=== PATIENT | female | born 1990 | race Caucasian/White ===

== ENCOUNTER 2017-09-27 00:30 | Emergency (ER) | payer SELFPAY ==
[2017-09-27] MEDS ORDERED: HYDROCODONE/CHLORPHEN 5 ML/OSYR ONE (01:50)
--- NOTE | 2017-09-27 02:14 | EDPHYS ---
Physician Documentation [facility] Name: Bette Palmer Age: 26 yrs Sex: Female : 1990 Arrival Date: 09/27/2017 Time: 00:31 Bed 25 Private MD: ED Physician Dilshad Newsome HPI: 09/27 02:00 This 26 yrs old Female presents to ER via Ambulatory with complaints of Body pm1 ache, Breathing Difficulty - Pain. 02:00 The patient or guardian reports cough, flu symptoms, arthralgias, low-grade fever. pm1 Onset: The symptoms/episode began/occurred 5 day(s) ago. Severity of symptoms: in the emergency department the symptoms are actually worse. Modifying factors: The symptoms are alleviated by nothing, the symptoms are aggravated by nothing. Associated signs and symptoms: Pertinent positives: earache, sore throat, Pertinent negatives: chest pain, nausea, vomiting. The patient has not recently seen a physician, and does not have an established primary care provider. 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 - Social history:: Smoking status: Patient uses tobacco products, vapes, Patient uses alcohol, but reports only rare drinking. Patient/guardian denies using street drugs. ROS: 02:00 Eyes: Negative for injury, pain, redness, and discharge. pm1 02:00 Neck: Negative for injury, pain, and swelling, Cardiovascular: Negative for chest pain, palpitations, and edema. 02:00 Abdomen/GI: Negative for abdominal pain, nausea, vomiting, diarrhea, and constipation, Back: Negative for injury and pain, : Negative for injury, bleeding, discharge, and swelling, MS/Extremity: Negative for injury and deformity, Skin: Negative for injury, rash, and discoloration, Neuro: Negative for headache, weakness, numbness, tingling, and seizure. 02:00 Constitutional: Positive for body aches, fever. 02:00 ENT: Positive for ear pain, rhinorrhea, Negative for sinus congestion, sinus pain. 02:00 Respiratory: Positive for cough, sputum, Negative for shortness of breath, wheezing. Exam: 02:00 Constitutional: This is a well developed, well nourished patient who is awake, alert, pm1 and in no acute distress. Head/Face: Normocephalic, atraumatic. Eyes: Pupils equal round and reactive to light, extra-ocular motions intact. Lids and lashes normal. Conjunctiva and sclera are non-icteric and not injected. Cornea within normal limits. Periorbital areas with no swelling, redness, or edema. ENT: Nares patent. No nasal discharge, no septal abnormalities noted. Tympanic membranes are normal and external auditory canals are clear. Oropharynx with no redness, swelling, or masses, exudates, or evidence of obstruction, uvula midline. Mucous membranes moist. Neck: Trachea midline, no thyromegaly or masses palpated, and no cervical lymphadenopathy. Supple, full range of motion without nuchal rigidity, or vertebral point tenderness. No Meningismus. Chest/axilla: Normal chest wall appearance and motion. Nontender with no deformity. No lesions are appreciated. Cardiovascular: Regular rate and rhythm with a normal S1 and S2. No gallops, murmurs, or rubs. No pulse deficits. Respiratory: Lungs have equal breath sounds bilaterally, clear to auscultation and percussion. No rales, rhonchi or wheezes noted. No increased work of breathing, no retractions or nasal flaring. Abdomen/GI: Soft, non-tender, with normal bowel sounds. No distension or tympany. No guarding or rebound. No evidence of tenderness throughout. Back: No spinal tenderness. No costovertebral tenderness. Full range of motion. Skin: Warm, dry with normal turgor. Normal color with no rashes, no lesions, and no evidence of cellulitis. MS/ Extremity: Pulses equal, no cyanosis. Neurovascular intact. Full, normal range of motion. 02:00 Neuro: Orientation: is normal, Motor: moves all fours. Vital Signs: 00:46 BP 123 / 85; Pulse 95; Resp 18 S; Temp 99.4(TE); Pulse Ox 100% on R/A; Weight 58.97 kg bb (R); Height 5 ft. 10 in. (177.80 cm) (R); Pain 9/10; 01:48 BP 128 / 84; Pulse 94; Resp 18; Pulse Ox 100% on R/A; mt 00:46 Body Mass Index 18.65 (58.97 kg, 177.80 cm) bb MDM: 00:52 Patient medically screened. pm1 02:12 Data reviewed: vital signs. Data interpreted: Pulse oximetry: on room air is 100 %. pm1 Interpretation: normal. 09/27 01:39 Order name: Urine Dipstick--Ancillary (enter results) 2 09/27 01:39 Order name: Urine --Ancillary (enter results) 2 09/27 01:05 Order name: Chest Pa And Lat (2 Views) XRAY pm1 09/27 01:05 Order name: Urine Dipstick-Ancillary (obtain specimen); Complete Time: 01:38 pm1 09/27 01:05 Order name: Urine Test (obtain specimen); Complete Time: 01:38 pm1 Administered Medications: 01:35 Drug: Tussionex Pennkinetic ER 5 ml Route: PO; kb1 Disposition: 03:58 Co-signature as Attending Physician, Dilshad Newsome MD I agree with the assessment and kdr plan of care. Disposition: 09/27/17 02:13 Patient left the facility after being seen by provider. Preliminary diagnosis is Acute upper respiratory infection, unspecified. - Patient left due to (see nurse's notes). - Condition is Undetermined. - Problem is new. - Symptoms are unchanged. Signatures: Dispatcher [employer] EDMS Dilshad Newsome MD MD [facility] Reta Blas RN RN bb Klaus Barrera, OZZY OVEN HEATER pm1 Kelsea Beckwith RN RN kb1
--- NOTE | 2017-09-27 02:14 | ER ---
Nurse's Notes [facility] Name: Bette Palmer Age: 26 yrs Sex: Female : 1990 Arrival Date: 09/27/2017 Time: 00:31 Bed 25 Private MD: Diagnosis: Acute upper respiratory infection, unspecified Presentation: 09/27 00:44 Presenting complaint: Patient states: she has productive cough, pain with coughing, bb body aches x 5 days thought it would get better but it is not. Transition of care: patient was not received from another setting of care. Onset of symptoms was September 22, 2017. Care prior to arrival: None. 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 - Social history:: Smoking status: Patient uses tobacco products, vapes, Patient uses alcohol, but reports only rare drinking. Patient/guardian denies using street drugs. Screenin:46 Abuse screen: Denies threats or abuse. Nutritional screening: No deficits noted. tl3 Tuberculosis screening: No symptoms or risk factors identified. Fall Risk None identified. Assessment: 00:46 General: Appears in no apparent distress. slender, well groomed, well developed, well tl3 nourished, Behavior is calm, cooperative, appropriate for age. Pain: Complains of pain in chest Pain currently is 8 out of 10 on a pain scale. Neuro: Level of Consciousness is awake, alert, obeys commands, Oriented to person, place, time, situation, Appropriate for age. Cardiovascular: Heart tones S1 S2 present Capillary refill < 3 seconds in bilateral fingers Rhythm is regular. Respiratory: Airway is patent Trachea midline Breath sounds are clear bilaterally. productive cough noted, pt states that pain is with coughing "feels like my lungs hurt". GI: No signs and/or symptoms were reported involving the gastrointestinal system. : No signs and/or symptoms were reported regarding the genitourinary system. EENT: Nares with drainage noted Reports nasal congestion nasal discharge full feeling in ears, unable to hear well. Derm: pt has small lesions to hands, one visualized on her chest. Musculoskeletal: No signs and/or symptoms reported regarding the musculoskeletal system. 01:36 Reassessment: Patient appears in no apparent distress at this time. Patient and/or kb1 family updated on plan of care and expected duration. Pain level reassessed. Patient is alert, oriented x 3, equal unlabored respirations, skin warm/dry/pink. 02:14 Reassessment: Pt placed friction saw operator Demetrice minor entered room to help Pt. Pt states kb1 "This monitor keeps going off, I can't stand it." Monitor turned off by staff. Pt then ask "how much longer? I'm tired of waiting." Demetrice MCCULLOUGHT came to station to check on results. Pt stormed out of room. This nurse asked Pt if she wanted to stay for her X-Ray results. States "No, I'm leaving." and continued to exit department. Klaus PRECIADO made aware. Vital Signs: 00:46 BP 123 / 85; Pulse 95; Resp 18 S; Temp 99.4(TE); Pulse Ox 100% on R/A; Weight 58.97 kg bb (R); Height 5 ft. 10 in. (177.80 cm) (R); Pain 9/10; 01:48 BP 128 / 84; Pulse 94; Resp 18; Pulse Ox 100% on R/A; mt 00:46 Body Mass Index 18.65 (58.97 kg, 177.80 cm) ED Course: 00:31 Patient arrived in ED. ds1 00:46 Triage completed. bb 00:46 No apparent distress. Resting quietly. Awaiting ED provider evaluation. tl3 00:46 Arm band placed on Patient placed in an exam room, on a stretcher, on pulse oximetry. bb Family accompanied patient. 00:46 Patient has correct armband on for positive identification. Bed in low position. Call tl3 light in reach. Side rails up X 1. 00:46 No provider procedures requiring assistance completed. tl3 00:52 Klaus Barrera NP is PHCP. pm1 00:52 Dilshad Newsome MD is Attending Physician. pm1 01:23 Kelsea Beckwith RN is Primary Nurse. kb1 01:23 Patient moved to radiology via wheelchair. kw 01:23 X-ray completed. Patient tolerated procedure well. kw 01:23 Patient moved back from radiology. kw 01:24 Chest Pa And Lat (2 Views) XRAY In Process Unspecified. EDMS Administered Medications: 01:35 Drug: Tussionex Pennkinetic ER 5 ml Route: PO; kb1 Outcome: 02:17 Eloped from patient exam room, after seeing physician kb1 02:17 Patient left the ED. kb1 Signatures: Dispatcher [employer] EDMS Natali Romeo ds1 Reta Blas, RN RN bb Dyan Avila Patrick, OZZY NUTRITION ASSOCIATE pm1 Demetrice White mt, Kristina, RN RN kb1 Domonique Fontanez RN RN tl3
[2017-09-27 03:01] LABS: Urine Blood NEGATIVE (NEG); Urine Glucose NEGATIVE (NEG); Urine Protein TRACE (NEG); Urine Specific Gravity 1.015 (1.005-1.030); Urine pH 6.5 (5.0-7.0)
--- NOTE | 2017-09-27 08:20 | RAD REPORT ---
EXAM DESCRIPTION: RAD - Chest Pa And Lat (2 Views) - 09/27/2017 1:26 am CLINICAL HISTORY: Productive cough COMPARISON: 12/10/2014 FINDINGS: The lungs are clear. The heart is normal in size. No displaced fractures. IMPRESSION: No acute or concerning finding suspected.
== END 2017-09-27 02:17 | disposition left against medical advice (07) ==
LOC: ER 00:30
DX: J06.9 Acute upper respiratory infection, unspecified (principal); R50.9 Fever, unspecified; Z72.0 Tobacco use
CPT/HCPCS: 71046; 81003; 81025; 99283

== ENCOUNTER 2018-02-26 21:38 | Emergency (ER) | payer SELFPAY ==
--- NOTE | 2018-02-26 23:14 | EDPHYS ---
Physician Documentation [facility] Name: Bette Palmer Age: 27 yrs Sex: Female : 1990 Arrival Date: 02/26/2018 Time: 21:38 Bed 17 Private MD: ED Physician Nicho Adler HPI: 02/26 23:21 This 27 yrs old Female presents to ER via Ambulatory with complaints of Sore tw4 Throat. 23:21 The patient presents with sore throat. The patient describes throat pain as burning. tw4 Onset: The symptoms/episode began/occurred today. Severity of symptoms: At their worst the symptoms were moderate, in the emergency department the symptoms are unchanged. Modifying factors: The symptoms are alleviated by nothing, the symptoms are aggravated by nothing. The patient has not experienced similar symptoms in the past. 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 - Social history:: Smoking status: Patient uses tobacco products, vapes. - Ebola Screening: : No symptoms or risks identified at this time. ROS: 23:22 Constitutional: Negative for fever, chills, and weight loss, Eyes: Negative for injury, tw4 pain, redness, and discharge. 23:22 ENT: Positive for sore throat. Exam: 23:22 Constitutional: This is a well developed, well nourished patient who is awake, alert, tw4 and in no acute distress. Head/Face: Normocephalic, atraumatic. Chest/axilla: Normal chest wall appearance and motion. Nontender with no deformity. No lesions are appreciated. Cardiovascular: Regular rate and rhythm with a normal S1 and S2. No gallops, murmurs, or rubs. Normal PMI, no JVD. No pulse deficits. Respiratory: Lungs have equal breath sounds bilaterally, clear to auscultation and percussion. No rales, rhonchi or wheezes noted. No increased work of breathing, no retractions or nasal flaring. Abdomen/GI: Soft, non-tender, with normal bowel sounds. No distension or tympany. No guarding or rebound. No evidence of tenderness throughout. MS/ Extremity: Pulses equal, no cyanosis. Neurovascular intact. Full, normal range of motion. 23:22 ENT: Posterior pharynx: erythema, that is mild. Vital Signs: 21:55 BP 123 / 76; Pulse 92; Resp 18; Temp 98.9(O); Pulse Ox 98% on R/A; Weight 54.43 kg (R); ak1 Height 5 ft. 10 in. (177.80 cm) (R); Pain 5/10; 23:23 BP 113 / 65; Pulse 89; Resp 14; Pulse Ox 99% ; bp 21:55 Body Mass Index 17.22 (54.43 kg, 177.80 cm) ak1 MDM: 21:56 Patient medically screened. tw4 23:22 Data reviewed: vital signs, nurses notes. Counseling: I had a detailed discussion with tw4 the patient and/or guardian regarding: the historical points, exam findings, and any diagnostic results supporting the discharge/admit diagnosis. Counseling: I had a detailed discussion with the patient and/or guardian regarding: lab results. Special discussion: I discussed with the patient/guardian in detail that at this point there is no indication for admission to the hospital. It is understood, however, that if the symptoms persist or worsen the patient needs to return immediately for re-evaluation. 02/26 22:12 Order name: Strep tw4 02/26 23:00 Order name: Throat Culture EDMS Administered Medications: No medications were administered Disposition: 02/26/18 23:13 Discharged to Home. Impression: Viral pharyngitis. - Condition is Stable. - Discharge Instructions: Pharyngitis, [id number]. - Medication Reconciliation Form, Thank You Letter, Antibiotic Education, Prescription Opioid Use form. - Follow up: Nicho Adler MD; When: Upon discharge from the Emergency Department; Reason: Further diagnostic work-up, Recheck today's complaints, Continuance of care. - Problem is new. - Symptoms have improved. Signatures: Dispatcher [employer] EDMS Judit Woodson RN RN ak1 Mohinder Gomes RN RN bp Nicho Adler MD MD tw4 Corrections: (The following items were deleted from the chart) 23:23 23:13 02/26/2018 23:13 Discharged to Home. Impression: Viral pharyngitis. Condition is bp Stable. Forms are Medication Reconciliation Form, Thank You Letter, Antibiotic Education, Prescription Opioid Use. Follow up: Nicho Adler; When: Upon discharge from the Emergency Department; Reason: Further diagnostic work-up, Recheck today's complaints, Continuance of care. Problem is new. Symptoms have improved. tw4
--- NOTE | 2018-02-26 23:14 | ER ---
Nurse's Notes [facility] Name: Bette Palmer Age: 27 yrs Sex: Female : 1990 Arrival Date: 02/26/2018 Time: 21:38 Bed 17 Private MD: Diagnosis: Viral pharyngitis Presentation: 02/26 21:53 Presenting complaint: Patient states: throat pain X1 day with nasal drainage, pressure ak1 in bilateral ears. pt daughter was seen and dx Monday with strep. Transition of care: patient was not received from another setting of care. Onset of symptoms is unknown. Risk Assessment: Do you want to hurt yourself or someone else? Patient reports no desire to harm self or others. Initial Sepsis Screen: Does the patient meet any 2 criteria? No. Patient's initial sepsis screen is negative. Does the patient have a suspected source of infection? No. Patient's initial sepsis screen is negative. Care prior to arrival: None. 21:53 Method Of Arrival: Ambulatory ak1 21:53 Acuity: NATASHA 4 ak1 Triage Assessment: 21:55 General: Appears in no apparent distress. Behavior is calm, cooperative. Pain: ak1 Complains of pain in throat. 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 - Social history:: Smoking status: Patient uses tobacco products, vapes. - Ebola Screening: : No symptoms or risks identified at this time. Screenin:56 Abuse screen: Denies threats or abuse. Denies injuries from another. Nutritional ak1 screening: No deficits noted. Tuberculosis screening: No symptoms or risk factors identified. Fall Risk None identified. Assessment: 21:56 Respiratory: Airway is patent Respiratory effort is even, unlabored. ak1 22:00 General: Appears in no apparent distress. comfortable, ill, slender, Behavior is calm, bp cooperative, appropriate for age. Neuro: Level of Consciousness is awake, alert, obeys commands, Oriented to person, place, time, situation, Appropriate for age. Cardiovascular: No deficits noted. Respiratory: Breath sounds are clear bilaterally. GI: No signs and/or symptoms were reported involving the gastrointestinal system. : No signs and/or symptoms were reported regarding the genitourinary system. EENT: Throat is clear. 23:22 Reassessment: PT D/C HOME AMBULATORY, DX WITH VIRAL PHARYNGITIS. bp Vital Signs: 21:55 BP 123 / 76; Pulse 92; Resp 18; Temp 98.9(O); Pulse Ox 98% on R/A; Weight 54.43 kg (R); ak1 Height 5 ft. 10 in. (177.80 cm) (R); Pain 5/10; 23:23 BP 113 / 65; Pulse 89; Resp 14; Pulse Ox 99% ; bp 21:55 Body Mass Index 17.22 (54.43 kg, 177.80 cm) ak1 ED Course: 21:38 Patient arrived in ED. ds1 21:54 Triage completed. ak1 21:55 Arm band placed on Patient placed in an exam room, on a stretcher, Patient notified of ak1 wait time. 21:55 Patient has correct armband on for positive identification. Bed in low position. Call ak1 light in reach. Side rails up X 1. 21:56 Nicho Adler MD is Attending Physician. tw4 22:12 Mohinder Gomes, RN is Primary Nurse. bp 23:12 Nicho Adler MD is Referral Physician. tw4 23:22 No provider procedures requiring assistance completed. Patient did not have IV access bp during this emergency room visit. Administered Medications: No medications were administered Outcome: 23:13 Discharge ordered by . tw4 23:22 Discharged to home ambulatory. bp 23:22 Condition: stable 23:22 Discharge instructions given to patient, Instructed on discharge instructions, follow up and referral plans. Demonstrated understanding of instructions, follow-up care. 23:23 Patient left the ED. bp Signatures: Natali Romeo ds1 Judit Woodson RN RN [facility] Mohinder Gomes, Nicho Betancur RN, MD MD tw4
== END 2018-02-26 23:23 | disposition home or self-care (01) ==
LOC: ER 21:38
DX: J02.9 Acute pharyngitis, unspecified (principal); Z72.0 Tobacco use
CPT/HCPCS: 87070; 87081; 99281

== ENCOUNTER 2018-05-03 11:27 | Emergency (ER) | payer OTHER, SELFPAY ==
--- NOTE | 2018-05-03 13:47 | ER ---
Nurse's Notes [facility] Name: Bette Palmer Age: 27 yrs Sex: Female : 1990 Arrival Date: 05/03/2018 Time: 11:30 Bed 11 Private MD: None, None Diagnosis: Acute upper respiratory infection, unspecified;Tobacco use;Tobacco abuse counseling Presentation: 05/03 11:32 Presenting complaint: Patient states: cough, congestion, nasal congestion x 2 days. sv Transition of care: patient was not received from another setting of care. Onset of symptoms was May 01, 2018. Care prior to arrival: None. 11:32 Method Of Arrival: Ambulatory sv 11:32 Acuity: NATASHA 3 sv 11:35 Note Pt currently . sv 13:10 Risk Assessment: Do you want to hurt yourself or someone else? Patient reports no aa5 desire to harm self or others. Initial Sepsis Screen: Does the patient meet any 2 criteria? No. Patient's initial sepsis screen is negative. Does the patient have a suspected source of infection? No. Patient's initial sepsis screen is negative. Triage Assessment: 11:32 General: Appears in no apparent distress. uncomfortable, slender, Behavior is calm, sv cooperative, appropriate for age. Pain: Denies pain. EENT: Reports nasal congestion. Neuro: Level of Consciousness is awake, alert, obeys commands, Oriented to person, place, time, situation, Moves all extremities. Full function. Respiratory: Reports cough that is persistent Respiratory effort is even, unlabored, Respiratory pattern is regular, symmetrical. Historical: - Allergies: 11:34 NKA; sv - PMHx: 11:34 None; sv - PSHx: 11:34 Tonsillectomy; sv - Immunization history:: Flu vaccine is not up to date. - Social history:: Smoking status: Patient uses tobacco products, vape. - Ebola Screening: : No symptoms or risks identified at this time. - Family history:: not pertinent. - Hospitalizations: : No recent hospitalization is reported. Screenin:10 Abuse screen: Denies threats or abuse. Nutritional screening: No deficits noted. aa5 Tuberculosis screening: No symptoms or risk factors identified. Fall Risk None identified. Assessment: 13:10 General: Appears comfortable, Behavior is calm, cooperative. Pain: Denies pain. Neuro: aa5 Level of Consciousness is awake, alert, obeys commands, Oriented to person, place, time, situation. Cardiovascular: Heart tones S1 S2 present Rhythm is regular. Respiratory: Reports cough and chest congestion Airway is patent Respiratory effort is even, unlabored, Respiratory pattern is regular, symmetrical, Breath sounds are clear bilaterally. GI: No signs and/or symptoms were reported involving the gastrointestinal system. : No signs and/or symptoms were reported regarding the genitourinary system. EENT: Reports nasal congestion. Derm: Skin is pink, warm \T\ dry. Musculoskeletal: Range of motion: intact in all extremities. 13:52 Reassessment: Patient is alert, oriented x 3, equal unlabored respirations, skin aa5 warm/dry/pink. Vital Signs: 11:35 BP 135 / 90; Pulse 83; Resp 16; Temp 98.2; Pulse Ox 100% ; Weight 58.97 kg; Height 5 sv ft. 10 in. (177.80 cm); Pain 0/10; 13:50 BP 122 / 85; Pulse 78; Resp 16 S; Temp 98.1(O); Pulse Ox 100% on R/A; Pain 0/10; aa5 11:35 Body Mass Index 18.65 (58.97 kg, 177.80 cm) sv ED Course: 11:30 Patient arrived in ED. mr 11:31 None, None is Private Physician. mr 11:33 Triage completed. sv 11:35 Arm band placed on. sv 11:35 Patient placed in waiting room, Patient notified of wait time. sv 13:10 Patient has correct armband on for positive identification. aa5 13:26 Jimena Mcpherson, BARAK is Primary Nurse. aa5 13:28 Adam[facility] kav 13:28 Fabrice Aleman MD is Attending Physician. kav 13:52 Patient did not have IV access during this emergency room visit. aa5 13:52 No provider procedures requiring assistance completed. aa5 Administered Medications: No medications were administered Outcome: 13:46 Discharge ordered by . kav 13:52 Discharged to home ambulatory. aa5 13:52 Condition: stable 13:52 Discharge instructions given to patient, Instructed on discharge instructions, follow up and referral plans. Demonstrated understanding of instructions, follow-up care. 13:55 Patient left the ED. aa5 Signatures: Stephanie Escalante RN RN sv Jose Manuel, Adamaris, CUPROUS CHLORIDE HELPER CUPROUS CHLORIDE HELPER kera Red, Roya mr Mcpherson, Jimena, RN RN aa5
--- NOTE | 2018-05-03 13:47 | EDPHYS ---
Physician Documentation [facility] Name: Bette Palmer Age: 27 yrs Sex: Female : 1990 Arrival Date: 05/03/2018 Time: 11:30 Bed 11 Private MD: None, None ED Physician Fabrice Aleman HPI: 05/03 13:40 This 27 yrs old Female presents to ER via Ambulatory with complaints of kav Congestion. 13:40 Onset: The symptoms/episode began/occurred acutely. Associated signs and symptoms: kav Pertinent positives: congestion, cough, Pertinent negatives: earache, fever, headache. Modifying factors: The patient symptoms are alleviated by nothing, the patient symptoms are aggravated by smoking/vaping. The patient has not experienced similar symptoms in the past. The patient has not recently seen a physician. patient reports that she is 6 weeks . 13:42 The patient or guardian reports cough, that is intermittent, described as moderate, kav with productive sputum, that is green. Modifying factors: The symptoms are alleviated by nothing. Associated signs and symptoms:. Severity of symptoms: At their worst the symptoms were moderate. Historical: - Allergies: 11:34 NKA; sv - PMHx: 11:34 None; sv - PSHx: 11:34 Tonsillectomy; sv - Immunization history:: Flu vaccine is not up to date. - Social history:: Smoking status: Patient uses tobacco products, vape. - Ebola Screening: : No symptoms or risks identified at this time. - Family history:: not pertinent. - Hospitalizations: : No recent hospitalization is reported. ROS: 13:43 Constitutional: Negative for fever, chills, and weight loss, Eyes: Negative for injury, kav pain, redness, and discharge, Neck: Negative for injury, pain, and swelling, Cardiovascular: Negative for chest pain, palpitations, and edema, Abdomen/GI: Negative for abdominal pain, nausea, vomiting, diarrhea, and constipation, Back: Negative for injury and pain, : Negative for injury, bleeding, discharge, and swelling, MS/Extremity: Negative for injury and deformity, Skin: Negative for injury, rash, and discoloration, Neuro: Negative for headache, weakness, numbness, tingling, and seizure, Psych: Negative for depression, anxiety, suicide ideation, homicidal ideation, and hallucinations, Allergy/Immunology: Negative for hives, rash, and allergies, Endocrine: Negative for neck swelling, polydipsia, polyuria, polyphagia, and marked weight changes, Hematologic/Lymphatic: Negative for swollen nodes, abnormal bleeding, and unusual bruising. 13:43 ENT: Positive for sinus congestion, Negative for sore throat. 13:43 Respiratory: Positive for cough, "sounds productive". Exam: 13:43 Constitutional: This is a well developed, well nourished patient who is awake, alert, kav and in no acute distress. Head/Face: Normocephalic, atraumatic. Eyes: Pupils equal round and reactive to light, extra-ocular motions intact. Lids and lashes normal. Conjunctiva and sclera are non-icteric and not injected. Cornea within normal limits. Periorbital areas with no swelling, redness, or edema. Neck: Trachea midline, no thyromegaly or masses palpated, and no cervical lymphadenopathy. Supple, full range of motion without nuchal rigidity, or vertebral point tenderness. No Meningismus. Chest/axilla: Normal chest wall appearance and motion. Nontender with no deformity. No lesions are appreciated. Cardiovascular: Regular rate and rhythm with a normal S1 and S2. No gallops, murmurs, or rubs. Normal PMI, no JVD. No pulse deficits. Abdomen/GI: Soft, non-tender, with normal bowel sounds. No distension or tympany. No guarding or rebound. No evidence of tenderness throughout. Back: No spinal tenderness. No costovertebral tenderness. Full range of motion. Skin: Warm, dry with normal turgor. Normal color with no rashes, no lesions, and no evidence of cellulitis. MS/ Extremity: Pulses equal, no cyanosis. Neurovascular intact. Full, normal range of motion. Neuro: Awake and alert, GCS 15, oriented to person, place, time, and situation. Cranial nerves II-XII grossly intact. Motor strength 5/5 in all extremities. Sensory grossly intact. Cerebellar exam normal. Normal gait. Psych: Awake, alert, with orientation to person, place and time. Behavior, mood, and affect are within normal limits. 13:43 ENT: External ear(s): are unremarkable, no acute changes, Ear canal(s): are normal, no acute changes, TM's: are normal, no acute changes, Nose: is normal, no acute changes, Posterior pharynx: no acute changes, Airway: Dental exam: dental caries, fractured teeth are noted, diffusely. 13:43 Respiratory: the patient does not display signs of respiratory distress, Respirations: normal, no acute changes, Breath sounds: bronchial sounds, that are mild, are heard diffusely. Vital Signs: 11:35 BP 135 / 90; Pulse 83; Resp 16; Temp 98.2; Pulse Ox 100% ; Weight 58.97 kg; Height 5 sv ft. 10 in. (177.80 cm); Pain 0/10; 13:50 BP 122 / 85; Pulse 78; Resp 16 S; Temp 98.1(O); Pulse Ox 100% on R/A; Pain 0/10; aa5 11:35 Body Mass Index 18.65 (58.97 kg, 177.80 cm) sv MDM: 13:28 Medical screening is not applicable. [facility] 13:43 Data reviewed: vital signs, nurses notes. [facility] 05/03 11:35 Order name: Flu; Complete Time: 13:28 sv 05/03 13:28 Interpretation: Within normal limits. kav Administered Medications: No medications were administered Disposition: 18:48 Co-signature as Attending Physician, Fabrice Aleman MD. rn Disposition: 05/03/18 13:46 Discharged to Home. Impression: Acute upper respiratory infection, unspecified, Tobacco use, Tobacco abuse counseling. - Condition is Stable. - Discharge Instructions: Upper Respiratory Infection, Adult. - Medication Reconciliation Form, Thank You Letter form. - Follow up: Private Physician; When: 5 - 6 days; Reason: Recheck today's complaints, Continuance of care, Re-evaluation by your physician. - Problem is new. - Symptoms are unchanged. - Notes: over the counter pseudophederine as directed by your obgyn encourage adequate fluid intake abstain from smoking/vaping Signatures: Dispatcher [employer] Stephanie Reardon RN Adamaris Lama, BUSINESS ANALYST CONSULTANT BUSINESS ANALYST CONSULTANT Fabrice Carballo MD MD rn Calderon, Audri, RN RN aa5 Corrections: (The following items were deleted from the chart) 13:48 13:46 05/03/2018 13:46 Discharged to Home. Impression: Acute upper respiratory kav infection, unspecified. Condition is Stable. Forms are Medication Reconciliation Form, Thank You Letter, Antibiotic Education, Prescription Opioid Use. Follow up: Private Physician; When: 5 - 6 days; Reason: Recheck today's complaints, Continuance of care, Re-evaluation by your physician. Problem is new. Symptoms are unchanged. kav 13:55 13:48 05/03/2018 13:46 Discharged to Home. Impression: Acute upper respiratory aa5 infection, unspecified; Tobacco use; Tobacco abuse counseling. Condition is Stable. Discharge Instructions: Upper Respiratory Infection, Adult. Forms are Medication Reconciliation Form, Thank You Letter, Antibiotic Education. Follow up: Private Physician; When: 5 - 6 days; Reason: Recheck today's complaints, Continuance of care, Re-evaluation by your physician. Problem is new. Symptoms are unchanged. kav
== END 2018-05-03 13:55 | disposition home or self-care (01) ==
LOC: ER 11:27
DX: J06.9 Acute upper respiratory infection, unspecified (principal); O99.331 Smoking (tobacco) complicating pregnancy, first trimester; Z3A.01 Less than 8 weeks gestation of pregnancy; Z71.6 Tobacco abuse counseling
CPT/HCPCS: 87804; 99281

== ENCOUNTER 2018-10-28 17:57 | Emergency (ER) | payer OTHER ==
--- OUTSIDE RECORDS SUMMARY | 2018-10-28 17:59 | XMS REPORT ---
:1990 [facility] Address [address] [place] [address] Dr. Jay. [address] [place] [id number] Care Team Providers Name Role Phone Unavailable Unavailable Unavailable Problems This patient has no known problems. Allergies, Adverse Reactions, Alerts This patient has no known allergies or adverse reactions. Medications This patient has no known medications.
--- NOTE | 2018-10-28 19:21 | ER ---
Nurse's Notes [facility] Name: Bette Palmer Age: 27 yrs Sex: Female : 1990 Arrival Date: 10/28/2018 Time: 17:59 Bed 20 Private MD: Diagnosis: Acute pharyngitis Presentation: 10/28 18:07 Presenting complaint: Patient states: I am 31 weeks and have had a sore throat la1 since yesterday. Transition of care: patient was not received from another setting of care. Onset of symptoms was October 28, 2018. Risk Assessment: Do you want to hurt yourself or someone else? Patient reports no desire to harm self or others. Initial Sepsis Screen: Does the patient meet any 2 criteria? No. Patient's initial sepsis screen is negative. Does the patient have a suspected source of infection? No. Patient's initial sepsis screen is negative. Care prior to arrival: None. 18:07 Method Of Arrival: Ambulatory la1 18:07 Acuity: NATASHA 4 la1 Historical: - Allergies: 18:08 NKA; la1 - PMHx: 18:08 None; la1 - Immunization history:: Adult Immunizations up to date. - Social history:: Smoking status: Patient/guardian denies using tobacco. - Ebola Screening: : No symptoms or risks identified at this time. Screenin:25 Abuse screen: Denies threats or abuse. Nutritional screening: No deficits noted. em Tuberculosis screening: No symptoms or risk factors identified. Fall Risk None identified. Assessment: 18:25 General: Appears in no apparent distress. comfortable, Behavior is calm, cooperative, em Denies fever. Pain: Complains of pain in sore throat. Neuro: Level of Consciousness is awake, alert, obeys commands, Oriented to person, place, time, situation. Cardiovascular: Capillary refill < 3 seconds Patient's skin is warm and dry. Respiratory: Reports cough that is non-productive, Airway is patent Respiratory effort is even, unlabored, Respiratory pattern is regular, symmetrical, Breath sounds are clear bilaterally. GI: Patient currently denies nausea, vomiting. EENT: Oral mucosa is moist. Throat is clear is pink Reports nasal congestion. Derm: Skin is intact, is healthy with good turgor, Skin is pink, warm \T\ dry. Musculoskeletal: Capillary refill < 3 seconds, Range of motion: intact in all extremities. Vital Signs: 18:08 BP 132 / 78; Pulse 95; Resp 18; Temp 98.1; Pulse Ox 98% on R/A; Weight 77.11 kg; Height la1 5 ft. 10 in. (177.80 cm); 19:10 BP 113 / 66; Pulse 90; Resp 18; Temp 98.3; Pulse Ox 100% on R/A; rr5 18:08 Body Mass Index 24.39 (77.11 kg, 177.80 cm) la1 Vitals: 18:37 Heart Tones 160 BPM. em ED Course: 17:59 Patient arrived in ED. as 18:08 Triage completed. la1 18:09 Arm band placed on left wrist. la1 18:10 Klaus Barrera NP is PHCP. pm1 18:10 Fabrice Aleman MD is Attending Physician. pm1 18:25 Kameron Nelson LVN is Primary Nurse. em 18:25 Patient has correct armband on for positive identification. Bed in low position. Call em light in reach. 18:25 Flu and/or RSV swab sent to lab. Strep swab sent to lab. em Administered Medications: No medications were administered Outcome: 19:21 Discharge ordered by MD. pm1 19:42 Patient left the ED. rr5 Signatures: Kameron Nelson LVN LVN em Kimberlyn Lang as Zachery Delaney RN RN la1 Klaus Barrera NP MANUFACTURING MANAGER pm1 Stefano Bauer RN RN rr5 Corrections: (The following items were deleted from the chart) 18:10 18:08 BP 141 / 72; Pulse 95bpm; Resp 18bpm; Pulse Ox 98% RA; Temp 98.1F; 77.11 kg; la1 Height 5 ft. 10 in.; BMI: 24.3; la1
--- NOTE | 2018-10-28 19:21 | EDPHYS ---
Physician Documentation [facility] Name: Bette Palmer Age: 27 yrs Sex: Female : 1990 Arrival Date: 10/28/2018 Time: 17:59 Bed 20 Private MD: ED Physician Fabrice Aleman HPI: 10/28 19:20 This 27 yrs old Female presents to ER via Ambulatory with complaints of Sore pm1 Throat. 19:30 The patient presents with sore throat. The patient describes throat pain as raw, pm1 scratchy. Onset: The symptoms/episode began/occurred yesterday. Severity of symptoms: in the emergency department the symptoms are unchanged. Modifying factors: The symptoms are alleviated by nothing, the symptoms are aggravated by swallowing, Patient's oral intake status: good unaware of sick contact. Associated signs and symptoms: Pertinent negatives chest pain, cough, diarrhea, earache, fever, flu-like symptoms, headache, shortness of breath, vomiting. The patient has not recently seen a physician, has an appointment scheduled, in 3 day(s). Historical: - Allergies: 18:08 NKA; la1 - PMHx: 18:08 None; la1 - Immunization history:: Adult Immunizations up to date. - Social history:: Smoking status: Patient/guardian denies using tobacco. - Ebola Screening: : No symptoms or risks identified at this time. ROS: 19:30 Constitutional: Negative for fever, chills, and weight loss, Eyes: Negative for injury, pm1 pain, redness, and discharge. 19:30 Neck: Negative for injury, pain, and swelling, Cardiovascular: Negative for chest pain, palpitations, and edema, Respiratory: Negative for shortness of breath, cough, wheezing, and pleuritic chest pain, Abdomen/GI: Negative for abdominal pain, nausea, vomiting, diarrhea, and constipation, Back: Negative for injury and pain, : Negative for injury, bleeding, discharge, and swelling, MS/Extremity: Negative for injury and deformity, Skin: Negative for injury, rash, and discoloration, Neuro: Negative for headache, weakness, numbness, tingling, and seizure. 19:30 ENT: Positive for sore throat, Negative for drainage from ear(s), ear pain, sinus congestion, sinus pain, dental pain, difficulty swallowing, difficulty handling secretions, hoarseness. Exam: 19:30 Constitutional: This is a well developed, well nourished patient who is awake, alert, pm1 and in no acute distress. Head/Face: Normocephalic, atraumatic. Eyes: Pupils equal round and reactive to light, extra-ocular motions intact. Lids and lashes normal. Conjunctiva and sclera are non-icteric and not injected. Cornea within normal limits. Periorbital areas with no swelling, redness, or edema. ENT: Nares patent. No nasal discharge, no septal abnormalities noted. Tympanic membranes are normal and external auditory canals are clear. Oropharynx with no redness, swelling, or masses, exudates, or evidence of obstruction, uvula midline. Mucous membranes moist. Neck: Trachea midline, no thyromegaly or masses palpated, and no cervical lymphadenopathy. Supple, full range of motion without nuchal rigidity, or vertebral point tenderness. No Meningismus. Chest/axilla: Normal chest wall appearance and motion. Nontender with no deformity. No lesions are appreciated. Cardiovascular: Regular rate and rhythm with a normal S1 and S2. No gallops, murmurs, or rubs. Normal PMI, no JVD. No pulse deficits. Respiratory: Lungs have equal breath sounds bilaterally, clear to auscultation and percussion. No rales, rhonchi or wheezes noted. No increased work of breathing, no retractions or nasal flaring. Back: No spinal tenderness. No costovertebral tenderness. Full range of motion. 19:30 Skin: Warm, dry with normal turgor. Normal color with no rashes, no lesions, and no evidence of cellulitis. MS/ Extremity: Pulses equal, no cyanosis. Neurovascular intact. Full, normal range of motion. 19:30 Abdomen/GI: Inspection: gravid appearance, is noted, Palpation: abdomen is soft and non-tender, in all quadrants. 19:30 Neuro: Orientation: is normal, Motor: is normal, moves all fours, Gait: is steady, at a normal pace, without difficulty. Vital Signs: 18:08 BP 132 / 78; Pulse 95; Resp 18; Temp 98.1; Pulse Ox 98% on R/A; Weight 77.11 kg; Height la1 5 ft. 10 in. (177.80 cm); 19:10 BP 113 / 66; Pulse 90; Resp 18; Temp 98.3; Pulse Ox 100% on R/A; rr5 18:08 Body Mass Index 24.39 (77.11 kg, 177.80 cm) la1 MDM: 18:11 Patient medically screened. pm1 18:29 Data reviewed: vital signs. Data interpreted: Pulse oximetry: on room air is 98 %. pm1 Interpretation: normal. 19:20 Counseling: I had a detailed discussion with the patient and/or guardian regarding: the pm1 historical points, exam findings, and any diagnostic results supporting the discharge/admit diagnosis, lab results, the need for outpatient follow up, to return to the emergency department if symptoms worsen or persist or if there are any questions or concerns that arise at home. 10/28 18:18 Order name: Flu pm1 10/28 18:18 Order name: Strep; Complete Time: 19:20 pm1 10/28 18:18 Order name: FHT's; Complete Time: 18:37 pm1 10/28 18:19 Order name: Influenza Screen (A ; Complete Time: 19:20 EDMS 10/28 18:58 Order name: Throat Culture EDMS Administered Medications: No medications were administered Disposition: 10/28/18 19:21 Discharged to Home. Impression: Acute pharyngitis. - Condition is Stable. - Discharge Instructions: Pharyngitis. - Medication Reconciliation Form, Thank You Letter, Antibiotic Education, Prescription Opioid Use form. - Follow up: Emergency Department; When: As needed; Reason: Worsening of condition. Follow up: Private Physician; When: 2 - 3 days; Reason: Recheck today's complaints, Continuance of care, Re-evaluation by your physician. - Problem is new. - Symptoms have improved. Signatures: Dispatcher [employer] EDMS Zachery Delaney RN RN la1 Klaus Barrera, OZZY ENTRY LEVEL SALES CONSULTANT pm1 Stefano Bauer RN RN rr5 Corrections: (The following items were deleted from the chart) 18:29 18:29 Counseling: I had a detailed discussion with the patient and/or guardian pm1 regarding: the historical points, exam findings, and any diagnostic results supporting the discharge/admit diagnosis, lab results, the need for outpatient follow up, to return to the emergency department if symptoms worsen or persist or if there are any questions or concerns that arise at home, pm1 19:42 19:21 10/28/2018 19:21 Discharged to Home. Impression: Acute pharyngitis. Condition is rr5 Stable. Forms are Medication Reconciliation Form, Thank You Letter, Antibiotic Education, Prescription Opioid Use. Follow up: Emergency Department; When: As needed; Reason: Worsening of condition. Follow up: Private Physician; When: 2 - 3 days; Reason: Recheck today's complaints, Continuance of care, Re-evaluation by your physician. Problem is new. Symptoms have improved. pm1
== END 2018-10-28 19:42 | disposition home or self-care (01) ==
LOC: ER 17:57
DX: J02.9 Acute pharyngitis, unspecified (principal)
CPT/HCPCS: 87070; 87081; 87804

== ENCOUNTER 2021-03-22 07:31 | Emergency (ER) | payer OTHER, SELFPAY ==
--- NOTE | 2021-03-22 07:54 | ER ---
Nurse's Notes [facility] Name: Bette Palmer Age: 30 yrs Sex: Female : 1990 Arrival Date: 03/22/2021 Time: 07:34 Bed Waiting Private MD: Diagnosis: Dental caries, unspecified;Acute gingivitis Presentation: 03/22 07:42 Chief complaint: Patient states: Lower left third molar chipped and infected, pain x 3 jl7 days. Coronavirus screen: Vaccine status: Patient reports being unvaccinated. Ebola Screen: No symptoms or risks identified at this time. Initial Sepsis Screen: Does the patient meet any 2 criteria? No. Patient's initial sepsis screen is negative. Does the patient have a suspected source of infection? No. Patient's initial sepsis screen is negative. Risk Assessment: Do you want to hurt yourself or someone else? Patient reports no desire to harm self or others. Onset of symptoms was March 20, 2021. 07:42 Method Of Arrival: Ambulatory jl7 07:42 Acuity: NATASHA 4 jl7 Triage Assessment: 07:45 General: Appears in no apparent distress. uncomfortable, Behavior is calm, cooperative, jl7 appropriate for age. Pain: Complains of pain in lower left third molar Pain radiates to throat Pain currently is 7 out of 10 on a pain scale. EENT: Reports pain in lower left third molar. DRIVER EXAMINER: 07:45 LMP 02/19/2021 jl7 Historical: - Allergies: 07:45 NKA; jl7 - Home Meds: 07:45 None [Active]; jl7 - PMHx: 07:45 None; jl7 - PSHx: 07:45 Tonsillectomy; jl7 - Immunization history:: Adult Immunizations not up to date, Client reports having NOT received the Covid vaccine. - Social history:: Smoking status: Reported history of juuling and/or vaping. - Family history:: not pertinent. - Hospitalizations: : No recent hospitalization is reported. Screenin:47 Abuse screen: Denies threats or abuse. Denies injuries from another. Nutritional jl7 screening: No deficits noted. Tuberculosis screening: No symptoms or risk factors identified. Fall Risk None identified. Assessment: 07:47 Reassessment: Dr. Aleman in triage assessing pt. jl7 Vital Signs: 07:42 BP 114 / 79; Pulse 79; Resp 15; Temp 98; Pulse Ox 100% on R/A; Weight 68.04 kg; Height jl7 5 ft. 10 in. (177.80 cm); Pain 7/10; 07:45 BP 114 / 79; Pulse 79; Resp 15; Temp 98; Pulse Ox 100% ; Pain 7/10; jl7 07:42 Body Mass Index 21.52 (68.04 kg, 177.80 cm) jl7 ED Course: 07:34 Patient arrived in ED. rg4 07:39 Fabrice Aleman MD is Attending Physician. rn 07:45 Triage completed. jl7 07:45 Arm band placed on right wrist. jl7 07:47 Patient has correct armband on for positive identification. jl7 07:47 No provider procedures requiring assistance completed. Patient did not have IV access jl7 during this emergency room visit. 07:55 Amarilys Villatoro, RN is Primary Nurse. jl7 Administered Medications: No medications were administered Outcome: 07:53 Discharge ordered by . rn 07:58 Discharged to home ambulatory. jl7 07:58 Condition: stable 07:58 Discharge instructions given to patient, Instructed on discharge instructions, follow up and referral plans. medication usage, Demonstrated understanding of instructions, follow-up care, medications, Prescriptions given X 1. 07:59 Patient left the ED. jl7 Signatures: Fabrice Aleman MD MD rn Garcia, Rubi rg4 Amarilys Villatoro, BARAK RN [id number] Corrections: (The following items were deleted from the chart) 07:46 07:45 PSHx: Vasectomy; jl7 jl7
--- NOTE | 2021-03-22 07:54 | EDPHYS ---
Physician Documentation [facility] Name: Bette Palmer Age: 30 yrs Sex: Female : 1990 Arrival Date: 03/22/2021 Time: 07:34 Bed Waiting Private MD: ED Physician Fabrice Aleman HPI: 03/22 07:49 This 30 yrs old Female presents to ER via Ambulatory with complaints of rn Toothache. 07:49 The patient presents with pain, swelling. The problem is located in the lower left rn third molar. Onset: The symptoms/episode began/occurred at an unknown time. Duration: The symptoms are intermittent. Modifying factors: The symptoms are alleviated by nothing, the symptoms are aggravated by chewing, cold fluids. Associated signs and symptoms: Pertinent positives: pain, swelling, Pertinent negatives: fever, inability to eat. Severity of symptoms: At their worst the symptoms were moderate, in the emergency department the symptoms are unchanged. The patient has experienced similar episodes in the past. The patient has not recently seen a physician. Patient reports longstanding dental problems, states left posterior lower molar has been bothering her more last few days. Denies any new trauma. States no money to get in with the dentist. Area is a little swollen and painful to chew and drink. No fever. Able to swallow.. 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 - Social history:: Smoking status: Reported history of juuling and/or vaping. - Family history:: not pertinent. - Hospitalizations: : No recent hospitalization is reported. ROS: 07:49 Constitutional: Negative for fever, chills, and weight loss, Eyes: Negative for injury, rn pain, redness, and discharge, ENT: Positive for dental pain and swelling Neck: Negative for injury, pain, and swelling, Cardiovascular: Negative for chest pain, palpitations, and edema, Respiratory: Negative for shortness of breath, cough, wheezing, and pleuritic chest pain, Neuro: Negative for headache, weakness, numbness, tingling, and seizure. Exam: 07:49 Constitutional: This is a well developed, well nourished patient who is awake, alert, rn and in no acute distress. Head/Face: Normocephalic, atraumatic. ENT: Poor general dentition. Left inferior posterior molar with moderate swelling of gum, no drainage, no palpable abscess. Vital Signs: 07:42 BP 114 / 79; Pulse 79; Resp 15; Temp 98; Pulse Ox 100% on R/A; Weight 68.04 kg; Height jl7 5 ft. 10 in. (177.80 cm); Pain 7/10; 07:45 BP 114 / 79; Pulse 79; Resp 15; Temp 98; Pulse Ox 100% ; Pain 7/10; jl7 07:42 Body Mass Index 21.52 (68.04 kg, 177.80 cm) jl7 MDM: 07:39 Patient medically screened. rn 07:49 Differential diagnosis: dental caries, gingivitis, dental abscess. Data reviewed: vital rn signs, nurses notes, and as a result, I will discharge patient. Counseling: I had a detailed discussion with the patient and/or guardian regarding: the historical points, exam findings, and any diagnostic results supporting the discharge/admit diagnosis, the need for outpatient follow up, to return to the emergency department if symptoms worsen or persist or if there are any questions or concerns that arise at home. Special discussion: I discussed with the patient/guardian in detail that at this point there is no indication for admission to the hospital. It is understood, however, that if the symptoms persist or worsen the patient needs to return immediately for re-evaluation. Based on the history and exam findings, there is no indication for further emergent testing or inpatient evaluation. I discussed with the patient/guardian the need to see a dentist for further evaluation of the symptoms. Administered Medications: No medications were administered Disposition Summary: 03/22/21 07:53 Discharge Ordered Location: Home rn Problem: an ongoing problem rn Symptoms: have improved rn Condition: Stable rn Diagnosis - Dental caries, unspecified rn - Acute gingivitis rn Followup: rn - With: Private Physician - When: As needed - Reason: Recheck today's complaints, Re-evaluation by your physician Discharge Instructions: - Discharge Summary Sheet rn - Dental Caries, Adult rn - Dental Pain rn Forms: - Medication Reconciliation Form rn - Thank You Letter rn - Antibiotic anesthesiology crna - Prescription Opioid Use rn Prescriptions: - Clindamycin HCl 300 mg Oral Capsule - take 1 capsule by ORAL route every 6 hours for 10 days; 40 capsule; Refills: 0, rn Product Selection Permitted Signatures: Fabrice Aleman MD MD rn Leal, Jahala, RN RN jl7 Corrections: (The following items were deleted from the chart) 07:46 07:45 PSHx: Vasectomy; delon jl7
[2021-03-22 08:06] VITALS: BP 114/79; TEMP 98; O2SAT 100
== END 2021-03-22 07:59 | disposition home or self-care (01) ==
LOC: ER 07:31
DX: K02.9 Dental caries, unspecified (principal); K05.00 Acute gingivitis, plaque induced
CPT/HCPCS: 99282

== ENCOUNTER 2021-10-25 08:00 | Emergency (ER) | payer OTHER ==
--- OUTSIDE RECORDS SUMMARY | 2021-10-25 08:03 | XMS REPORT | Continuity of Care Document ---
:[address] 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 3-24 it y of ve ve 00:00: [address] Pap smear Pap smear Disease Active 2019-07 Uni vers of cervix of cervix 0-26 ity of with with 00:00: [place] ASCUS, ASCUS, 00 Medical cannot cannot Branch exclude exclude 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 1-07 [place] ([place]OB[place] (ROBYN II) 00 Medica l Branch Cervical Cervical Disease Active 2018-07 Unive rs high risk high risk 1-07 ity of human human 00:00: [place] papillomav papillomav 00 Me dical irus (HPV) irus (HPV) Br anch DNA test DNA test positive positive Nexplanon Nexplanon Disease Active Uni vers insertion insertion 01-30 ity of 00:00: [address] At risk At risk Disease Active Univers for dental for dental 01-30 it y of problems problems 00:00: [address] Branch Former Former Disease Active 2017-07 Univers smoker smoker 07-31 ity of 00:00: [place] 00 Medical Branch Papanicola Papanicola Disease Active Overview : Univers ou smear ou smear 5-24 Formattin ity of of cervix of cervix 00:00: [place] with low with low 00 note Medica l grade grade might be Branch squamous squamous different intraepith intraepith from the elial elial original. lesion lesion 02/27/2019 (LGSIL) (LGSIL) - Satisfact ory colpo- ROBYN 2 on ECC2018- LEEP done Abnormal Abnormal Disease Active Unive rs glandular glandular 5-24 ity of Papan[place] smear 00 Medica l of cervix of cervix Bran ch Allergies, Adverse Reactions, Alerts Allergy Allergy Status Severity Reaction(s) Onset Inactive Treating Comm ents Source Name Type Date Date Clinician NO KNOWN Drug Active Univers ALLERGIE Class ity of S [facility] Social History Social Habit Start Date Stop Date Quantity Comments Source Exposure to Not sure [facility] SARS-CoV-2 [place] [facility] (event) Branch Alcohol intake 2021-07-14 2021-07-14 Current University of 00:00:00 00:00:00 non-drinker of [facility] alcohol (finding) Branch Tobacco use and 2018-05-04 2018-05-04 Never used Universit y of exposure 00:00:00 00:00:00 [facility] Tobacco Comment 2017-11-23 2017-11-23 vapes daily Universi ty of 00:00:00 00:00:00 [facility] History of 2017-05-04 Cigarette Smoker Universi ty of tobacco use 00:00:00 [facility] Sex Ass[birth year] At [birth year] Universit y of 00:00:00 00:00:00 [facility] Smoking Status Start Date Stop Date Source Former smoker 2018-05-04 00:00:00 2018-05-04 00:00:00 Universi ty of [facility] Medications Ordered Filled Start Stop Current Ordering Indication Dosage Frequency Signature Comments Components Source Medication Medication Date Date Medication? Clinician (SIG) Name Name etonogestre 2021- No [id number] 68mg Univers L 07-14 ity of (NEXPLANON) 17:15: 16:13 [place] implant 68 00 :00 Medical mg Branch etonogestre 2021- No [id number] 68mg 68 mg, Univers L 07-14 Subdermal, ity of (NEXPLANON) 17:15: 16:13 ONCE NOW, [place] implant 68 00 :00 1 dose, On Med ical mg Wed Branch 07/14/21 at 1115, Routine
Use approved by: FAMILY PRACTICE MEDICAL DOCTOR Immunizations Ordered Filled Immunization Date Status Comments [facility] e Immunization Name Name Influenza Virus 2021-07-09 Completed Universit y of Vaccine Quad IM, 00:00:00 [facility] dical Preserv and ABX Branch Free 6 MO-64 YRS Influenza Virus 2020-04-16 Completed Universit y of Vaccine Quad .5 mL 00:00:00 [place] [facility] IM 6+ MO Branch Influenza Virus 2018-10-03 Completed Universit y of Vaccine Quad .5 mL 00:00:00 [facility] 6+ MO Branch TDAP 2018-10-03 Completed University of 00:00:00 [facility] HPV9 2017-11-23 Completed University of 00:00:00 [facility] HPV9 2017-01-24 Completed University of 00:00:00 [facility] HPV9 2016-11-09 Completed University of 00:00:00 [facility] Rubella 2009-10-26 Completed University of 00:00:00 [facility] Varicella 2009-10-26 Completed University of (varivax)(chicken 00:00:00 [place] [facility] edical pox) Branch Td 2007-07-03 Completed University of 00:00:00 [facility] Vital Signs Vital Name Observation Time Observation Value Comments Source Systolic blood 2021-07-14 15:48:00 124 mm[Hg] Univer sity of pressure [facility] Diastolic blood 2021-07-14 15:48:00 82 mm[Hg] Unive rsity of pressure [facility] Heart rate 2021-07-14 15:48:00 82 /min [facility] Body temperature 2021-07-14 15:48:00 36.56 Cyndi [facility] Respiratory rate 2021-07-14 15:48:00 16 /min [facility] Body height 2021-07-14 15:48:00 177.8 cm [facility] Body weight 2021-07-14 15:48:00 69.809 kg [facility] BMI 2021-07-14 15:48:00 22.08 kg/m2 [facility] Procedures Procedure Date / Time Performed Performing Clinician Gunjan weaver POCT TEST 2021-07-14 16:03:00 Jean-Claude Ghotra [facility] Encounters Start End Encounter Admission Attending Care Care Encounter Source Date/Time Date/Time Type Type Clinicians Facility Department ID 2021-11-15 2021-11-15 Outpatient BRANDIN [facility] [id number] Univers 10:30:00 10:30:00 JEAN-CLAUDE [id number] [facility] 2021-11-15 2021-11-15 Outpatient R BRANDIN [facility] [id number] Univers 10:30:00 10:30:00 JEAN-CLAUDE cash [facility] 2021-07-14 2021-07-14 Outpatient R BRANDIN [facility] [id number] Univers 09:45:00 10:16:40 JEAN-CLAUDE cash [facility] 2021-07-14 2021-07-14 [facility] [id number] Univers 09:45:00 10:15:00 Visit Jean-Claude Hahn FAMILY PRACTICE MEDICAL DOCTOR [id number] [facility] [id number] Get as MATERNAL [id number] Med ical & CHILD [address] [place] [address] Results Test Description Test Time Test Comments Results Result Comments Source POCT TEST 2021-07-14 16:03:00 Test Item Value Reference Range Interpretation Comme nts POCT PREG (test code = 1605) Negative On board controls acceptable with C Line (test code = 3574) Yes POCT PREG LOT # (test code = 3575) POCT PREG TEST DATE (test code = 3576) [facility]
--- NOTE | 2021-10-25 08:37 | ER ---
Nurse's Notes [facility] Name: Bette Palmer Age: 30 yrs Sex: Female : 1990 Arrival Date: 10/25/2021 Time: 08:13 Bed 11 Private MD: Diagnosis: Acute frontal sinusitis Presentation: 10/25 08:17 Chief complaint: Patient states: has a lot of pressure in her head since yesterday, iw worse when he bends over, feels like a sinus infection. Coronavirus screen: At this time, the client does not indicate any symptoms associated with coronavirus-19. Ebola Screen: Patient negative for fever greater than or equal to 101.5 degrees Fahrenheit, and additional compatible Ebola Virus Disease symptoms Patient denies exposure to infectious person. Patient denies travel to an Ebola-affected area in the 21 days before illness onset. No symptoms or risks identified at this time. Initial Sepsis Screen: Does the patient meet any 2 criteria? No. Patient's initial sepsis screen is negative. Does the patient have a suspected source of infection? No. Patient's initial sepsis screen is negative. Risk Assessment: Do you want to hurt yourself or someone else? Patient reports no desire to harm self or others. Onset of symptoms was October 24, 2021. 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 - Social history:: Smoking status: Reported history of juuling and/or vaping. Screenin:22 Abuse screen: Denies threats or abuse. Denies injuries from another. Nutritional iw screening: No deficits noted. Tuberculosis screening: No symptoms or risk factors identified. Fall Risk None identified. Assessment: 08:21 General: Appears in no apparent distress. Behavior is calm, cooperative. Pain: iw Complains of pain in head. Neuro: Level of Consciousness is awake, alert, obeys commands, Oriented to person, place, time, situation, Moves all extremities. Full function. Cardiovascular: Patient's skin is warm and dry. Respiratory: Respiratory effort is even, unlabored, Respiratory pattern is regular. Derm: Skin is intact, is healthy with good turgor. Musculoskeletal: Range of motion: intact in all extremities. Vital Signs: 08:17 BP 116 / 88; Pulse 72; Resp 16; Temp 98.3; Pulse Ox 98% on R/A; Weight 72.57 kg; Height iw 5 ft. 11 in. (180.34 cm); 08:17 Body Mass Index 22.32 (72.57 kg, 180.34 cm) iw ED Course: 08:13 Patient arrived in ED. am2 08:18 Triage completed. iw 08:19 Ruby Clement, RN is Primary Nurse. iw 08:19 Arm band placed on. iw 08:24 Mundo Caban PA is PHCP. sydnie 08:24 Fabrice Aleman MD is Attending Physician. [facility] Administered Medications: 08:39 Drug: Decadron (dexamethasone) 10 mg Route: IM; Site: right ventrogluteal; iw 09:00 Follow up: Response: No adverse reaction iw Outcome: 08:36 Discharge ordered by . jerald 09:04 Patient left the ED. [facility] Signatures: Mundo Caban PA PA jmm Williams, Irene, BARAK RN Louisa Lang [facility] Cyn Arizmendi [facility]
--- NOTE | 2021-10-25 08:37 | EDPHYS ---
Physician Documentation [facility] Name: Bette Palmer Age: 30 yrs Sex: Female : 1990 Arrival Date: 10/25/2021 Time: 08:13 Bed 11 Private MD: ED Physician Fabrice Aleman HPI: 10/25 08:25 This 30 yrs old Female presents to ER via Ambulatory with complaints of Sinus Pain, jmm Headache. 08:25 Onset: The symptoms/episode began/occurred gradually, 3 day(s) ago. Modifying factors: jmm The symptoms are alleviated by nothing, the symptoms are aggravated by nothing. The patient has experienced similar episodes in the past. This is a 30 year old female with no chronic medical conditions that presents to the ED with complaints of frontal sinus pain, pressure worsening over the past 2 days. Denies fever. Patient states having some sore throat. . 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 - Social history:: Smoking status: Reported history of juuling and/or vaping. ROS: 08:25 Constitutional: Positive for chills. jmm 08:25 ENT: Positive for sore throat. 08:25 All other systems are negative. Exam: 08:25 Constitutional: This is a well developed, well nourished patient who is awake, alert, jmm and in no acute distress. 08:25 ENT: Moist Mucus Membranes Neck: Trachea midline, Supple Chest/axilla: Normal chest wall appearance and motion. Cardiovascular: Regular rate and rhythm. No edema appreciated Respiratory: Normal respirations, no respiratory distress appreciated Abdomen/GI: Non distended, soft Back: Normal ROM Skin: General appearance color normal MS/ Extremity: Moves all extremities, no obvious deformities appreciated, no edema noted to the lower extremities Neuro: Awake and alert Psych: Behavior is normal, Mood is normal, Patient is cooperative and pleasant 08:25 Head/face: Sinus tenderness, that is moderate, is located over the right frontal sinus and left frontal sinus. 08:25 ENT: TM's: erythema, that is mild, bilaterally, Posterior pharynx: erythema, that is mild. Vital Signs: 08:17 BP 116 / 88; Pulse 72; Resp 16; Temp 98.3; Pulse Ox 98% on R/A; Weight 72.57 kg; Height iw 5 ft. 11 in. (180.34 cm); 08:17 Body Mass Index 22.32 (72.57 kg, 180.34 cm) iw MDM: 08:25 Patient medically screened. [facility] 08:34 Data reviewed: vital signs, nurses notes. Counseling: I had a detailed discussion with [facility] the patient and/or guardian regarding: the historical points, exam findings, and any diagnostic results supporting the discharge/admit diagnosis, the need for outpatient follow up, to return to the emergency department if symptoms worsen or persist or if there are any questions or concerns that arise at home. ED course: Patient is alert and non toxic in the ED. Patient advised to follow up with pcp and otherwise given strict return precautions. Patient understood and agrees with the plan of care. . Administered Medications: 08:39 Drug: Decadron (dexamethasone) 10 mg Route: IM; Site: right ventrogluteal; iw 09:00 Follow up: Response: No adverse reaction iw Disposition: 09:09 Co-signature as Attending Physician, Fabrice Aleman MD. rn Disposition Summary: 10/25/21 08:36 Discharge Ordered Location: Home [facility] Condition: Stable [facility] Diagnosis - Acute frontal sinusitis [facility] Followup: [facility] - With: Private Physician - When: 2 - 3 days - Reason: Recheck today's complaints, Continuance of care, Re-evaluation by your physician Discharge Instructions: - Discharge Summary Sheet [facility] - Sinusitis, Adult [facility] Forms: - Medication Reconciliation Form [facility] - Thank You Letter [facility] - Antibiotic Education [facility] - Prescription Opioid Use [facility] Signatures: Mundo Caban PA PA jmm Williams, Irene, RN RN iw Fabrice Aleman MD MD rn
[2021-10-25] MEDS ORDERED: dexAMETHasone 10 MG/ML VIAL ONE (08:39)
[2021-10-25 09:10] VITALS: BP 116/88; TEMP 98.3; O2SAT 98
== END 2021-10-25 09:04 | disposition home or self-care (01) ==
LOC: ER 08:00
DX: J01.10 Acute frontal sinusitis, unspecified (principal)
CPT/HCPCS: 96372; 99282; J1100

== ENCOUNTER 2022-05-22 06:16 | Emergency (ER) | payer OTHER ==
--- OUTSIDE RECORDS SUMMARY | 2022-05-22 06:21 | XMS REPORT | Continuity of Care Document ---
:1990 Author Organization [facility] t Address [address] [place] [address] Care Team Providers Name Role Phone JEAN-CLAUDE STOVER Primary Care Physician Unavailable JEAN-CLAUDE STOVER Attending Clinician Unavailable Jean-Claude Carlson Attending Clinician Lila Liz PATINO Attending Clinician [phone] Doctor Unassigned, [place] Attending Clinician Unavailable Priscila Jackson MD Attending Clinician Darian [facility] Resident Attending Clinician Unavailable Krystal Gibbs MD Attending Clinician Jazmin Shields Attending Clinician JAZMIN YING Attending Clinician Unavailable Francy Bai Attending Clinician Marimar Longoria MD Attending Clinician Res-Colpo/Leetom, [facility] Attending Clinician Unavailable LIZ SHARP Attending Clinician Unavailable Patria, [facility] Nurse Attending Clinician Unavailable Shira Newman Attending Clinician Payers Payer Name Policy Type Policy Number Effective Date Expiration Date 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 3-24 it y of ve ve 00:00: [place] [address] Medical Branch Pap smear Pap smear Disease Active 2019-07 [...] anch DNA test DNA test positive positive Encounter Encounter Disease Active Uni vers for for 7- ity of surve[place] ce of 00 Medical implantabl implantabl Br anch e e subdermal subdermal contracept contracept kelly kelly At risk At risk Disease Active Univers for dental for dental 01-30 it y of problems problems 00:00: [place] [address] Medical Branch Former Former Disease Active 2017-07 Univers smoker smoker 07-31 ity of 00:00: [place] [address] Medical Branch Papanicola Papanicola Disease Active Overview : Univers ou smear ou smear -24 Formattin ity of of cervix of cervix 00:00: [place] of this [place] with low with low 00 note Medica l grade grade might be Branch squamous squamous different intraepith intraepith from the elijazmín vences original. lesion lesion 02/27/2019 (LGSIL) (LGSIL) - Satisfact ory colpo- ROBYN 2 on ECC2018- LEEP done Abnormal Abnormal Disease Active Unive rs glandular glandular 5-24 ity of [place] smear ou smear 00 Medica l of cervix of cervix Bran ch Screening Screening Disease Active Uni vers examinatio examinatio 5-24 it y of n for STD n for STD [place] ([place]ually (sexually 00 Medi vania transmitte transmitte Br anch d disease) d disease) Well woman Well woman Disease Active U nivers exam exam 5-10 ity of 00:00: [place] [facility] Allergies, Adverse Reactions, Alerts Allergy Allergy Status Severity Reaction(s) Onset Inactive Treating Comm ents Source Name Type Date Date Clinician NO KNOWN Drug Active Univers ALLERGIE Class ity of S [facility] Social History Social Habit Start Date Stop Date Quantity Comments Source Exposure to 2021-11-05 2021-11-15 Not sure University SARS-CoV-2 00:00:00 10:47:00 [facility] (event) Branch Alcohol intake 2021-11-15 2021-11-15 Current University 00:00:00 00:00:00 non-drinker of [facility] alcohol (finding) Branch Tobacco use and 2018-05-04 2018-05-04 Never used Universit y of exposure 00:00:00 00:00:00 [facility] Tobacco Comment 2017-11-23 2017-11-23 vapes daily Universi ty of 00:00:00 00:00:00 [facility] History of 2017-05-04 Cigarette Smoker Universi ty of tobacco use 00:00:00 [facility] Sex Assigned At [birth year] Universit y of 00:00:00 00:00:00 [facility] Smoking Status Start Date Stop Date Source Former smoker 2018-05-04 00:00:00 2018-05-04 00:00:00 Universi ty of [facility] Medications Ordered Filled Start Stop Current Ordering Indication Dosage Frequency Signature Comments Components Source Medication Medication Date Date Medication? Clinician (SIG) Name Name No known No Univers medications 5-16 ity of 11:09: [address] Immunizations Ordered Filled Immunization Date Status Comments Sour e Immunization Name Name Influenza Virus 2021-07-09 Completed Universit y of Vaccine Quad IM, 00:00:00 [facility] dical Preserv and ABX Branch Free 6 MO-64 YRS Influenza Virus 2020-04-16 Completed Universit y of Vaccine Quad .5 mL 00:00:00 [facility] IM 6+ MO Branch Influenza Virus 2018-10-03 Completed Universit y of Vaccine Quad .5 mL 00:00:00 [facility] IM 6+ MO Branch TDAP 2018-10-03 Completed University 00:00:00 [facility] HPV9 2017-11-23 Completed University 00:00:00 [facility] HPV9 2017-01-24 Completed University 00:00:00 [facility] HPV9 2016-11-09 Completed University 00:00:00 [facility] Rubella 2009-10-26 Completed University 00:00:00 [facility] Varicella 2009-10-26 Completed [facility] (varivax)(chicken 00:00:00 [facility] edical pox) Branch Td 2007-07-03 Completed [facility] 00:00:00 [facility] Vital Signs Vital Name Observation Time Observation Value Comments Source Body height 2021-11-15 15:48:00 177.8 cm [facility] Body weight 2021-11-15 15:48:00 71.895 kg [facility] BMI 2021-11-15 15:48:00 22.74 kg/m2 [facility] Systolic blood 2021-11-15 15:48:00 121 mm[Hg] Univer sity of [facility] Diastolic blood 2021-11-15 15:48:00 80 mm[Hg] [facility] [place] Heart rate 2021-11-15 15:48:00 74 /min [facility] Body temperature 2021-11-15 15:48:00 36.56 Cyndi [facility] [place] [facility] Respiratory rate 2021-11-15 15:48:00 16 /min [facility] Procedures This patient has no known procedures. Encounters Start End Encounter Admission Attending Care Care Encounter Source Date/Time Date/Time Type Type Clinicians Facility Department ID 2021-11-15 2021-11-15 Outpatient R CK [facility] [id number] Univers 10:30:00 11:27:42 JEAN-CLAUDE alfred o f [facility] 2021-11-15 2021-11-15 Office Ck [facility] [id number] Univers 10:30:00 11:27:42 Visit Jean-Claude Hahn [employer] 350.1.13.10 ity [facility] [id number] Get as MATERNAL [phone] Med ical & CHILD [address] [place] [address] 2021-11-15 2021-11-15 Outpatient R CK [facility] [id number] Univers 10:30:00 11:27:42 JEAN-CLAUDE cabay o f [facility] 2021-07-14 2021-07-14 Outpatient Jovani STOVER [facility] [id number] Univers 09:45:00 10:16:40 JEAN-CLAUDE cash [facility] 2021-07-14 2021-07-14 [facility] [id number] Univers 09:45:00 10:15:00 Visit Jean-Claude R [employer] 350.1.13.[address] [facility] 4.2.7.2.686 Get as MATERNAL [id number] [facility] & [address] 2021-07-14 2021-07-14 Outpatient R CK [facility] [id number] Univers 09:45:00 09:45:00 JEAN-CLAUDE cash [facility] 2021-07-14 2021-07-14 Outpatient Jovani STOVER [facility] [id number] Univers 09:45:00 09:45:00 JEAN-CLAUDE cash [facility] 2021-07-09 2021-07-09 [facility] [id number] Univers 11:00:00 11:57:31 KIRILLIZZY cash [facility] 2021-07-09 2021-07-09 Office Liz Sharp [facility] 1.2.8 40.114 [id number] Univers 11:00:00 11:57:31 Visit Jean-Claude Stover R [employer] 350.1.13.[address] [facility] 4.2.7.2.686 Get as MATERNAL [phone] [facility] & [address] 2021-07-09 2021-07-09 [facility] [id number] Univers 11:00:00 11:00:00 JEAN-CLAUDE cash [facility] 2021-07-09 2021-07-09 Orders Doctor CASAS [id number] [id number] Univers 00:00:00 00:00:00 Only Unassigned, AMBROSIO 350.1.13.10 ity of [place] [facility] 4.2.7.2.686 Get as [phone] [address] 2020-12-01 2020-12-01 Outpatient R CK [facility] [id number] Univers 09:30:00 09:30:00 NALININDJessica ity o f [facility] 2020-12-01 2020-12-01 Telephone SHERI Jackson [id number] Univers 00:00:00 00:00:00 [facility] 350.1.13.10 i ty of [place].2.[place] [id number] [address] 2020-11-13 2020-11-13 Office [facility] Resident UNIVERSIT 1.2.8 40.114 [id number] Univers 09:34:05 11:03:58 Visit Krystal Gibbs Y HEALTH 350.1.13.10 ity of [place] 4[place].2.[place] [id number] [address] 2020-11-13 2020-11-13 Outpatient R [facility] [id number] Univers 09:30:00 09:30:00 ity of [facility] 2020-10-20 2020-10-20 [facility] [id number] Univers 00:00:00 00:00:00 Jean-Claude Hahn [employer] 350.1.13.10 ity of REGIONAL 4.2.7.2.686 Get as MATERNAL [phone] Med ical & CHILD [address] [place] [address] 2020-10-14 2020-10-14 Telephone Lila [facility] [id number] Univers 00:00:00 00:00:00 Liz Paige [employer] 350.1.13.10 ity of REGIONAL 4.2.7.2.686 Get as MATERNAL [phone] [facility] & CHILD [address] [place] [address] 2020-10-13 2020-10-13 Office Liz Sharp [facility] 1.2.8 40.114 [id number] Univers 12:47:22 13:17:20 Visit Jazmin Ying [employer] 350.1.13.10 ity of REGIONAL 4.2.7.2.686 Get as MATERNAL [id number] [facility] ical & CHILD [address] [place] [address] 2020-10-13 2020-10-13 Outpatient R STEPAN [facility] [id number] Univers 12:45:00 12:45:00 JAZMIN [facility]sales[facility] 2020-09-23 2020-09-23 Telephone [facility] [id number] Univers 00:00:00 00:00:00 Jean-Claude Hahn [employer] 350.1.13.[address] [facility] 4.2.7.2.686 Get as MATERNAL [phone] [facility] & CHILD [address] [place] [address] 2020-09-22 2020-09-22 [facility] 1.2.840.114 [id number] Univers 09:59:14 10:34:09 Visit Jean-Claude Hahn [employer] 350.1.13.[address] [facility] 4.2.7.2.686 Get as MATERNAL [id number] [facility] & CHILD [address] [place] [address] 2020-09-22 2020-09-22 Outpatient R CK [facility] [id number] Univers 10:00:00 10:00:00 JEAN-CLAUDE alfred o f [facility] 2020-06-14 2020-06-14 Case JACK SortoIT [id number] Univers 00:00:00 00:00:00 Management Francy WORLEY 350.1.13.10 ity of [place] [id number] [address] 2020-06-03 2020-06-03 Telephone SHERI Longoria 1.2.840.114 [id number] Univers 00:00:00 00:00:00 Marimar WORLEY 350.1.13.10 i ty of [place] 4[place]2.[place] [id number] [address] 2020-05-21 2020-05-21 Office Res-Colpo/Leep, [facility] UNIVERSI T 1.2.840.114 [id number] Univers 10:10:49 11:48:02 Visit Marimar Longoria HEALTH 350.1.13.10 ity of [facility] 4.2.7.2.[place] [id number] [facility] [address] 2020-05-21 2020-05-21 Outpatient R [facility] [id number] Univers 10:00:00 10:00:00 ity of [facility] 2020-05-21 2020-05-21 Orders Doctor YESSENIA 1.2.840.114 [id number] Univers 00:00:00 00:00:00 Only Unassigned, AMBROSIO 350.1.13.10 ity of [place] [facility] 4.2.7.2.686 Get as [phone] [address] 2020-04-27 2020-04-27 [facility] 1.2.840.114 [id number] Univers 00:00:00 00:00:00 Jazmin Corrigan [employer] 350.1.13.[address] [facility] 4.2.7.2.686 Get as MATERNAL [id number] Med ical & CHILD [address] [place] [address] 2020-04-16 2020-04-16 Office [facility] [id number] Univers 12:54:08 13:41:56 Visit Jazmin Corrigan [employer] 350.1.13.[address] [facility] 4.2.7.2.686 Get as MATERNAL [id number] [facility] & [address] 2020-04-16 2020-04-16 Outpatient R [facility] [id number] Univers 13:00:00 13:00:00 JAZMIN ity of [facility] 2020-03-06 2020-03-06 [facility] [id number] Univers 00:00:00 00:00:00 Jean-Claude Hahn [employer] 350.1.13.[address] [facility] 4.2.7.2.686 Get as MATERNAL [phone] [facility] & CHILD [address] [place] [address] 2020-03-05 2020-03-05 [facility] 1.2.840.114 [id number] Univers 00:00:00 00:00:00 Liz Paige [employer] 350.1.13.[address] [facility] 4.2.7.2.686 Get as MATERNAL [id number] [facility] & CHILD [address] [place] [address] 2020-03-03 2020-03-03 Office Lila [facility] [id number] Univers 13:08:04 13:41:46 Visit Liz Paige [employer] 350.1.13.[address] [facility] 4.2.7.2.686 Get as MATERNAL [id number] [facility] & CHILD [address] [place] [address] 2020-03-03 2020-03-03 Outpatient R LILA [facility] [id number] Univers 13:15:00 13:15:00 LIZ monteiro [facility] 2020-02-26 2020-02-26 Outpatient R CK [facility] [id number] Univers 10:15:00 10:15:00 JEAN-CLAUDE monteiro [facility] 2019-11-28 2019-11-28 Telephone Ck [facility] [id number] Univers 00:00:00 00:00:00 Jean-Claude Hahn [employer] 350.1.13.[address] [facility] 4.2.7.2.686 Get as MATERNAL [phone] [facility] & [address] 2019-11-26 2019-11-26 [facility] 1.2 .840.114 [id number] Univers 12:56:32 13:37:05 Visit Jean-Claude Stover [employer] 350.1.13.[address] [facility] 4.2.7.2.686 Get as MATERNAL [id number] [facility] & CHILD [address] [place] [address] 2019-11-26 2019-11-26 Outpatient R [facility] [id number] Univers 13:00:00 13:00:00 ity of [facility] 2019-11-11 2019-11-11 Office Ck [facility] 1.2.840.114 [id number] Univers 13:03:27 13:38:18 Visit Jean-Claude Hahn [employer] 350.1.13.[address] [facility] 4.2.7.2.686 Get as MATERNAL [phone] [facility] & CHILD [address] [place] [address] 2019-11-11 2019-11-11 Outpatient R CK [facility] [id number] Univers 12:45:00 12:45:00 ROSDAMARINDA ity o f [facility] 2019-11-05 2019-11-05 [facility] [id number] Univers 00:00:00 00:00:00 Jean-Claude R [employer] 350.1.13.[address] [facility] 4.2.7.2.686 Get as MATERNAL [id number] [address] 2019-10-25 2019-10-25 [facility]phone [facility] [id number] Univers 00:00:00 00:00:00 Jean-Claude R [employer] 350.1.13.[address] [facility] 4.2.7.2.686 Get as MATERNAL [id number] [facility] & CHILD [address] [place] [address] 2019-02-28 2019-02-28 Office Res-Colpo/Leep, [facility] UNIVERSI T 1.2.840.114 [id number] Univers 09:06:45 10:07:56 Visit Shira Newman [facility] 350.1.13.10 ity of [facility] 4.2.7.2.[place] [id number] [address] 2019-01-30 2019-01-30 Office Lila [facility] [id number] Univers 15:16:47 16:16:46 Visit Liz Paige [employer] 350.1.13.10 ity of REGIONAL 4.2.7.2.686 Get as MATERNAL [id number] [facility] & CHILD [address] [place] [address] 2019-01-10 2019-01-10 Outpatient R CK [facility] [id number] Univers 11:00:00 11:49:20 JEAN-CLAUDE cabay o f [facility] Results This patient has no known results.
--- NOTE | 2022-05-22 06:48 | ER ---
Nurse's Notes [facility] Name: Bette Palmer Age: 31 yrs Sex: Female : 1990 Arrival Date: 05/22/2022 Time: 06:21 Bed DIS3 Private MD: Diagnosis: Dentalgia Presentation: 05/22 06:35 Chief complaint: Patient states: "I had my tooth break the other day and I have been tw5 putting some temp filling in it, but I think it is getting worse. I was hoping that I could get antibiotics that can hold me over until I get to the dentist.". Coronavirus screen: Vaccine status: Patient reports being unvaccinated. Ebola Screen: Patient negative for fever greater than or equal to 101.5 degrees Fahrenheit, and additional compatible Ebola Virus Disease symptoms Patient denies exposure to infectious person. Patient denies travel to an Ebola-affected area in the 21 days before illness onset. Initial Sepsis Screen: Does the patient meet any 2 criteria? No. Patient's initial sepsis screen is negative. Does the patient have a suspected source of infection? No. Patient's initial sepsis screen is negative. Risk Assessment: Do you want to hurt yourself or someone else? Patient reports no desire to harm self or others. Onset of symptoms is unknown. 06:35 Method Of Arrival: Ambulatory tw5 06:35 Acuity: NATASHA 5 tw5 Triage Assessment: 06:36 General: Appears in no apparent distress. Behavior is calm, cooperative, appropriate tw5 for age. Pain: Pain currently is 7 out of 10 on a pain scale. EENT: Poor dentition noted. Reports pain. 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 - Social history:: Smoking status: Reported history of juuling and/or vaping. Screenin:37 Abuse screen: Denies threats or abuse. Denies injuries from another. Nutritional tw5 screening: No deficits noted. Tuberculosis screening: No symptoms or risk factors identified. Fall Risk None identified. Assessment: 06:37 General: Appears in no apparent distress. Behavior is calm, cooperative. tw5 Vital Signs: 06:35 BP 128 / 90; Pulse 68; Resp 18; Temp 98.6; Pulse Ox 98% ; Weight 72.57 kg; Height 5 ft. tw5 11 in. (180.34 cm); Pain 7/10; 06:35 Body Mass Index 22.32 (72.57 kg, 180.34 cm) tw5 ED Course: 06:21 Patient arrived in ED. rg4 06:36 Triage completed. tw5 06:36 Arm band placed on. tw5 06:41 Stephanie Loyola MD is Attending Physician. sd2 06:55 Patient has correct armband on for positive identification. tw5 06:55 No provider procedures requiring assistance completed. Patient did not have IV access tw5 during this emergency room visit. Administered Medications: No medications were administered Medication: :55 VIS not applicable for this client. tw5 Outcome: 06:47 Discharge ordered by . sd2 06:55 Discharged to home ambulatory. tw5 06:55 Condition: good 06:55 Discharge instructions given to patient, Instructed on discharge instructions, follow up and referral plans. medication usage, Demonstrated understanding of instructions, follow-up care, medications, Prescriptions given X 1. 06:55 Patient left the ED. tw5 Signatures: Elvi Collier rg4 Roma Ball tw5 Stephanie Loyola MD MD sd2
--- NOTE | 2022-05-22 06:48 | EDPHYS ---
Physician Documentation [facility] Name: Bette Palmer Age: 31 yrs Sex: Female : 1990 Arrival Date: 05/22/2022 Time: 06:21 Bed DIS3 Private MD: ED Physician Stephanie Loyola HPI: 05/22 06:42 This 31 yrs old Female presents to ER via Ambulatory with complaints of Toothache. sd2 06:42 31 yo F presents with CC of toothache. Reports intermittent toothache for the past sd2 couple of days to the R lower premolar area. Reports she put some filling material in the tooth recently and since then has had issues. Taking Tylenol and Motrin with relief but concerned she may need antibiotics. No fevers or drainage.. 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 - Social history:: Smoking status: Reported history of juuling and/or vaping. ROS: 06:42 Constitutional: Negative for fever, chills, and weight loss, Eyes: Negative for injury, sd2 pain, redness, and discharge, ENT: Negative for injury, and discharge, positive for pain Skin: Negative for injury, rash, and discoloration, Neuro: Negative for headache, numbness and tingling. Exam: 06:42 Constitutional: This is a well developed, well nourished patient who is awake, alert, sd2 and in no acute distress. Head/Face: Normocephalic, atraumatic. Eyes: EOMI, normal conjunctiva bilaterally ENT: Nares patent. No nasal discharge, no septal abnormalities noted. Tympanic membranes are normal and external auditory canals are clear. Oropharynx with no redness, swelling, or masses, exudates, or evidence of obstruction, uvula midline. Mucous membranes moist. Poor dentition with area of pain localized to R lower lateral incisor Skin: Warm, dry with normal turgor. Normal color with no rashes, no lesions, and no evidence of cellulitis. Psych: Awake, alert, with orientation to person, place and time. Behavior, mood, and affect are within normal limits. Vital Signs: 06:35 BP 128 / 90; Pulse 68; Resp 18; Temp 98.6; Pulse Ox 98% ; Weight 72.57 kg; Height 5 ft. tw5 11 in. (180.34 cm); Pain 7/10; 06:35 Body Mass Index 22.32 (72.57 kg, 180.34 cm) tw5 MDM: 06:41 Patient medically screened. sd2 06:42 Differential diagnosis: dental caries, gingivitis, dental abscess, pericoronitis, sd2 aphthous ulcers, acute necrotizing ulcerative gingivitis, gingivostomatitis, among others. Data reviewed: vital signs, nurses notes. Counseling: I had a detailed discussion with the patient and/or guardian regarding: the historical points, exam findings, and any diagnostic results supporting the discharge/admit diagnosis, the need for outpatient follow up, to return to the emergency department if symptoms worsen or persist or if there are any questions or concerns that arise at home. Medical screen evaluation completed. [facility] emergency medical condition absent. ED course: Patient with no visible drainable abscess. pain has been well controlled with OTC meds. Pt states she gets paid at the end of this upcoming week and will then be able to see a dentist for follow up. Will place on antibiotics until then. States amoxicillin has worked well for her in the past. Verbalizes understanding of discharge plan and strict return precautions. . Administered Medications: No medications were administered Disposition Summary: 05/22/22 06:47 Discharge Ordered Location: Home sd2 Problem: new sd2 Symptoms: have improved sd2 Condition: Stable sd2 Diagnosis - Dentalgia sd2 Followup: sd2 - With: Private Physician - When: 2 - 3 days - Reason: Recheck today's complaints, Continuance of care, Re-evaluation by your physician Discharge Instructions: - Discharge Summary Sheet sd2 - Dental Pain sd2 Forms: - Medication Reconciliation Form sd2 - Thank You Letter sd2 - Antibiotic Education sd2 - Prescription Opioid Use sd2 Prescriptions: - Amoxicillin 500 mg Oral Capsule - take 1 capsule by ORAL route every 8 hours for 10 days; 30 tablet; Refills: 0, sd2 Product Selection Permitted Signatures: Roma Ball tw5 Stephanie Loyola MD MD sd2
[2022-05-22 06:59] VITALS: BP 128/90; TEMP 98.6; O2SAT 98
== END 2022-05-22 06:55 | disposition home or self-care (01) ==
LOC: ER 06:16
DX: K08.89 Other specified disorders of teeth and supporting structures (principal)
CPT/HCPCS: 99282

== ENCOUNTER 2022-11-15 22:50 | Emergency (ER) | payer OTHER ==
--- OUTSIDE RECORDS SUMMARY | 2022-11-15 22:58 | XMS REPORT | Continuity of Care Document ---
:1990 Author Organization [facility] Address [address] [place] [address] [place] [id number] Care Team Providers Name Role Phone PCP, PATIENT DOES NOT HAVE A Primary Care Physician Fletcher Aguilera MD Attending Clinician Unknown, Attending Attending Clinician Unavailable FLETCHER BURCIAGA Attending Clinician Unavailable Doctor Unassigned, [place] Attending Clinician Unavailable DENISE CAMACHO Attending Clinician Unavailable Denise Camacho MD Attending Clinician JEAN-CLAUDE STOVER Attending Clinician Unavailable Jean-Claude Carlson Attending Clinician Liz Esteves Attending Clinician [phone] Priscila Jackson MD Attending Clinician Darian [facility] Resident Attending Clinician Unavailable Krystal Gibbs MD Attending Clinician Jazmin Shields Attending Clinician JAZMIN YING Attending Clinician Unavailable Francy Bai Attending Clinician Marimar Longoria MD Attending Clinician Res-Colpo/Saleem, [facility] Attending Clinician Unavailable LIZ SHARP Attending Clinician Unavailable Patria, [facility] Nurse Attending Clinician Unavailable Shira Newman Attending Clinician Payers Payer Name Policy Type Policy Number Effective Date Expiration Date S ource Problems Condition Condition Condition Status Onset Resolution Last Treating Co mments Source Name Details Category Date Date Treatment Clinician Date 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 3-24 it y of ve ve 00:00: [place] 00 Medical Branch Pap smear Pap smear Disease Active 2019-07 Uni vers of cervix of cervix 0-26 ity of with with 00:00: [place] ASCUS, ASCUS, 00 Medical cannot cannot Branch [...] 01-30 it y of problems problems 00:00: [place] [address] Medical Branch Former Former Disease Active 2017-07 Univers smoker smoker 07-31 ity of 00:00: [address] Branch Papanicola Papanicola Disease Active Overview : Univers ou smear ou smear 5-24 Formatt[place] ity of of cervix of cervix 00:00: [place] of [place] with low with low 00 note Medica l grade grade might be Branch squamous squamous different intraepith intraepith from the ru vences original. lesion lesion 02/27/2019 (LGSIL) (LGSIL) [...] nivers exam exam 5-10 ity of 00:00: [address] Allergies, Adverse Reactions, Alerts Allergy Allergy Status Severity Reaction(s) Onset Inactive Treating Comm ents Source Name Type Date Date Clinician NO KNOWN Drug Active Univers ALLERGIE Class ity of S [facility] Social History Social Habit Start Date Stop Date Quantity Comments Source Exposure to 2022-07-01 2022-07-11 Not sure [facility] SARS-CoV-2 00:00:00 17:14:00 [place] Medical (event) Branch Tobacco use and 2022-07-11 2022-07-11 Smokeless tobacco Un iversity of exposure 00:00:00 00:00:00 non-user [facility] Alcohol intake 2022-07-11 2022-07-11 Current University of 00:00:00 00:00:00 non-drinker of [facility] alcohol (finding) [place] Tobacco Comment 2022-07-11 2022-07-11 vapes daily Universi ty of 00:00:00 00:00:00 [facility] History of 2017-05-04 Cigarette Smoker Universi ty of tobacco use 00:00:00 [facility] Sex Assigned At [birth year] Universit y of 00:00:00 00:00:00 [facility] Smoking Status Start Date Stop Date Source Ex-smoker 2022-07-11 00:00:00 2022-07-11 00:00:00 Universi ty of [facility] Medications Ordered Filled Start Stop Current Ordering Indication Dosage Frequency Signature Comments Components Source Medication Medication Date Date Medication? Clinician (SIG) Name Name methylPREDN Yes [id number] Take by Univers ISolone 07-11 mouth ity of (MEDROL, 00:00: SEE-INSTRU Get as BREE,) 4 mg 00 CTIONS. Medica l tablets follow [place] package directions fluticasone Yes [id number] 1{spray Use 1 Univers propionate 07-11 } [place] in ity o f 50 00:00: each [place] mcg/actuati 00 nostril in Me dical on nasal the Branch spray morning. cetirizine Yes [id number] 10mg Take 1 Univers (ZYRTEC) 10 1-09 tablet by ity of mg tablet 00:00: [place] the Medical morning. Branch amoxicillin 2021-07- No 1{tbl} 1 tablet, Univers -clavulanat -06-29 Oral, ity of e 02:30: 01:48 ONCE, 1 [place] (AUGMENTIN) 00 :00 dose, On Medi vania 875-125 mg Mon Branch per tablet 06/28/22 1 tablet at 2030, Routine
Reason for Anti-Infec tive: Documented Infection< br>Documen mohan Infection Site: HEENT
D uration of Therapy: 7 days ibuprofen 2021-07- No 600mg 600 mg, Uni vers (IBU) 08-30 Oral, ity of tablet 600 01:45: 01:48 ONCE, 1 Get as mg 00 :00 dose, On Medical Tue Branch 06/28/22 at 1945, FABIENNE amoxicillin 2021-07 Yes [id number] 1{tbl} Take 1 Univers -clavulanat 2-27 36142 tablet by it y of e 875-125 00:00: mouth [place] mg per 00 every 12 Medical tablet (twelve) Branch hours. amoxicillin 2021-07 Yes [id number] 1{tbl} Take 1 Univers -clavulanat 2-27 33015 tablet by it y of e 875-125 00:00: mouth [place] mg per 00 every 12 Medical tablet (twelve) Branch hours. amoxicillin 2021-07 Yes [id number] 1{tbl} Take 1 Univers -clavulanat 2-27 39381 tablet by it y of e 875-125 00:00: mouth [place] mg per 00 every 12 Medical tablet (twelve) Branch hours. No known No Univers medications 5-16 ity of 11:09: [place] 53 Medical Branch Immunizations Ordered Filled Immunization Date Status Comments [facility] e Immunization Name Name Influenza Virus 2021-07-09 Completed Universit y of Vaccine Quad IM, 00:00:00 [place] Me dical Preserv and ABX Branch Free 6 MO-64 YRS Influenza Virus 2021-07-09 Completed Universit y of Vaccine [place] IM, 00:00:00 [place] Me dical Preserv and ABX Branch Free 6 MO-64 YRS Influenza Virus 2021-07-09 Completed Universit y of Vaccine [place] IM, 00:00:00 [facility] dical Preserv and ABX Branch Free 6 MO-64 YRS Influenza Virus 2021-07-09 Completed Universit y of Vaccine [facility] IM, 00:00:00 [place] Me dical Preserv and ABX Branch Free 6 MO-64 YRS Influenza Virus 2020-04-16 Completed Universit y of Vaccine [place] .5 mL 00:00:00 [place] Medical IM 6+ MO Branch Influenza Virus 2020-04-16 Completed Universit y of Vaccine [place] .5 mL 00:00:00 [place] Medical IM 6+ MO Branch Influenza Virus 2020-04-16 Completed Universit y of Vaccine [place] .5 mL 00:00:00 [place] Medical IM 6+ MO Branch Influenza Virus 2020-04-16 Completed Universit y of Vaccine [place] .5 mL 00:00:00 [place] Medical IM 6+ MO Branch Influenza Virus 2018-10-03 Completed Universit y of Vaccine [place] .5 mL 00:00:00 [place] Medical IM 6+ MO Branch TDAP 2018-10-03 Completed University of 00:00:00 [facility] Influenza Virus 2018-10-03 Completed Universit y of Vaccine [place] .5 mL 00:00:00 [place] Medical IM 6+ MO Branch TDAP 2018-10-03 Completed University of 00:00:00 [facility] Influenza Virus 2018-10-03 Completed Universit y of Vaccine [place] .5 mL 00:00:00 [place] Medical IM 6+ MO Branch TDAP 2018-10-03 Completed University of 00:00:00 [facility] Influenza Virus 2018-10-03 Completed Universit y of Vaccine [place] .5 mL 00:00:00 [place] Medical IM 6+ MO Branch TDAP 2018-10-03 Completed University of 00:00:00 [facility] Branch HPV9 2017-11-23 Completed University of 00:00:00 [facility] Branch HPV9 2017-11-23 Completed University of 00:00:00 [facility] Branch HPV9 2017-11-23 Completed University of 00:00:00 [facility] Branch HPV9 2017-11-23 Completed University of 00:00:00 [facility] Branch HPV9 2017-01-24 Completed University of 00:00:00 [facility] Branch HPV9 2017-01-24 Completed University of 00:00:00 [facility] Branch HPV9 2017-01-24 Completed University of 00:00:00 [facility] Branch HPV9 2017-01-24 Completed University of 00:00:00 [facility] HPV9 2016-11-09 Completed University of 00:00:00 [facility] HPV9 2016-11-09 Completed University of 00:00:00 [facility] HPV9 2016-11-09 Completed University of 00:00:00 [facility] HPV9 2016-11-09 Completed University of 00:00:00 [facility] Rubella 2009-10-26 Completed University of 00:00:00 [facility] Varicella 2009-10-26 Completed University of (varivax)(chicken 00:00:00 [facility] edical pox) Branch Rubella 2009-10-26 Completed University of 00:00:00 [facility] Varicella 2009-10-26 Completed University of (varivax)(chicken 00:00:00 [facility] edical pox) Branch Rubella 2009-10-26 Completed University of 00:00:00 [facility] Varicella 2009-10-26 Completed University of (varivax)(chicken 00:00:00 [facility] edical pox) Branch Rubella 2009-10-26 Completed University of 00:00:00 [facility] Varicella 2009-10-26 Completed University of (varivax)(chicken 00:00:00 [facility] edical pox) Branch Td 2007-07-03 Completed University of 00:00:00 [facility] TD, NOS 2007-07-03 Completed University of 00:00:00 [facility] TD, NOS 2007-07-03 Completed University of 00:00:00 [facility] TD, NOS 2007-07-03 Completed University of 00:00:00 [facility] Vital Signs Vital Name Observation Time Observation Value Comments Source Systolic blood 2022-07-11 23:23:00 111 mm[Hg] Univer sity of pressure [facility] Diastolic blood 2022-07-11 23:23:00 74 mm[Hg] Unive rsity of pressure [facility] Heart rate 2022-07-11 23:23:00 76 /min [facility] Body temperature 2022-07-11 23:23:00 36.94 Cyndi [facility] height 2022-07-11 23:23:00 177.8 cm [facility] Body weight 2022-07-11 23:23:00 77.883 kg [facility] BMI 2022-07-11 23:23:00 24.64 kg/m2 Universi ty of [place] [facility] Oxygen saturation in 2022-07-11 23:23:00 99 /min University of Arterial blood by [facility] Pulse oximetry Branch Body height 2022-06-29 01:41:00 177.8 cm Universi ty of [place] [facility] Body weight 2022-06-29 01:41:00 68.04 kg Universi ty of [place] [facility] BMI 2022-06-29 01:41:00 21.52 kg/m2 Universi ty of [place] [facility] Systolic blood 2022-06-29 01:38:00 140 mm[Hg] Univer sity of pressure [place] [facility] Diastolic blood 2022-06-29 01:38:00 86 mm[Hg] Unive rsity of pressure [place] [facility] Heart rate 2022-06-29 01:38:00 99 /min Universi ty of [place] [facility] Body temperature 2022-06-29 01:38:00 37.78 Cyndi Univ ersity of [place] [facility] Respiratory rate 2022-06-29 01:38:00 18 /min Univ ersity of [place] [facility] Oxygen saturation in 2022-06-29 01:38:00 100 /min University of Arterial blood by [facility] Pulse oximetry Branch Systolic blood 2021-11-15 15:48:00 121 mm[Hg] Univer sity of pressure [place] [facility] Diastolic blood 2021-11-15 15:48:00 80 mm[Hg] Unive rsity of pressure [place] [facility] Heart rate 2021-11-15 15:48:00 74 /min Universi ty of [place] [facility] Body temperature 2021-11-15 15:48:00 36.56 Cyndi Univ ersity of [place] [facility] Respiratory rate 2021-11-15 15:48:00 16 /min Univ ersity of [place] [facility] Body height 2021-11-15 15:48:00 177.8 cm Universi ty of [place] [facility] Body weight 2021-11-15 15:48:00 71.895 kg Universi ty of [place] [facility] BMI 2021-11-15 15:48:00 22.74 kg/m2 Universi ty of [place] [facility] Procedures Procedure Date / Time Performed Performing Clinician [facility] e CONSENT/REFUSAL FOR 2022-07-11 23:15:22 [facility]igned, [facility] Name [facility] TREATMENT ASSIGNMENT OF BENEFITS 2022-07-11 23:15:07 Doctor Unassigned, No [facility] CONSENT/REFUSAL FOR 2022-06-29 01:18:47 Doctor Unassigned, [facility] AND [facility] TREATMENT Encounters Start End Encounter Admission Attending Care Care Encounter Source Date/Time Date/Time Type Type Clinicians Facility Department ID 2022-07-11 2022-07-11 Urgent Fletcher Burciaga [facility] [id number] Univers 17:00:00 17:20:00 Care Unknown, Attending HEALTH [id number] ity of [place] 4.2.7.2.686 Get as VINH?BLEA [phone] [address] MEDICAL OFFICE BUILDING 2022-07-11 2022-07-11 Outpatient Jovani BURCIAGA [facility] [id number] Univers 17:00:00 17:00:00 FLETCHER alfred [facility] 2022-07-11 2022-07-11 Orders Doctor YESSENIA [id number] Univers 00:00:00 00:00:00 Only Unassigned, AMBROSIO [id number] ity of [place] [facility] 4.2.7.2.686 Get as [phone] [facility] 009 [place] 2022-06-28 2022-06-28 Emergency X [facility] [id number] Univers 19:44:00 20:05:00 DENISE alfred [facility] 2022-06-28 2022-06-28 Emergency [facility] [id number] Univers 19:44:00 20:05:00 Denise KOHLER [id number] ity of [place] 4.2.7.2.686 [facility] [phone] [facility] 084 [place] 2021-11-15 2021-11-15 Outpatient Jovani STOVER [facility] [id number] Univers 10:30:00 11:27:42 JEAN-CLAUDE alfred o f [facility] 2021-11-15 2021-11-15 Outpatient Jovani STOVER [facility] [id number] Univers 10:30:00 11:27:42 JEAN-CLAUDE monteiro [facility] 2021-11-15 2021-11-15 Office Ck [facility] [id number] Univers 10:30:00 11:27:42 Visit Jean-Claude R ENTERTAINMENT DIRECTOR [id number] ity of REGIONAL 4.2.7.2.686 Get as MATERNAL [phone] [facility] CHILD [address] [place] [address] 2021-07-14 2021-07-14 [facility] [id number] Univers 09:45:00 10:16:40 JEAN-CLAUDE monteiro [facility] 2021-07-14 2021-07-14 Office Ck [facility] [id number] Univers 09:45:00 10:15:00 Visit Jean-Claude R ENTERTAINMENT DIRECTOR [id number] [facility] 4.2.7.2.686 Get as MATERNAL [phone] [facility] & [address] 2021-07-14 2021-07-14 Outpatient Jovani STOVER [facility] [id number] Univers 09:45:00 09:45:00 JEAN-CLAUDE monteiro [facility] 2021-07-14 2021-07-14 Outpatient Jovani STOVER [facility] [id number] Univers 09:45:00 09:45:00 JEAN-CLAUDE monteiro [facility] 2021-07-09 2021-07-09 Office Liz Sharp [facility] 1.2.8 40.114 [id number] Univers 11:00:00 11:57:31 Visit Jean-Claude Stover R ENTERTAINMENT DIRECTOR [id number] ity of REGIONAL 4.2.7.2.686 Get as MATERNAL [phone] [facility] & CHILD [address] [place] [address] 2021-07-09 2021-07-09 [facility] [id number] Univers 11:00:00 11:57:31 JEAN-CLAUDE cash [facility] 2021-07-092021-07-09 Outpatient R CK [facility] [id number] Univers 11:00:00 11:00:00 JEAN-CLAUDE alfred o f [facility] 2021-07-09 2021-07-09 Orders Doctor YESSENIA 1.2.840.114 [id number] Univers 00:00:00 00:00:00 Only Unassigned, AMBROSIO [id number] ity of [place] [facility] 4.2.7.2.686 Get as [phone] [address] 2020-12-01 2020-12-01 [facility] [id number] Univers 09:30:00 09:30:00 JEAN-CLAUDE alfred o f [facility] 2020-12-01 2020-12-01 Telephone SHERI Jackson 1.2.840.114 [id number] Univers 00:00:00 00:00:00 [facility] [id number] i ty of [place] [phone] [address] 2020-11-13 2020-11-13 Office Pool, [facility] Resident UNIVERSIT 1.2.8 40.114 [id number] Univers 09:34:05 11:03:58 Visit Krystal Gibbs Y HEALTH [id number] ity of [place] 4[place]2.[place].2.[place] [phone] [address] 2020-11-13 2020-11-13 Outpatient R [facility] [id number] Univers 09:30:00 09:30:00 ity of [facility] 2020-10-20 2020-10-20 Telephone Ck [facility] [id number] Univers 00:00:00 00:00:00 Jean-Claude Hahn ENTERTAINMENT DIRECTOR [id number] ity of REGIONAL 4.2.7.2.686 Get as MATERNAL [phone] Med ical & CHILD [address] [place] [address] 2020-10-14 2020-10-14 Telephone Lila [facility] 1.2.840.114 [id number] Univers 00:00:00 00:00:00 Liz Paige ENTERTAINMENT DIRECTOR [id number] ity of [place] 4.2.7.2.686 Get as MATERNAL [phone] [facility] CHILD [address] [place] [address] 2020-10-13 2020-10-13 Office Lila Liz Paige [facility] 1.2.8 40.114 [id number] Univers 12:47:22 13:17:20 Visit Jazmin Ying ENTERTAINMENT DIRECTOR [id number] ity of REGIONAL 4.2.7.2.686 Get as MATERNAL [phone] [facility] ical & CHILD [address] [place] [address] 2020-10-13 2020-10-13 Outpatient R [facility] [id number] Univers 12:45:00 12:45:00 JAZMIN alfred [facility] 2020-09-23 2020-09-23 [facility] [id number] Univers 00:00:00 00:00:00 Rostaylor R ENTERTAINMENT DIRECTOR [id number] [facility] 4.2.7.2.686 Get as MATERNAL [phone] [facility] & CHILD [address] [place] [address] 2020-09-22 2020-09-22 Office [facility] 1.2.840.114 [id number] Univers 09:59:14 10:34:09 Visit Jean-Claude Hahn ENTERTAINMENT DIRECTOR [id number] ity of [place] 4.2.7.2.686 Get as MATERNAL [phone] [facility] & CHILD [address] [place] [address] 2020-09-22 2020-09-22 Outpatient [facility] [id number] Univers 10:00:00 10:00:00 NALININDA ity o f [facility] 2020-06-14 2020-06-14 SHERI Ferrell [id number] Univers 00:00:00 00:00:00 Management Francy Y HEALTH [id number] ity of [place] [id number] [address] 2020-06-03 2020-06-03 Telephone SHERI Longoria 1.2.840.114 [id number] Univers 00:00:00 00:00:00 Marimar Bangura [facility] [id number] i ty of [place] 4[place].2.[place] [id number] [address] 2020-05-21 2020-05-21 Office Res-Colpo/Leep, [facility] UNIVERSI T 1.2.840.114 [id number] Univers 10:10:49 11:48:02 Visit Marimar Longoria [facility] [id number] ity of [place] 4[place] [phone] [address] 2020-05-21 2020-05-21 Outpatient R [facility] [id number] Univers 10:00:00 10:00:00 ity of [facility] 2020-05-21 2020-05-21 Orders Doctor YESSENIA 1.2.840.114 [id number] Univers 00:00:00 00:00:00 Only Unassigned, AMBROSIO [id number] ity of [place] [facility] 4.2.7.2.686 Get as [phone] [address] 2020-04-27 2020-04-27 Telephone [facility] 1.2.840.114 [id number] Univers 00:00:00 00:00:00 Jazmin Corrigan ENTERTAINMENT DIRECTOR [id number] [facility] 4.2.7.2.686 Get as MATERNAL [phone] Med ical & CHILD [address] [place] [address] 2020-04-16 2020-04-16 Office [facility] [id number] Univers 12:54:08 13:41:56 Visit Jazmin Corrigan ENTERTAINMENT DIRECTOR [id number] [facility] 4.2.7.2.686 Get as MATERNAL [phone] [facility] ica & CHILD [address] [place] [address] 2020-04-16 2020-04-16 Outpatient R [facility] [id number] Univers 13:00:00 13:00:00 JAZMIN [facility] 2020-03-06 2020-03-06 Telephone [facility] [id number] Univers 00:00:00 00:00:00 Roswarnernda R ENTERTAINMENT DIRECTOR [id number] ity of REGIONAL 4.2.7.2.686 Get as MATERNAL [phone] [facility] CHILD [address] [place] [address] 2020-03-05 2020-03-05 Telephone [facility] 1.2.840.114 [id number] Univers 00:00:00 00:00:00 Liz C ENTERTAINMENT DIRECTOR [id number] ity of REGIONAL 4.2.7.2.686 Get as MATERNAL [phone] [address] 2020-03-03 2020-03-03 Office [facility] [id number] Univers 13:08:04 13:41:46 Visit Liz C ENTERTAINMENT DIRECTOR [id number] [facility] 4.2.7.2.686 Get as MATERNAL [phone] [facility] & CHILD [address] [place] [address] 2020-03-03 2020-03-03 Outpatient R LILA [facility] [id number] Univers 13:15:00 13:15:00 LIZ cash [facility] 2020-02-26 2020-02-26 Outpatient R CK [facility] [id number] Univers 10:15:00 10:15:00 JEAN-CLAUDE monteiro [facility] 2019-11-28 2019-11-28 [facility] [id number] Univers 00:00:00 00:00:00 Jean-Claude R ENTERTAINMENT DIRECTOR [id number] [facility] 4.2.7.2.686 Get as MATERNAL [phone] [facility] & CHILD [address] [place] [address] 2019-11-26 2019-11-26 Nurse Visit, Ang-Rmchp Nurse [facility] 1.2 .840.114 [id number] Univers 12:56:32 13:37:05 Visit Jean-Claude Stover R ENTERTAINMENT DIRECTOR [id number] ity of REGIONAL 4.2.7.2.686 Get as MATERNAL [phone] [facility] ical & CHILD [address] [place] [address] 2019-11-26 2019-11-26 Outpatient R [facility] [id number] Univers 13:00:00 13:00:00 ity of [facility] 2019-11-11 2019-11-11 Office [facility] 1.2.840.114 [id number] Univers 13:03:27 13:38:18 Visit Jean-Claude Hahn ENTERTAINMENT DIRECTOR [id number] [facility] 4.2.7.2.686 Get as MATERNAL [phone] [facility] ical & CHILD [address] [place] [address] 2019-11-11 2019-11-11 Outpatient [facility] [id number] Univers 12:45:00 12:45:00 JEAN-CLAUDE ity o f [facility] 2019-11-05 2019-11-05 Telephone [facility] [id number] Univers 00:00:00 00:00:00 [facility] R ENTERTAINMENT DIRECTOR [id number] [facility] 4.2.7.2.686 Get as MATERNAL [phone] [facility] & CHILD [address] [place] [address] 2019-10-25 2019-10-25 Telephone [facility] [id number] Univers 00:00:00 00:00:00 Jean-Claude Hahn ENTERTAINMENT DIRECTOR [id number] [facility] 4.2.7.2.686 Get as MATERNAL [phone] [facility] ica & CHILD [address] [place] [address] 2019-02-28 2019-02-28 Office Res-Colpo/Leep, [facility] UNIVERSI T 1.2.840.114 [id number] Univers 09:06:45 10:07:56 Visit Shira Newman [facility] [id number] ity of [facility] 4.2.7.[place] [phone] [address] 2019-01-30 2019-01-30 Office [facility] [id number] Univers 15:16:47 16:16:46 Visit Liz Paige ENTERTAINMENT DIRECTOR [id number] [facility] 4.2.7.2.686 Get as MATERNAL [phone] Med ical & CHILD [address] [place] [address] 2019-01-10 2019-01-10 Outpatient Jovani STOVER [facility] [id number] [employer] 11:00:00 11:49:20 JEAN-CLAUDE alfred o f [facility] Results This patient has no known results.
[2022-11-15] MEDS ORDERED: NA CHLORIDE 0.9% 1,000 ML ONE (23:38)
[2022-11-15] MEDS ORDERED: LORazepam 2 MG/ML VIAL ONE (23:38)
[2022-11-15 23:49] LABS: Specific Gravity < 1.005 (1.005-1.030); Urine Bacteria None Seen /HPF (<20); Urine Bilirubin NEGATIVE (Negative); Urine Blood Negative (Negative); Urine Clarity Clear (Clear); Urine Color Colorless (Yellow); Urine Glucose NEGATIVE (Negative); Urine Protein NEGATIVE (Negative); Urine RBC None Seen /HPF (None Seen); Urine Urobilinogen Normal (Normal); Urine pH 6.5 (5.0-7.0)
[2022-11-15 23:51] LABS: Specific Gravity < 1.005 (1.005-1.030)
[2022-11-15 23:53] LABS: Barbiturates NEGATIVE (NEGATIVE); Benzodiazepines NEGATIVE (NEGATIVE); Cocaine NEGATIVE (NEGATIVE); METHAMPHETAM NEGATIVE (NEGATIVE); Methadone NEGATIVE (NEGATIVE); Opiates NEGATIVE (NEGATIVE); Phencyclidine NEGATIVE (NEGATIVE); THC Cannibis NEGATIVE (NEGATIVE)
[2022-11-16 00:01] LABS: Absolute Lymphocytes (CBC) 1.9 K/uL (0.7-4.9); Hematocrit 36.9 % (36.0-45.0); Lymphocytes % 27.1 % (15.3-44.8); MCV 87.2 fL (80-100); MPV 9.4 fL (7.6-11.3); RBC Red Blood Cell Count 4.24 M/uL (3.86-4.86)
[2022-11-16 00:07] LABS: Protime INR 1.02
[2022-11-16 00:19] LABS: ALT/SGPT 16 U/L (13-56); AST/SGOT 12 U/L (15-37); Albumin 3.7 g/dL (3.4-5.0); Alkaline Phosphatase 56 U/L (45-117); BUN Blood Urea Nitrogen 9 mg/dL (7-18); Bicarbonate 27 mEq/L (21-32); Bilirubin Direct < 0.1 mg/dL (0-0.2); Bilirubin Indirect, Calculated ND mg/dL (0.2-0.8); Bilirubin Total 0.2 mg/dL (0.2-1.0); Glomerular Filtration Rate 118 ml/min (=/>90); Glucose Level 132 mg/dL (74-106); Potassium 3.2 mEq/L (3.5-5.1); Protein, Total 7.5 g/dL (6.4-8.2); Sodium Level 138 mEq/L (136-145)
[2022-11-16] MEDS ORDERED: POTASSIUM 25 MEQ EFFERV TAB ONE (00:57)
--- NOTE | 2022-11-16 01:03 | ER ---
Nurse's Notes [facility] Name: Bette Palmer Age: 31 yrs Sex: Female : 1990 Arrival Date: 11/15/2022 Time: 22:50 Bed 13 Private MD: Diagnosis: Hypokalemia;Anxiety disorder, unspecified Presentation: 11/15 22:59 Chief complaint: Patient states: "I don't know if I'm having a panic attack or mb9 something more, but I've been dizzy, panicking, chest pressure, hot, and cold for the past hour. I have anxiety but It hasn't been this bad before.". Coronavirus screen: Vaccine status: Patient reports being unvaccinated. Ebola Screen: No symptoms or risks identified at this time. Initial Sepsis Screen: Does the patient meet any 2 criteria? No. Patient's initial sepsis screen is negative. Does the patient have a suspected source of infection? No. Patient's initial sepsis screen is negative. Risk Assessment: Do you want to hurt yourself or someone else? Patient reports no desire to harm self or others. Onset of symptoms was November 15, 2022. 22:59 Method Of Arrival: Ambulatory mb9 22:59 Acuity: NATASHA 3 mb9 Triage Assessment: 23:02 General: Appears uncomfortable, Behavior is anxious. Neuro: Level of Consciousness is mb9 awake, alert, obeys commands, Oriented to person, place, time, situation, Appropriate for age. Cardiovascular: Reports lightheadedness, chest pressure. Respiratory: Airway is patent. Derm: Skin is pink, warm \\T\\ dry. Musculoskeletal: Range of motion: intact in all extremities. 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 - Social history:: Smoking status: Reported history of juuling and/or vaping. Screenin/17 00:04 [facility] ED Fall Risk Assessment (Adult) Score/Fall Risk Level 0 - 2 = Low Risk. Abuse as6 screen: Denies threats or abuse. Denies injuries from another. Nutritional screening: No deficits noted. Tuberculosis screening: No symptoms or risk factors identified. Assessment: 00:56 Reassessment: Patient appears in no apparent distress at this time. Patient and/or as6 family updated on plan of care and expected duration. Pain level reassessed. Patient is alert, oriented x 3, equal unlabored respirations, skin warm/dry/pink. Patient states feeling better. Patient states symptoms have improved. Vital Signs: 11/15 22:59 BP 148 / 90; Pulse 99; Resp 18; Temp 98.1(O); Pulse Ox 100% ; Weight 72.57 kg; Height 5 mb9 ft. 10 in. ; 11/16 00:55 BP 117 / 74; Pulse 62; Resp 18 S; Pulse Ox 100% on R/A; as6 11/15 22:59 Body Mass Index 22.96 (72.57 kg, 177.8 cm) mb9 ED Course: 11/15 22:52 Patient arrived in ED. ja2 22:53 Lloyd Franklin PA is PHCP. cp 22:53 Volodymyr Santillan MD is Attending Physician. cp 22:59 Arm band placed on. mb9 23:02 Triage completed. mb9 23:18 Carroll Kang, RN is Primary Nurse. as6 23:31 PREGU Sent. mb9 23:31 Urinalysis W/Microscopic Sent. mb9 23:31 UDS Sent. mb9 23:44 Inserted saline lock: 20 gauge in right antecubital area, using aseptic technique. as6 Blood collected. 11/16 00:04 Placed in gown. Bed in low position. Call light in reach. Side rails up X2. Client as6 placed on continuous cardiac and pulse oximetry monitoring. NIBP monitoring applied. 01:10 No provider procedures requiring assistance completed. IV discontinued, intact, as6 bleeding controlled, No redness/swelling at site. Pressure dressing applied. Administered Medications: 11/15 23:44 Drug: NS 0.9% IV 1000 ml Route: IV; Rate: 1 bolus; Site: right antecubital; as6 11/16 01:11 Follow up: Response: No adverse reaction; IV Status: Completed infusion; IV Intake: as6 1000ml 11/15 23:44 Drug: Ativan IVP 1 mg Route: IVP; Site: right antecubital; as6 11/16 01:11 Follow up: Response: No adverse reaction as6 00:55 Drug: Potassium PO Effervescent Tablet 50 mEq Route: PO; as6 01:11 Follow up: Response: No adverse reaction as6 Medication: 11/15 23:03 VIS not applicable for this client. mb9 Intake: 11/16 01:11 IV: 1000ml; Total: 1000ml. as6 Outcome: 01:02 Discharge ordered by . melodie 01:10 Discharged to home ambulatory. as6 01:10 Condition: stable 01:10 Discharge instructions given to patient, Instructed on discharge instructions, follow up and referral plans. no drinking with medication, no driving heavy equipment, medication usage, Demonstrated understanding of instructions, follow-up care, medications, Prescriptions given X 2. 01:15 Patient left the ED. as6 Signatures: Lloyd Franklin PA PA cp Alexander, Jessica ja2 Slawson, Ashby, RN RN as6 Roya Nunez RN RN mb9
--- NOTE | 2022-11-16 01:03 | EDPHYS ---
Physician Documentation [facility] Name: Bette Palmer Age: 31 yrs Sex: Female : 1990 Arrival Date: 11/15/2022 Time: 22:50 Bed 13 Private MD: ED Physician Volodymyr Santillan HPI: 11/15 23:20 This 31 yrs old Female presents to ER via Ambulatory with complaints of Anxiety. cp 23:20 The patient presents to the emergency department with anxiety. cp 23:20 Onset: The symptoms/episode began/occurred today. Past psychiatric history: Prior cp diagnosis: Anxiety, Psychiatric medications include: none. Associated signs and symptoms: Pertinent positives; chest pain, dizziness, Pertinent negatives: abdominal pain, fever, hallucinations, headache, homicidal ideation, substance abuse, suicide ideation, vomiting. Severity of symptoms: in the emergency department the symptoms are unchanged despite home interventions. The patient has experienced similar episodes in the past, multiple times, but today's symptoms are worse, lasting longer. 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 - Social history:: Smoking status: Reported history of juuling and/or vaping. ROS: 23:25 Constitutional: Positive for chills, Negative for fever, poor PO intake. cp 23:25 Eyes: Negative for injury, pain, redness, and discharge. cp 23:25 ENT: Negative for drainage from ear(s), ear pain, sore throat, difficulty swallowing, difficulty handling secretions. 23:25 Cardiovascular: Positive for chest pain, palpitations, Negative for edema. 23:25 Respiratory: Positive for shortness of breath, at rest. Negative for cough, wheezing. 23:25 Abdomen/GI: Negative for vomiting, diarrhea, constipation. 23:25 Neuro: Positive for dizziness, Negative for altered mental status, numbness, syncope. 23:25 All other systems are negative. Exam: 23:30 Constitutional: The patient appears in no acute distress, alert, awake, cp non-diaphoretic, non-toxic, well developed, well nourished, anxious, uncomfortable. 23:30 Head/Face: Normocephalic, atraumatic. cp 23:30 Eyes: Periorbital structures: appear normal, Conjunctiva: normal, no exudate, no injection, Sclera: no appreciated abnormality, Lids and lashes: appear normal, bilaterally. 23:30 ENT: External ear(s): are unremarkable, Nose: is normal, Mouth: Lips: moist, Oral mucosa: pink and intact, moist, Posterior pharynx: is normal, airway is patent, no erythema, no exudate. 23:30 Neck: ROM/movement: is normal, is supple, without pain, no range of motions limitations. 23:30 Chest/axilla: Inspection: normal. 23:30 Cardiovascular: Rate: normal, Rhythm: regular, Edema: is not appreciated, JVD: is not appreciated. 23:30 Respiratory: the patient does not display signs of respiratory distress, Respirations: labored breathing, that is mild, Breath sounds: are clear throughout, no decreased breath sounds, no stridor, no wheezing. 23:30 Abdomen/GI: Inspection: abdomen appears normal, Palpation: abdomen is soft and non-tender, in all quadrants. 23:30 Back: pain, that is mild, of the left scapular area, right scapular area, left cp subscapular area and right subscapular area, ROM is normal. 23:30 Skin: no rash present. 23:30 Neuro: Orientation: to person, place \T\ time. Mentation: able to follow commands, Motor: cp moves all fours, strength is normal, Sensation: no obvious gross deficits. 23:44 ECG was reviewed by the Attending Physician. cp Vital Signs: 22:59 BP 148 / 90; Pulse 99; Resp 18; Temp 98.1(O); Pulse Ox 100% ; Weight 72.57 kg; Height 5 mb9 ft. 10 in. ; 11/16 00:55 BP 117 / 74; Pulse 62; Resp 18 S; Pulse Ox 100% on R/A; as6 11/15 22:59 Body Mass Index 22.96 (72.57 kg, 177.8 cm) mb9 MDM: 11/15 23:11 Patient medically screened. cp 11/16 00:00 Differential diagnosis: drug withdrawal. acute psychotic break, depression, psychosis cp secondary to non-compliance. 01:00 Data reviewed: vital signs, nurses notes, lab test result(s), EKG. 01:00 Consideration of Admission/Observation Escalation of care including cp admission/observation considered. I considered the following discharge prescriptions or medication management in the emergency department Medications were administered in the Emergency Department. See MAR. Counseling: I had a detailed discussion with the patient and/or guardian regarding: the historical points, exam findings, and any diagnostic results supporting the discharge/admit diagnosis, lab results, to return to the emergency department if symptoms worsen or persist or if there are any questions or concerns that arise at home. Response to treatment: the patient's symptoms have markedly improved after treatment, and as a result, I will discharge patient. 11/15 23:12 Order name: UDS; Complete Time: 00:38 11/15 23:12 Order name: Urinalysis W/Microscopic; Complete Time: 00:38 11/16 00:39 Interpretation: Normal except: Urine SG < 1.005. 11/15 23:12 Order name: PREGU; Complete Time: 00:38 11/15 23:28 Order name: Acetaminophen; Complete Time: 00:38 11/15 23:28 Order name: Basic Metabolic Panel; Complete Time: 00:38 11/16 00:39 Interpretation: Normal except: K 3.2; CL 108; GLUC 132. 11/15 23:28 Order name: CBC with Diff; Complete Time: 00:38 11/16 00:39 Interpretation: Reviewed. 11/15 23:28 Order name: ETOH Level; Complete Time: 00:38 11/15 23:28 Order name: Hepatic Function; Complete Time: 00:38 11/16 00:39 Interpretation: Normal except: AST 12; GLOB 3.8; A/G 1.0. 11/15 23:28 Order name: PT-INR; Complete Time: 00:38 11/15 23:28 Order name: Ptt, Activated; Complete Time: 00:38 11/15 23:28 Order name: Salicylate; Complete Time: 00:38 11/15 23:55 Order name: Test Serum, Qualitat; Complete Time: 00:38 EDNV 11/16 00:39 Interpretation: Reviewed. cp 11/15 23:28 Order name: EKG; Complete Time: 23:29 cp 11/15 23:28 Order name: EKG - Nurse/Tech; Complete Time: 23:43 cp 11/15 23:28 Order name: IV Saline Lock; Complete Time: 23:44 cp 11/15 23:28 Order name: Labs collected and sent; Complete Time: 23:44 cp 11/15 23:28 Order name: Suicide Screening ([place]); Complete Time: 23:44 cp EC/16 23:44 Rate is 79 beats/min. Rhythm is regular. CA interval is normal. QRS interval is normal. cp QT interval is normal. T waves are Inverted in lead aVR. Interpreted by me. Reviewed by me. Administered Medications: 23:44 Drug: NS 0.9% IV 1000 ml Route: IV; Rate: 1 bolus; Site: right antecubital; as6 11/16 01:11 Follow up: Response: No adverse reaction; IV Status: Completed infusion; IV Intake: as6 1000ml 11/15 23:44 Drug: Ativan IVP 1 mg Route: IVP; Site: right antecubital; as6 11/16 01:11 Follow up: Response: No adverse reaction as6 00:55 Drug: Potassium PO Effervescent Tablet 50 mEq Route: PO; as6 01:11 Follow up: Response: No adverse reaction as6 Disposition: 04:10 Co-signature as Attending Physician, Volodymyr Santillan MD I agree with the assessment sp4 and plan of care. I reviewed the patient's care provided by the Advanced Practice Provider and agree with the diagnosis and treatment plan. Disposition Summary: 11/16/22 01:02 Discharge Ordered Location: Home cp Problem: new cp Symptoms: have improved cp Condition: Stable cp Diagnosis - Hypokalemia cp - Anxiety disorder, unspecified cp Followup: cp - With: Private Physician - When: 1 - 2 days - Reason: Recheck today's complaints Discharge Instructions: - Discharge Summary Sheet cp - Panic Attack cp - Potassium Content of Foods cp - Generalized Anxiety Disorder, Adult cp - Hypokalemia cp - Managing Anxiety, Adult cp Forms: - Medication Reconciliation Form cp - Thank You Letter cp - Antibiotic Education cp - Prescription Opioid Use cp - Work release form as6 Prescriptions: - Vistaril 25 mg Oral capsule - take 1 capsule by ORAL route 3 times per day as neded for anxiety; 30 capsule; cp Refills: 0, Product Selection Permitted - Potassium Chloride 10 mEq Oral capsule, extended release - take 2 tablet by ORAL route once daily; 6 tablet; Refills: 0, Product Selection cp Permitted Signatures: Dispatcher [employer] EDMS Lloyd Franklin PA PA cp Carroll Kang RN RN as6 Mayra, Roya Comer RN RN mb9 Volodymyr Santillan MD MD sp4 Corrections: (The following items were deleted from the chart) 00:40 00:39 Normal except: AST 12. cp cp
[2022-11-16 01:43] VITALS: TEMP 98.1; O2SAT 100
[2022-11-16 01:49] VITALS: BP 117/74
--- NOTE | 2022-11-16 11:45 | EKG ---
Test Date: 2022-11-15 Test Time: 23:39:03 Bonsai Tender: GIOVANNI MEASUREMENT RESULTS: Intervals: Rate: 79 SC: 144 QRSD: 82 QT: 374 QTc: 428 [place]: P: 74 SC: 144 QRS: 71 T: 39 INTERPRETIVE STATEMENTS: Normal sinus rhythm Normal ECG No previous ECG available for comparison Electronically Signed On 11-16-22 11:44:31 CDT by Sergei Bran
== END 2022-11-16 01:15 | disposition home or self-care (01) ==
LOC: ER 22:50
DX: F41.9 Anxiety disorder, unspecified (principal); E87.6 Hypokalemia
CPT/HCPCS: 93005; 85025; 81001; 80048; 36415; 84703; 81025; 85610; 80076; 85730; 80307; J7030; G0480 ×3

== ENCOUNTER 2024-02-24 21:37 | Emergency (ER) | payer SELFPAY ==
--- OUTSIDE RECORDS SUMMARY | 2024-02-24 21:44 | XMS REPORT | Continuity of Care Document ---
Author Name Unknown Address [address] [facility] [address] [place] [address] [facility] Address [address] [facility] [address] [place] [address] Care Team Providers Care Serger Name Role Phone PCP, PATIENT DOES NOT HAVE A Primary Care Physic tony Unavailable Eze Lees PA-C Attending Clinician [phone] SERGIO HARLEY Attending Clinician Unavailable Sergio Jade Attending Clinician [phone] Unknown, Attending Attending Clinician Unavailab EZE Rueda Attending Clinician Unavailable Doctor Unassigned, [place] Attending Clinician U Noreen Cullen Attending Clinician [phone] NOREEN FARRIS Attending Clinician Unavailable MORAIMA LEE Attending Clinician U MORAIMA Mujica Attending Clinician U ALEX Mohamud Attending Clinician UnavailAlex Shook Attending Clinician [phone] Cyn Burciaga MD Attending Clinician [phone] CYN BURCIAGA Attending Clinician Unavailable SEVERO MCINTOSH Attending Clinician Unavailable SEVERO MCINTOSH Attending Clinician Unavailable ROXY SHARP Attending Clinician Unavail able Roxy Esteves Attending Clinician + DENISE CAMACHO Attending Clinician Unavailable [facility] VICENTE, Denise Saleem Attending Clinician [phone] JEAN-CLAUDE STOVER Attending Clinician Unavailab dora Stover CLINICAL SALES CONSULTANT, Jean-Claude Hahn Attending Clinician [phone] Priscila Jackson MD Attending Clinician [phone] Darian [facility] Resident Attending Clinician Unavailab Krystal Magana MD Attending Clinician [phone] Stepan CUMMINGS, Danika Corrigan Attending Clinician [phone] DANIKA YING Attending Clinician UnavailFantasma MCCAINP, Francy Attending Clinician [phone] Marimar Longoria MD Attending Clinician [phone] Res-Colpo/Leep, [facility] Attending Clinician Un available [facility] Attending [facility] Shira Lilly Attending Clinician [phone] Payers Payer Name Policy Type Policy Number Effective Date Expirati on Date Source [employer] [facility] [id number] 2022 00:00:00 Problems Condition Name Condition Details Condition Category Status Onset Date Resolution Date Last Treatment Date Treating Clinician Comments Source 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 3 00:00: 00 [facility] Pap smear of cervix with ASCUS, cannot exclude HGSIL Pap smear of cervix with ASCUS, cannot exclude HGSIL Disease Active 2019-07 0 00:00: 00 [facility] Moderate dysplasia of cervix (ROBYN II) Moderate dysplasia of cervix (ROBYN II) Disease Active 2018-07 00:00: 00 [facility] Cervical high risk human papillomav irus (HPV) DNA test positive Cervical high risk human papillomav irus (HPV) DNA test positive Disease Active 2018-07 00:00: 00 [facility] Encounter for surveillan ce of implantabl e subdermal contracept kelly Encounter for surveillan ce of implantabl e subdermal contracept kelly Disease Active 01-30 00:00: 00 [facility] At risk for dental problems At risk for dental problems Disease Active 31 00:00: 00 [facility] Former smoker Former smoker Disease Active 2017-07 00:00: 00 [facility] Papanicola ou smear of cervix with low grade squamous intraepith elial lesion (LGSIL) Papanicola ou smear of cervix with low grade squamous intraepith elial lesion (LGSIL) Disease Active 11-23 00:00: 00 Overview: Formattin g of this note might be different from the original. 02/27/2019 - Satisfact ory colpo- ROBYN 2 on ECC2018- LEEP done [facility] Abnormal glandular Papanicola ou smear of cervix Abnormal glandular Papanicola ou smear of cervix Disease Active 11-23 00:00: 00 [facility] Screening examinatio n for STD (sexually transmitte d disease) Screening examinatio n for STD (sexually transmitte d disease) Disease Active 11-23 00:00: 00 [facility] Well woman exam Well woman exam Disease Active 11-09 00:00: 00 [facility] Allergies, Adverse Reactions, Alerts Allergy Name Allergy Type Status Severity Reaction(s) Onset Date Inactive Date Treating Clinician Comments Source NO KNOWN ALLERGIE S Drug Class Active [facility] Social History Social Habit Start Date Stop Date Quantity Comments Source Gender identity [facility] 2023-09-18 00:00:00 2023-09-18 00:00:00 Current non-drinker of alcohol (finding) [facility] Exposure to SARS-CoV-2 (event) 2022-07-01 00:00:00 2022-07-11 17:14:00 Not sure [facility] History of Social function 2022-07-11 00:00:00 2022-07-11 00:00:00 [facility] Tobacco use and exposure 2022-07-11 00:00:00 2022-07-11 00:00:00 Smokeless tobacco non-user [facility] Tobacco Comment 2022-07-11 00:00:00 2022-07-11 00:00:00 vapes daily [facility] History of tobacco use 2017-05-04 00:00:00 Cigarette Smoker [facility] Sex Assigned At 1990 00:00:00 1990 00:00:00 [facility] Smoking Status Start Date Stop Date Source Ex-smoker 2022-07-11 00:00:00 2022-07-11 [facility] Ordered Medication Name Filled Medication Name Start Date Stop Date Current Medication? Ordering Clinician Indication Dosage Frequency Signature (SIG) Comments Components Source dexamethaso ne (DECADRON) injection 10 mg 09-18 03:00: 00 09-18 01:59 :00 No [id number] 10mg [facility] albuterol 90 mcg/actuati on inhaler 09-17 00:00: 00 Yes [id number] 2{puff} Inhale 2 Puffs every 6 (six) hours as needed for Wheezing, Chest tightness or Bronchospa sm. [facility] methylPREDN ISolone 4 mg tablets 09-13 00:00: 00 Yes [id number] Take by mouth SEE-INSTRU CTIONS. follow package directions [facility] bromphenira mine-pseudo ephedrine-D M (BROMFED DM) 2-30-10 mg/5 mL syrup 09-13 00:00: 00 Yes [id number] 5mL Take 5 mL by mouth 3 (three) times daily as needed for Cough or Cold symptoms. [facility] cetirizine 10 mg tablet 09-13 00:00: 00 Yes [id number] 10mg Take 1 tablet by mouth in the morning. [facility] fluticasone propionate 50 mcg/actuati on nasal spray 09-13 00:00: 00 Yes [id number] 2{spray } Use 2 Sprays in each nostril in the morning. [facility] fluticasone propionate 50 mcg/actuati on nasal spray 2022-07 0 00:00: 00 Yes [id number] 2{spray } Use 2 Sprays in each nostril in the morning. [facility] methylPREDN ISolone 4 mg tablets 2022-07 0- 00:00: 00 Yes [id number] Take by mouth SEE-INSTRU CTIONS. follow package directions [facility] cetirizine 10 mg tablet 2022-07 0-14 00:00: 00 Yes [facility] ketorolac (TORADOL) injection 30 mg 2022-07 0- 19:45: 00 04-07 19:11 :00 No [id number] 30mg [facility] proMETHazin e 25 mg tablet 2022-07 0- 00:00: 00 04-13 04:59 :00 No [id number] 25mg Take 1 tablet by mouth every 6 (six) hours for 5 days. [facility] ketorolac (TORADOL) injection 30 mg 03-19 22:15: 00 03-19 21:21 :00 No [id number] 30mg [facility] chlorhexidi ne 0.12 % mouthwash 03-19 00:00: 00 Yes [id number] 15mL Swish and spit out 15 mL in the morning and 15 mL in the evening. [facility] methylPREDN ISolone (MEDROL, BREE,) 4 mg tablets 03-19 00:00: 00 04-22 00:00 :00 No [id number] Take by mouth SEE-INSTRU CTIONS. follow package directions [facility] amoxicillin 875 mg tablet 03-19 00:00: 00 03-30 04:59 :00 No [id number] 875mg Take 1 tablet by mouth in the morning and 1 tablet in the evening. Do all this for 10 days. [facility] chlorhexidi ne 0.12 % mouthwash 01-29 00:00: 00 Yes [id number] 15mL Swish and spit out 15 mL in the morning and 15 mL in the evening. [facility] amoxicillin -clavulanat e (AUGMENTIN) 875-125 mg per tablet 01-29 00:00: 00 02-09 04:59 :00 No [id number] 1{tbl} Take 1 tablet by mouth in the morning and 1 tablet in the evening. Do all this for 10 days. [facility] methylPREDN ISolone (MEDROL, BREE,) 4 mg tablets 01-07 00:00: 00 04-22 00:00 :00 No [id number] Take by mouth SEE-INSTRU CTIONS. follow package directions [facility] amoxicillin -clavulanat e (AUGMENTIN) 875-125 mg per tablet 01-07 00:00: 00 01-18 04:59 :00 No [id number] 1{tbl} Take 1 tablet by mouth in the morning and 1 tablet in the evening. Do all this for 10 days. [facility] bromphenira mine-pseudo ephedrine-D M (BROMFED DM) 2-30-10 mg/5 mL syrup 01-07 00:00: 00 01-18 04:59 :00 No [id number] 10mL Take 10 mL by mouth 3 (three) times daily as needed for Congestion /Allergies or Cough for up to 10 days. [facility] SERTraline 25 mg tablet 12-02 00:00: 00 Yes 25mg Take 1 tablet by mouth in the morning. [facility] propranoloL 20 mg tablet 11-18 00:00: 00 Yes 20mg Take 1 tablet by mouth in the morning. [facility] hydrOXYzine 25 mg capsule 17 00:00: 00 01-07 00:00 :00 No TAKE 1 CAPSULE BY MOUTH 3 TIMES A DAY NEEDED FOR ANXIETY [facility] fluticasone propionate 50 mcg/actuati on nasal spray 07-11 00:00: 00 Yes [id number] 1{spray } Use 1 Grandy in each nostril in the morning. [facility] methylPREDN ISolone (MEDROL, BREE,) 4 mg tablets 07-11 00:00: 00 01-07 00:00 :00 No [id number] Take by mouth SEE-INSTRU CTIONS. follow package directions [facility] cetirizine (ZYRTEC) 10 mg tablet -09 00:00: 00 12-30 00:00 :00 No [id number] 10mg Take 1 tablet by mouth in the morning. [facility] amoxicillin -clavulanat e (AUGMENTIN) 875-125 mg per tablet 1 tablet 2021-07 02:30: 00 06-29 01:48 :00 No 1{tbl} 1 tablet, Oral, ONCE, 1 dose, On Mon06/28/22 at 2030, Routine
Reason for Anti-Infec tive: Documented Infection< br>Documen mohan Infection Site: HEENT
D uration of Therapy: 7 days [facility] ibuprofen (IBU) tablet 600 mg 2021-07 01:45: 00 06-29 01:48 :00 No 600mg 600 mg, Oral, ONCE, 1 dose, On Mon06/28/22 at 1945, FABIENNE [facility] amoxicillin -clavulanat e 875-125 mg per tablet 2021-07 00:00: 00 01-07 00:00 :00 No [id number] 1{tbl} Take 1 tablet by mouth every 12 (twelve) hours. [facility] No known medications 5-16 11:09: 53 No [facility] levonorgest rel-ethinyl estradiol 0.1-20 mg-mcg per tablet 2019-07 0-15 00:00: 00 11-13 00:00 :00 No [id number] 1{tbl} Take 1 tablet by mouth daily. [facility] Iron Fum & P-FA-Vit B & C No.9 (INTEGRA PLUS) 125 mg iron- 1 mg Cap - 00:00: 00 11-13 00:00 :00 No [id number] 1{capsu le} Take 1 capsule by mouth daily. [facility] Immunizations Ordered Immunization Name Filled Immunization Name Date Status Comments Source Influenza Virus Vaccine Quad IM, Preserv and ABX Free 6 MO-64 YRS 2021-07-09 00:00:00 Completed [facility] Influenza Virus Vaccine Quad IM, Preserv and ABX Free 6 MO-64 YRS 2021-07-09 00:00:00 Completed [facility] Influenza Virus Vaccine Quad IM, Preserv and ABX Free 6 MO-64 YRS 2021-07-09 00:00:00 Completed [facility] Influenza Virus Vaccine Quad IM, Preserv and ABX Free 6 MO-64 YRS 2021-07-09 00:00:00 Completed [facility] Influenza Virus Vaccine Quad IM, Preserv and ABX Free 6 MO-64 YRS 2021-07-09 00:00:00 Completed [facility] Influenza Virus Vaccine Quad IM, Preserv and ABX Free 6 MO-64 YRS 2021-07-09 00:00:00 Completed [facility] Influenza Virus Vaccine Quad IM, Preserv and ABX Free 6 MO-64 YRS 2021-07-09 00:00:00 Completed [facility] Influenza Virus Vaccine Quad IM, Preserv and ABX Free 6 MO-64 YRS 2021-07-09 00:00:00 Completed [facility] Influenza Virus Vaccine Quad IM, Preserv and ABX Free 6 MO-64 YRS (FLUCELVAX) 2021-07-09 00:00:00 Completed [facility] Influenza Virus Vaccine Quad IM, Preserv and ABX Free 6 MO-64 YRS 2021-07-09 00:00:00 Completed [facility] Influenza Virus Vaccine Quad IM, Preserv and ABX Free 6 MO-64 YRS 2021-07-09 00:00:00 Completed [facility] Influenza Virus Vaccine Quad IM, Preserv and ABX Free 6 MO-64 YRS 2021-07-09 00:00:00 Completed [facility] Influenza Virus Vaccine Quad .5 mL IM 6+ MO 2020-04-16 00:00:00 Completed [facility] Influenza Virus Vaccine Quad .5 mL IM 6+ MO 2020-04-16 00:00:00 Completed [facility] Influenza Virus Vaccine Quad .5 mL IM 6+ MO 2020-04-16 00:00:00 Completed [facility] Influenza Virus Vaccine Quad .5 mL IM 6+ MO 2020-04-16 00:00:00 Completed [facility] Influenza Virus Vaccine Quad .5 mL IM 6+ MO 2020-04-16 00:00:00 Completed [facility] Influenza Virus Vaccine Quad .5 mL IM 6+ MO 2020-04-16 00:00:00 Completed [facility] Influenza Virus Vaccine Quad .5 mL IM 6+ MO 2020-04-16 00:00:00 Completed [facility] Influenza Virus Vaccine Quad .5 mL IM 6+ MO 2020-04-16 00:00:00 Completed [facility] Influenza Virus Vaccine Quad .5 mL IM 6+ MO (FLUZONE/FLULAVAL/FL UARIX) 2020-04-16 00:00:00 Completed [facility] Influenza Virus Vaccine Quad .5 mL IM 6+ MO 2020-04-16 00:00:00 Completed [facility] Influenza Virus Vaccine Quad .5 mL IM 6+ MO 2020-04-16 00:00:00 Completed [facility] Influenza Virus Vaccine Quad .5 mL IM 6+ MO 2020-04-16 00:00:00 Completed [facility] Influenza Virus Vaccine Quad .5 mL IM 6+ MO 2018-10-03 00:00:00 Completed [facility] TDAP 2018-10-03 00:00:00 Completed [facility] Influenza Virus Vaccine Quad .5 mL IM 6+ MO 2018-10-03 00:00:00 Completed [facility] TDAP 2018-10-03 00:00:00 Completed [facility] Influenza Virus Vaccine Quad .5 mL IM 6+ MO 2018-10-03 00:00:00 Completed [facility] TDAP 2018-10-03 00:00:00 Completed [facility] Influenza Virus Vaccine Quad .5 mL IM 6+ MO 2018-10-03 00:00:00 Completed [facility] TDAP 2018-10-03 00:00:00 Completed [facility] Influenza Virus Vaccine Quad .5 mL IM 6+ MO 2018-10-03 00:00:00 Completed [facility] TDAP 2018-10-03 00:00:00 Completed [facility] Influenza Virus Vaccine Quad .5 mL IM 6+ MO 2018-10-03 00:00:00 Completed [facility] TDAP 2018-10-03 00:00:00 Completed [facility] Influenza Virus Vaccine Quad .5 mL IM 6+ MO 2018-10-03 00:00:00 Completed [facility] TDAP 2018-10-03 00:00:00 Completed [facility] Influenza Virus Vaccine Quad .5 mL IM 6+ MO 2018-10-03 00:00:00 Completed [facility] TDAP 2018-10-03 00:00:00 Completed [facility] Influenza Virus Vaccine Quad .5 mL IM 6+ MO (FLUZONE/FLULAVAL/FL UARIX) 2018-10-03 00:00:00 Completed [facility] TDAP 2018-10-03 00:00:00 Completed [facility] Influenza Virus Vaccine Quad .5 mL IM 6+ MO 2018-10-03 00:00:00 Completed [facility] TDAP 2018-10-03 00:00:00 Completed [facility] Influenza Virus Vaccine Quad .5 mL IM 6+ MO 2018-10-03 00:00:00 Completed [facility] TDAP 2018-10-03 00:00:00 Completed [facility] Influenza Virus Vaccine Quad .5 mL IM 6+ MO 2018-10-03 00:00:00 Completed [facility] TDAP 2018-10-03 00:00:00 Completed [facility] HPV9 2017-11-23 00:00:00 Completed [facility] HPV9 2017-11-23 00:00:00 Completed [facility] HPV9 2017-11-23 00:00:00 Completed [facility] HPV9 2017-11-23 00:00:00 Completed [facility] HPV9 2017-11-23 00:00:00 Completed [facility] HPV9 2017-11-23 00:00:00 Completed [facility] HPV9 2017-11-23 00:00:00 Completed [facility] HPV9 2017-11-23 00:00:00 Completed [facility] HPV9 2017-11-23 00:00:00 Completed [facility] HPV9 2017-11-23 00:00:00 Completed [facility] HPV9 2017-11-23 00:00:00 Completed [facility] HPV9 2017-11-23 00:00:00 Completed [facility] HPV9 2017-01-24 00:00:00 Completed [facility] HPV9 2017-01-24 00:00:00 Completed [facility] HPV9 2017-01-24 00:00:00 Completed [facility] HPV9 2017-01-24 00:00:00 Completed [facility] HPV9 2017-01-24 00:00:00 Completed [facility] HPV9 2017-01-24 00:00:00 Completed [facility] HPV9 2017-01-24 00:00:00 Completed [facility] HPV9 2017-01-24 00:00:00 Completed [facility] HPV9 2017-01-24 00:00:00 Completed [facility] HPV9 2017-01-24 00:00:00 Completed [facility] HPV9 2017-01-24 00:00:00 Completed [facility] HPV9 2017-01-24 00:00:00 Completed [facility] HPV9 2016-11-09 00:00:00 Completed [facility] HPV9 2016-11-09 00:00:00 Completed [facility] HPV9 2016-11-09 00:00:00 Completed [facility] HPV9 2016-11-09 00:00:00 Completed [facility] HPV9 2016-11-09 00:00:00 Completed [facility] HPV9 2016-11-09 00:00:00 Completed [facility] HPV9 2016-11-09 00:00:00 Completed [facility] HPV9 2016-11-09 00:00:00 Completed [facility] HPV9 2016-11-09 00:00:00 Completed [facility] HPV9 2016-11-09 00:00:00 Completed [facility] HPV9 2016-11-09 00:00:00 Completed [facility] HPV9 2016-11-09 00:00:00 Completed [facility] HPV 2011-06-01 00:00:00 Completed [facility] HPV 2011-06-01 00:00:00 Completed [facility] HPV 2011-06-01 00:00:00 Completed [facility] HPV 2011-06-01 00:00:00 Completed [facility] HPV 2011-06-01 00:00:00 Completed [facility] HPV 2011-06-01 00:00:00 Completed [facility] HPV 2011-06-01 00:00:00 Completed [facility] Flu Trivalent 2010-05-19 00:00:00 Completed [facility] HEPATITIS A 2010-05-19 00:00:00 Completed [facility] HPV 2010-05-19 00:00:00 Completed [facility] Flu Trivalent 2010-05-19 00:00:00 Completed [facility] HEPATITIS A 2010-05-19 00:00:00 Completed [facility] HPV 2010-05-19 00:00:00 Completed [facility] Flu Trivalent 2010-05-19 00:00:00 Completed [facility] HEPATITIS A 2010-05-19 00:00:00 Completed [facility] HPV 2010-05-19 00:00:00 Completed [facility] Flu Trivalent 2010-05-19 00:00:00 Completed [facility] HEPATITIS A 2010-05-19 00:00:00 Completed [facility] HPV 2010-05-19 00:00:00 Completed [facility] Flu Trivalent 2010-05-19 00:00:00 Completed [facility] HEPATITIS A 2010-05-19 00:00:00 Completed [facility] HPV 2010-05-19 00:00:00 Completed [facility] Flu Trivalent 2010-05-19 00:00:00 Completed [facility] HEPATITIS A 2010-05-19 00:00:00 Completed [facility] HPV 2010-05-19 00:00:00 Completed [facility] Flu Trivalent 2010-05-19 00:00:00 Completed [facility] HEPATITIS A 2010-05-19 00:00:00 Completed [facility] HPV 2010-05-19 00:00:00 Completed [facility] Rubella 2009-10-26 00:00:00 Completed [facility] Varicella (varivax)(chicken pox) 2009-10-26 00:00:00 Completed [facility] Rubella 2009-10-26 00:00:00 Completed [facility] Varicella (varivax)(chicken pox) 2009-10-26 00:00:00 Completed [facility] Rubella 2009-10-26 00:00:00 Completed [facility] Varicella (varivax)(chicken pox) 2009-10-26 00:00:00 Completed [facility] Rubella 2009-10-26 00:00:00 Completed [facility] Varicella (varivax)(chicken pox) 2009-10-26 00:00:00 Completed [facility] Rubella 2009-10-26 00:00:00 Completed [facility] Varicella (varivax)(chicken pox) 2009-10-26 00:00:00 Completed [facility] Rubella 2009-10-26 00:00:00 Completed [facility] Varicella (varivax)(chicken pox) 2009-10-26 00:00:00 Completed [facility] Rubella 2009-10-26 00:00:00 Completed [facility] Varicella (varivax)(chicken pox) 2009-10-26 00:00:00 Completed [facility] Rubella 2009-10-26 00:00:00 Completed [facility] Varicella (varivax)(chicken pox) 2009-10-26 00:00:00 Completed [facility] Rubella 2009-10-26 00:00:00 Completed [facility] Varicella (varivax)(chicken pox) 2009-10-26 00:00:00 Completed [facility] Rubella 2009-10-26 00:00:00 Completed [facility] Varicella (varivax)(chicken pox) 2009-10-26 00:00:00 Completed [facility] Rubella 2009-10-26 00:00:00 Completed [facility] Varicella (varivax)(chicken pox) 2009-10-26 00:00:00 Completed [facility] Rubella 2009-10-26 00:00:00 Completed [facility] Varicella (varivax)(chicken pox) 2009-10-26 00:00:00 Completed [facility] HEPATITIS A 2008-01-01 00:00:00 Completed [facility] HPV 2008-01-01 00:00:00 Completed [facility] Meningococcal Polysaccharide (groups A, C, Y and W-135) conjugate vaccine (MCV4P) 2008-01-01 00:00:00 Completed [facility] TDAP 2008-01-01 00:00:00 Completed [facility] HEPATITIS A 2008-01-01 00:00:00 Completed [facility] HPV 2008-01-01 00:00:00 Completed [facility] Meningococcal Polysaccharide (groups A, C, Y and W-135) conjugate vaccine (MCV4P) 2008-01-01 00:00:00 Completed [facility] TDAP 2008-01-01 00:00:00 Completed [facility] HEPATITIS A 2008-01-01 00:00:00 Completed [facility] HPV 2008-01-01 00:00:00 Completed [facility] Meningococcal Polysaccharide (groups A, C, Y and W-135) conjugate vaccine (MCV4P) 2008-01-01 00:00:00 Completed [facility] TDAP 2008-01-01 00:00:00 Completed [facility] HEPATITIS A 2008-01-01 00:00:00 Completed [facility] HPV 2008-01-01 00:00:00 Completed [facility] Meningococcal Polysaccharide (groups A, C, Y and W-135) conjugate vaccine (MCV4P) 2008-01-01 00:00:00 Completed [facility] TDAP 2008-01-01 00:00:00 Completed [facility] HEPATITIS A 2008-01-01 00:00:00 Completed [facility] HPV 2008-01-01 00:00:00 Completed [facility] Meningococcal Polysaccharide (groups A, C, Y and W-135) conjugate vaccine (MCV4P) 2008-01-01 00:00:00 Completed [facility] TDAP 2008-01-01 00:00:00 Completed [facility] HEPATITIS A 2008-01-01 00:00:00 Completed [facility] HPV 2008-01-01 00:00:00 Completed [facility] Meningococcal Polysaccharide (groups A, C, Y and W-135) conjugate vaccine (MCV4P) 2008-01-01 00:00:00 Completed [facility] TDAP 2008-01-01 00:00:00 Completed [facility] HEPATITIS A 2008-01-01 00:00:00 Completed [facility] HPV 2008-01-01 00:00:00 Completed [facility] Meningococcal Polysaccharide (groups A, C, Y and W-135) conjugate vaccine (MCV4P) 2008-01-01 00:00:00 Completed [facility] TDAP 2008-01-01 00:00:00 Completed [facility] TD, NOS 2007-07-03 00:00:00 Completed [facility] TD, NOS 2007-07-03 00:00:00 Completed [facility] TD, NOS 2007-07-03 00:00:00 Completed [facility] TD, NOS 2007-07-03 00:00:00 Completed [facility] TD, NOS 2007-07-03 00:00:00 Completed [facility] TD, NOS 2007-07-03 00:00:00 Completed [facility] TD, NOS 2007-07-03 00:00:00 Completed [facility] TD, NOS 2007-07-03 00:00:00 Completed [facility] Td 2007-07-03 00:00:00 Completed [facility] TD, NOS 2007-07-03 00:00:00 Completed [facility] TD, NOS 2007-07-03 00:00:00 Completed [facility] TD, NOS 2007-07-03 00:00:00 Completed [facility] DTaP, Unspecified Formulation 1998-01-06 00:00:00 Completed [facility] MMR 1998-01-06 00:00:00 Completed [facility] Poliovirus, Live, Oral, Trivalent 1998-01-06 00:00:00 Completed [facility] DTaP, Unspecified Formulation 1998-01-06 00:00:00 Completed [facility] MMR 1998-01-06 00:00:00 Completed [facility] Poliovirus, Live, Oral, Trivalent 1998-01-06 00:00:00 Completed [facility] DTaP, Unspecified Formulation 1998-01-06 00:00:00 Completed [facility] MMR 1998-01-06 00:00:00 Completed [facility] Poliovirus, Live, Oral, Trivalent 1998-01-06 00:00:00 Completed [facility] DTaP, Unspecified Formulation 1998-01-06 00:00:00 Completed [facility] MMR 1998-01-06 00:00:00 Completed [facility] Poliovirus, Live, Oral, Trivalent 1998-01-06 00:00:00 Completed [facility] DTaP, Unspecified Formulation 1998-01-06 00:00:00 Completed [facility] MMR 1998-01-06 00:00:00 Completed [facility] Poliovirus, Live, Oral, Trivalent 1998-01-06 00:00:00 Completed [facility] DTaP, Unspecified Formulation 1998-01-06 00:00:00 Completed [facility] MMR 1998-01-06 00:00:00 Completed [facility] Poliovirus, Live, Oral, Trivalent 1998-01-06 00:00:00 Completed [facility] DTaP, Unspecified Formulation 1998-01-06 00:00:00 Completed [facility] MMR 1998-01-06 00:00:00 Completed [facility] Poliovirus, Live, Oral, Trivalent 1998-01-06 00:00:00 Completed [facility] DTP 1993-12-01 00:00:00 Completed [facility] Haemophilus influenzae type b vaccine, conjugate unspecified formulation 1993-12-01 00:00:00 Completed [facility] MMR 1993-12-01 00:00:00 Completed [facility] DTP 1993-12-01 00:00:00 Completed [facility] Haemophilus influenzae type b vaccine, conjugate unspecified formulation 1993-12-01 00:00:00 Completed [facility] MMR 1993-12-01 00:00:00 Completed [facility] DTP 1993-12-01 00:00:00 Completed [facility] Haemophilus influenzae type b vaccine, conjugate unspecified formulation 1993-12-01 00:00:00 Completed [facility] MMR 1993-12-01 00:00:00 Completed [facility] DTP 1993-12-01 00:00:00 Completed [facility] Haemophilus influenzae type b vaccine, conjugate unspecified formulation 1993-12-01 00:00:00 Completed [facility] MMR 1993-12-01 00:00:00 Completed [facility] DTP 1993-12-01 00:00:00 Completed [facility] Haemophilus influenzae type b vaccine, conjugate unspecified formulation 1993-12-01 00:00:00 Completed [facility] MMR 1993-12-01 00:00:00 Completed [facility] DTP 1993-12-01 00:00:00 Completed [facility] Haemophilus influenzae type b vaccine, conjugate unspecified formulation 1993-12-01 00:00:00 Completed [facility] MMR 1993-12-01 00:00:00 Completed [facility] DTP 1993-12-01 00:00:00 Completed [facility] Haemophilus influenzae type b vaccine, conjugate unspecified formulation 1993-12-01 00:00:00 Completed [facility] MMR 1993-12-01 00:00:00 Completed [facility] Hep B, Unspecified Formulation 1993-08-31 00:00:00 Completed [facility] Poliovirus, Live, Oral, Trivalent 1993-08-31 00:00:00 Completed [facility] Hep B, Unspecified Formulation 1993-08-31 00:00:00 Completed [facility] Poliovirus, Live, Oral, Trivalent 1993-08-31 00:00:00 Completed [facility] Hep B, Unspecified Formulation 1993-08-31 00:00:00 Completed [facility] Poliovirus, Live, Oral, Trivalent 1993-08-31 00:00:00 Completed [facility] Hep B, Unspecified Formulation 1993-08-31 00:00:00 Completed [facility] Poliovirus, Live, Oral, Trivalent 1993-08-31 00:00:00 Completed [facility] Hep B, Unspecified Formulation 1993-08-31 00:00:00 Completed [facility] Poliovirus, Live, Oral, Trivalent 1993-08-31 00:00:00 Completed [facility] Hep B, Unspecified Formulation 1993-08-31 00:00:00 Completed [facility] Poliovirus, Live, Oral, Trivalent 1993-08-31 00:00:00 Completed [facility] Hep B, Unspecified Formulation 1993-08-31 00:00:00 Completed [facility] Poliovirus, Live, Oral, Trivalent 1993-08-31 00:00:00 Completed [facility] DTP 1993-06-01 00:00:00 Completed [facility] Haemophilus influenzae type b vaccine, conjugate unspecified formulation 1993-06-01 00:00:00 Completed [facility] DTP 1993-06-01 00:00:00 Completed [facility] Haemophilus influenzae type b vaccine, conjugate unspecified formulation 1993-06-01 00:00:00 Completed [facility] DTP 1993-06-01 00:00:00 Completed [facility] Haemophilus influenzae type b vaccine, conjugate unspecified formulation 1993-06-01 00:00:00 Completed [facility] DTP 1993-06-01 00:00:00 Completed [facility] Haemophilus influenzae type b vaccine, conjugate unspecified formulation 1993-06-01 00:00:00 Completed [facility] DTP 1993-06-01 00:00:00 Completed [facility] Haemophilus influenzae type b vaccine, conjugate unspecified formulation 1993-06-01 00:00:00 Completed [facility] DTP 1993-06-01 00:00:00 Completed [facility] Haemophilus influenzae type b vaccine, conjugate unspecified formulation 1993-06-01 00:00:00 Completed [facility] DTP 1993-06-01 00:00:00 Completed [facility] Haemophilus influenzae type b vaccine, conjugate unspecified formulation 1993-06-01 00:00:00 Completed [facility] DTP 1993-03-30 00:00:00 Completed [facility] Hep B, Unspecified Formulation 1993-03-30 00:00:00 Completed [facility] Haemophilus influenzae type b vaccine, conjugate unspecified formulation 1993-03-30 00:00:00 Completed [facility] Poliovirus, Live, Oral, Trivalent 1993-03-30 00:00:00 Completed [facility] DTP 1993-03-30 00:00:00 Completed [facility] Hep B, Unspecified Formulation 1993-03-30 00:00:00 Completed [facility] Haemophilus influenzae type b vaccine, conjugate unspecified formulation 1993-03-30 00:00:00 Completed [facility] Poliovirus, Live, Oral, Trivalent 1993-03-30 00:00:00 Completed [facility] DTP 1993-03-30 00:00:00 Completed [facility] Hep B, Unspecified Formulation 1993-03-30 00:00:00 Completed [facility] Haemophilus influenzae type b vaccine, conjugate unspecified formulation 1993-03-30 00:00:00 Completed [facility] Poliovirus, Live, Oral, Trivalent 1993-03-30 00:00:00 Completed [facility] DTP 1993-03-30 00:00:00 Completed [facility] Hep B, Unspecified Formulation 1993-03-30 00:00:00 Completed [facility] Haemophilus influenzae type b vaccine, conjugate unspecified formulation 1993-03-30 00:00:00 Completed [facility] Poliovirus, Live, Oral, Trivalent 1993-03-30 00:00:00 Completed [facility] DTP 1993-03-30 00:00:00 Completed [facility] Hep B, Unspecified Formulation 1993-03-30 00:00:00 Completed [facility] Haemophilus influenzae type b vaccine, conjugate unspecified formulation 1993-03-30 00:00:00 Completed [facility] Poliovirus, Live, Oral, Trivalent 1993-03-30 00:00:00 Completed [facility] DTP 1993-03-30 00:00:00 Completed [facility] Hep B, Unspecified Formulation 1993-03-30 00:00:00 Completed [facility] Haemophilus influenzae type b vaccine, conjugate unspecified formulation 1993-03-30 00:00:00 Completed [facility] Poliovirus, Live, Oral, Trivalent 1993-03-30 00:00:00 Completed [facility] DTP 1993-03-30 00:00:00 Completed [facility] Hep B, Unspecified Formulation 1993-03-30 00:00:00 Completed [facility] Haemophilus influenzae type b vaccine, conjugate unspecified formulation 1993-03-30 00:00:00 Completed [facility] Poliovirus, Live, Oral, Trivalent 1993-03-30 00:00:00 Completed [facility] DTP 1993-01-26 00:00:00 Completed [facility] Hep B, Unspecified Formulation 1993-01-26 00:00:00 Completed [facility] Haemophilus influenzae type b vaccine, conjugate unspecified formulation 1993-01-26 00:00:00 Completed [facility] Poliovirus, Live, Oral, Trivalent 1993-01-26 00:00:00 Completed [facility] DTP 1993-01-26 00:00:00 Completed [facility] Hep B, Unspecified Formulation 1993-01-26 00:00:00 Completed [facility] Haemophilus influenzae type b vaccine, conjugate unspecified formulation 1993-01-26 00:00:00 Completed [facility] Poliovirus, Live, Oral, Trivalent 1993-01-26 00:00:00 Completed [facility] DTP 1993-01-26 00:00:00 Completed [facility] Hep B, Unspecified Formulation 1993-01-26 00:00:00 Completed [facility] Haemophilus influenzae type b vaccine, conjugate unspecified formulation 1993-01-26 00:00:00 Completed [facility] Poliovirus, Live, Oral, Trivalent 1993-01-26 00:00:00 Completed [facility] DTP 1993-01-26 00:00:00 Completed [facility] Hep B, Unspecified Formulation 1993-01-26 00:00:00 Completed [facility] Haemophilus influenzae type b vaccine, conjugate unspecified formulation 1993-01-26 00:00:00 Completed [facility] Poliovirus, Live, Oral, Trivalent 1993-01-26 00:00:00 Completed [facility] DTP 1993-01-26 00:00:00 Completed [facility] Hep B, Unspecified Formulation 1993-01-26 00:00:00 Completed [facility] Haemophilus influenzae type b vaccine, conjugate unspecified formulation 1993-01-26 00:00:00 Completed [facility] Poliovirus, Live, Oral, Trivalent 1993-01-26 00:00:00 Completed [facility] DTP 1993-01-26 00:00:00 Completed [facility] Hep B, Unspecified Formulation 1993-01-26 00:00:00 Completed [facility] Haemophilus influenzae type b vaccine, conjugate unspecified formulation 1993-01-26 00:00:00 Completed [facility] Poliovirus, Live, Oral, Trivalent 1993-01-26 00:00:00 Completed [facility] DTP 1993-01-26 00:00:00 Completed [facility] Hep B, Unspecified Formulation 1993-01-26 00:00:00 Completed [facility] Haemophilus influenzae type b vaccine, conjugate unspecified formulation 1993-01-26 00:00:00 Completed [facility] Poliovirus, Live, Oral, Trivalent 1993-01-26 00:00:00 Completed [facility] Influenza Virus Vaccine Quad .5 mL IM 6+ MO (FLUZONE/FLULAVAL/FL UARIX) Unknown Completed [facility] TDAP Unknown Completed [facility] Influenza Virus Vaccine Quad .5 mL IM 6+ MO (FLUZONE/FLULAVAL/FL UARIX) Unknown Completed [facility] Influenza Virus Vaccine Quad IM, Preserv and ABX Free 6 MO-64 YRS (FLUCELVAX) Unknown Completed [facility] DTaP, Unspecified Formulation Unknown Completed [facility] DTP Unknown Completed [facility] DTP Unknown Completed [facility] DTP Unknown Completed [facility] DTP Unknown Completed [facility] Flu Trivalent Unknown Completed [facility] HEPATITIS A Unknown Completed [facility] HEPATITIS A Unknown Completed [facility] Hep B, Unspecified Formulation Unknown Completed [facility] Hep B, Unspecified Formulation Unknown Completed [facility] Hep B, Unspecified Formulation Unknown Completed [facility] Haemophilus influenzae type b vaccine, conjugate unspecified formulation Unknown Completed [facility] Haemophilus influenzae type b vaccine, conjugate unspecified formulation Unknown Completed [facility] Haemophilus influenzae type b vaccine, conjugate unspecified formulation Unknown Completed [facility] Haemophilus influenzae type b vaccine, conjugate unspecified formulation Unknown Completed [facility] HPV Unknown Completed [facility] HPV Unknown Completed [facility] HPV Unknown Completed [facility] Meningococcal Polysaccharide (groups A, C, Y and W-135) conjugate vaccine (MCV4P) Unknown Completed [facility] MMR Unknown Completed [facility] MMR Unknown Completed [facility] TDAP Unknown Completed [facility] Poliovirus, Live, Oral, Trivalent Unknown Completed [facility] Poliovirus, Live, Oral, Trivalent Unknown Completed [facility] Poliovirus, Live, Oral, Trivalent Unknown Completed [facility] Poliovirus, Live, Oral, Trivalent Unknown Completed [facility] TD, NOS Unknown Completed [facility] Rubella Unknown Completed [facility] Varicella (varivax)(chicken pox) Unknown Completed [facility] HPV9 Unknown Completed [facility] HPV9 Unknown Completed [facility] HPV9 Unknown Completed [facility] Influenza Virus Vaccine Quad .5 mL IM 6+ MO (FLUZONE/FLULAVAL/FL UARIX) Unknown Completed [facility] TDAP Unknown Completed [facility] Influenza Virus Vaccine Quad .5 mL IM 6+ MO (FLUZONE/FLULAVAL/FL UARIX) Unknown Completed [facility] Influenza Virus Vaccine Quad IM, Preserv and ABX Free 6 MO-64 YRS (FLUCELVAX) Unknown Completed [facility] DTaP, Unspecified Formulation Unknown Completed [facility] DTP Unknown Completed [facility] DTP Unknown Completed [facility] DTP Unknown Completed [facility] DTP Unknown Completed [facility] Flu Trivalent Unknown Completed [facility] HEPATITIS A Unknown Completed [facility] HEPATITIS A Unknown Completed [facility] Hep B, Unspecified Formulation Unknown Completed [facility] Hep B, Unspecified Formulation Unknown Completed [facility] Hep B, Unspecified Formulation Unknown Completed [facility] Haemophilus influenzae type b vaccine, conjugate unspecified formulation Unknown Completed [facility] Haemophilus influenzae type b vaccine, conjugate unspecified formulation Unknown Completed [facility] Haemophilus influenzae type b vaccine, conjugate unspecified formulation Unknown Completed [facility] Haemophilus influenzae type b vaccine, conjugate unspecified formulation Unknown Completed [facility] HPV Unknown Completed [facility] HPV Unknown Completed [facility] HPV Unknown Completed [facility] Meningococcal Polysaccharide (groups A, C, Y and W-135) conjugate vaccine (MCV4P) Unknown Completed [facility] MMR Unknown Completed [facility] MMR Unknown Completed [facility] TDAP Unknown Completed [facility] Poliovirus, Live, Oral, Trivalent Unknown Completed [facility] Poliovirus, Live, Oral, Trivalent Unknown Completed [facility] Poliovirus, Live, Oral, Trivalent Unknown Completed [facility] Poliovirus, Live, Oral, Trivalent Unknown Completed [facility] TD, NOS Unknown Completed [facility] Rubella Unknown Completed [facility] Varicella (varivax)(chicken pox) Unknown Completed [facility] HPV9 Unknown Completed [facility] HPV9 Unknown Completed [facility] HPV9 Unknown Completed [facility] Influenza Virus Vaccine Quad .5 mL IM 6+ MO (FLUZONE/FLULAVAL/FL UARIX) Unknown Completed [facility] TDAP Unknown Completed [facility] Influenza Virus Vaccine Quad .5 mL IM 6+ MO (FLUZONE/FLULAVAL/FL UARIX) Unknown Completed [facility] Influenza Virus Vaccine Quad IM, Preserv and ABX Free 6 MO-64 YRS (FLUCELVAX) Unknown Completed [facility] DTaP, Unspecified Formulation Unknown Completed [facility] DTP Unknown Completed [facility] DTP Unknown Completed [facility] DTP Unknown Completed [facility] DTP Unknown Completed [facility] Flu Trivalent Unknown Completed [facility] HEPATITIS A Unknown Completed [facility] HEPATITIS A Unknown Completed [facility] Hep B, Unspecified Formulation Unknown Completed [facility] Hep B, Unspecified Formulation Unknown Completed [facility] Hep B, Unspecified Formulation Unknown Completed [facility] Haemophilus influenzae type b vaccine, conjugate unspecified formulation Unknown Completed [facility] Haemophilus influenzae type b vaccine, conjugate unspecified formulation Unknown Completed [facility] Haemophilus influenzae type b vaccine, conjugate unspecified formulation Unknown Completed [facility] Haemophilus influenzae type b vaccine, conjugate unspecified formulation Unknown Completed [facility] HPV Unknown Completed [facility] HPV Unknown Completed [facility] HPV Unknown Completed [facility] Meningococcal Polysaccharide (groups A, C, Y and W-135) conjugate vaccine (MCV4P) Unknown Completed [facility] MMR Unknown Completed [facility] MMR Unknown Completed [facility] TDAP Unknown Completed [facility] Poliovirus, Live, Oral, Trivalent Unknown Completed [facility] Poliovirus, Live, Oral, Trivalent Unknown Completed [facility] Poliovirus, Live, Oral, Trivalent Unknown Completed [facility] Poliovirus, Live, Oral, Trivalent Unknown Completed [facility] TD, NOS Unknown Completed [facility] Rubella Unknown Completed [facility] Varicella (varivax)(chicken pox) Unknown Completed [facility] HPV9 Unknown Completed [facility] HPV9 Unknown Completed [facility] HPV9 Unknown Completed [facility] Influenza Virus Vaccine Quad .5 mL IM 6+ MO (FLUZONE/FLULAVAL/FL UARIX) Unknown Completed [facility] TDAP Unknown Completed [facility] Influenza Virus Vaccine Quad .5 mL IM 6+ MO (FLUZONE/FLULAVAL/FL UARIX) Unknown Completed [facility] Influenza Virus Vaccine Quad IM, Preserv and ABX Free 6 MO-64 YRS (FLUCELVAX) Unknown Completed [facility] DTaP, Unspecified Formulation Unknown Completed [facility] DTP Unknown Completed [facility] DTP Unknown Completed [facility] DTP Unknown Completed [facility] DTP Unknown Completed [facility] Flu Trivalent Unknown Completed [facility] HEPATITIS A Unknown Completed [facility] HEPATITIS A Unknown Completed [facility] Hep B, Unspecified Formulation Unknown Completed [facility] Hep B, Unspecified Formulation Unknown Completed [facility] Hep B, Unspecified Formulation Unknown Completed [facility] Haemophilus influenzae type b vaccine, conjugate unspecified formulation Unknown Completed [facility] Haemophilus influenzae type b vaccine, conjugate unspecified formulation Unknown Completed [facility] Haemophilus influenzae type b vaccine, conjugate unspecified formulation Unknown Completed [facility] Haemophilus influenzae type b vaccine, conjugate unspecified formulation Unknown [facility] [facility] HPV Unknown Completed [facility] HPV Unknown Completed [facility] HPV Unknown Completed [facility] Meningococcal Polysaccharide (groups A, C, Y and W-135) conjugate vaccine (MCV4P) Unknown Completed [facility] MMR Unknown Completed [facility] MMR Unknown Completed [facility] TDAP Unknown Completed [facility] Poliovirus, Live, Oral, Trivalent Unknown Completed [facility] Poliovirus, Live, Oral, Trivalent Unknown Completed [facility] Poliovirus, Live, Oral, Trivalent Unknown Completed [facility] Poliovirus, Live, Oral, Trivalent Unknown Completed [facility] TD, NOS Unknown Completed [facility] Rubella Unknown Completed [facility] Varicella (varivax)(chicken pox) Unknown Completed [facility] HPV9 Unknown Completed [facility] HPV9 Unknown Completed [facility] HPV9 Unknown Completed [facility] Influenza Virus Vaccine Quad .5 mL IM 6+ MO (FLUZONE/FLULAVAL/FL UARIX) Unknown Completed [facility] TDAP Unknown Completed [facility] Influenza Virus Vaccine Quad .5 mL IM 6+ MO (FLUZONE/FLULAVAL/FL UARIX) Unknown Completed [facility] Influenza Virus Vaccine Quad IM, Preserv and ABX Free 6 MO-64 YRS (FLUCELVAX) Unknown Completed [facility] DTaP, Unspecified Formulation Unknown Completed [facility] DTP Unknown Completed [facility] DTP Unknown Completed [facility] DTP Unknown Completed [facility] DTP Unknown Completed [facility] Flu Trivalent Unknown Completed [facility] HEPATITIS A Unknown Completed [facility] HEPATITIS A Unknown Completed [facility] Hep B, Unspecified Formulation Unknown Completed [facility] Hep B, Unspecified Formulation Unknown Completed [facility] Hep B, Unspecified Formulation Unknown Completed [facility] Haemophilus influenzae type b vaccine, conjugate unspecified formulation Unknown Completed [facility] Haemophilus influenzae type b vaccine, conjugate unspecified formulation Unknown Completed [facility] Haemophilus influenzae type b vaccine, conjugate unspecified formulation Unknown Completed [facility] Haemophilus influenzae type b vaccine, conjugate unspecified formulation Unknown Completed [facility] HPV Unknown Completed [facility] HPV Unknown Completed [facility] HPV Unknown Completed [facility] Meningococcal Polysaccharide (groups A, C, Y and W-135) conjugate vaccine (MCV4P) Unknown Completed [facility] MMR Unknown Completed [facility] MMR Unknown Completed [facility] TDAP Unknown Completed [facility] Poliovirus, Live, Oral, Trivalent Unknown Completed [facility] Poliovirus, Live, Oral, Trivalent Unknown Completed [facility] Poliovirus, Live, Oral, Trivalent Unknown Completed [facility] Poliovirus, Live, Oral, Trivalent Unknown Completed [facility] TD, NOS Unknown Completed [facility] Rubella Unknown Completed [facility] Varicella (varivax)(chicken pox) Unknown Completed [facility] HPV9 Unknown Completed [facility] HPV9 Unknown Completed [facility] HPV9 Unknown Completed [facility] Influenza Virus Vaccine Quad .5 mL IM 6+ MO (FLUZONE/FLULAVAL/FL UARIX) Unknown Completed [facility] TDAP Unknown Completed [facility] Influenza Virus Vaccine Quad .5 mL IM 6+ MO (FLUZONE/FLULAVAL/FL UARIX) Unknown Completed [facility] Influenza Virus Vaccine Quad IM, Preserv and ABX Free 6 MO-64 YRS (FLUCELVAX) Unknown Completed [facility] DTaP, Unspecified Formulation Unknown Completed [facility] DTP Unknown Completed [facility] DTP Unknown Completed [facility] DTP Unknown Completed [facility] DTP Unknown Completed [facility] Flu Trivalent Unknown Completed [facility] HEPATITIS A Unknown Completed [facility] HEPATITIS A Unknown Completed [facility] Hep B, Unspecified Formulation Unknown Completed [facility] Hep B, Unspecified Formulation Unknown Completed [facility] Hep B, Unspecified Formulation Unknown Completed [facility] Haemophilus influenzae type b vaccine, conjugate unspecified formulation Unknown Completed [facility] Haemophilus influenzae type b vaccine, conjugate unspecified formulation Unknown Completed [facility] Haemophilus influenzae type b vaccine, conjugate unspecified formulation Unknown Completed [facility] Haemophilus influenzae type b vaccine, conjugate unspecified formulation Unknown Completed [facility] HPV Unknown Completed [facility] HPV Unknown Completed [facility] HPV Unknown Completed [facility] Meningococcal Polysaccharide (groups A, C, Y and W-135) conjugate vaccine (MCV4P) Unknown Completed [facility] MMR Unknown Completed [facility] MMR Unknown Completed [facility] TDAP Unknown Completed [facility] Poliovirus, Live, Oral, Trivalent Unknown Completed [facility] Poliovirus, Live, Oral, Trivalent Unknown Completed [facility] Poliovirus, Live, Oral, Trivalent Unknown Completed [facility] Poliovirus, Live, Oral, Trivalent Unknown Completed [facility] TD, NOS Unknown Completed [facility] Rubella Unknown Completed [facility] Varicella (varivax)(chicken pox) Unknown Completed [facility] HPV9 Unknown Completed [facility] HPV9 Unknown Completed [facility] HPV9 Unknown Completed [facility] Influenza Virus Vaccine Quad .5 mL IM 6+ MO (FLUZONE/FLULAVAL/FL UARIX) Unknown Completed [facility] TDAP Unknown Completed [facility] Influenza Virus Vaccine Quad .5 mL IM 6+ MO (FLUZONE/FLULAVAL/FL UARIX) Unknown Completed [facility] Influenza Virus Vaccine Quad IM, Preserv and ABX Free 6 MO-64 YRS (FLUCELVAX) Unknown Completed [facility] DTaP, Unspecified Formulation Unknown Completed [facility] DTP Unknown Completed [facility] DTP Unknown Completed [facility] DTP Unknown Completed [facility] DTP Unknown Completed [facility] Flu Trivalent Unknown Completed [facility] HEPATITIS A Unknown Completed [facility] HEPATITIS A Unknown Completed [facility] Hep B, Unspecified Formulation Unknown Completed [facility] Hep B, Unspecified Formulation Unknown Completed [facility] Hep B, Unspecified Formulation Unknown Completed [facility] Haemophilus influenzae type b vaccine, conjugate unspecified formulation Unknown Completed [facility] Haemophilus influenzae type b vaccine, conjugate unspecified formulation Unknown Completed [facility] Haemophilus influenzae type b vaccine, conjugate unspecified formulation Unknown Completed [facility] Haemophilus influenzae type b vaccine, conjugate unspecified formulation Unknown Completed [facility] HPV Unknown Completed [facility] HPV Unknown Completed [facility] HPV Unknown Completed [facility] Meningococcal Polysaccharide (groups A, C, Y and W-135) conjugate vaccine (MCV4P) Unknown Completed [facility] MMR Unknown Completed [facility] MMR Unknown Completed [facility] TDAP Unknown Completed [facility] Poliovirus, Live, Oral, Trivalent Unknown Completed [facility] Poliovirus, Live, Oral, Trivalent Unknown Completed [facility] Poliovirus, Live, Oral, Trivalent Unknown Completed [facility] Poliovirus, Live, Oral, Trivalent Unknown Completed [facility] TD, NOS Unknown Completed [facility] Rubella Unknown Completed [facility] Varicella (varivax)(chicken pox) Unknown Completed [facility] HPV9 Unknown Completed [facility] HPV9 Unknown Completed [facility] HPV9 Unknown Completed [facility] Influenza Virus Vaccine Quad .5 mL IM 6+ MO (FLUZONE/FLULAVAL/FL UARIX) Unknown Completed [facility] TDAP Unknown Completed [facility] Influenza Virus Vaccine Quad .5 mL IM 6+ MO (FLUZONE/FLULAVAL/FL UARIX) Unknown Completed [facility] DTaP, Unspecified Formulation Unknown Completed [facility] DTP Unknown Completed [facility] DTP Unknown Completed [facility] DTP Unknown Completed [facility] DTP Unknown Completed [facility] Flu Trivalent Unknown Completed [facility] HEPATITIS A Unknown Completed [facility] HEPATITIS A Unknown Completed [facility] Hep B, Unspecified Formulation Unknown Completed [facility] Hep B, Unspecified Formulation Unknown Completed [facility] Hep B, Unspecified Formulation Unknown Completed [facility] Haemophilus influenzae type b vaccine, conjugate unspecified formulation Unknown Completed [facility] Haemophilus influenzae type b vaccine, conjugate unspecified formulation Unknown Completed [facility] Haemophilus influenzae type b vaccine, conjugate unspecified formulation Unknown Completed [facility] Haemophilus influenzae type b vaccine, conjugate unspecified formulation Unknown Completed [facility] HPV Unknown Completed [facility] HPV Unknown Completed [facility] HPV Unknown Completed [facility] Meningococcal Polysaccharide (groups A, C, Y and W-135) conjugate vaccine (MCV4P) Unknown Completed [facility] MMR Unknown Completed [facility] MMR Unknown Completed [facility] TDAP Unknown Completed [facility] Poliovirus, Live, Oral, Trivalent Unknown Completed [facility] Poliovirus, Live, Oral, Trivalent Unknown Completed [facility] Poliovirus, Live, Oral, Trivalent Unknown Completed [facility] Poliovirus, Live, Oral, Trivalent Unknown Completed [facility] TD, NOS Unknown Completed [facility] Rubella Unknown Completed [facility] Varicella (varivax)(chicken pox) Unknown Completed [facility] HPV9 Unknown Completed [facility] HPV9 Unknown Completed [facility] HPV9 Unknown Completed [facility] Influenza Virus Vaccine Quad .5 mL IM 6+ MO (FLUZONE/FLULAVAL/FL UARIX) Unknown Completed [facility] TDAP Unknown Completed [facility] Influenza Virus Vaccine Quad .5 mL IM 6+ MO (FLUZONE/FLULAVAL/FL UARIX) Unknown Completed [facility] DTaP, Unspecified Formulation Unknown Completed [facility] DTP Unknown Completed [facility] DTP Unknown Completed [facility] DTP Unknown Completed [facility] DTP Unknown Completed [facility] Flu Trivalent Unknown Completed [facility] HEPATITIS A Unknown Completed [facility] HEPATITIS A Unknown Completed [facility] Hep B, Unspecified Formulation Unknown Completed [facility] Hep B, Unspecified Formulation Unknown Completed [facility] Hep B, Unspecified Formulation Unknown Completed [facility] Haemophilus influenzae type b vaccine, conjugate unspecified formulation Unknown Completed [facility] Haemophilus influenzae type b vaccine, conjugate unspecified formulation Unknown Completed [facility] Haemophilus influenzae type b vaccine, conjugate unspecified formulation Unknown Completed [facility] Haemophilus influenzae type b vaccine, conjugate unspecified formulation Unknown Completed [facility] HPV Unknown Completed [facility] HPV Unknown Completed [facility] HPV Unknown Completed [facility] Meningococcal Polysaccharide (groups A, C, Y and W-135) conjugate vaccine (MCV4P) Unknown Completed [facility] MMR Unknown Completed [facility] MMR Unknown Completed [facility] TDAP Unknown Completed [facility] Poliovirus, Live, Oral, Trivalent Unknown Completed [facility] Poliovirus, Live, Oral, Trivalent Unknown Completed [facility] Poliovirus, Live, Oral, Trivalent Unknown Completed [facility] Poliovirus, Live, Oral, Trivalent Unknown Completed [facility] TD, NOS Unknown Completed [facility] Rubella Unknown Completed [facility] Varicella (varivax)(chicken pox) Unknown Completed [facility] HPV9 Unknown Completed [facility] HPV9 Unknown Completed [facility] HPV9 Unknown Completed [facility] Influenza Virus Vaccine Quad .5 mL IM 6+ MO (FLUZONE/FLULAVAL/FL UARIX) Unknown Completed [facility] TDAP Unknown Completed [facility] Influenza Virus Vaccine Quad .5 mL IM 6+ MO (FLUZONE/FLULAVAL/FL UARIX) Unknown Completed [facility] Influenza Virus Vaccine Quad IM, Preserv and ABX Free 6 MO-64 YRS (FLUCELVAX) Unknown Completed [facility] DTaP, Unspecified Formulation Unknown Completed [facility] DTP Unknown Completed [facility] DTP Unknown Completed [facility] DTP Unknown Completed [facility] DTP Unknown Completed [facility] Flu Trivalent Unknown Completed [facility] HEPATITIS A Unknown Completed [facility] HEPATITIS A Unknown Completed [facility] Hep B, Unspecified Formulation Unknown Completed [facility] Hep B, Unspecified Formulation Unknown Completed [facility] Hep B, Unspecified Formulation Unknown Completed [facility] Haemophilus influenzae type b vaccine, conjugate unspecified formulation Unknown Completed [facility] Haemophilus influenzae type b vaccine, conjugate unspecified formulation Unknown Completed [facility] Haemophilus influenzae type b vaccine, conjugate unspecified formulation Unknown Completed [facility] Haemophilus influenzae type b vaccine, conjugate unspecified formulation Unknown Completed [facility] HPV Unknown Completed [facility] HPV Unknown Completed [facility] HPV Unknown Completed [facility] Meningococcal Polysaccharide (groups A, C, Y and W-135) conjugate vaccine (MCV4P) Unknown Completed [facility] MMR Unknown Completed [facility] MMR Unknown Completed [facility] TDAP Unknown Completed [facility] Poliovirus, Live, Oral, Trivalent Unknown Completed [facility] Poliovirus, Live, Oral, Trivalent Unknown Completed [facility] Poliovirus, Live, Oral, Trivalent Unknown Completed [facility] Poliovirus, Live, Oral, Trivalent Unknown Completed [facility] TD, NOS Unknown Completed [facility] Rubella Unknown Completed [facility] Varicella (varivax)(chicken pox) Unknown Completed [facility] HPV9 Unknown Completed [facility] HPV9 Unknown Completed [facility] HPV9 Unknown Completed [facility] Influenza Virus Vaccine Quad .5 mL IM 6+ MO (FLUZONE/FLULAVAL/FL UARIX) Unknown Completed [facility] TDAP Unknown Completed [facility] Influenza Virus Vaccine Quad .5 mL IM 6+ MO (FLUZONE/FLULAVAL/FL UARIX) Unknown Completed [facility] Influenza Virus Vaccine Quad IM, Preserv and ABX Free 6 MO-64 YRS (FLUCELVAX) Unknown Completed [facility] DTaP, Unspecified Formulation Unknown Completed [facility] DTP Unknown Completed [facility] DTP Unknown Completed [facility] DTP Unknown Completed [facility] DTP Unknown Completed [facility] Flu Trivalent Unknown Completed [facility] HEPATITIS A Unknown Completed [facility] HEPATITIS A Unknown Completed [facility] Hep B, Unspecified Formulation Unknown Completed [facility] Hep B, Unspecified Formulation Unknown Completed [facility] Hep B, Unspecified Formulation Unknown Completed [facility] Haemophilus influenzae type b vaccine, conjugate unspecified formulation Unknown Completed [facility] Haemophilus influenzae type b vaccine, conjugate unspecified formulation Unknown Completed [facility] Haemophilus influenzae type b vaccine, conjugate unspecified formulation Unknown Completed [facility] Haemophilus influenzae type b vaccine, conjugate unspecified formulation Unknown Completed [facility] HPV Unknown Completed [facility] HPV Unknown Completed [facility] HPV Unknown Completed [facility] Meningococcal Polysaccharide (groups A, C, Y and W-135) conjugate vaccine (MCV4P) Unknown Completed [facility] MMR Unknown Completed [facility] MMR Unknown Completed [facility] TDAP Unknown Completed [facility] Poliovirus, Live, Oral, Trivalent Unknown Completed [facility] Poliovirus, Live, Oral, Trivalent Unknown Completed [facility] Poliovirus, Live, Oral, Trivalent Unknown Completed [facility] Poliovirus, Live, Oral, Trivalent Unknown Completed [facility] TD, NOS Unknown Completed [facility] Rubella Unknown Completed [facility] Varicella (varivax)(chicken pox) Unknown Completed [facility] HPV9 Unknown Completed [facility] HPV9 Unknown Completed [facility] HPV9 Unknown Completed [facility] Influenza Virus Vaccine Quad .5 mL IM 6+ MO (FLUZONE/FLULAVAL/FL UARIX) Unknown Completed [facility] TDAP Unknown Completed [facility] Influenza Virus Vaccine Quad .5 mL IM 6+ MO (FLUZONE/FLULAVAL/FL UARIX) Unknown Completed [facility] Influenza Virus Vaccine Quad IM, Preserv and ABX Free 6 MO-64 YRS (FLUCELVAX) Unknown Completed [facility] DTaP, Unspecified Formulation Unknown Completed [facility] DTP Unknown Completed [facility] DTP Unknown Completed [facility] DTP Unknown Completed [facility] DTP Unknown Completed [facility] Flu Trivalent Unknown Completed [facility] HEPATITIS A Unknown Completed [facility] HEPATITIS A Unknown Completed [facility] Hep B, Unspecified Formulation Unknown Completed [facility] Hep B, Unspecified Formulation Unknown Completed [facility] Hep B, Unspecified Formulation Unknown Completed [facility] Haemophilus influenzae type b vaccine, conjugate unspecified formulation Unknown Completed [facility] Haemophilus influenzae type b vaccine, conjugate unspecified formulation Unknown Completed [facility] Haemophilus influenzae type b vaccine, conjugate unspecified formulation Unknown Completed [facility] Haemophilus influenzae type b vaccine, conjugate unspecified formulation Unknown Completed [facility] HPV Unknown Completed [facility] HPV Unknown Completed [facility] HPV Unknown Completed [facility] Meningococcal Polysaccharide (groups A, C, Y and W-135) conjugate vaccine (MCV4P) Unknown Completed [facility] MMR Unknown Completed [facility] MMR Unknown Completed [facility] TDAP Unknown Completed [facility] Poliovirus, Live, Oral, Trivalent Unknown Completed [facility] Poliovirus, Live, Oral, Trivalent Unknown Completed [facility] Poliovirus, Live, Oral, Trivalent Unknown Completed [facility] Poliovirus, Live, Oral, Trivalent Unknown Completed [facility] TD, NOS Unknown Completed [facility] Rubella Unknown Completed [facility] Varicella (varivax)(chicken pox) Unknown Completed [facility] HPV9 Unknown Completed [facility] HPV9 Unknown Completed [facility] HPV9 Unknown Completed [facility] Influenza Virus Vaccine Quad .5 mL IM 6+ MO (FLUZONE/FLULAVAL/FL UARIX) Unknown Completed [facility] TDAP Unknown Completed [facility] Influenza Virus Vaccine Quad .5 mL IM 6+ MO (FLUZONE/FLULAVAL/FL UARIX) Unknown Completed [facility] Influenza Virus Vaccine Quad IM, Preserv and ABX Free 6 MO-64 YRS (FLUCELVAX) Unknown Completed [facility] DTaP, Unspecified Formulation Unknown Completed [facility] DTP Unknown Completed [facility] DTP Unknown Completed [facility] DTP Unknown Completed [facility] DTP Unknown Completed [facility] Flu Trivalent Unknown Completed [facility] HEPATITIS A Unknown Completed [facility] ty [facility] HEPATITIS A Unknown Completed [facility] Hep B, Unspecified Formulation Unknown Completed [facility] Hep B, Unspecified Formulation Unknown Completed [facility] Hep B, Unspecified Formulation Unknown Completed [facility] Haemophilus influenzae type b vaccine, conjugate unspecified formulation Unknown Completed [facility] Haemophilus influenzae type b vaccine, conjugate unspecified formulation Unknown Completed [facility] Haemophilus influenzae type b vaccine, conjugate unspecified formulation Unknown Completed [facility] Haemophilus influenzae type b vaccine, conjugate unspecified formulation Unknown Completed [facility] HPV Unknown Completed [facility] HPV Unknown Completed [facility] HPV Unknown Completed [facility] Meningococcal Polysaccharide (groups A, C, Y and W-135) conjugate vaccine (MCV4P) Unknown Completed [facility] MMR Unknown Completed [facility] MMR Unknown Completed [facility] TDAP Unknown Completed [facility] Poliovirus, Live, Oral, Trivalent Unknown Completed [facility] Poliovirus, Live, Oral, Trivalent Unknown Completed [facility] Poliovirus, Live, Oral, Trivalent Unknown Completed [facility] Poliovirus, Live, Oral, Trivalent Unknown Completed [facility] TD, NOS Unknown Completed [facility] Rubella Unknown Completed [facility] Varicella (varivax)(chicken pox) Unknown Completed [facility] HPV9 Unknown Completed [facility] HPV9 Unknown Completed [facility] HPV9 Unknown Completed [facility] Vital Signs Vital Name Observation Time Observation Value Comments S ource Systolic blood pressure 2023-09-19 01:45:00 117 mm[Hg] [facility] Diastolic blood pressure 2023-09-19 01:45:00 72 mm[Hg] [facility] Heart rate 2023-09-19 01:45:00 78 /min [facility] hospital Body temperature 2023-09-19 01:45:00 37.11 Cyndi [facility] Respiratory rate 2023-09-19 01:45:00 16 /min [facility] Body weight 2023-09-19 01:45:00 87.181 kg [facility] BMI 2023-09-19 01:45:00 26.81 kg/m2 [facility] Oxygen saturation in Arterial blood by Pulse oximetry 2023-09-19 01:45:00 98 /min [facility] Systolic blood pressure 2023-09-14 18:07:00 118 mm[Hg] [facility] Diastolic blood pressure 2023-09-14 18:07:00 75 mm[Hg] [facility] Heart rate 2023-09-14 18:07:00 88 /min [facility] acute hospital Body temperature 2023-09-14 18:07:00 37.06 [facility] Respiratory rate 2023-09-14 18:07:00 16 /min [facility] Body weight 2023-09-14 18:07:00 87.544 kg [facility] acute hospital BMI 2023-09-14 18:07:00 26.92 kg/m2 [facility] acute hospital Oxygen saturation in Arterial blood by Pulse oximetry 2023-09-14 18:07:00 96 /min [facility] Systolic blood pressure 2023-07-11 01:57:00 125 mm[Hg] [facility] Diastolic blood pressure 2023-07-11 01:57:00 89 mm[Hg] [facility] Heart rate 2023-07-11 01:57:00 80 /min [facility] Body temperature 2023-07-11 01:57:00 37.11 [facility] Respiratory rate 2023-07-11 01:57:00 16 /min [facility] Body height 2023-07-11 01:57:00 180.3 cm [facility] Body weight 2023-07-11 01:57:00 82.555 kg [facility] BMI 2023-07-11 01:57:00 25.38 kg/m2 [facility] acute hospital Oxygen saturation in Arterial blood by Pulse oximetry 2023-07-11 01:57:00 97 /min [facility] Systolic blood pressure 2023-06-30 19:39:00 116 mm[Hg] [facility] Diastolic blood pressure 2023-06-30 19:39:00 80 mm[Hg] [facility] Heart rate 2023-06-30 19:39:00 76 /min [facility] Body temperature 2023-06-30 19:39:00 37.39 [facility] Respiratory rate 2023-06-30 19:39:00 16 /min [facility] Body height 2023-06-30 19:39:00 180.3 cm [facility] Body weight 2023-06-30 19:39:00 81.647 kg [facility] acute hospital BMI 2023-06-30 19:39:00 25.10 kg/m2 [facility] acute hospital Oxygen saturation in Arterial blood by Pulse oximetry 2023-06-30 19:39:00 98 /min [facility] Systolic blood pressure 2023-04-22 23:04:00 123 mm[Hg] [facility] Diastolic blood pressure 2023-04-22 23:04:00 80 mm[Hg] [facility] Heart rate 2023-04-22 23:04:00 80 /min [facility] Body temperature 2023-04-22 23:04:00 37 Cyndi [facility] Respiratory rate 2023-04-22 23:04:00 17 /min [facility] Body height 2023-04-22 23:04:00 180.3 cm [facility] Body weight 2023-04-22 23:04:[address] [facility] BMI 2023-04-22 23:04:00 23.61 kg/m2 [facility] acute hospital Oxygen saturation in Arterial blood by Pulse oximetry 2023-04-22 23:04:00 100 /min [facility] Systolic blood pressure 2023-04-07 18:48:00 107 mm[Hg] [facility] Diastolic blood pressure 2023-04-07 18:48:00 71 mm[Hg] [facility] Heart rate 2023-04-07 18:48:00 99 /min [facility] Body temperature 2023-04-07 18:48:00 36.72 Cyndi [facility] Respiratory rate 2023-04-07 18:48:00 18 /min [facility] Body height 2023-04-07 18:48:[address] [facility] Body weight 2023-04-07 18:48:[address] [facility] BMI 2023-04-07 18:48:00 23.17 kg/m2 [facility] Oxygen saturation in Arterial blood by Pulse oximetry 2023-04-07 18:48:00 98 /min [facility] Systolic blood pressure 2023-03-19 20:52:00 125 mm[Hg] [facility] Diastolic blood pressure 2023-03-19 20:52:00 87 mm[Hg] [facility] Heart rate 2023-03-19 20:52:00 86 /min [facility] Body temperature 2023-03-19 20:52:00 37.39 Cyndi [facility] Respiratory rate 2023-03-19 20:52:00 17 /min [facility] Body weight 2023-03-19 20:52:[address] [facility] BMI 2023-03-19 20:52:00 22.87 kg/m2 [facility] acute hospital Oxygen saturation in Arterial blood by Pulse oximetry 2023-03-19 20:52:00 98 /min [facility] Systolic blood pressure 2023-01-29 20:05:00 112 mm[Hg] [facility] Diastolic blood pressure 2023-01-29 20:05:00 71 mm[Hg] [facility] Heart rate 2023-01-29 20:05:00 89 /min [facility] Body temperature 2023-01-29 20:05:00 36.83 Cyndi [facility] Respiratory rate 2023-01-29 20:05:00 17 /min [facility] Body height 2023-01-29 20:05:00 180.3 cm [facility] Body weight 2023-01-29 20:05:00 73.029 kg [facility] BMI 2023-01-29 20:05:00 22.45 kg/m2 [facility] acute hospital Oxygen saturation in Arterial blood by Pulse oximetry 2023-01-29 20:05:00 97 /min [facility] Systolic blood pressure 2023-01-07 18:08:00 128 mm[Hg] [facility] Diastolic blood pressure 2023-01-07 18:08:00 88 mm[Hg] [facility] Heart rate 2023-01-07 18:08:00 68 /min [facility] Body temperature 2023-01-07 18:08:00 37 Cyndi [facility] Respiratory rate 2023-01-07 18:08:00 17 /min [facility] Body height 2023-01-07 18:08:[address] [facility] Body weight 2023-01-07 18:08:00 74.844 kg [facility] acute hospital BMI 2023-01-07 18:08:00 23.01 kg/m2 [facility] acute hospital Oxygen saturation in Arterial blood by Pulse oximetry 2023-01-07 18:08:00 100 /min [facility] Systolic blood pressure 2023-01-02 21:04:00 116 mm[Hg] [facility] Diastolic blood pressure 2023-01-02 21:04:00 74 mm[Hg] [facility] Heart rate 2023-01-02 21:04:00 89 /min [facility] Body temperature 2023-01-02 21:04:00 37.11 Cyndi [facility] Respiratory rate 2023-01-02 21:04:00 17 /min [facility] Body height 2023-01-02 21:04:[address] [facility] Body weight 2023-01-02 21:04:00 73.891 kg [facility] acute hospital BMI 2023-01-02 21:04:00 22.72 kg/m2 [facility] acute hospital Oxygen saturation in Arterial blood by Pulse oximetry 2023-01-02 21:04:00 97 /min [facility] Systolic blood pressure 2022-12-30 18:37:00 129 mm[Hg] [facility] Diastolic blood pressure 2022-12-30 18:37:00 83 mm[Hg] [facility] Heart rate 2022-12-30 18:37:00 68 /min [facility] Body temperature 2022-12-30 18:37:00 36.89 Cyndi [facility] Respiratory rate 2022-12-30 18:37:00 18 /min [facility] Body height 2022-12-30 18:37:[address] [facility] Body weight 2022-12-30 18:37:00 75.569 kg [facility] acute hospital BMI 2022-12-30 18:37:00 23.24 kg/m2 [facility] Systolic blood pressure 2022-07-11 23:23:00 111 mm[Hg] [facility] Diastolic blood pressure 2022-07-11 23:23:00 74 mm[Hg] [facility] Heart rate 2022-07-11 23:23:00 76 /min [facility] Body temperature 2022-07-11 23:23:00 36.94 Cyndi [facility] Body height 2022-07-11 23:23:00 177.8 cm [facility] Body weight 2022-07-11 23:23:00 77.883 kg [facility] acute hospital BMI 2022-07-11 23:23:00 24.64 kg/m2 [facility] acute hospital Oxygen saturation in Arterial blood by Pulse oximetry 2022-07-11 23:23:00 99 /min [facility] Body height 2022-06-29 01:41:00 177.8 cm [facility] Body weight 2022-06-29 01:41:00 68.04 kg [facility] acute hospital BMI 2022-06-29 01:41:00 21.52 kg/m2 [facility] hospital Systolic blood pressure 2022-06-29 01:38:00 140 mm[Hg] [facility] Diastolic blood pressure 2022-06-29 01:38:00 86 mm[Hg] [facility] Heart rate 2022-06-29 01:38:00 99 /min [facility] Body temperature 2022-06-29 01:38:00 37.78 Cyndi [facility] Respiratory rate 2022-06-29 01:38:00 18 /min [facility] Oxygen saturation in Arterial blood by Pulse oximetry 2022-06-29 01:38:00 100 /min [facility] Systolic blood pressure 2021-11-15 15:48:00 121 mm[Hg] [facility] Diastolic blood pressure 2021-11-15 15:48:00 80 mm[Hg] [facility] Heart rate 2021-11-15 15:48:00 74 /min [facility] Body temperature 2021-11-15 15:48:00 36.56 Cyndi [facility] Respiratory rate 2021-11-15 15:48:00 16 /min [facility] Body height 2021-11-15 15:48:00 177.8 cm [facility] Body weight 2021-11-15 15:48:00 71.895 kg [facility] acute [facility] BMI 2021-11-15 15:48:00 22.74 kg/m2 [facility] Procedures Procedure Date / Time Performed Performing Clinicia n Source XR CHEST 2 VW 2023-09-19 01:52:54 Sergio Harley [facility] POCT MOLECULAR FLU 2023-09-14 18:10:00 Unknown, Attend [facility] ASSIGNMENT OF BENEFITS 2023-09-14 17:58:10 Docto r Unassigned, [place] [facility] POCT MOLECULAR FLU 2023-07-11 02:04:00 Unknown, Attend [facility] POCT MOLECULAR STREP 2023-07-11 02:01:00 Unknown, Attowen tidwell [facility] ASSIGNMENT OF BENEFITS 2023-06-30 21:36:09 Docto r Unassigned, [place] [facility] RAPID STREP SCREEN FOR GROUP A 2023-06-30 20:04:00 Moraima Lee [facility] RAPID INFLUENZA A/B 2023-06-30 20:04:00 Moraima Lee [facility] CONSENT/REFUSAL FOR DIAGNOSIS AND TREATMENT 2023-06-30 19:27:32 Doctor Unassigned, [place] [facility] POCT MOLECULAR STREP 2023-04-22 23:03:00 Unknown, Attowen tidwell [facility] POCT SARS-COV-2 ANTIGEN (BINAX NOW) 2023-04-07 19:16:00 Sergio Harley [facility] POCT MOLECULAR FLU 2023-04-07 19:00:00 Unknown, Attend [facility] POCT MOLECULAR STREP 2023-04-07 18:56:00 Unknown, Attowen tidwell [facility] POCT MOLECULAR STREP 2023-03-19 21:32:00 Unknown, Atte yaw [facility] POCT SARS-COV-2 ANTIGEN (BINAX NOW) 2023-03-19 21:30:00 Alex Ribera [facility] POCT MOLECULAR FLU 2023-01-02 21:13:00 Unknown, Attend ing [facility] POCT MOLECULAR STREP 2023-01-02 21:10:00 Unknown, Atte yaw [facility] POCT SARS-COV-2 ANTIGEN (BINAX NOW) 2023-01-02 21:06:00 Cyn Burciaga [facility] PAP SMEAR-LIQUID BASED-CP 2022-12-30 19:02:00 Roxy Sharp [facility] HIV 1/2 AG-AB WITH REFLEX 2022-12-30 18:58:00 Roxy Sharp [facility] SYPHILIS IGG/IGM 2022-12-30 18:58:00 Winifred Sharp [facility] PATIENT FINANCIAL POLICY 2022-12-30 18:33:52 Doctor Unassigned, [place] [facility] CONSENT/REFUSAL FOR DIAGNOSIS AND TREATMENT 2022-07-11 23:15:22 Doctor Unassigned, [place] [facility] ASSIGNMENT OF BENEFITS 2022-07-11 23:15:07 Docto r Unassigned, [place] [facility] CONSENT/REFUSAL FOR DIAGNOSIS AND TREATMENT 2022-06-29 01:18:47 Doctor Unassigned, [place] [facility] Encounters Start Date/Time End Date/Time Encounter Type Admission Type Attending Clinicians Care Facility Care Department Encounter ID Source 2023-11-10 08:00:00 2023-11-10 08:00:00 Outpatient R [facility] [id number] [facility] 2023-10-11 00:00:00 2023-10-11 00:00:00 [facility] 1.2.840.114 350.1.13.10 4.2.7.2.686 [id number] [facility] 2023-09-18 20:48:10 2023-09-18 23:59:00 Outpatient R SERGIO HARLEY [facility] [id number] [facility] 2023-09-18 20:48:10 2023-09-18 23:59:00 Hospital Encounter Sergio Harley [facility] [id number] 350.1.13.10 4.2.7.2.686 [id number] [facility] 2023-09-18 20:20:00 2023-09-18 20:53:46 Urgent Care Sergio Harley Unknown, Attending [facility] 1.84.114 350.1.13.10 4.2.7.2.686 [id number] [facility] 2023-09-14 13:00:00 2023-09-14 13:20:00 Urgent Care Kenyvannesadeepti Eze Tucker, Attending [facility] 1.84.114 350.1.13.10 4.2.7.2.686 [id number] [facility] 2023-09-14 13:00:00 2023-09-14 13:00:00 Outpatient R EZE LEES [facility] [id number] [facility] 2023-09-14 00:00:00 2023-09-14 00:00:00 Orders Only Doctor Unassigned, [place] [facility] 1.114 350.1.13.10 4.2.7.2.686 [id number] [facility] 2023-09-14 00:00:00 2023-09-14 00:00:00 Telephone Eze Lees [facility] 1.84.114 350.1.13.10 4.2.7.2.686 [id number] [facility] 2023-07-10 20:00:00 2023-07-10 20:20:00 Urgent Care Noreen Farris Unknown, Attending [facility] 1.2.840.114 350.1.13.10 4.2.7.2.686 [id number] [facility] 2023-07-10 20:00:00 2023-07-10 20:00:00 Outpatient R NOREEN FARRIS [facility] [id number] [facility] 2023-06-30 13:41:00 2023-06-30 16:36:00 Emergency X REBEKAH STEPHENSON, MORAIMA SAMANTHA LEEE [facility] ERT [id number] [facility] 2023-06-30 13:41:00 2023-06-30 16:36:00 Emergency AyMoraima Olivares [facility]. [facility] 1..840.114 350.1.13.10 4.2.7.2.686 [id number] [facility] 2023-06-08 15:06:59 2023-06-08 15:06:59 Outpatient [facility] [id number] Renato Awan Raul 2023-05-19 00:00:00 2023-05-19 00:00:00 Frank Lees [facility] 1..840.114 350.1.13.10 4.2.7.2.686 [id number] [facility] 2023-04-22 18:00:00 2023-04-22 18:26:21 Outpatient R NABEEL [facility] [id number] [facility] 2023-04-22 18:00:00 2023-04-22 18:26:21 Urgent Care Eze Lees Unknown, Attending [facility] 1..840.114 350.1.13.10 4.2.7.2.686 [id number] [facility] 2023-04-07 13:40:00 2023-04-07 14:00:00 Urgent Care Sergio Harley Unknown, Attending [facility] 1..840.114 350.1.13.10 4.2.7.2.686 [id number] [facility] 2023-04-07 13:40:00 2023-04-07 13:40:00 Outpatient R SERGIO HARLEY [facility] [id number] [facility] 2023-03-19 15:40:00 2023-03-19 17:07:02 Outpatient R ALEX RIBERA [facility] [id number] [facility] 2023-03-19 15:40:00 2023-03-19 17:07:02 Urgent Care Alex Ribera Unknown, Attending [facility] 1..840.114 350.1.13.10 4.2.7.2.686 [id number] [facility] 2023-01-29 15:00:00 2023-01-29 15:20:00 Urgent Care Cyn Burciaga Unknown, Attending [facility] 1..840.114 350.1.13.10 4.2.7.2.686 [id number] [facility] 2023-01-29 15:00:00 2023-01-29 15:00:00 Outpatient R CYN BURCIAGA [facility] [id number] [facility] 2023-01-07 13:00:00 2023-01-07 15:29:51 Outpatient R SEVERO MCINTOSH SHAHNAZ [facility] [id number] [facility] 2023-01-07 13:00:00 2023-01-07 15:29:51 Urgent Care Severo Mcintosh Unknown, Attending [facility] 1.2.840.114 350.1.13.10 4.2.7.2.686 [id number] [facility] 2023-01-02 16:00:00 2023-01-02 16:24:57 Outpatient R VERITO FARRISGennaroSweta [facility] [id number] [facility] 2023-01-02 16:00:00 2023-01-02 16:24:57 Urgent Care Noreen Farris Unknown, Attending [facility] 1..840.114 350.1.13.10 4.2.7.2.686 [id number] [facility] 2023-01-02 00:00:00 2023-01-02 00:00:00 Letter (Out) Verito Farrisgennarosweta [facility] 1.2.840.114 350.1.13.10 4.2.7.2.686 [id number] [facility] 2022-12-30 13:30:00 2022-12-30 14:09:37 Outpatient R ROXY SHARP [facility] [id number] [facility] 2022-12-30 13:30:00 2022-12-30 14:09:37 Office Visit Roxy Sharp [facility] ASTROBIOLOGIST [facility] 1..840.114 350.1.13.10 4.2.7.2.686 [id number] [facility] 2022-12-30 00:00:00 2022-12-30 00:00:00 Orders Only Doctor Unassigned, [place] [facility] 1.2.840.114 350.1.13.10 4.2.7.2.686 [id number] [facility] 2022-11-21 08:53:02 2022-11-21 08:53:02 Outpatient RALPH [facility] [id number] Renato Carter 2022-07-11 17:00:00 2022-07-11 17:20:00 Urgent Care Gualberto Cyn Unknown, Attending [facility] 1..840.114 350.1.13.10 4.2.7.2.686 [id number] [facility] 2022-07-11 17:00:00 2022-07-11 17:00:00 Outpatient CYN TREJO [facility] [id number] [facility] 2022-07-11 00:00:00 2022-07-11 00:00:00 Orders Only Doctor Unassigned, [place] [facility] 1.2.840.114 350.1.13.10 4.2.7.2.686 [id number] [facility] 2022-06-28 19:44:00 2022-06-28 20:05:00 Emergency X DENISE CAMACHO [facility] ERT [id number] [facility] 2022-06-28 19:44:00 2022-06-28 20:05:00 Emergency Denise Camacho [facility] 1..840.114 350.1.13.10 4.2.7.2.686 [id number] [facility] 2021-11-15 10:30:00 2021-11-15 11:27:42 Outpatient R JEAN-CLAUDE STOVER [facility] [id number] [facility] 2021-11-15 10:30:00 2021-11-15 11:27:42 Office Visit Jean-Claude Stover [facility] ASTROBIOLOGIST [facility] 1..840.114 350.1.13.10 4.2.7.2.686 [id number] [facility] 2021-11-15 10:30:00 2021-11-15 11:27:42 Outpatient JEAN-CLAUDE MARI [facility] [id number] [facility] 2021-07-14 09:45:00 2021-07-14 10:16:40 Outpatient JEAN-CLAUDE MARI [facility] [id number] [facility] 2021-07-14 09:45:00 2021-07-14 10:15:00 Office Visit Stover, Jean-Claude Hahn [facility] ASTROBIOLOGIST [facility] 1..840.114 350.1.13.10 4.2.7.2.686 [id number] [facility] 2021-07-14 09:45:00 2021-07-14 09:45:00 Outpatient JEAN-CLAUDE MARI [facility] [id number] [facility] 2021-07-14 09:45:00 2021-07-14 09:45:00 Outpatient JEAN-CLAUDE MARI [facility] [id number] [facility] 2021-07-09 11:00:00 2021-07-09 11:57:31 Office Visit Roxy Sharp Roshunda [facility] ASTROBIOLOGIST [facility] 1..840.114 350.1.13.10 4.2.7.2.686 [id number] [facility] 2021-07-09 11:00:00 2021-07-09 11:57:31 Outpatient JEAN-CLAUDE MARI [facility] [id number] [facility] 2021-07-09 11:00:00 2021-07-09 11:00:00 Outpatient Jovani STOVERJEAN-CLAUDE [facility] [id number] [facility] 2021-07-09 00:00:00 2021-07-09 00:00:00 Orders Only Doctor Unassigned, [place] [facility] 1..114 350.1.13.10 4.2.7.2.686 [id number] [facility] 2020-12-04 00:00:00 2020-12-04 00:00:00 Patient Secure Msg Doctor Unassigned, [place] [facility] 1..114 350.1.13.10 4.2.7.2.686 [id number] [facility] 2020-12-01 09:30:00 2020-12-01 09:30:00 Outpatient R JEAN-CLAUDE STOVER [facility] [id number] [facility] 2020-12-01 00:00:00 2020-12-01 00:00:00 Telephone Priscila Jackson [facility] 1..114 350.1.13.10 4.2.7.2.686 [id number] [facility] 2020-11-13 09:34:05 2020-11-13 11:03:58 Office Visit Darian, [facility] Resident Krystal Gibbs [facility] 1.114 350.1.13.10 4.2.7.2.686 [id number] [facility] 2020-11-13 09:30:00 2020-11-13 09:30:00 Outpatient R [facility] [id number] [facility] 2020-10-20 00:00:00 2020-10-20 00:00:00 Telephone Jean-Claude Stover [facility] ASTROBIOLOGIST [facility] 1..114 350.1.13.10 4.2.7.2.686 [id number] [facility] 2020-10-14 00:00:00 2020-10-14 00:00:00 Telephone Roxy Sharp [facility] ASTROBIOLOGIST [facility] 1.2.840.114 350.1.13.10 4.2.7.2.686 [id number] [facility] 2020-10-13 12:47:22 2020-10-13 13:17:20 Office Visit Roxy Sharp Emily N [facility] ASTROBIOLOGIST [facility] 1.20.114 350.1.13.10 4.2.7.2.686 [id number] [facility] 2020-10-13 12:45:00 2020-10-13 12:45:00 Outpatient DANIKA CASE [facility] [id number] [facility] 2020-09-23 00:00:00 2020-09-23 00:00:00 Telephone Jean-Claude Stover [facility] ASTROBIOLOGIST [facility] 1.284.114 350.1.13.10 4.2.7.2.686 [id number] [facility] 2020-09-22 09:59:14 2020-09-22 10:34:09 Office Visit Jean-Claude Stover [facility] ASTROBIOLOGIST [facility] 1.2840.114 350.1.13.10 4.2.7.2.686 [id number] [facility] 2020-09-22 10:00:00 2020-09-22 10:00:00 Outpatient JEAN-CLAUDE MARI [facility] [id number] [facility] 2020-06-14 00:00:00 2020-06-14 00:00:00 Case Management Francy Sorto [facility] 1.0.114 350.1.13.10 4.2.7.2.686 [id number] [facility] 2020-06-03 00:00:00 2020-06-03 00:00:00 Telephone [facility] 1..114 350.1.13.10 4.2.7.2.686 [id number] [facility] 2020-05-26 00:00:00 2020-05-26 00:00:00 Patient Secure Msg Doctor Unassigned, [place] [facility] 1..114 350.1.13.10 4.2.7.2.686 [id number] [facility] 2020-05-21 10:10:49 2020-05-21 11:48:02 Office Visit [facility]Colpo[facility]ep[facility] 1..114 350.1.13.10 4.2.7.2.686 [id number] [facility] 2020-05-21 10:00:00 2020-05-21 10:00:00 Outpatient R [facility] [id number] [facility] 2020-05-21 00:00:00 2020-05-21 00:00:00 Orders Only Doctor Unassigned, [place] [facility] 1..114 350.1.13.10 4.2.7.2.686 [id number] [facility] 2020-04-27 00:00:00 2020-04-27 00:00:00 Telephone Danika Ying [facility] ASTROBIOLOGIST [facility] 1.0.114 350.1.13.10 4.2.7.2.686 [id number] [facility] 2020-04-16 12:54:08 2020-04-16 13:41:56 Office Visit Danika Ying [facility] ASTROBIOLOGIST [facility] 1.0.114 350.1.13.10 4.2.7.2.686 [id number] [facility] 2020-04-16 13:00:00 2020-04-16 13:00:00 Outpatient R STEPANDANIKA [facility] [id number] [facility] 2020-03-06 00:00:00 2020-03-06 00:00:00 Telephone Jean-Claude Stover [facility] ASTROBIOLOGIST [facility] 1.2.840.114 350.1.13.10 4.2.7.2.686 [id number] [facility] 2020-03-05 00:00:00 2020-03-05 00:00:00 Telephone Roxy Sharp [facility] ASTROBIOLOGIST [facility] 1.2.840.114 350.1.13.10 4.2.7.2.686 [id number] [facility] 2020-03-03 13:08:04 2020-03-03 13:41:46 Office Visit Roxy Sharp [facility] ASTROBIOLOGIST [facility] 1.2.840.114 350.1.13.10 4.2.7.2.686 [id number] [facility] 2020-03-03 13:15:00 2020-03-03 13:15:00 Outpatient R ROXY SHARP [facility] [id number] [facility] 2020-02-26 10:15:00 2020-02-26 10:15:00 Outpatient R JEAN-CLAUDE STOVER [facility] [id number] [facility] 2019-11-28 00:00:00 2019-11-28 00:00:00 Telephone Jean-Claude Stover [facility] ASTROBIOLOGIST [facility] 1.2.840.114 350.1.13.10 4.2.7.2.686 [id number] [facility] 2019-11-26 12:56:32 2019-11-26 13:37:05 Nurse Visit Visit, [facility] Nurse Jean-Claude Stover [facility] ASTROBIOLOGIST [facility] 1..114 350.1.13.10 4.2.7.2.686 [id number] [facility] 2019-11-26 13:00:00 2019-11-26 13:00:00 Outpatient R [facility] [id number] [facility] 2019-11-11 13:03:27 2019-11-11 13:38:18 Office Visit Jean-Claude Stover [facility] ASTROBIOLOGIST [facility] 1..114 350.1.13.10 4.2.7.2.686 [id number] [facility] 2019-11-11 12:45:00 2019-11-11 12:45:00 Outpatient R JEAN-CLAUDE STOVER [facility] [id number] [facility] 2019-11-05 00:00:00 2019-11-05 00:00:00 Telephone Jean-Claude Stover [facility] ASTROBIOLOGIST [facility] 1..114 350.1.13.10 4.2.7.2.686 [id number] [facility] 2019-10-25 00:00:00 2019-10-25 00:00:00 Telephone Jean-Claude Stover [facility] ASTROBIOLOGIST [facility] 1..114 350.1.13.10 4.2.7.2.686 [id number] [facility] 2019-02-28 09:06:45 2019-02-28 10:07:56 Office Visit Res-Colpo/L eep, [facility] Shira Newman [facility] 1..114 350.1.13.10 4.2.7.2.686 [id number] [facility] 2019-01-30 15:16:47 2019-01-30 16:16:46 Office Visit Rishabhtalha Roxy C [facility] ASTROBIOLOGIST [facility] 1.2.840.114 350.1.13.10 4.2.7.2.686 [id number] [facility] 2019-01-10 11:00:00 2019-01-10 11:49:20 Outpatient R JEAN-CLAUDE STOVER [facility] [id number] [facility] Results Test Description Test Time Test Comments Results Resul t Comments Source XR CHEST 2 VW 2023-09-01 9 02:01:09 EXAM: XR CHEST 2 VW COMPARISON: None. HISTORY: cough ? TECHNIQUE: PA and lateral views of the chest were obtained. FINDINGS: No focal consolidation is identified. No pleural effusion or pneumothoraxis seen. The cardiomediastinal silhouette is unremarkable.No acute osseous abnormalities. [facility] Molecular [id number] 02:16:00* Test Item Value Reference Range Interpretation Comme nts POCT Molecular FluA (test co de = 68168-0) Negative Negative POCT Molecular FluB (test co de = 83387-7) Negative Negative Lab Interpretation (test cod e = 08592-9) Normal [facility] MOLECULAR [id number] 02:09:24* Test Item Value Reference Range Interpretation Comme nts POCT Molecular Strep (test c ode = 23877-8) Negative Negative Lab Interpretation (test cod e = 28127-4) Normal [facility] MOLECULAR [id number] 23:10:56* Test Item Value Reference Range Interpretation Comme nts POCT Molecular Strep (test c ode = 60838-9) Negative Negative Lab Interpretation (test cod e = 49318-3) Normal [facility] SARS-COV-2 ANTIGEN (BINAX NOW)2023-04-07 19:16:00* Test Item Value Reference Range Interpretation Comme nts POCT SARS-COV-2 ANTIGEN (test code = 39672-1) Not Detected Not Detected On board controls acceptable with C Line (test code = 3574) Yes JORGE L (test code = JORGE L) accurate developme nt and interpretation of all internal controls Lab Interpretation (test code = 89292-2) [facility] MOLECULAR [id number] 19:12:07* Test Item Value Reference Range Interpretation Comme nts POCT Molecular FluA (test co de = 92553-2) Negative Negative POCT Molecular FluB (test co de = 43273-3) Negative Negative Lab Interpretation (test cod e = 47585-7) [facility] MOLECULAR [id number] 19:03:24* Test Item Value Reference Range Interpretation Comme nts POCT Molecular Strep (test c ode = 92991-7) Negative Negative Lab Interpretation (test cod e = 74788-8) [facility] MOLECULAR [id number] 21:40:41* Test Item Value Reference Range Interpretation Comme nts POCT Molecular Strep (test c ode = 68686-6) Negative Negative Lab Interpretation (test cod e = 53492-8) [facility] SARS-COV-2 ANTIGEN (BINAX NOW)2023-03-19 21:30:00* Test Item Value Reference Range Interpretation Comme nts POCT SARS-COV-2 ANTIGEN (test code = 07092-6) Not Detected Not Detected On board controls acceptable with C Line (test code = 3574) Yes JORGE L (test code = JORGE L) accurate developme nt and interpretation of all internal controls Lab Interpretation (test code = 51351-4) [facility] MOLECULAR [id number] 21:24:59* Test Item Value Reference Range Interpretation Comme nts POCT Molecular FluA (test co de = 17684-4) Negative Negative POCT Molecular FluB (test co de = 08583-0) Negative Negative Lab Interpretation (test cod e = 87328-2) [facility] MOLECULAR [id number] 21:18:33* Test Item Value Reference Range Interpretation Comme nts POCT Molecular Strep (test c ode = 58382-9) Negative Negative Lab Interpretation (test cod e = 50887-7) [facility] SARS-COV-2 ANTIGEN (BINAX NOW)2023-01-02 21:06:00* Test Item Value Reference Range Interpretation Comme nts POCT SARS-COV-2 ANTIGEN (test code = 72695-9) Not Detected Not Detected On board controls acceptable with C Line (test code = 3574) Yes JORGE L (test code = JORGE L) accurate developme nt and interpretation of all internal controls Lab Interpretation (test code = 27841-7) Normal [facility] METABOLIC [id number] 14:30:08* Test Item Value Reference Range Interpretation Comme nts GLUCOSE (test code = 2217) 92 MG/DL 70-99 BUN (test code = 2208) 8 MG/DL 6-20 CREATININE (test code = 2214) 0.67 MG/DL 0.60-1.30 eGFR (2020 CKD-EPI) (test code = 66497) 121 ML/MIN/1.73 >60 SODIUM (test code = 2231) 141 MEQ/L 133-146 POTASSIUM (test code = 2228) 4.2 MEQ/L 3.5-5.4 CHLORIDE (test code = 2215) 104 MEQ/L 95-107 CARBON DIOXIDE (test code = 2206) 23 MEQ/L 19-31 CALCIUM (test code = 2209) 9.6 MG/DL 8.5-10.5 UNLESS OTHERWISE INDICATED, ALL TESTING PERFORMED AT [facility] [address] [place] [address] SEE SUPERVISOR: ANALI LAKHANI M.D. [place] NUMBER [id number] [facility] [place]. [id number] Notes Date/Time Note Provider Source 2023-09-14 13:56:25 Called number on file. Patient was informed the virus that caused the bronchitis is contagious. Patient is to wear a mask until 09/18/23. Patient is to take medication as prescribed and should be feeling better by then. Patient voiced understanding. Sheree Fernández RN 09/14/2023 2:00 PM Sheree Fernández RN [facility] 2023-09-14 13:51:03 Copied from [facility] #[id number]. Topic: Clinical - Medical Advice >> Sep 14, 2023 1:49 PM Patient Sample Shoe Inspector And Reworker wrote: Pt had been diagnosed with bronchitis and is asking if it is contagious. Please advise. Lotus Lou [facility] 2023-06-30 16:35:54 Pt left prior to receiving discharge instructions. OUT OPERATOR Palmira Del Rosario RN [facility] 2023-06-30 13:38:54 Patient states: "I started having a sore throat this morning. My has strep and flu" OUT OPERATOR Danika Smith RN [facility]
--- NOTE | 2024-02-24 21:46 | EDPHYS ---
Physician Documentation [facility] Name: Bette Palmer Age: 33 yrs Sex: Female : 1990 Arrival Date: 02/24/2024 Time: 21:37 Bed Waiting Private MD: ED Physician Volodymyr Santillan HPI: 02/23 21:48 This 33 yrs old Female presents to ER via Ambulatory with complaints of Ear Pain. kb 21:48 Pt is a 33 year old female who presents for right ear pain that started 4 days ago. kb Denies drainage, fever. . 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 - Infectious Disease History:: Denies. - Social history:: Smoking status: Reported history of juuling and/or vaping. ROS: 21:48 Constitutional: As per HPI kb Exam: 21:48 Constitutional: This is a well developed, well nourished patient who is awake, alert, kb and in no acute distress. Head/Face: Normocephalic, atraumatic. ENT: Moist Mucous membranes Cardiovascular: Regular rate Respiratory: Respirations even and unlabored. No increased work of breathing. Talking in full sentences Skin: Warm, dry with normal turgor. Normal color. MS/ Extremity: Pulses equal, no cyanosis. Neurovascular intact. Full, normal range of motion. Neuro: Awake and alert, GCS 15, oriented to person, place, time, and situation. Moves all extremities. Normal gait. 21:48 ENT: External ear(s): are unremarkable, Ear canal(s): are normal, TM's: are normal, Vital Signs: 21:44 BP 113 / 81; Pulse 78; Resp 16; Temp 97.1; Pulse Ox 100% ; Weight 86.18 kg; Height 5 cm10 ft. 10 in. ; Pain 4/10; 21:44 Body Mass Index 27.26 (86.18 kg, 177.8 cm) cm10 21:44 Pain Scale: Adult cm10 MDM: 21:42 Patient medically screened. kb 21:48 Differential diagnosis: otitis media, otitis externa, ruptured TM, foreign body, acute kb otalgia. Data reviewed: vital signs, nurses notes. Counseling: I had a detailed discussion with the patient and/or guardian regarding the historical points, exam findings, and any diagnostic results supporting the discharge/admit diagnosis, the need for outpatient follow up, an ENT specialist, a family practitioner, to return to the emergency department if symptoms worsen or persist or if there are any questions or concerns that arise at home. Administered Medications: No medications were administered Disposition: 02/24 00:33 Co-signature as Attending Physician, Volodymyr Santillan MD I agree with the assessment sp4 and plan of care. I reviewed the patient's care provided by the Advanced Practice Provider and agree with the diagnosis and treatment plan. Disposition Summary: 02/24/24 21:46 Discharge Ordered Notes: Location: Home Condition: Stable kb Diagnosis - Otalgia, right ear kb Followup: kb - With: Emergency Department - When: As needed - Reason: Worsening of condition Followup: kb - With: Private Physician - When: 2 - 3 days - Reason: Recheck today's complaints, Continuance of care, Re-evaluation by your physician Discharge Instructions: - Discharge Summary Sheet kb - Earache, Adult kb Forms: - Medication Reconciliation Form kb - Antibiotic Education kb - Prescription Opioid Use kb - Patient Portal Instructions kb - Leadership Thank You Letter kb Signatures: Barbie Zaman FNP-C ZOILA-Volodymyr Lee MD MD sp4 Tabatha Lang, RN RN cm10
--- NOTE | 2024-02-24 21:46 | ER ---
Nurse's Notes [facility] Name: Bette Palmer Age: 33 yrs Sex: Female : 1990 Arrival Date: 02/24/2024 Time: 21:37 Bed Waiting Private MD: Diagnosis: Otalgia, right ear Presentation: 02/23 21:44 Chief complaint: Patient states: right ear pain onset monday. Coronavirus screen: cm10 Client denies travel out of the [place] in the last 14 days. At this time, the client does not indicate any symptoms associated with coronavirus-19. Ebola Screen: Patient denies travel to an Ebola-affected area in the 21 days before illness onset. No symptoms or risks identified at this time. Initial Sepsis Screen: Does the patient meet any 2 criteria? No. Patient's initial sepsis screen is negative. Does the patient have a suspected source of infection? No. Patient's initial sepsis screen is negative. Risk Assessment: Do you want to hurt yourself or someone else? Patient reports no desire to harm self or others. Onset of symptoms was February 24, 2024. 21:44 Method Of Arrival: Ambulatory cm10 21:44 Acuity: NATASHA 4 cm10 Triage Assessment: 21:45 General: Appears in no apparent distress. comfortable, Behavior is calm, cooperative. cm10 Pain: Complains of pain in right ear. EENT: Reports pain in right ear. Neuro: No deficits noted. Level of Consciousness is awake, alert, obeys commands, Oriented to person, place, time, situation, Appropriate for age. Respiratory: No deficits noted. Airway is patent Respiratory effort is even, unlabored, Respiratory pattern is regular, symmetrical. 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 - Infectious Disease History:: Denies. - Social history:: Smoking status: Reported history of juuling and/or vaping. Screenin:45 [facility] ED Fall Risk Assessment (Adult) History of falling in the last 3 months, cm10 including since admission No falls in past 3 months (0 pts) Confusion or Disorientation No (0 pts) Intoxicated or Sedated No (0 pts) Impaired Gait No (0 pts) Mobility Assist Device Used No (0 pt) Altered Elimination No (0 pt) Score/Fall Risk Level 0 - 2 = Low Risk Oriented to surroundings, Maintained a safe environment, Hourly rounding (assess needs \T\ fall precautionary measures) done. Abuse screen: Denies threats or abuse. Denies injuries from another. Nutritional screening: No deficits noted. Tuberculosis screening: No symptoms or risk factors identified. Vital Signs: 21:44 BP 113 / 81; Pulse 78; Resp 16; Temp 97.1; Pulse Ox 100% ; Weight 86.18 kg; Height 5 cm10 ft. 10 in. ; Pain 4/10; 21:44 Body Mass Index 27.26 (86.18 kg, 177.8 cm) cm10 21:44 Pain Scale: Adult cm10 ED Course: 21:38 Patient arrived in ED. mr 21:42 Barbie Zaman FNP-C is [facility]. kb 21:42 Volodymyr Santillan MD is Attending Physician. kb 21:44 Triage completed. cm10 21:45 Arm band placed on Patient placed in waiting room. cm10 21:45 Patient has correct armband on for positive identification. Provided Education on: ER cm10 process and procedures.. 21:45 No provider procedures requiring assistance completed. Patient did not have IV access cm10 during this emergency room visit. Administered Medications: No medications were administered Medication: 21:45 VIS not applicable for this client. cm10 Outcome: 21:46 Discharge ordered by . kb 21:46 Discharged to home ambulatory, cm10 21:46 Condition: good 21:46 Discharge instructions given to patient, Instructed on discharge instructions, follow up and referral plans. Demonstrated understanding of instructions, follow-up care, 21:49 Patient left the ED. cm10 Signatures: Barbie Zaman FNP-C FNP-Roya Rincon, Tabatha Nguyen, RN RN cm10
[2024-02-24 21:53] VITALS: BP 113/81; TEMP 97.1; O2SAT 100
== END 2024-02-24 21:49 | disposition home or self-care (01) ==
LOC: ER 21:37
DX: H92.01 Otalgia, right ear (principal)
CPT/HCPCS: 99282

== ENCOUNTER 2024-06-02 01:07 | Emergency (ER) | payer SELFPAY ==
--- OUTSIDE RECORDS SUMMARY | 2024-06-02 01:12 | XMS REPORT | Continuity of Care Document ---
Author Name Unknown Address [address] [facility] [address] [id number] [facility] Address [address] [facility] [address] [place] [address] Care Team Providers Care Blueprint Assembler Name Role Phone PCP, PATIENT DOES NOT HAVE A Primary Care Physic tony Unavailable MONA OWENS Attending Clinician Unavailable Mona Fofana Attending Clinician [phone] Eze Lees PA-C Attending Clinician [phone] SERGIO HARLEY Attending Clinician Unavailable Sergio Jade Attending Clinician [phone] Unknown, Attending Attending Clinician Unavailab EZE Rueda Attending Clinician Unavailable Doctor Unassigned, [place] Attending Clinician U Noreen Cullen Attending Clinician [phone] NOREEN FARRIS Attending Clinician Unavailable MORAIMA LEE Attending Clinician U MORAIMA Mujica Attending Clinician U ALEX Mohamud Attending Clinician UnavailAlex Shook Attending Clinician [phone] Cyn Burciaga MD Attending Clinician [phone] CYN BURCIAGA Attending Clinician Unavailable SEVERO MCINTOSH Attending Clinician Unavailable SEVERO MCINTOSH Attending Clinician Unavailable AKINSIPE, ROXY C Attending Clinician Unavail able Akintalha WHCNP, Roxy C Attending Clinician + DENISE CAMACHO Attending Clinician Unavailable Mercy VICENTE, Denise Saleem Attending Clinician [phone] JEAN-CLAUDE STOVER Attending Clinician Unavailab dora Stover BIOLOGIST, Jean-Claude R Attending Clinician [phone] Priscila Jackson MD Attending Clinician [phone] Darian [facility] Resident Attending Clinician Unavailab dora Gibbs MD, Krystal Hahn Attending Clinician [phone] Urbano BIOLOGIST, Danika Corrigan Attending Clinician [phone] DANIKA YING Attending Clinician Unavailmiki Sorto BIOLOGIST, Francy Attending Clinician [phone] Marimar Longoria MD Attending Clinician [phone] Res-Colpo/[facility], [facility] Attending Clinician Un [facility] Shira Lilly Attending Clinician [phone] Payers Payer Name Policy Type Policy Number Effective Date Expirati on Date Source 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 3-24 00:00: 00 [facility] Pap smear of cervix with ASCUS, cannot exclude HGSIL Pap smear of cervix with ASCUS, cannot exclude HGSIL Disease Active 2019-07 0- 00:00: 00 [facility] Moderate dysplasia of cervix (ROBYN II) Moderate dysplasia of cervix (ROBYN II) Disease Active 2018-07 00:00: 00 [facility] Cervical high risk human papillomav irus (HPV) DNA test positive Cervical high risk human papillomav irus (HPV) DNA test positive Disease Active 2018-07 00:00: 00 [facility] At risk for dental problems At risk for dental problems Disease Active 01-30 00:00: 00 [facility] Former smoker Former smoker Disease Active 2017-07 00:00: 00 [facility] Papanicola ou smear of cervix with low grade squamous intraepith elial lesion (LGSIL) Papanicola ou smear of cervix with low grade squamous intraepith elial lesion (LGSIL) Disease Active 11-23 00:00: 00 Overview: Formattin g of this note might be different from the original. 02/27/2019 - Satisfact ory colpo- ROBYN 2 on ECC2018- LEEP done [facility] Abnormal glandular Papanicola ou smear of cervix Abnormal glandular Papanicola ou smear of cervix Disease Active 11-23 00:00: 00 [facility] Vaginal discharge Vaginal discharge Disease Resolve d 9- 00:00: 00 2020-04-16 00:00:00 2020-04-16 12:57:47 [facility] Well woman exam Well woman exam Disease Resolve d 01-30 00:00: 00 2020-04-16 00:00:00 2020-04-16 12:57:50 [facility] care and examinatio n immediatel y after delivery care and examinatio n immediatel y after delivery Disease Resolve d 01-10 00:00: 00 2019-01-30 00:00:00 2019-01-30 15:58:40 [facility] Laceration , obstetrica l, minor Laceration , obstetrica l, minor Disease Resolve d 12-21 00:00: 00 2019-01-30 00:00:00 2019-01-30 15:58:40 [facility] Single live Single live Disease Resolve d 6 00:00: 00 2019-01-10 00:00:00 2019-01-10 12:31:18 [facility] Anemia of Anemia of Disease Resolve d 6 00:00: 00 2019-01-10 00:00:00 2019-01-10 12:31:19 [facility] 39 weeks gestation of 39 weeks gestation of Disease Resolve d 2019-0 6-19 00:00: 00 2019-01-10 00:00:00 2019-01-10 12:31:17 [facility] Anemia of mother in , antepartum Anemia of mother in , antepartum Disease Resolve d 2018-0 6-05 00:00: 00 2019-01-10 00:00:00 2019-01-10 12:31:17 [facility] Supervisio n of high risk in third trimester Supervisio n of high risk in third trimester Disease Resolve d 2017-07 00:00: 00 2019-01-10 00:00:00 2019-01-10 12:31:12 [facility] Multiparit y Multiparit y Disease Resolve d 2017-07 00:00: 00 2019-01-10 00:00:00 2019-01-10 12:31:15 [facility] (spontaneo us vaginal delivery) (spontaneo us vaginal delivery) Disease Resolve d 9-25 00:00: 2019-01-10 00:00:00 2019-01-10 12:31:05 [facility] Need for HPV vaccinatio n Need for HPV vaccinatio n Disease Resolve d 11-23 00:00: 00 2018-05-04 00:00:00 2018-05-04 14:21:55 [facility] Encounter for contracept kelly management , unspecifie d type Encounter for contracept kelly management , unspecifie d type Disease Resolve d 11-23 00:00: 00 2018-05-04 00:00:00 2018-05-04 14:21:50 [facility] Other general counseling and advice for contracept kelly management Other general counseling and advice for contracept kelly management Disease Resolve d 11-09 00:00: 00 2018-05-04 00:00:00 2018-05-04 14:22:03 [facility] Anemia of mother during , delivered Anemia of mother during , delivered Disease Resolve d 9-26 00:00: 2016-11-09 00:00:00 2022-01-16 00:17:33 [facility] Teen Teen Disease Resolve d 03-27 00:00: 00 2010-03-28 00:00:00 [facility] Allergies, Adverse Reactions, Alerts Allergy Name Allergy Type Status Severity Reaction(s) Onset Date Inactive Date Treating Clinician Comments Source NO KNOWN ALLERGIE S Drug Class Active [facility] Social History Social Habit Start Date Stop Date Quantity Comments Source Gender identity [facility] Sexual orientation [facility] History of Social function 2024-03-15 00:00:00 2024-03-15 00:00:00 [facility] Alcoholic beverage intake 2024-03-15 00:00:00 2024-03-15 00:00:00 Current drinker of alcohol (finding) [facility] Alcohol Comment 2024-03-15 00:00:00 2024-03-15 00:00:00 occasional [facility] Tobacco use and exposure 2024-03-15 00:00:00 2024-03-15 00:00:00 Smokeless tobacco non-user [facility] Alcohol intake 2023-09-18 00:00:00 2023-09-18 00:00:00 Current non-drinker of alcohol (finding) [facility] Exposure to SARS-CoV-2 (event) 2022-07-01 00:00:00 2022-07-11 17:14:00 Not sure [facility] Tobacco Comment 2022-07-11 00:00:00 2022-07-11 00:00:00 vapes daily [facility] History of tobacco use 2017-05-04 00:00:00 Cigarette Smoker [facility] Sex assigned at 1990 00:00:00 1990 00:00:00 [facility] Smoking Status Start Date Stop Date Source Ex-smoker 2024-03-15 00:00:00 2024-03-15 00:00:00 [facility] Medications Ordered Medication Name Filled Medication Name Start Date Stop Date Current Medication? Ordering Clinician Indication Dosage Frequency Signature (SIG) Comments Components Source dexamethaso ne (DECADRON) injection 10 mg 09-18 03:00: 00 09-18 01:59 :00 No [id number] 10mg [facility] albuterol 90 mcg/actuati on inhaler 18 00:00: 00 03-15 00:00 :00 No [id number] 2{puff} Inhale 2 Puffs every 6 (six) hours as needed for Wheezing, Chest tightness or Bronchospa sm. [facility] cetirizine 10 mg tablet 09-13 00:00: 00 Yes [id number] 10mg Take 1 tablet by mouth in the morning. [facility] fluticasone propionate 50 mcg/actuati on nasal spray 09-13 00:00: 00 Yes [id number] 2{spray } Use 2 Sprays in each nostril in the morning. [facility] methylPREDN ISolone 4 mg tablets 09-13 00:00: 00 03-15 00:00 :00 No [id number] Take by mouth SEE-INSTRU CTIONS. follow package directions [facility] bromphenira mine-pseudo ephedrine-D M (BROMFED DM) 2-30-10 mg/5 mL syrup 09-13 00:00: 00 03-15 00:00 :00 No [id number] 5mL Take 5 mL by mouth 3 (three) times daily as needed for Cough or Cold symptoms. [facility] fluticasone propionate 50 mcg/actuati on nasal spray 2022-07 00:00: 00 03-15 00:00 :00 No [id number] 2{spray } Use 2 Sprays in each nostril in the morning. [facility] methylPREDN ISolone 4 mg tablets 2022-07 00:00: 00 03-15 00:00 :00 No [id number] Take by mouth SEE-INSTRU CTIONS. follow package directions [facility] cetirizine 10 mg tablet 2022-07 00:00: 00 03-15 00:00 :00 No [facility] ketorolac (TORADOL) injection 30 mg 2022-07 0 19:45: 00 04-07 19:11 :00 No [id number] 30mg [facility] proMETHazin e 25 mg tablet 2022-07 0 00:00: 00 04-13 04:59 :00 No [id number] 25mg Take 1 tablet by mouth every 6 (six) hours for 5 days. [facility] ketorolac (TORADOL) injection 30 mg 03-19 22:15: 00 03-19 21:21 :00 No [id number] 30mg [facility] chlorhexidi ne 0.12 % mouthwash 03-19 00:00: 00 Yes [id number] 15mL Swish and spit out 15 mL in the morning and 15 mL in the evening. [facility] chlorhexidi ne 0.12 % mouthwash 03-19 00:00: 00 Yes [id number] 15mL Swish and spit out 15 mL in the morning and 15 mL in the evening. [facility] methylPREDN ISolone (MEDROL, BREE,) 4 mg tablets 03-19 00:00: 00 04-22 00:00 :00 No [id number] Take by mouth SEE-INSTRU CTIONS. follow package directions [facility] amoxicillin 875 mg tablet 03-19 00:00: 00 03-30 04:59 :00 No [id number] 875mg Take 1 tablet by mouth in the morning and 1 tablet in the evening. Do all this for 10 days. [facility] chlorhexidi ne 0.12 % mouthwash 01-29 00:00: 00 Yes [id number] 15mL Swish and spit out 15 mL in the morning and 15 mL in the evening. [facility] chlorhexidi ne 0.12 % mouthwash 30 00:00: 00 03-15 00:00 :00 No [id number] 15mL Swish and spit out 15 mL in the morning and 15 mL in the evening. [facility] amoxicillin -clavulanat e (AUGMENTIN) 875-125 mg per tablet 01-29 00:00: 00 02-09 04:59 :00 No [id number] 1{tbl} Take 1 tablet by mouth in the morning and 1 tablet in the evening. Do all this for 10 days. [facility] methylPREDN ISolone (MEDROL, BREE,) 4 mg tablets 01-07 00:00: 00 04-22 00:00 :00 No [id number] Take by mouth SEE-INSTRU CTIONS. follow package directions [facility] amoxicillin -clavulanat e (AUGMENTIN) 875-125 mg per tablet 01-07 00:00: 00 01-18 04:59 :00 No [id number] 1{tbl} Take 1 tablet by mouth in the morning and 1 tablet in the evening. Do all this for 10 days. [facility] bromphenira mine-pseudo ephedrine-D M (BROMFED DM) 2-30-10 mg/5 mL syrup 01-07 00:00: 00 01-18 04:59 :00 No [id number] 10mL Take 10 mL by mouth 3 (three) times daily as needed for Congestion /Allergies or Cough for up to 10 days. [facility] SERTraline 25 mg tablet 12-02 00:00: 00 Yes 25mg Take 1 tablet by mouth in the morning. [facility] SERTraline 25 mg tablet 02 00:00: 00 Yes 50mg Take 2 tablets by mouth in the morning. [facility] propranoloL 20 mg tablet 19 00:00: 00 03-15 00:00 :00 No 20mg Take 1 tablet by mouth in the morning. [facility] hydrOXYzine 25 mg capsule -17 00:00: 00 01-07 00:00 :00 No TAKE 1 CAPSULE BY MOUTH 3 TIMES A DAY NEEDED FOR ANXIETY [facility] fluticasone propionate 50 mcg/actuati on nasal spray 07-11 00:00: 00 03-15 00:00 :00 No [id number] 1{spray } Use 1 [place] in each nostril in the morning. [facility] methylPREDN ISolone (MEDROL, BREE,) 4 mg tablets 07-11 00:00: 00 01-07 00:00 :00 No [id number] Take by mouth SEE-INSTRU CTIONS. follow package directions [facility] cetirizine (ZYRTEC) 10 mg tablet 07-11 00:00: 00 12-30 00:00 :00 No [id number] 10mg Take 1 tablet by mouth in the morning. [facility] amoxicillin -clavulanat e (AUGMENTIN) 875-125 mg per tablet 1 tablet 2021-07 02:30: 00 06-29 01:48 :00 No 1{tbl} 1 tablet, Oral, ONCE, 1 dose, On Mon06/28/22 at 2030, Routine
Reason for Anti-Infec tive: Documented Infection< br>Documen mohan Infection Site: HEENT
D uration of Therapy: 7 days [facility] ibuprofen (IBU) tablet 600 mg 2021-07 01:45: 00 06-29 01:48 :00 No 600mg 600 mg, Oral, ONCE, 1 dose, On Mon06/28/22 at 1945, FABIENNE [facility] amoxicillin -clavulanat e 875-125 mg per tablet 2021-07 00:00: 00 01-07 00:00 :00 No [id number] 1{tbl} Take 1 tablet by mouth every 12 (twelve) hours. [facility] No known medications 5-16 11:09: 53 No [facility] levonorgest rel-ethinyl estradiol 0.1-20 mg-mcg per tablet 2019-07 0-15 00:00: 00 11-13 00:00 :00 No [id number] 1{tbl} Take 1 tablet by mouth daily. [facility] Iron Fum & P-FA-Vit B & C No.9 (INTEGRA PLUS) 125 mg iron- 1 mg Cap 2019-12-21 00:00: 00 11-13 00:00 :00 No [id number] 1{capsu le} Take 1 capsule by mouth daily. [facility] Immunizations Ordered Immunization Name Filled Immunization Name Date Status Comments Source Influenza Virus Vaccine Quad IM, Preserv and ABX Free 6 MO-64 YRS 2021-07-09 00:00:00 Completed [facility] Influenza Virus Vaccine Quad IM, Preserv and ABX Free 6 MO-64 YRS 2021-07-09 00:00:00 Completed [facility] Influenza Virus Vaccine Quad IM, Preserv and ABX Free MO-64 2021-07-09 00:00:00 Completed [facility] Influenza Virus Vaccine Quad IM, Preserv and ABX Free MO-64 2021-07-09 00:00:00 Completed [facility] Influenza Virus Vaccine Quad IM, Preserv and ABX Free 6 MO-64 2021-07-09 00:00:00 Completed [facility] Influenza Virus Vaccine Quad IM, Preserv and ABX Free 6 MO-64 2021-07-09 00:00:00 Completed [facility] Influenza Virus Vaccine Quad IM, Preserv and ABX Free 6 MO-64 2021-07-09 00:00:00 Completed [facility] Influenza Virus Vaccine Quad IM, Preserv and ABX Free 6 MO-64 YRS (FLUCELVAX) 2021-07-09 00:00:00 Completed [facility] Influenza Virus Vaccine Quad IM, Preserv and ABX Free 6 MO-64 YRS 2021-07-09 00:00:00 Completed [facility] Influenza Virus Vaccine Quad IM, Preserv and ABX Free 6 MO-64 2021-07-09 00:00:00 Completed [facility] Influenza Virus Vaccine Quad IM, Preserv and ABX Free 6 MO-64 2021-07-09 00:00:00 Completed [facility] Influenza Virus Vaccine Quad .5 mL IM 6+ MO 2020-04-16 00:00:00 Completed [facility] Influenza Virus Vaccine Quad .5 mL IM 6+ MO 2020-04-16 00:00:00 Completed [facility] Influenza Virus Vaccine Quad .5 mL IM 6+ MO 2020-04-16 00:00:00 Completed [facility] Influenza Virus Vaccine Quad .5 mL IM 6+ MO 2020-04-16 00:00:00 Completed [facility] Influenza Virus Vaccine Quad .5 mL IM 6+ MO 2020-04-16 00:00:00 Completed [facility] Influenza Virus Vaccine Quad .5 mL IM 6+ MO 2020-04-16 00:00:00 Completed [facility] Influenza Virus Vaccine Quad .5 mL IM 6+ MO 2020-04-16 00:00:00 Completed [facility] Influenza Virus Vaccine Quad .5 mL IM 6+ MO (FLUZONE/FLULAVAL/FL UARIX) 2020-04-16 00:00:00 Completed [facility] Influenza Virus Vaccine Quad .5 mL IM 6+ MO 2020-04-16 00:00:00 Completed [facility] Influenza Virus Vaccine Quad .5 mL IM 6+ MO 2020-04-16 00:00:00 Completed [facility] Influenza Virus Vaccine Quad .5 mL IM 6+ MO 2020-04-16 00:00:00 Completed [facility] Influenza Virus Vaccine Quad .5 mL IM 6+ MO 2018-10-03 00:00:00 Completed [facility] TDAP 2018-10-03 00:00:00 Completed [facility] Influenza Virus Vaccine Quad .5 mL IM 6+ MO 2018-10-03 00:00:00 Completed [facility] TDAP 2018-10-03 00:00:00 Completed [facility] Influenza Virus Vaccine Quad .5 mL IM 6+ MO 2018-10-03 00:00:00 Completed [facility] TDAP 2018-10-03 00:00:00 Completed [facility] Influenza Virus Vaccine Quad .5 mL IM 6+ MO 2018-10-03 00:00:00 Completed [facility] TDAP 2018-10-03 00:00:00 Completed [facility] Influenza Virus Vaccine Quad .5 mL IM 6+ MO 2018-10-03 00:00:00 Completed [facility] TDAP 2018-10-03 00:00:00 Completed [facility] Influenza Virus Vaccine Quad .5 mL IM 6+ MO 2018-10-03 00:00:00 Completed [facility] TDAP 2018-10-03 00:00:00 Completed [facility] Influenza Virus Vaccine Quad .5 mL IM 6+ MO 2018-10-03 00:00:00 Completed [facility] TDAP 2018-10-03 00:00:00 Completed [facility] Influenza Virus Vaccine Quad .5 mL IM 6+ MO (FLUZONE/FLULAVAL/FL UARIX) 2018-10-03 00:00:00 Completed [facility] TDAP 2018-10-03 00:00:00 Completed [facility] Influenza Virus Vaccine Quad .5 mL IM 6+ MO 2018-10-03 00:00:00 Completed [facility] TDAP 2018-10-03 00:00:00 Completed [facility] Influenza Virus Vaccine Quad .5 mL IM 6+ MO 2018-10-03 00:00:00 Completed [facility] TDAP 2018-10-03 00:00:00 Completed [facility] Influenza Virus Vaccine Quad .5 mL IM 6+ MO 2018-10-03 00:00:00 Completed [facility] TDAP 2018-10-03 00:00:00 Completed [facility] HPV9 2017-11-23 00:00:00 Completed [facility] HPV9 2017-11-23 00:00:00 Completed [facility] HPV9 2017-11-23 00:00:00 Completed [facility] HPV9 2017-11-23 00:00:00 Completed [facility] HPV9 2017-11-23 00:00:00 Completed [facility] HPV9 2017-11-23 00:00:00 Completed [facility] HPV9 2017-11-23 00:00:00 Completed [facility] HPV9 2017-11-23 00:00:00 Completed [facility] HPV9 2017-11-23 00:00:00 Completed [facility] HPV9 2017-11-23 00:00:00 Completed [facility] HPV9 2017-11-23 00:00:00 Completed [facility] HPV9 2017-01-24 00:00:00 Completed [facility] HPV9 2017-01-24 00:00:00 Completed [facility] HPV9 2017-01-24 00:00:00 Completed [facility] HPV9 2017-01-24 00:00:00 Completed [facility] HPV9 2017-01-24 00:00:00 Completed [facility] HPV9 2017-01-24 00:00:00 Completed [facility] HPV9 2017-01-24 00:00:00 Completed [facility] HPV9 2017-01-24 00:00:00 Completed [facility] HPV9 2017-01-24 00:00:00 Completed [facility] HPV9 2017-01-24 00:00:00 Completed [facility] HPV9 2017-01-24 00:00:00 Completed [facility] HPV9 2016-11-09 00:00:00 Completed [facility] HPV9 2016-11-09 00:00:00 Completed [facility] HPV9 2016-11-09 00:00:00 Completed [facility] HPV9 2016-11-09 00:00:00 Completed [facility] HPV9 2016-11-09 00:00:00 Completed [facility] HPV9 2016-11-09 00:00:00 Completed [facility] HPV9 2016-11-09 00:00:00 Completed [facility] HPV9 2016-11-09 00:00:00 Completed [facility] HPV9 2016-11-09 00:00:00 Completed [facility] HPV9 2016-11-09 00:00:00 Completed [facility] HPV9 2016-11-09 00:00:00 Completed [facility] HPV 2011-06-01 00:00:00 Completed [facility] HPV 2011-06-01 00:00:00 Completed [facility] HPV 2011-06-01 00:00:00 Completed [facility] HPV 2011-06-01 00:00:00 Completed [facility] HPV 2011-06-01 00:00:00 Completed [facility] HPV 2011-06-01 00:00:00 Completed [facility] Flu Trivalent 2010-05-19 00:00:00 Completed [facility] HEPATITIS A 2010-05-19 00:00:00 Completed [facility] HPV 2010-05-19 00:00:00 Completed [facility] Flu Trivalent 2010-05-19 00:00:00 Completed [facility] HEPATITIS A 2010-05-19 00:00:00 Completed [facility] HPV 2010-05-19 00:00:00 Completed [facility] Flu Trivalent 2010-05-19 00:00:00 Completed [facility] HEPATITIS A 2010-05-19 00:00:00 Completed [facility] HPV 2010-05-19 00:00:00 Completed [facility] Flu Trivalent 2010-05-19 00:00:00 Completed [facility] HEPATITIS A 2010-05-19 00:00:00 Completed [facility] HPV 2010-05-19 00:00:00 Completed [facility] Flu Trivalent 2010-05-19 00:00:00 Completed [facility] HEPATITIS A 2010-05-19 00:00:00 Completed [facility] HPV 2010-05-19 00:00:00 Completed [facility] Flu Trivalent 2010-05-19 00:00:00 Completed [facility] HEPATITIS A 2010-05-19 00:00:00 Completed [facility] HPV 2010-05-19 00:00:00 Completed [facility] Rubella 2009-10-26 00:00:00 Completed [facility] Varicella (varivax)(chicken pox) 2009-10-26 00:00:00 Completed [facility] Rubella 2009-10-26 00:00:00 Completed [facility] Varicella (varivax)(chicken pox) 2009-10-26 00:00:00 Completed [facility] Rubella 2009-10-26 00:00:00 Completed [facility] Varicella (varivax)(chicken pox) 2009-10-26 00:00:00 Completed [facility] Rubella 2009-10-26 00:00:00 Completed [facility] Varicella (varivax)(chicken pox) 2009-10-26 00:00:00 Completed [facility] Rubella 2009-10-26 00:00:00 Completed [facility] Varicella (varivax)(chicken pox) 2009-10-26 00:00:00 Completed [facility] Rubella 2009-10-26 00:00:00 Completed [facility] Varicella (varivax)(chicken pox) 2009-10-26 00:00:00 Completed [facility] Rubella 2009-10-26 00:00:00 Completed [facility] Varicella (varivax)(chicken pox) 2009-10-26 00:00:00 Completed [facility] Rubella 2009-10-26 00:00:00 Completed [facility] Varicella (varivax)(chicken pox) 2009-10-26 00:00:00 Completed [facility] Rubella 2009-10-26 00:00:00 Completed [facility] Varicella (varivax)(chicken pox) 2009-10-26 00:00:00 Completed [facility] Rubella 2009-10-26 00:00:00 [facility] [facility] pox[facility] 2009-10-26 00:00:00 Completed [facility] Rubella 2009-10-26 00:00:00 Completed [facility] Varicella (varivax)(chicken pox) 2009-10-26 00:00:00 Completed [facility] HEPATITIS A 2008-01-01 00:00:00 Completed [facility] HPV 2008-01-01 00:00:00 Completed [facility] Meningococcal Polysaccharide (groups A, C, Y and W-135) conjugate vaccine (MCV4P) 2008-01-01 00:00:00 Completed [facility] TDAP 2008-01-01 00:00:00 Completed [facility] HEPATITIS A 2008-01-01 00:00:00 Completed [facility] HPV 2008-01-01 00:00:00 Completed [facility] Meningococcal Polysaccharide (groups A, C, Y and W-135) conjugate vaccine (MCV4P) 2008-01-01 00:00:00 Completed [facility] TDAP 2008-01-01 00:00:00 Completed [facility] HEPATITIS A 2008-01-01 00:00:00 Completed [facility] HPV 2008-01-01 00:00:00 Completed [facility] Meningococcal Polysaccharide (groups A, C, Y and W-135) conjugate vaccine (MCV4P) 2008-01-01 00:00:00 Completed [facility] TDAP 2008-01-01 00:00:00 Completed [facility] HEPATITIS A 2008-01-01 00:00:00 Completed [facility] HPV 2008-01-01 00:00:00 Completed [facility] Meningococcal Polysaccharide (groups A, C, Y and W-135) conjugate vaccine (MCV4P) 2008-01-01 00:00:00 Completed [facility] TDAP 2008-01-01 00:00:00 Completed [facility] HEPATITIS A 2008-01-01 00:00:00 Completed [facility] HPV 2008-01-01 00:00:00 Completed [facility] Meningococcal Polysaccharide (groups A, C, Y and W-135) conjugate vaccine (MCV4P) 2008-01-01 00:00:00 Completed [facility] TDAP 2008-01-01 00:00:00 Completed [facility] HEPATITIS A 2008-01-01 00:00:00 Completed [facility] HPV 2008-01-01 00:00:00 Completed [facility] Meningococcal Polysaccharide (groups A, C, Y and W-135) conjugate vaccine (MCV4P) 2008-01-01 00:00:00 Completed [facility] TDAP 2008-01-01 00:00:00 Completed [facility] TD, NOS 2007-07-03 00:00:00 Completed [facility] TD, NOS 2007-07-03 00:00:00 Completed [facility] TD, NOS 2007-07-03 00:00:00 Completed [facility] TD, NOS 2007-07-03 00:00:00 Completed [facility] TD, NOS 2007-07-03 00:00:00 Completed [facility] TD, NOS 2007-07-03 00:00:00 Completed [facility] TD, NOS 2007-07-03 00:00:00 Completed [facility] Td 2007-07-03 00:00:00 Completed [facility] TD, NOS 2007-07-03 00:00:00 Completed [facility] TD, NOS 2007-07-03 00:00:00 Completed [facility] TD, NOS 2007-07-03 00:00:00 Completed [facility] DTaP, Unspecified Formulation 1998-01-06 00:00:00 Completed [facility] MMR 1998-01-06 00:00:00 Completed [facility] Poliovirus, Live, Oral, Trivalent 1998-01-06 00:00:00 Completed [facility] DTaP, Unspecified Formulation 1998-01-06 00:00:00 Completed [facility] MMR 1998-01-06 00:00:00 Completed [facility] Poliovirus, Live, Oral, Trivalent 1998-01-06 00:00:00 Completed [facility] DTaP, Unspecified Formulation 1998-01-06 00:00:00 Completed [facility] MMR 1998-01-06 00:00:00 Completed [facility] Poliovirus, Live, Oral, Trivalent 1998-01-06 00:00:00 Completed [facility] DTaP, Unspecified Formulation 1998-01-06 00:00:00 Completed [facility] MMR 1998-01-06 00:00:00 Completed [facility] Poliovirus, Live, Oral, Trivalent 1998-01-06 00:00:00 Completed [facility] DTaP, Unspecified Formulation 1998-01-06 00:00:00 Completed [facility] MMR 1998-01-06 00:00:00 Completed [facility] Poliovirus, Live, Oral, Trivalent 1998-01-06 00:00:00 Completed [facility] DTaP, Unspecified Formulation 1998-01-06 00:00:00 Completed [facility] MMR 1998-01-06 00:00:00 Completed [facility] Poliovirus, Live, Oral, Trivalent 1998-01-06 00:00:00 Completed [facility] DTP 1993-12-01 00:00:00 Completed [facility] Haemophilus influenzae type b vaccine, conjugate unspecified formulation 1993-12-01 00:00:00 Completed [facility] MMR 1993-12-01 00:00:00 Completed [facility] DTP 1993-12-01 00:00:00 Completed [facility] Haemophilus influenzae type b vaccine, conjugate unspecified formulation 1993-12-01 00:00:00 Completed [facility] MMR 1993-12-01 00:00:00 Completed [facility] DTP 1993-12-01 00:00:00 Completed [facility] Haemophilus influenzae type b vaccine, conjugate unspecified formulation 1993-12-01 00:00:00 Completed [facility] MMR 1993-12-01 00:00:00 Completed [facility] DTP 1993-12-01 00:00:00 Completed [facility] Haemophilus influenzae type b vaccine, conjugate unspecified formulation 1993-12-01 00:00:00 Completed [facility] MMR 1993-12-01 00:00:00 Completed [facility] DTP 1993-12-01 00:00:00 Completed [facility] Haemophilus influenzae type b vaccine, conjugate unspecified formulation 1993-12-01 00:00:00 Completed [facility] MMR 1993-12-01 00:00:00 Completed [facility] DTP 1993-12-01 00:00:00 Completed [facility] Haemophilus influenzae type b vaccine, conjugate unspecified formulation 1993-12-01 00:00:00 Completed [facility] MMR 1993-12-01 00:00:00 Completed [facility] Hep B, Unspecified Formulation 1993-08-31 00:00:00 Completed [facility] Poliovirus, Live, Oral, Trivalent 1993-08-31 00:00:00 Completed [facility] Hep B, Unspecified Formulation 1993-08-31 00:00:00 Completed [facility] Poliovirus, Live, Oral, Trivalent 1993-08-31 00:00:00 Completed [facility] Hep B, Unspecified Formulation 1993-08-31 00:00:00 Completed [facility] Poliovirus, Live, Oral, Trivalent 1993-08-31 00:00:00 Completed [facility] Hep B, Unspecified Formulation 1993-08-31 00:00:00 Completed [facility] Poliovirus, Live, Oral, Trivalent 1993-08-31 00:00:00 Completed [facility] Hep B, Unspecified Formulation 1993-08-31 00:00:00 Completed [facility] Poliovirus, Live, Oral, Trivalent 1993-08-31 00:00:00 Completed [facility] Hep B, Unspecified Formulation 1993-08-31 00:00:00 Completed [facility] Poliovirus, Live, Oral, Trivalent 1993-08-31 00:00:00 Completed [facility] DTP 1993-06-01 00:00:00 Completed [facility] Haemophilus influenzae type b vaccine, conjugate unspecified formulation 1993-06-01 00:00:00 Completed [facility] DTP 1993-06-01 00:00:00 Completed [facility] Haemophilus influenzae type b vaccine, conjugate unspecified formulation 1993-06-01 00:00:00 Completed [facility] DTP 1993-06-01 00:00:00 Completed [facility] Haemophilus influenzae type b vaccine, conjugate unspecified formulation 1993-06-01 00:00:00 Completed [facility] DTP 1993-06-01 00:00:00 Completed [facility] Haemophilus influenzae type b vaccine, conjugate unspecified formulation 1993-06-01 00:00:00 Completed [facility] DTP 1993-06-01 00:00:00 Completed [facility] Haemophilus influenzae type b vaccine, conjugate unspecified formulation 1993-06-01 00:00:00 Completed [facility] DTP 1993-06-01 00:00:00 Completed [facility] Haemophilus influenzae type b vaccine, conjugate unspecified formulation 1993-06-01 00:00:00 Completed [facility] DTP 1993-03-30 00:00:00 Completed [facility] Hep B, Unspecified Formulation 1993-03-30 00:00:00 Completed [facility] Haemophilus influenzae type b vaccine, conjugate unspecified formulation 1993-03-30 00:00:00 Completed [facility] Poliovirus, Live, Oral, Trivalent 1993-03-30 00:00:00 Completed [facility] DTP 1993-03-30 00:00:00 Completed [facility] Hep B, Unspecified Formulation 1993-03-30 00:00:00 Completed [facility] Haemophilus influenzae type b vaccine, conjugate unspecified formulation 1993-03-30 00:00:00 Completed [facility] Poliovirus, Live, Oral, Trivalent 1993-03-30 00:00:00 Completed [facility] DTP 1993-03-30 00:00:00 Completed [facility] Hep B, Unspecified Formulation 1993-03-30 00:00:00 Completed [facility] Haemophilus influenzae type b vaccine, conjugate unspecified formulation 1993-03-30 00:00:00 Completed [facility] Poliovirus, Live, Oral, Trivalent 1993-03-30 00:00:00 Completed [facility] DTP 1993-03-30 00:00:00 Completed [facility] Hep B, Unspecified Formulation 1993-03-30 00:00:00 Completed [facility] Haemophilus influenzae type b vaccine, conjugate unspecified formulation 1993-03-30 00:00:00 Completed [facility] Poliovirus, Live, Oral, Trivalent 1993-03-30 00:00:00 Completed [facility] DTP 1993-03-30 00:00:00 Completed [facility] Hep B, Unspecified Formulation 1993-03-30 00:00:00 Completed [facility] Haemophilus influenzae type b vaccine, conjugate unspecified formulation 1993-03-30 00:00:00 Completed [facility] Poliovirus, Live, Oral, Trivalent 1993-03-30 00:00:00 Completed [facility] DTP 1993-03-30 00:00:00 Completed [facility] Hep B, Unspecified Formulation 1993-03-30 00:00:00 Completed [facility] Haemophilus influenzae type b vaccine, conjugate unspecified formulation 1993-03-30 00:00:00 Completed [facility] Poliovirus, Live, Oral, Trivalent 1993-03-30 00:00:00 Completed [facility] DTP 1993-01-26 00:00:00 Completed [facility] Hep B, Unspecified Formulation 1993-01-26 00:00:00 Completed [facility] Haemophilus influenzae type b vaccine, conjugate unspecified formulation 1993-01-26 00:00:00 Completed [facility] Poliovirus, Live, Oral, Trivalent 1993-01-26 00:00:00 Completed [facility] DTP 1993-01-26 00:00:00 Completed [facility] Hep B, Unspecified Formulation 1993-01-26 00:00:00 Completed [facility] Haemophilus influenzae type b vaccine, conjugate unspecified formulation 1993-01-26 00:00:00 Completed [facility] Poliovirus, Live, Oral, Trivalent 1993-01-26 00:00:00 Completed [facility] DTP 1993-01-26 00:00:00 Completed [facility] Hep B, Unspecified Formulation 1993-01-26 00:00:00 Completed [facility] Haemophilus influenzae type b vaccine, conjugate unspecified formulation 1993-01-26 00:00:00 Completed [facility] Poliovirus, Live, Oral, Trivalent 1993-01-26 00:00:00 Completed [facility] DTP 1993-01-26 00:00:00 Completed [facility] Hep B, Unspecified Formulation 1993-01-26 00:00:00 Completed [facility] Haemophilus influenzae type b vaccine, conjugate unspecified formulation 1993-01-26 00:00:00 Completed [facility] Poliovirus, Live, Oral, Trivalent 1993-01-26 00:00:00 Completed [facility] DTP 1993-01-26 00:00:00 Completed [facility] Hep B, Unspecified Formulation 1993-01-26 00:00:00 Completed [facility] Haemophilus influenzae type b vaccine, conjugate unspecified formulation 1993-01-26 00:00:00 Completed [facility] Poliovirus, Live, Oral, Trivalent 1993-01-26 00:00:00 Completed [facility] DTP 1993-01-26 00:00:00 Completed [facility] Hep B, Unspecified Formulation 1993-01-26 00:00:00 Completed [facility] Haemophilus influenzae type b vaccine, conjugate unspecified formulation 1993-01-26 00:00:00 Completed [facility] Poliovirus, Live, Oral, Trivalent 1993-01-26 00:00:00 Completed [facility] Varicella (varivax)(chicken pox) Unknown Completed [facility] HPV9 Unknown Completed [facility] Influenza Virus Vaccine Quad .5 mL IM 6+ MO (FLUZONE/FLULAVAL/FL UARIX) Unknown Completed [facility] TDAP Unknown Completed [facility] Influenza Virus Vaccine Quad IM, Preserv and ABX Free 6 MO-64 YRS (FLUCELVAX) Unknown Completed [facility] DTaP, Unspecified Formulation Unknown Completed [facility] DTP Unknown Completed [facility] Flu Trivalent Unknown Completed [facility] HEPATITIS A Unknown Completed [facility] Hep B, Unspecified Formulation Unknown Completed [facility] Haemophilus influenzae type b vaccine, conjugate unspecified formulation Unknown Completed [facility] HPV Unknown Completed [facility] Meningococcal Polysaccharide (groups A, C, Y and W-135) conjugate vaccine (MCV4P) Unknown Completed [facility] MMR Unknown Completed [facility] Poliovirus, Live, Oral, Trivalent Unknown Completed [facility] TD, NOS Unknown Completed [facility] Rubella Unknown Completed [facility] Varicella (varivax)(chicken pox) Unknown Completed [facility] HPV9 Unknown Completed [facility] Influenza Virus Vaccine Quad .5 mL IM 6+ MO (FLUZONE/FLULAVAL/FL UARIX) Unknown Completed [facility] TDAP Unknown Completed [facility] Influenza Virus Vaccine Quad IM, Preserv and ABX Free 6 MO-64 YRS (FLUCELVAX) Unknown Completed [facility] DTaP, Unspecified Formulation Unknown Completed [facility] DTP Unknown Completed [facility] Influenza, split virus, trivalent, PF (AFLURIA/FLUARIX/FLU LAVAL/FLUZONE) Unknown Completed [facility] HEPATITIS A Unknown Completed [facility] Hep B, Unspecified Formulation Unknown Completed [facility] Haemophilus influenzae type b vaccine, conjugate unspecified formulation Unknown Completed [facility] HPV Unknown Completed [facility] Meningococcal Polysaccharide (groups A, C, Y and W-135) conjugate vaccine (MCV4P) Unknown Completed [facility] MMR Unknown Completed [facility] Poliovirus, Live, Oral, Trivalent Unknown Completed [facility] TD, NOS Unknown Completed [facility] Rubella Unknown Completed [facility] Varicella (varivax)(chicken pox) Unknown Completed [facility] HPV9 Unknown Completed [facility] Influenza Virus Vaccine Quad .5 mL IM 6+ MO (FLUZONE/FLULAVAL/FL UARIX) Unknown Completed [facility] TDAP Unknown Completed [facility] DTaP, Unspecified Formulation Unknown Completed [facility] DTP Unknown Completed [facility] Flu Trivalent Unknown Completed [facility] HEPATITIS A Unknown Completed [facility] Hep B, Unspecified Formulation Unknown Completed [facility] Haemophilus influenzae type b vaccine, conjugate unspecified formulation Unknown Completed [facility] HPV Unknown Completed [facility] Meningococcal Polysaccharide (groups A, C, Y and W-135) conjugate vaccine (MCV4P) Unknown Completed [facility] MMR Unknown Completed [facility] Poliovirus, Live, Oral, Trivalent Unknown Completed [facility] TD, NOS Unknown Completed [facility] Rubella Unknown Completed [facility] Varicella (varivax)(chicken pox) Unknown Completed [facility] HPV9 Unknown Completed [facility] Influenza Virus Vaccine Quad .5 mL IM 6+ MO (FLUZONE/FLULAVAL/FL UARIX) Unknown Completed [facility] TDAP Unknown Completed [facility] DTaP, Unspecified Formulation Unknown Completed [facility] DTP Unknown Completed [facility] Flu Trivalent Unknown Completed [facility] HEPATITIS A Unknown Completed [facility] Hep B, Unspecified Formulation Unknown Completed [facility] Haemophilus influenzae type b vaccine, conjugate unspecified formulation Unknown Completed [facility] HPV Unknown Completed [facility] Meningococcal Polysaccharide (groups A, C, Y and W-135) conjugate vaccine (MCV4P) Unknown Completed [facility] MMR Unknown Completed [facility] Poliovirus, Live, Oral, Trivalent Unknown Completed [facility] TD, NOS Unknown Completed [facility] Rubella Unknown Completed [facility] Varicella (varivax)(chicken pox) Unknown Completed [facility] HPV9 Unknown Completed [facility] Influenza Virus Vaccine Quad .5 mL IM 6+ MO (FLUZONE/FLULAVAL/FL UARIX) Unknown Completed [facility] TDAP Unknown Completed [facility] Influenza Virus Vaccine Quad IM, Preserv and ABX Free 6 MO-64 YRS (FLUCELVAX) Unknown Completed [facility] DTaP, Unspecified Formulation Unknown Completed [facility] DTP Unknown Completed [facility] Flu Trivalent Unknown Completed [facility] HEPATITIS A Unknown Completed [facility] Hep B, Unspecified Formulation Unknown Completed [facility] Haemophilus influenzae type b vaccine, conjugate unspecified formulation Unknown Completed [facility] HPV Unknown Completed [facility] Meningococcal Polysaccharide (groups A, C, Y and W-135) conjugate vaccine (MCV4P) Unknown Completed [facility] MMR Unknown Completed [facility] Poliovirus, Live, Oral, Trivalent Unknown Completed [facility] TD, NOS Unknown Completed [facility] Rubella Unknown Completed [facility] Varicella (varivax)(chicken pox) Unknown Completed [facility] HPV9 Unknown Completed [facility] Influenza Virus Vaccine Quad .5 mL IM 6+ MO (FLUZONE/FLULAVAL/FL UARIX) Unknown Completed [facility] TDAP Unknown Completed [facility] Influenza Virus Vaccine Quad IM, Preserv and ABX Free 6 MO-64 YRS (FLUCELVAX) Unknown Completed [facility] DTaP, Unspecified Formulation Unknown Completed [facility] DTP Unknown Completed [facility] Flu Trivalent Unknown Completed [facility] HEPATITIS A Unknown Completed [facility] Hep B, Unspecified Formulation Unknown Completed [facility] Haemophilus influenzae type b vaccine, conjugate unspecified formulation Unknown Completed [facility] HPV Unknown Completed [facility] Meningococcal Polysaccharide (groups A, C, Y and W-135) conjugate vaccine (MCV4P) Unknown Completed [facility] MMR Unknown Completed [facility] Poliovirus, Live, Oral, Trivalent Unknown Completed [facility] TD, NOS Unknown Completed [facility] Rubella Unknown Completed [facility] Varicella (varivax)(chicken pox) Unknown Completed [facility] HPV9 Unknown Completed [facility] Influenza Virus Vaccine Quad .5 mL IM 6+ MO (FLUZONE/FLULAVAL/FL UARIX) Unknown Completed [facility] TDAP Unknown Completed [facility] Influenza Virus Vaccine Quad IM, Preserv and ABX Free 6 MO-64 YRS (FLUCELVAX) Unknown Completed [facility] DTaP, Unspecified Formulation Unknown Completed [facility] DTP Unknown Completed [facility] Flu Trivalent Unknown Completed [facility] HEPATITIS A Unknown Completed [facility] Hep B, Unspecified Formulation Unknown Completed [facility] Haemophilus influenzae type b vaccine, conjugate unspecified formulation Unknown Completed [facility] HPV Unknown Completed [facility] Meningococcal Polysaccharide (groups A, C, Y and W-135) conjugate vaccine (MCV4P) Unknown Completed [facility] MMR Unknown Completed [facility] Poliovirus, Live, Oral, Trivalent Unknown Completed [facility] TD, NOS Unknown Completed [facility] Rubella Unknown Completed [facility] Varicella (varivax)(chicken pox) Unknown Completed [facility] HPV9 Unknown Completed [facility] Influenza Virus Vaccine Quad .5 mL IM 6+ MO (FLUZONE/FLULAVAL/FL UARIX) Unknown Completed [facility] TDAP Unknown Completed [facility] Influenza Virus Vaccine Quad IM, Preserv and ABX Free 6 MO-64 YRS (FLUCELVAX) Unknown Completed [facility] DTaP, Unspecified Formulation Unknown Completed [facility] DTP Unknown Completed [facility] Flu Trivalent Unknown Completed [facility] HEPATITIS A Unknown Completed [facility] Hep B, Unspecified Formulation Unknown Completed [facility] Haemophilus influenzae type b vaccine, conjugate unspecified formulation Unknown Completed [facility] HPV Unknown Completed [facility] Meningococcal Polysaccharide (groups A, C, Y and W-135) conjugate vaccine (MCV4P) Unknown Completed [facility] MMR Unknown Completed [facility] Poliovirus, Live, Oral, Trivalent Unknown Completed [facility] TD, NOS Unknown Completed [facility] Rubella Unknown Completed [facility] Varicella (varivax)(chicken pox) Unknown Completed [facility] HPV9 Unknown Completed [facility] [facility] Influenza Virus Vaccine Quad .5 mL IM 6+ MO (FLUZONE/FLULAVAL/FL UARIX) Unknown Completed [facility] TDAP Unknown Completed [facility] Influenza Virus Vaccine Quad IM, Preserv and ABX Free 6 MO-64 YRS (FLUCELVAX) Unknown Completed [facility] DTaP, Unspecified Formulation Unknown Completed [facility] DTP Unknown Completed [facility] Flu Trivalent Unknown Completed [facility] HEPATITIS A Unknown Completed [facility] Hep B, Unspecified Formulation Unknown Completed [facility] Haemophilus influenzae type b vaccine, conjugate unspecified formulation Unknown Completed [facility] HPV Unknown Completed [facility] Meningococcal Polysaccharide (groups A, C, Y and W-135) conjugate vaccine (MCV4P) Unknown Completed [facility] MMR Unknown Completed [facility] Poliovirus, Live, Oral, Trivalent Unknown Completed [facility] TD, NOS Unknown Completed [facility] Rubella Unknown Completed [facility] Varicella (varivax)(chicken pox) Unknown Completed [facility] HPV9 Unknown Completed [facility] Influenza Virus Vaccine Quad .5 mL IM 6+ MO (FLUZONE/FLULAVAL/FL UARIX) Unknown Completed [facility] TDAP Unknown Completed [facility] Influenza Virus Vaccine Quad IM, Preserv and ABX Free 6 MO-64 YRS (FLUCELVAX) Unknown Completed [facility] DTaP, Unspecified Formulation Unknown Completed [facility] DTP Unknown Completed [facility] Flu Trivalent Unknown Completed [facility] HEPATITIS A Unknown Completed [facility] Hep B, Unspecified Formulation Unknown Completed [facility] Haemophilus influenzae type b vaccine, conjugate unspecified formulation Unknown Completed [facility] HPV Unknown Completed [facility] Meningococcal Polysaccharide (groups A, C, Y and W-135) conjugate vaccine (MCV4P) Unknown Completed [facility] MMR Unknown Completed [facility] Poliovirus, Live, Oral, Trivalent Unknown Completed [facility] TD, NOS Unknown Completed [facility] Rubella Unknown Completed [facility] Varicella (varivax)(chicken pox) Unknown Completed [facility] HPV9 Unknown Completed [facility] Influenza Virus Vaccine Quad .5 mL IM 6+ MO (FLUZONE/FLULAVAL/FL UARIX) Unknown Completed [facility] TDAP Unknown Completed [facility] Influenza Virus Vaccine Quad IM, Preserv and ABX Free 6 MO-64 YRS (FLUCELVAX) Unknown Completed [facility] DTaP, Unspecified Formulation Unknown Completed [facility] DTP Unknown Completed [facility] Flu Trivalent Unknown Completed [facility] HEPATITIS A Unknown Completed [facility] Hep B, Unspecified Formulation Unknown Completed [facility] Haemophilus influenzae type b vaccine, conjugate unspecified formulation Unknown Completed [facility] HPV Unknown Completed [facility] Meningococcal Polysaccharide (groups A, C, Y and W-135) conjugate vaccine (MCV4P) Unknown Completed [facility] MMR Unknown Completed [facility] Poliovirus, Live, Oral, Trivalent Unknown Completed [facility] TD, NOS Unknown Completed [facility] Rubella Unknown Completed [facility] Varicella (varivax)(chicken pox) Unknown Completed [facility] HPV9 Unknown Completed [facility] Influenza Virus Vaccine Quad .5 mL IM 6+ MO (FLUZONE/FLULAVAL/FL UARIX) Unknown Completed [facility] TDAP Unknown Completed [facility] Influenza Virus Vaccine Quad IM, Preserv and ABX Free 6 MO-64 YRS (FLUCELVAX) Unknown Completed [facility] DTaP, Unspecified Formulation Unknown Completed [facility] DTP Unknown Completed [facility] Flu Trivalent Unknown Completed [facility] HEPATITIS A Unknown Completed [facility] Hep B, Unspecified Formulation Unknown Completed [facility] Haemophilus influenzae type b vaccine, conjugate unspecified formulation Unknown Completed [facility] HPV Unknown Completed [facility] Meningococcal Polysaccharide (groups A, C, Y and W-135) conjugate vaccine (MCV4P) Unknown Completed [facility] MMR Unknown Completed [facility] Poliovirus, Live, Oral, Trivalent Unknown Completed [facility] TD, NOS Unknown Completed [facility] Rubella Unknown Completed [facility] Varicella (varivax)(chicken pox) Unknown Completed [facility] HPV9 Unknown Completed [facility] Influenza Virus Vaccine Quad .5 mL IM 6+ MO (FLUZONE/FLULAVAL/FL UARIX) Unknown Completed [facility] TDAP Unknown Completed [facility] Influenza Virus Vaccine Quad IM, Preserv and ABX Free 6 MO-64 YRS (FLUCELVAX) Unknown Completed [facility] DTaP, Unspecified Formulation Unknown Completed [facility] DTP Unknown Completed [facility] Flu Trivalent Unknown Completed [facility] HEPATITIS A Unknown Completed [facility] Hep B, Unspecified Formulation Unknown Completed [facility] Haemophilus influenzae type b vaccine, conjugate unspecified formulation Unknown Completed [facility] HPV Unknown Completed [facility] Meningococcal Polysaccharide (groups A, C, Y and W-135) conjugate vaccine (MCV4P) Unknown Completed [facility] MMR Unknown Completed [facility] Poliovirus, Live, Oral, Trivalent Unknown Completed [facility] TD, NOS Unknown Completed [facility] Rubella Unknown Completed [facility] Varicella (varivax)(chicken pox) Unknown Completed [facility] HPV9 Unknown Completed [facility] Influenza Virus Vaccine Quad .5 mL IM 6+ MO (FLUZONE/FLULAVAL/FL UARIX) Unknown Completed [facility] TDAP Unknown Completed [facility] Influenza Virus Vaccine Quad IM, Preserv and ABX Free 6 MO-64 YRS (FLUCELVAX) Unknown Completed [facility] DTaP, Unspecified Formulation Unknown Completed [facility] DTP Unknown Completed [facility] Flu Trivalent Unknown Completed [facility] HEPATITIS A Unknown Completed [facility] Hep B, Unspecified Formulation Unknown Completed [facility] Haemophilus influenzae type b vaccine, conjugate unspecified formulation Unknown Completed [facility] HPV Unknown Completed [facility] Meningococcal Polysaccharide (groups A, C, Y and W-135) conjugate vaccine (MCV4P) Unknown Completed [facility] MMR Unknown Completed [facility] Poliovirus, Live, Oral, Trivalent Unknown Completed [facility] TD, NOS Unknown Completed [facility] Rubella Unknown Completed [facility] Vital Signs Vital Name Observation Time Observation Value Comments S ource Systolic blood pressure 2024-03-15 13:53:00 127 mm[Hg] [facility] Diastolic blood pressure 2024-03-15 13:53:00 83 mm[Hg] [facility] Heart rate 2024-03-15 13:53:00 69 /min [facility] Body temperature 2024-03-15 13:53:00 36.22 Cyndi [facility] Respiratory rate 2024-03-15 13:53:00 18 /min [facility] Body height 2024-03-15 13:53:00 180.3 cm [facility] Body weight 2024-03-15 13:53:00 89.994 kg [facility] BMI 2024-03-15 13:53:00 27.67 kg/m2 [facility] Systolic blood pressure 2023-09-19 01:45:00 117 mm[Hg] [facility] Diastolic blood pressure 2023-09-19 01:45:00 72 mm[Hg] [facility] Heart rate 2023-09-19 01:45:00 78 /min [facility] Body temperature 2023-09-19 01:45:00 37.11 Cyndi [facility] Respiratory rate 2023-09-19 01:45:00 16 /min [facility] Body weight 2023-09-19 01:45:00 87.181 kg [facility] BMI 2023-09-19 01:45:00 26.81 kg/m2 [facility] Oxygen saturation in Arterial blood by Pulse oximetry 2023-09-19 01:45:00 98 /min [facility] Systolic blood pressure 2023-09-14 18:07:00 118 mm[Hg] [facility] Diastolic blood pressure 2023-09-14 18:07:00 75 mm[Hg] [facility] Heart rate 2023-09-14 18:07:00 88 /min [facility] Body temperature 2023-09-14 18:07:00 37.06 Cyndi [facility] Respiratory rate 2023-09-14 18:07:00 16 /min [facility] Body weight 2023-09-14 18:07:00 87.544 kg [facility] BMI 2023-09-14 18:07:00 26.92 kg/m2 [facility] Oxygen saturation in Arterial blood by Pulse oximetry 2023-09-14 18:07:00 96 /min [facility] Systolic blood pressure 2023-07-11 01:57:00 125 mm[Hg] [facility] Diastolic blood pressure 2023-07-11 01:57:00 89 mm[Hg] [facility] Heart rate 2023-07-11 01:57:00 80 /min [facility] Body temperature 2023-07-11 01:57:00 37.11 [facility] Respiratory rate 2023-07-11 01:57:00 16 /min [facility] Body height 2023-07-11 01:57:00 180.3 cm [facility] Body weight 2023-07-11 01:57:00 82.555 kg [facility] BMI 2023-07-11 01:57:00 25.38 kg/m2 [facility] Oxygen saturation in Arterial blood by Pulse oximetry 2023-07-11 01:57:00 97 /min [facility] Systolic blood pressure 2023-06-30 19:39:00 116 mm[Hg] [facility] Diastolic blood pressure 2023-06-30 19:39:00 80 mm[Hg] [facility] Heart rate 2023-06-30 19:39:00 76 /min [facility] Body temperature 2023-06-30 19:39:00 37.39 Cyndi [facility] Respiratory rate 2023-06-30 19:39:00 16 /min [facility] Body height 2023-06-30 19:39:00 180.3 cm [facility] Body weight 2023-06-30 19:39:00 81.647 kg [facility] BMI 2023-06-30 19:39:00 25.10 kg/m2 [facility] Oxygen saturation in Arterial blood by Pulse oximetry 2023-06-30 19:39:00 98 /min [facility] Systolic blood pressure 2023-04-22 23:04:00 123 mm[Hg] [facility] Diastolic blood pressure 2023-04-22 23:04:00 80 mm[Hg] [facility] Heart rate 2023-04-22 23:04:00 80 /min [facility] Body temperature 2023-04-22 23:04:00 37 Cyndi [facility] Respiratory rate 2023-04-22 23:04:00 17 /min [facility] Body height 2023-04-22 23:04:00 180.3 cm [facility] Body weight 2023-04-22 23:04:00 76.8 kg [facility] BMI 2023-04-22 23:04:00 23.61 kg/m2 [facility] Oxygen saturation in Arterial blood by Pulse oximetry 2023-04-22 23:04:00 100 /min [facility] Systolic blood pressure 2023-04-07 18:48:00 107 mm[Hg] [facility] Diastolic blood pressure 2023-04-07 18:48:00 71 mm[Hg] [facility] Heart rate 2023-04-07 18:48:00 99 /min [facility] Body temperature 2023-04-07 18:48:00 36.72 Cyndi [facility] Respiratory rate 2023-04-07 18:48:00 18 /min [facility] Body height 2023-04-07 18:48:00 180.3 cm [facility] Body weight 2023-04-07 18:48:00 75.342 kg [facility] BMI 2023-04-07 18:48:00 23.17 kg/m2 [facility] Oxygen saturation in Arterial blood by Pulse oximetry 2023-04-07 18:48:00 98 /min [facility] Systolic blood pressure 2023-03-19 20:52:00 125 mm[Hg] [facility] Diastolic blood pressure 2023-03-19 20:52:00 87 mm[Hg] [facility] Heart rate 2023-03-19 20:52:00 86 /min [facility] Body temperature 2023-03-19 20:52:00 37.39 Cyndi [facility] Respiratory rate 2023-03-19 20:52:00 17 /min [facility] Body weight 2023-03-19 20:52:00 74.39 kg [facility] BMI 2023-03-19 20:52:00 22.87 kg/m2 [facility] Oxygen saturation in Arterial blood by Pulse oximetry 2023-03-19 20:52:00 98 /min [facility] Systolic blood pressure 2023-01-29 20:05:00 112 mm[Hg] [facility] Diastolic blood pressure 2023-01-29 20:05:00 71 mm[Hg] [facility] Heart rate 2023-01-29 20:05:00 89 /min [facility] Body temperature 2023-01-29 20:05:00 36.83 Cyndi [facility] Respiratory rate 2023-01-29 20:05:00 17 /min [facility] Body height 2023-01-29 20:05:00 180.3 cm [facility] Body weight 2023-01-29 20:05:00 73.029 kg [facility] BMI 2023-01-29 20:05:00 22.45 kg/m2 [facility] Oxygen saturation in Arterial blood by Pulse oximetry 2023-01-29 20:05:00 97 /min [facility] Systolic blood pressure 2023-01-07 18:08:00 128 mm[Hg] [facility] Diastolic blood pressure 2023-01-07 18:08:00 88 mm[Hg] [facility] Heart rate 2023-01-07 18:08:00 68 /min [facility] Body temperature 2023-01-07 18:08:00 37 Cyndi [facility] Respiratory rate 2023-01-07 18:08:00 17 /min [facility] Body height 2023-01-07 18:08:00 180.3 cm [facility] Body weight 2023-01-07 18:08:00 74.844 kg [facility] BMI 2023-01-07 18:08:00 23.01 kg/m2 [facility] Oxygen saturation in Arterial blood by Pulse oximetry 2023-01-07 18:08:00 100 /min [facility] Systolic blood pressure 2023-01-02 21:04:00 116 mm[Hg] [facility] Diastolic blood pressure 2023-01-02 21:04:00 74 mm[Hg] [facility] Heart rate 2023-01-02 21:04:00 89 /min [facility] Body temperature 2023-01-02 21:04:00 37.11 Cyndi [facility] Respiratory rate 2023-01-02 21:04:00 17 /min [facility] Body height 2023-01-02 21:04:00 180.3 cm [facility] Body weight 2023-01-02 21:04:00 73.891 kg [facility] BMI 2023-01-02 21:04:00 22.72 kg/m2 [facility] Oxygen saturation in Arterial blood by Pulse oximetry 2023-01-02 21:04:00 97 /min [facility] Systolic blood pressure 2022-12-30 18:37:00 129 mm[Hg] [facility] Diastolic blood pressure 2022-12-30 18:37:00 83 mm[Hg] [facility] Heart rate 2022-12-30 18:37:00 68 /min [facility] Body temperature 2022-12-30 18:37:00 36.89 Cyndi [facility] Respiratory rate 2022-12-30 18:37:00 18 /min [facility] Body height 2022-12-30 18:37:00 180.3 cm [facility] Body weight 2022-12-30 18:37:00 75.569 kg [facility] BMI 2022-12-30 18:37:00 23.24 kg/m2 [facility] Systolic blood pressure 2022-07-11 23:23:00 111 mm[Hg] [facility] Diastolic blood pressure 2022-07-11 23:23:00 74 mm[Hg] [facility] Heart rate 2022-07-11 23:23:00 76 /min [facility] Body temperature 2022-07-11 23:23:00 36.94 Cyndi [facility] Body height 2022-07-11 23:23:00 177.8 cm [facility] Body weight 2022-07-11 23:23:00 77.883 kg [facility] BMI 2022-07-11 23:23:00 24.64 kg/m2 [facility] Oxygen saturation in Arterial blood by Pulse oximetry 2022-07-11 23:23:00 99 /min [facility] Body height 2022-06-29 01:41:00 177.8 cm [facility] Body weight 2022-06-29 01:41:00 68.04 kg [facility] BMI 2022-06-29 01:41:00 21.52 kg/m2 [facility] Systolic blood pressure 2022-06-29 01:38:00 140 mm[Hg] [facility] Diastolic blood pressure 2022-06-29 01:38:00 86 mm[Hg] [facility] Heart rate 2022-06-29 01:38:00 99 /min [facility] Body temperature 2022-06-29 01:38:00 37.78 Cyndi [facility] Respiratory rate 2022-06-29 01:38:00 18 /min [facility] Oxygen saturation in Arterial blood by Pulse oximetry 2022-06-29 01:38:00 100 /min [facility] Systolic blood pressure 2021-11-15 15:48:00 121 mm[Hg] [facility] Diastolic blood pressure 2021-11-15 15:48:00 80 mm[Hg] [facility] Heart rate 2021-11-15 15:48:00 74 /min [facility] Body temperature 2021-11-15 15:48:00 36.56 Cyndi [facility] Respiratory rate 2021-11-15 15:48:00 16 /min [facility] Body height 2021-11-15 15:48:00 177.8 cm [facility] Body weight 2021-11-15 15:48:00 71.895 kg [facility] BMI 2021-11-15 15:48:00 22.74 kg/m2 [facility] Procedures Procedure Date / Time Performed Performing Clinicia n Source XR CHEST 2 VW 2023-09-19 01:52:54 [facility] PO[facility] MOLECULAR FLU 2023-09-14 18:10:00 Unknown, Attend [facility] ASSIGNMENT OF BENEFITS 2023-09-14 17:58:10 Docto r Unassigned, [place] [facility] POCT MOLECULAR FLU 2023-07-11 02:04:00 Unknown, Attend [facility] POCT MOLECULAR STREP 2023-07-11 02:01:00 Unknown, Atte yaw [facility] ASSIGNMENT OF BENEFITS 2023-06-30 21:36:09 Docto r Unassigned, [place] [facility] RAPID STREP SCREEN FOR GROUP A 2023-06-30 20:04:00 Moraima Lee [facility] RAPID INFLUENZA A/B 2023-06-30 20:04:00 Moraima Lee [facility] CONSENT/REFUSAL FOR DIAGNOSIS AND TREATMENT 2023-06-30 19:27:32 Doctor Unassigned, [place] [facility] POCT MOLECULAR STREP 2023-04-22 23:03:00 Unknown, Atte yaw [facility] POCT SARS-COV-2 ANTIGEN (BINAX NOW) 2023-04-07 19:16:00 Sergio Harley [facility] POCT MOLECULAR FLU 2023-04-07 19:00:00 Unknown, Attend [facility] POCT MOLECULAR STREP 2023-04-07 18:56:00 [facility] 2023-03-19 21:32:00 [facility] SARS-COV-2 ANTIGEN (BINAX NOW) 2023-03-19 21:30:00 Alex Villa [facility] POCT MOLECULAR FLU 2023-01-02 21:13:00 Unknown, Attend ing [facility] POCT MOLECULAR STREP 2023-01-02 21:10:00 [facility] PO[facility] SARS-COV-2 ANTIGEN (BINAX NOW) 2023-01-02 21:06:00 Cyn Burciaga [facility] PAP SMEAR-LIQUID BASED-CP 2022-12-30 19:02:00 Roxy Sharp [facility] HIV 1/2 AG-AB WITH REFLEX 2022-12-30 18:58:00 Roxy Sharp [facility] SYPHILIS IGG/IGM 2022-12-30 18:58:00 Winifred Sharp [facility] PATIENT FINANCIAL POLICY 2022-12-30 18:33:52 Doctor Unassigned, [place] [facility] CONSENT/REFUSAL FOR DIAGNOSIS AND TREATMENT 2022-07-11 23:15:22 Doctor Unassigned, [place] [facility] ASSIGNMENT OF BENEFITS 2022-07-11 23:15:07 Docto r Unassigned, [place] [facility] CONSENT/REFUSAL FOR DIAGNOSIS AND TREATMENT 2022-06-29 01:18:47 Doctor Unassigned, [place] [facility] Encounters Start Date/Time End Date/Time Encounter Type Admission Type Attending Clinicians Care Facility Care Department Encounter ID Source 2024-03-15 08:45:00 2024-03-15 09:51:37 Outpatient R MONA OWENS [facility] [id number] [facility] 2024-03-15 08:45:00 2024-03-15 09:00:00 Office Visit Mona Owens [facility] [id number] [id number] [id number] [facility] 2024-02-29 16:28:28 2024-02-29 16:28:[address] [facility] [id number] Renato Carter 2023-11-10 08:00:00 2023-11-10 08:00:00 Outpatient R [facility] [id number] [facility] 2023-10-11 00:00:00 2023-10-11 00:00:00 Refill Eze Lees [facility] [id number] 350.1.13.10 [id number] [id number] [facility] 2023-09-18 20:48:10 2023-09-18 23:59:00 Outpatient R SERGIO HARLEY [facility] [id number] [facility] 2023-09-18 20:48:10 2023-09-18 23:59:00 Hospital Encounter Sergio Harley [facility] [id number] 350.1.13.10 4.2.7.2.686 [id number] [facility] 2023-09-18 20:20:00 2023-09-18 20:53:46 Urgent Care Sergio Harley Unknown, Attending [facility] [id number] 350.1.13.10 [id number] [id number] [facility] 2023-09-14 13:00:00 2023-09-14 13:20:00 Urgent Care Annie Eze Unknown, Attending [facility] [id number] 350.1.13.10 4.2.7.2.686 [id number] [facility] 2023-09-14 13:00:00 2023-09-14 13:00:00 Outpatient R EZE LEES [facility] [id number] [facility] 2023-09-14 00:00:00 2023-09-14 00:00:00 Orders Only Doctor Unassigned, [place] [facility] [id number] 350.1.13.10 4.2.7.2.686 [id number] [facility] 2023-09-14 00:00:00 2023-09-14 00:00:00 Telephone Annie Eze [facility] [id number] 350.1.13.10 [id number] [id number] 370 [id number] [facility] 2023-07-10 20:00:00 2023-07-10 20:20:00 Urgent Care Noreen Farris Unknown, Attending [facility] [id number] 350.1.13.10 4.2.7.2.686 [id number] [facility] 2023-07-10 20:00:00 2023-07-10 20:00:00 Outpatient NOREEN DILLON [facility] [id number] [facility] 2023-06-30 13:41:00 2023-06-30 16:36:00 Emergency X MORAIMA LEE [facility] ERT [id number] [facility] 2023-06-30 13:41:00 2023-06-30 16:36:00 Emergency Moraima Lee [facility] [id number] 350.1.13.10 4.2.7.2.686 [id number] [facility] 2023-06-08 15:06:59 2023-06-08 15:06:59 Outpatient SFA [facility] [id number] Renato Carter 2023-05-19 00:00:00 2023-05-19 00:00:00 Refill Eze Lees [facility] MED[facility] OFFICE BUILD[facility] 1.84.114 350.1.13.10 4.2.7.2.686 [id number] [facility] 2023-04-22 18:00:00 2023-04-22 18:26:21 Outpatient R EZE LEES [facility] [id number] [facility] 2023-04-22 18:00:00 2023-04-22 18:26:21 Urgent Care Eze Lees Unknown, Attending [facility] 1.84.114 350.1.13.10 4.2.7.2.686 [id number] 370 [id number] [facility] 2023-04-07 13:40:00 2023-04-07 14:00:00 Urgent Care Sergio Harley Unknown, Attending [facility] 1.84.114 350.1.13.10 4.2.7.2.686 [id number] [facility] 2023-04-07 13:40:00 2023-04-07 13:40:00 Outpatient R SERGIO HARLEY [facility] [id number] [facility] 2023-03-19 15:40:00 2023-03-19 17:07:02 Outpatient R MENDEZDINESHMYRTLE DANIELJOSE [facility] [id number] [facility] 2023-03-19 15:40:00 2023-03-19 17:07:02 Urgent Care Alex Villa Unknown, Attending [facility] 1.840.114 350.1.13.10 4.2.7.2.686 [id number] 370 [id number] [facility] 2023-01-29 15:00:00 2023-01-29 15:20:00 Urgent Care Cyn Burciaga Unknown, Attending [facility] 1.114 350.1.13.10 4.2.7.2.686 [id number] 370 [id number] [facility] 2023-01-29 15:00:00 2023-01-29 15:00:00 Outpatient R JEVON BURCIAGAANDA [facility] [id number] [facility] 2023-01-07 13:00:00 2023-01-07 15:29:51 Outpatient R SEVERO MCINTOSH SHAHNAZ [facility] [id number] [facility] 2023-01-07 13:00:00 2023-01-07 15:29:51 Urgent Care Severo Mcintosh Unknown, Attending [facility] 1.114 350.1.13.10 4.2.7.2.686 [id number] [facility] 2023-01-02 16:00:00 2023-01-02 16:24:57 Outpatient R NOREEN FARRIS [facility] [id number] [facility] 2023-01-02 16:00:00 2023-01-02 16:24:57 Urgent Care Noreen Farris Unknown, Attending [facility] 1.114 350.1.13.10 4.2.7.2.686 [id number] 370 [id number] [facility] 2023-01-02 00:00:00 2023-01-02 00:00:00 Letter (Out) Noreen Farris [facility] 1.84.114 350.1.13.10 4.2.7.2.686 [id number] [facility] 2022-12-30 13:30:00 2022-12-30 14:09:37 Outpatient R ROXY SHARP [facility] [id number] [facility] 2022-12-30 13:30:00 2022-12-30 14:09:37 Office Visit Roxy Sharp [facility] 1..840.114 350.1.13.10 4.2.7.2.686 [id number] [facility] 2022-12-30 00:00:00 2022-12-30 00:00:00 Orders Only Doctor Unassigned, [place] [facility] 1.840.114 350.1.13.10 4.2.7.2.686 [id number] [facility] 2022-11-21 08:53:02 2022-11-21 08:53:[address] [facility] [id number] Renato Carter 2022-07-11 17:00:00 2022-07-11 17:20:00 Urgent Care Cyn Burciaga Unknown, Attending [facility] 1..840.114 350.1.13.10 4.2.7.2.686 [id number] 370 [id number] [facility] 2022-07-11 17:00:00 2022-07-11 17:00:00 Outpatient R CYN BURCIAGA [facility] [id number] [facility] 2022-07-11 00:00:00 2022-07-11 00:00:00 Orders Only Doctor Unassigned, [place] [facility] 1.840.114 350.1.13.10 4.2.7.2.686 [id number] [facility] 2022-06-28 19:44:00 2022-06-28 20:05:00 Emergency X DENISE CAMACHO [facility] ERT [id number] [facility] 2022-06-28 19:44:00 2022-06-28 20:05:00 Emergency Denise Camacho [facility] 1..840.114 350.1.13.10 4.2.7.2.686 [id number] [facility] 2021-11-15 10:30:00 2021-11-15 11:27:42 Outpatient Jovani STOVER JEAN-CLAUDE [facility] [id number] [facility] 2021-11-15 10:30:00 2021-11-15 11:27:42 Office Visit StoverJean-Claude [facility] MATERNAL & CHILD [facility] 1..840.114 350.1.13.10 4.2.7.2.686 [id number] 107 [id number] [facility] 2021-11-15 10:30:00 2021-11-15 11:27:42 Outpatient KIRILL MARIDAMARIIZZY [facility] [id number] [facility] 2021-07-14 09:45:00 2021-07-14 10:16:40 Outpatient KIRILL MARIDAMARIIZZY [facility] [id number] [facility] 2021-07-14 09:45:00 2021-07-14 10:15:00 Office Visit StoverJean-Claude [facility] [employer] [facility] 1..840.114 350.1.13.10 4.2.7.2.686 [id number] 107 [id number] [facility] 2021-07-14 09:45:00 2021-07-14 09:45:00 Outpatient Jovani STOVERJEAN-CLAUDE [facility] [id number] [facility] 2021-07-14 09:45:00 2021-07-14 09:45:00 Outpatient Jovani STOVERJEAN-CLAUDE [facility] [id number] [facility] 2021-07-09 11:00:00 2021-07-09 11:57:31 Office Visit Roxy Sharp Roshunda R [facility] 1..114 350.1.13.10 4.2.7.2.686 [id number] 107 [id number] [facility] 2021-07-09 11:00:00 2021-07-09 11:57:31 Outpatient Jovani JEAN-CLAUDE STOVER [facility] [id number] [facility] 2021-07-09 11:00:00 2021-07-09 11:00:00 Outpatient Jovani JEAN-CLAUDE STOVER [facility] [id number] [facility] 2021-07-09 00:00:00 2021-07-09 00:00:00 Orders Only Doctor Unassigned, [place] [facility] 1.114 350.1.13.10 4.2.7.2.686 [id number] [facility] 2020-12-04 00:00:00 2020-12-04 00:00:00 Patient Secure Msg Doctor Unassigned, [place] [facility] 1.114 350.1.13.10 4.2.7.2.686 [id number] [facility] 2020-12-01 09:30:00 2020-12-01 09:30:00 Outpatient Jovani JEAN-CLAUDE STOVER [facility] [id number] [facility] 2020-12-01 00:00:00 2020-12-01 00:00:00 Telephone Priscila Jackson [facility] 1..114 350.1.13.10 4.2.7.2.686 [id number] [facility] 2020-11-13 09:34:05 2020-11-13 11:03:58 Office Visit [facility] Krystal Gibbs [facility] 1..114 350.1.13.10 4.2.7.2.686 [id number] [facility] 2020-11-13 09:30:00 2020-11-13 09:30:00 Outpatient R [facility] [id number] [facility] 2020-10-20 00:00:00 2020-10-20 00:00:00 Telephone Jean-Claude Stover [facility] CHILD [facility] 1.2.840.114 350.1.13.10 4.2.7.2.686 [id number] 107 [id number] [facility] 2020-10-14 00:00:00 2020-10-14 00:00:00 Telephone Roxy Sharp [facility] CHILD [facility] 1..840.114 350.1.13.10 4.2.7.2.686 [id number] 107 [id number] [facility] 2020-10-13 12:47:22 2020-10-13 13:17:20 Office Visit Roxy Sharp Emily N [facility] 1.2.840.114 350.1.13.10 4.2.7.2.686 [id number] 107 [id number] [facility] 2020-10-13 12:45:00 2020-10-13 12:45:00 Outpatient R DANIKA YING [facility] [id number] [facility] 2020-09-23 00:00:00 2020-09-23 00:00:00 Telephone Jean-Claude Stover [facility]OUS[facility] [employer] [facility] CHILD [facility] 1.2.840.114 350.1.13.10 4.2.7.2.686 [id number] 107 [id number] [facility] 2020-09-22 09:59:14 2020-09-22 10:34:09 Office Visit Jean-Claude Stover [facility] 1..114 350.1.13.10 4.2.7.2.686 [id number] 107 [id number] [facility] 2020-09-22 10:00:00 2020-09-22 10:00:00 Outpatient R JEAN-CLAUDE STOVER [facility] [id number] [facility] 2020-06-14 00:00:00 2020-06-14 00:00:00 Case Management Francy Sorto [facility] 1..114 350.1.13.10 4.2.7.2.686 [id number] [facility] 2020-06-03 00:00:00 2020-06-03 00:00:00 Telephone [facility] 1.114 350.1.13.10 4.2.7.2.686 [id number] [facility] 2020-05-26 00:00:00 2020-05-26 00:00:00 Patient Secure Msg Doctor Unassigned, [place] [facility] 1.114 350.1.13.10 4.2.7.2.686 [id number] [facility] 2020-05-21 10:10:49 2020-05-21 11:48:02 Office Visit Res-Colpo/L eep, [facility] 1..114 350.1.13.10 4.2.7.2.686 [id number] [facility] 2020-05-21 10:00:00 2020-05-21 10:00:00 Outpatient R [facility] [id number] [facility] 2020-05-21 00:00:00 2020-05-21 00:00:00 Orders Only Doctor Unassigned, [place] [facility] 1..114 350.1.13.10 4.2.7.2.686 [id number] [facility] 2020-04-27 00:00:00 2020-04-27 00:00:00 Telephone Danika Ying [facility] 1.2.840.114 350.1.13.10 4.2.7.2.686 [id number] 107 [id number] [facility] 2020-04-16 12:54:08 2020-04-16 13:41:56 Office Visit Danika Ying [facility] [employer] [facility] CHILD [facility] 1.2.840.114 350.1.13.10 4.2.7.2.686 [id number] 107 [id number] [facility] 2020-04-16 13:00:00 2020-04-16 13:00:00 Outpatient R DANIKA YING [facility] [id number] [facility] 2020-03-06 00:00:00 2020-03-06 00:00:00 Telephone Jean-Claude Stover [facility]OUS[facility] CHILD [facility] 1.2.840.114 350.1.13.10 4.2.7.2.686 [id number] 107 [id number] [facility] 2020-03-05 00:00:00 2020-03-05 00:00:00 Telephone Roxy Sharp [facility] [employer] [facility] CHILD [facility] 1.2.840.114 350.1.13.10 4.2.7.2.686 [id number] 107 [id number] [facility] 2020-03-03 13:08:04 2020-03-03 13:41:46 Office Visit Roxy Sharp [facility] [employer] [facility] 1.2.840.114 350.1.13.10 4.2.7.2.686 [id number] 107 [id number] [facility] 2020-03-03 13:15:00 2020-03-03 13:15:00 Outpatient R ROXY SHARP [facility] [id number] [facility] 2020-02-26 10:15:00 2020-02-26 10:15:00 Outpatient R JEAN-CLAUDE STOVER [facility] [id number] [facility] 2019-11-28 00:00:00 2019-11-28 00:00:00 Telephone Ryanne Stoverjessica Jovani [facility] [employer] [facility] 1.2.840.114 350.1.13.10 4.2.7.2.686 [id number] 107 [id number] [facility] 2019-11-26 12:56:32 2019-11-26 13:37:05 Nurse Visit Visit, [facility] Nurse Jean-Claude Stover [facility] HOUSING [facility]PECT[facility] 1..840.114 350.1.13.10 4.2.7.2.686 [id number] 107 [id number] [facility] 2019-11-26 13:00:00 2019-11-26 13:00:00 Outpatient R [facility] [id number] [facility] 2019-11-11 13:03:27 2019-11-11 13:38:18 Office Visit Jean-Claude Stover [facility] HOUSING [facility] 1.2.840.114 350.1.13.10 4.2.7.2.686 [id number] 107 [id number] [facility] 2019-11-11 12:45:00 2019-11-11 12:45:00 Outpatient R JEAN-CLAUDE STOVER [facility] [id number] [facility] 2019-11-05 00:00:00 2019-11-05 00:00:00 Telephone Ryanne Stoverjessica [facility] HOUSING [facility] 1.2.840.114 350.1.13.10 4.2.7.2.686 [id number] [facility] 2019-10-25 00:00:00 2019-10-25 00:00:00 Telephone Jean-Claude Stover [facility]NAL & CHILD [facility] 1.2.840.114 350.1.13.10 4.2.7.2.686 [id number] 107 [id number] [facility] 2019-02-28 09:06:45 2019-02-28 10:07:56 Office Visit Res-Colpo/L eep, [facility] 1.2.840.114 350.1.13.10 4.2.7.2.686 [id number] [facility] 2019-01-30 15:16:47 2019-01-30 16:16:46 Office Visit RishabhjessiRoxy vasquez [facility] MATERNAL & CHILD [facility] 1.2.840.114 350.1.13.10 4.2.7.2.686 [id number] 107 [id number] [facility] 2019-01-10 11:00:00 2019-01-10 11:49:20 Outpatient R JEAN-CLAUDE STOVER [facility] [id number] [facility] Results Test Description Test Time Test Comments Results Resul t Comments Source XR CHEST 2 VW 2023-09-01 9 02:01:09 EXAM: XR CHEST 2 VW COMPARISON: None. HISTORY: cough ? TECHNIQUE: PA and lateral views of the chest were obtained. FINDINGS: No focal consolidation is identified. No pleural effusion or pneumothoraxis seen. The cardiomediastinal silhouette is unremarkable.No acute osseous abnormalities. [id number] 02:16:00* Test Item Value Reference Range Interpretation Comme nts POCT Molecular FluA (test co de = 03479-0) Negative Negative POCT Molecular FluB (test co de = 65968-0) Negative Negative Lab Interpretation (test cod e = 74649-1) Normal [facility] MOLECULAR [id number] 02:09:24* Test Item Value Reference Range Interpretation Comme nts POCT Molecular Strep (test c ode = 42677-9) Negative Negative Lab Interpretation (test cod e = 75985-2) [facility] MOLECULAR [id number] 23:10:56* Test Item Value Reference Range Interpretation Comme nts POCT Molecular Strep (test c ode = 66863-7) Negative Negative Lab Interpretation (test cod e = 96639-3) [facility] SARS-COV-2 ANTIGEN (BINAX NOW)2023-04-07 19:16:00* Test Item Value Reference Range Interpretation Comme nts POCT SARS-COV-2 ANTIGEN (test code = 47519-6) Not Detected Not Detected On board controls acceptable with C Line (test code = 3574) Yes JORGE L (test code = JORGE L) accurate developme nt and interpretation of all internal controls Lab Interpretation (test code = 39729-2) [facility] MOLECULAR [id number] 19:12:07* Test Item Value Reference Range Interpretation Comme nts POCT Molecular FluA (test co de = 46289-8) Negative Negative POCT Molecular FluB (test co de = 33674-0) Negative Negative Lab Interpretation (test cod e = 68387-2) [facility] MOLECULAR [id number] 19:03:24* Test Item Value Reference Range Interpretation Comme nts POCT Molecular Strep (test c ode = 07733-8) Negative Negative Lab Interpretation (test cod e = 54263-3) [facility] MOLECULAR [id number] 21:40:41* Test Item Value Reference Range Interpretation Comme nts POCT Molecular Strep (test c ode = 89905-0) Negative Negative Lab Interpretation (test cod e = 18452-3) [facility] SARS-COV-2 ANTIGEN (BINAX NOW)2023-03-19 21:30:00* Test Item Value Reference Range Interpretation Comme nts POCT SARS-COV-2 ANTIGEN (test code = 03145-9) Not Detected Not Detected On board controls acceptable with C Line (test code = 3574) Yes JORGE L (test code = JORGE L) accurate developme nt and interpretation of all internal controls Lab Interpretation (test code = 24631-8) Normal [facility] MOLECULAR [id number] 21:24:59* Test Item Value Reference Range Interpretation Comme nts POCT Molecular FluA (test co de = 43428-7) Negative Negative POCT Molecular FluB (test co de = 35673-2) Negative Negative Lab Interpretation (test cod e = 75374-9) Normal [facility] MOLECULAR [id number] 21:18:33* Test Item Value Reference Range Interpretation Comme nts POCT Molecular Strep (test c ode = 58007-2) Negative Negative Lab Interpretation (test cod e = 82128-8) Normal [facility] SARS-COV-2 ANTIGEN (BINAX NOW)2023-01-02 21:06:00* Test Item Value Reference Range Interpretation Comme nts POCT SARS-COV-2 ANTIGEN (test code = 91671-2) Not Detected Not Detected On board controls acceptable with C Line (test code = 3574) Yes JORGE L (test code = JORGE L) accurate developme nt and interpretation of all internal controls Lab Interpretation (test code = 73265-9) Normal [facility] METABOLIC [id number] 14:30:08* Test Item Value Reference Range Interpretation Comme nts GLUCOSE (test code = 2217) 92 MG/DL 70-99 BUN (test code = 2208) 8 MG/DL 6-20 CREATININE (test code = 2214) 0.67 MG/DL 0.60-1.30 eGFR (2020 CKD-EPI) (test code = 40991) 121 ML/MIN/1.73 >60 SODIUM (test code = 2231) 141 MEQ/L 133-146 POTASSIUM (test code = 2228) 4.2 MEQ/L 3.5-5.4 CHLORIDE (test code = 2215) 104 MEQ/L 95-107 CARBON DIOXIDE (test code = 2206) 23 MEQ/L 19-31 CALCIUM (test code = 2209) 9.6 MG/DL 8.5-10.5 UNLESS OTHERWISE INDICATED, ALL TESTING PERFORMED AT [facility] [address] [place] [id number] MACHINE RUNNER: ANALI LAKHANI M.D. CLIA NUMBER [id number] [place]. [id number] Notes Date/Time Note Provider Source 2023-09-14 13:56:25 Called number on file. Patient was informed the virus that caused the bronchitis is contagious. Patient is to wear a mask until 09/18/23. Patient is to take medication as prescribed and should be feeling better by then. Patient voiced understanding. Sheree Fernández RN 09/14/2023 2:00 PM Sheree Fernández RN [facility] 2023-09-14 13:51:03 Copied from [facility] #[id number]. Topic: Clinical - Medical Advice >> Sep 14, 2023 1:49 PM Patient Theatre Director wrote: Pt had been diagnosed with bronchitis and is asking if it is contagious. Please advise. Lotus Lou [facility] 2023-06-30 16:35:54 Pt left prior to receiving discharge instructions. OR SALES REPRESENTATIVE Palmira Del Rosario RN [facility] 2023-06-30 13:38:54 Patient states: "I started having a sore throat this morning. My has strep and flu" OR SALES REPRESENTATIVE Danika Smith RN [facility]
[2024-06-02 03:03] LABS: Specific Gravity < 1.005 (1.005-1.030)
[2024-06-02 03:07] LABS: Specific Gravity < 1.005 (1.005-1.030); Sqamous Epithelial <5 /HPF (None Seen); Urine Bacteria <20 /HPF (<20); Urine Bilirubin NEGATIVE (Negative); Urine Blood Negative (Negative); Urine Clarity Clear (Clear); Urine Color Colorless (Yellow); Urine Crystals Unidentified Few /HPF (None Seen); Urine Culture Reflex Order NOT NEEDED; Urine Glucose NEGATIVE (Negative); Urine Ketones NEGATIVE (Negative); Urine Micro Reflex YN NO BILL MICROSCOPIC; Urine Mucus Slight /HPF (None Seen); Urine Nitrite NEGATIVE (Negative); Urine Protein NEGATIVE (Negative); Urine RBC <5 /HPF (None Seen); Urine Urobilinogen Normal (Normal); Urine WBC <5 /HPF (<5); Urine pH 6.5 (5.0-7.0)
[2024-06-02] MEDS ORDERED: ACETAMINOPHEN 500 MG TAB ONE (03:25)
[2024-06-02] MEDS ORDERED: IBUPROFEN 400 MG TAB ONE (03:26)
[2024-06-02] MEDS ORDERED: ONDANSETRON 4 MG (ODT) TAB ONE (03:26)
[2024-06-02] MEDS ORDERED: GUAIFENESIN/DM 5 ML UCUP ONE (03:27)
--- NOTE | 2024-06-02 04:04 | ER ---
Nurse's Notes [facility] Name: Bette Palmer Age: 33 yrs Sex: Female : 1990 Arrival Date: 06/02/2024 Time: 01:07 Bed 17 Private MD: Diagnosis: Acute febrile illness, acute systemic viral illness Presentation: 06/02 02:03 Chief complaint: Patient states: i think i have the flu. fever, body aches, cough, lg3 congestion X4 days. took 800mg ibuprofen at 2230. Coronavirus screen: Client denies travel out of the [place] in the last 14 days. Client presents with at least one sign or symptom that may indicate coronavirus-19. Standard/surgical mask placed on the client. Ebola Screen: No symptoms or risks identified at this time. Initial Sepsis Screen: Does the patient meet any 2 criteria? No. Patient's initial sepsis screen is negative. Does the patient have a suspected source of infection? No. Patient's initial sepsis screen is negative. Risk Assessment: Do you want to hurt yourself or someone else? Patient reports no desire to harm self or others. Onset of symptoms was May 30, 2024. 02:03 Method Of Arrival: Ambulatory lg3 02:03 Acuity: NATASHA 4 lg3 Triage Assessment: 02:05 General: Appears in no apparent distress. comfortable, Behavior is calm, cooperative. lg3 Pain: Denies pain. EENT: Reports nasal congestion nasal discharge. Neuro: No deficits noted. Pelayo Agitation-Sedation Scale (RASS): 0 - Alert and Calm Level of Consciousness is awake, alert, obeys commands, Oriented to person, place, time, situation. Cardiovascular: No deficits noted. Denies chest pain, shortness of breath, Capillary refill < 3 seconds Clubbing of nail beds is absent JVD is absent Patient's skin is warm and dry. Respiratory: No deficits noted. Reports cough that is Airway is patent Respiratory effort is even, unlabored, Respiratory pattern is regular, symmetrical, Breath sounds are clear bilaterally. GI: No deficits noted. No signs and/or symptoms were reported involving the gastrointestinal system. : No signs and/or symptoms were reported regarding the genitourinary system. Derm: No deficits noted. No signs and/or symptoms reported regarding the dermatologic system. Skin is intact, is healthy with good turgor, Skin is dry, Skin is normal, Skin temperature is warm. Musculoskeletal: No deficits noted. Circulation, motion, and sensation intact. Range of motion: intact in all extremities. 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 - Infectious Disease History:: Denies. - Social history:: Smoking status: Reported history of juuling and/or vaping. Patient uses alcohol, occasionally. Patient/guardian denies using street drugs. - Family history:: not pertinent. Screenin:08 [facility] ED Fall Risk Assessment (Adult) History of falling in the last 3 months, lg3 including since admission No falls in past 3 months (0 pts) Confusion or Disorientation No (0 pts) Intoxicated or Sedated No (0 pts) Impaired Gait No (0 pts) Mobility Assist Device Used No (0 pt) Altered Elimination No (0 pt) Score/Fall Risk Level 0 - 2 = Low Risk Oriented to surroundings, Maintained a safe environment, Educated pt \T\ family on fall prevention, incl call for assistance when getting out of bed, Assessed \T\ reinforced patient's understanding of fall precautions. Abuse screen: Denies threats or abuse. Denies injuries from another. Nutritional screening: No deficits noted. Tuberculosis screening: No symptoms or risk factors identified. Assessment: 02:08 General: see triage assessment. Respiratory: No deficits noted. Airway is patent lg3 Respiratory effort is even, unlabored, Respiratory pattern is regular, symmetrical, Breath sounds are clear bilaterally. 03:00 Reassessment: Patient appears in no apparent distress at this time. Patient and/or kj2 family updated on plan of care and expected duration. Pain level reassessed. Patient is alert, oriented x 3, equal unlabored respirations, skin warm/dry/pink. 04:00 Reassessment: Patient appears in no apparent distress at this time. Patient and/or kj2 family updated on plan of care and expected duration. Pain level reassessed. Patient is alert, oriented x 3, equal unlabored respirations, skin warm/dry/pink. 04:12 EENT: Throat is clear. kj2 Vital Signs: 02:03 BP 130 / 72; Pulse 90; Resp 17 S; Temp 99.1(O); Pulse Ox 98% on R/A; Weight 90.72 kg lg3 (R); Height 5 ft. 11 in. (R); 03:05 BP 113 / 70; Pulse 80; Resp 18; Pulse Ox 100% on R/A; kj2 03:59 BP 117 / 75; Pulse 78; Resp 18; Temp 98.4; Pulse Ox 100% on R/A; kj2 02:03 Body Mass Index 27.89 (90.72 kg, 180.34 cm) lg3 Greg Coma Score: 19:05 Eye Response: spontaneous(4). Motor Response: obeys commands(6). Verbal Response: sp4 oriented(5). Total: 15. ED Course: 01:09 Patient arrived in ED. jj6 01:44 Volodymyr Santillan MD is Attending Physician. sp4 02:00 Provided Education on: call light. kj2 02:05 Triage completed. lg3 02:05 Arm band placed on right wrist. lg3 02:08 Patient has correct armband on for positive identification. lg3 02:08 Patient maintains SpO2 saturation greater than 95% on room air. lg3 02:16 Influenza Screen (a \T\ B) Sent. lg3 02:38 Urinalysis W/Microscopic Sent. oe 02:38 Test, Urine Sent. oe 03:21 Alana Lowery RN is Primary Nurse. kj2 03:58 No provider procedures requiring assistance completed. kj2 04:13 Patient did not have IV access during this emergency room visit. kj2 Administered Medications: 03:33 Drug: Ondansetron PO 4 mg PO once Route: PO; kj2 03:58 Follow up: Response: No adverse reaction kj2 03:33 Drug: Dextromethorphan-Guaifenesin PO Liquid 10 mg-100 mg/5 mL 10 ml PO once Route: PO; kj2 03:57 Follow up: Response: No adverse reaction; Marked relief of symptoms kj2 03:34 Drug: Ibuprofen PO 800 mg PO once Route: PO; kj2 03:58 Follow up: Response: No adverse reaction kj2 03:34 Drug: Acetaminophen PO 1000 mg PO once Route: PO; kj2 03:58 Follow up: Response: No adverse reaction kj2 Medication: 03:41 VIS not applicable for this client. kj2 Outcome: 04:03 Discharge ordered by . betzy 04:13 Discharged to home ambulatory, kj2 04:13 Condition: stable 04:13 Discharge instructions given to patient, Instructed on discharge instructions, follow up and referral plans. Demonstrated understanding of instructions, follow-up care, 04:18 Patient left the ED. kj2 Signatures: Trey Montalvo Lacie, RN RN lg3 Tania [email or web address] Volodymyr Santillan MD MD sp4 Alana Lowery, RN RN kj2
--- NOTE | 2024-06-02 04:04 | EDPHYS ---
Physician Documentation [facility] Name: Bette Palmer Age: 33 yrs Sex: Female : 1990 Arrival Date: 06/02/2024 Time: 01:07 Bed 17 Private MD: ED Physician Volodymyr Santillan HPI: 06/02 01:44 This 33 yrs old Female presents to ER via Unassigned with complaints of sp4 Fever, Sore Throat, Ear Pain, MUSCLE ACHES/PAINS. 19:05 33-year-old female presents with complaint of fever sore throat muscle aches.. 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 - Infectious Disease History:: Denies. - Social history:: Smoking status: Reported history of juuling and/or vaping. Patient uses alcohol, occasionally. Patient/guardian denies using street drugs. - Family history:: not pertinent. ROS: 19:05 Constitutional: Negative for fever, chills, and weight loss, sp4 19:05 All other systems are negative, Exam: 19:05 Constitutional: This is a well developed, well nourished patient who is awake, alert, sp4 and in no acute distress. Head/Face: Normocephalic, atraumatic. Eyes: Pupils equal round and reactive to light, extra-ocular motions intact. Lids and lashes normal. Conjunctiva and sclera are not injected. Cornea within normal limits. Periorbital areas with no swelling, redness, or edema. ENT: Nares patent. No nasal discharge, no septal abnormalities noted. Tympanic membranes are normal and external auditory canals are clear. Oropharynx with no redness, swelling, or masses, exudates, or evidence of obstruction, uvula midline. Mucous membranes moist. Neck: Trachea midline, no thyromegaly or masses palpated, and no cervical lymphadenopathy. Supple, full range of motion without nuchal rigidity, or vertebral point tenderness. Chest/axilla: Normal chest wall appearance and motion. Nontender with no deformity. No lesions are appreciated. Cardiovascular: Regular rate and rhythm with a normal S1 and S2. No gallops, murmurs, or rubs. Normal PMI, no JVD. No pulse deficits. Respiratory: Lungs have equal breath sounds bilaterally, clear to auscultation and percussion. No rales, rhonchi or wheezes noted. No increased work of breathing, no retractions or nasal flaring. Abdomen/GI: Soft, with normal bowel sounds. No distension or tympany. No guarding or rebound. No evidence of tenderness throughout. Back: No spinal tenderness. No costovertebral tenderness. Skin: Warm, dry with normal turgor. Normal color with no rashes, no lesions, and no evidence of cellulitis. MS/ Extremity: Pulses equal, no cyanosis. Neurovascular intact. Full, normal range of motion. Neuro: Awake and alert, GCS 15, oriented to person, place, time, and situation. Cranial nerves II-XII grossly intact. Motor strength 5/5 in all extremities. Sensory grossly intact. Vital Signs: 02:03 BP 130 / 72; Pulse 90; Resp 17 S; Temp 99.1(O); Pulse Ox 98% on R/A; Weight 90.72 kg lg3 (R); Height 5 ft. 11 in. (R); 03:05 BP 113 / 70; Pulse 80; Resp 18; Pulse Ox 100% on R/A; kj2 03:59 BP 117 / 75; Pulse 78; Resp 18; Temp 98.4; Pulse Ox 100% on R/A; kj2 02:03 Body Mass Index 27.89 (90.72 kg, 180.34 cm) lg3 Harmony Coma Score: 19:05 Eye Response: spontaneous(4). Motor Response: obeys commands(6). Verbal Response: sp4 oriented(5). Total: 15. MDM: 01:45 Medical Screening Exam initiated sp4 19:05 Differential diagnosis: viral Infection, bacterial infection, gastroenteritis, sp4 meningitis. Data reviewed: vital signs, nurses notes, lab test result(s). 19:09 Consideration of Admission/Observation Escalation of care including sp4 admission/observation considered. ED course: Patient has signs and symptoms of influenza. Will prescribe Tamiflu.. 12 01:45 Order name: Urinalysis W/Microscopic; Complete Time: 03:55 sp4 06/02 01:45 Order name: Test, Urine; Complete Time: 03:55 sp4 06/02 01:45 Order name: Influenza Screen (a \T\ B); Complete Time: 03:55 sp4 Administered Medications: 03:33 Drug: Ondansetron PO 4 mg PO once Route: PO; kj2 03:58 Follow up: Response: No adverse reaction kj2 03:33 Drug: Dextromethorphan-Guaifenesin PO Liquid 10 mg-100 mg/5 mL 10 ml PO once Route: PO; kj2 03:57 Follow up: Response: No adverse reaction; Marked relief of symptoms kj2 03:34 Drug: Ibuprofen PO 800 mg PO once Route: PO; kj2 03:58 Follow up: Response: No adverse reaction kj2 03:34 Drug: Acetaminophen PO 1000 mg PO once Route: PO; kj2 03:58 Follow up: Response: No adverse reaction kj2 Disposition Summary: 06/02/24 04:03 Discharge Ordered Notes: Location: Home sp4 Problem: new sp4 Symptoms: have improved sp4 Condition: Stable sp4 Diagnosis - Acute febrile illness, acute systemic viral illness sp4 Followup: sp4 - With: Private Physician - When: 7 - 10 days - Reason: Recheck today's complaints Discharge Instructions: - Discharge Summary Sheet sp4 - Fever, Adult, [id number] sp4 Forms: - Patient Portal Instructions sp4 Prescriptions: - dextromethorphan-guaifenesin 20-400 mg Oral tablet - take 1 tablet ORAL route every 6 hours PRN cough; 40 tablet; Refills: 0, sp4 Product Selection Permitted - Tamiflu 75 mg Oral capsule - take 1 tablet ORAL route every 12 hours for 5 days; 10 tablet; Refills: 0, sp4 Product Selection Permitted - ondansetron 8 mg Oral Tablet,disintegrating - take 1 tablet ORAL route every 8 hours PRN nausea; 30 tablet; Refills: 0, sp4 Product Selection Permitted Signatures: Dispatcher [employer] Lara Kelly RN RN lg3 Volodymyr Santillan MD MD sp4 Alana Lowery RN RN kj2 Corrections: (The following items were deleted from the chart) 01:45 01:45 Influenza Screen (A \T\ B)+[id number] ordered. EDMS EDMS
[2024-06-02 06:34] VITALS: O2SAT 100
[2024-06-02 06:35] VITALS: BP 117/75; TEMP 98.4
== END 2024-06-02 04:18 | disposition home or self-care (01) ==
LOC: ER 01:07
DX: B34.9 Viral infection, unspecified (principal)
CPT/HCPCS: 81001; 81025; 87804; 99283; Q0162

== ENCOUNTER 2024-06-02 23:57 | Emergency (ER) | payer SELFPAY ==
--- OUTSIDE RECORDS SUMMARY | 2024-06-03 00:05 | XMS REPORT | Continuity of Care Document ---
Author Name Unknown Address [address] [facility] [address] [id number] [facility] Address [address] [facility] [address] [place] [address] Care Team Providers Care Air Intercept Controller Name Role Phone PCP, PATIENT DOES NOT HAVE A Primary Care Physic tony Unavailable MONA OWENS Attending Clinician Unavailable Mona Fofana Attending Clinician [phone] Eze Lees PA-C Attending Clinician [phone] SERGIO HARLEY Attending Clinician Unavailable Sergio Jade Attending Clinician [phone] Unknown, Attending Attending Clinician Unavailab EZE Rueda Attending Clinician Unavailable Doctor Unassigned, Acacia Villas Attending Clinician U Noreen Cullen Attending Clinician [phone] NOREEN FARRIS Attending Clinician Unavailable MORAIMA LEE Attending Clinician U MORAIMA Mujica Attending Clinician U ALEX Mohamud Attending Clinician UnavailAlex hSook Attending Clinician [phone] Cyn Burciaga MD Attending Clinician [phone] CYN BURCIAGA Attending Clinician Unavailable SEVERO MCINTOSH Attending Clinician Unavailable SEVERO MCINTOSH Attending Clinician Unavailable AKINSIPE, ROXY C Attending Clinician Unavail able Akintalha WHCNP, Roxy C Attending Clinician + DENISE CAMACHO Attending Clinician Unavailable Mercy VICENTE, Denise Saleem Attending Clinician [phone] JEAN-CLAUDE STOVER Attending Clinician Unavailab dora Stover ACCELERATOR SYSTEMS DIRECTOR, Jean-Claude R Attending Clinician [phone] Priscila Jackson MD Attending Clinician [phone] Darian [facility] Resident Attending Clinician Unavailab dora Gibbs MD, Krystal Hahn Attending Clinician [phone] Urbano ACCELERATOR SYSTEMS DIRECTOR, Danika Corrigan Attending Clinician [phone] DANIKA YING Attending Clinician Unavailmiki Sorto ACCELERATOR SYSTEMS DIRECTOR, Francy Attending Clinician [phone] Marimar Longoria MD Attending Clinician [phone] Res-Colpo/Leep, [facility] Attending Clinician Un available [facility] Shira Lilly Attending Clinician [phone] Payers Payer Name Policy Type Policy Number Effective Date Expirati on Date Source [facility] [id number] 2024 00:00:00 [facility] PLUS [id number] 2022 00:00:00 Problems Condition Name Condition Details Condition Category Status Onset Date Resolution Date Last Treatment Date Treating Clinician Comments Source 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 3-24 00:00: 00 [facility] Pap smear of cervix with ASCUS, cannot exclude HGSIL Pap smear of cervix with ASCUS, cannot exclude HGSIL Disease Active 2019-07 0- 00:00: 00 [facility] Moderate dysplasia of cervix (ROBYN II) Moderate dysplasia of cervix (ROBYN II) Disease Active 2018-07 00:00: 00 [facility] Cervical high risk human papillomav irus (HPV) DNA test positive Cervical high risk human papillomav irus (HPV) DNA test positive Disease Active 2018-07 00:00: 00 [facility] At risk for dental problems At risk for dental problems Disease Active 01-30 00:00: 00 [facility] Former smoker Former smoker Disease Active 2017-07 00:00: 00 [facility] Papanicola ou smear of cervix with low grade squamous intraepith elial lesion (LGSIL) Papanicola ou smear of cervix with low grade squamous intraepith elial lesion (LGSIL) Disease Active 11-23 00:00: 00 Overview: Formattin g of this note might be different from the original. 02/27/2019 - Satisfact ory colpo- ROBYN 2 on ECC2018- LEEP done [facility] Abnormal glandular Papanicola ou smear of cervix Abnormal glandular Papanicola ou smear of cervix Disease Active 11-23 00:00: 00 [facility] Vaginal discharge Vaginal discharge Disease Resolve d 9- 00:00: 00 2020-04-16 00:00:00 2020-04-16 12:57:47 [facility] Well woman exam Well woman exam Disease Resolve d 01-30 00:00: 00 2020-04-16 00:00:00 2020-04-16 12:57:50 [facility] care and examinatio n immediatel y after delivery care and examinatio n immediatel y after delivery Disease Resolve d 01-10 00:00: 00 2019-01-30 00:00:00 2019-01-30 15:58:40 [facility] Laceration , obstetrica l, minor Laceration , obstetrica l, minor Disease Resolve d 12-21 00:00: 00 2019-01-30 00:00:00 2019-01-30 15:58:40 [facility] Single live Single live Disease Resolve d 6 00:00: 00 2019-01-10 00:00:00 2019-01-10 12:31:18 [facility] Anemia of Anemia of Disease Resolve d 6 00:00: 00 2019-01-10 00:00:00 2019-01-10 12:31:19 [facility] 39 weeks gestation of 39 weeks gestation of Disease Resolve d 2019-0 6-19 00:00: 00 2019-01-10 00:00:00 2019-01-10 12:31:17 [facility] Anemia of mother in , antepartum Anemia of mother in , antepartum Disease Resolve d 2018-0 6-05 00:00: 00 2019-01-10 00:00:00 2019-01-10 12:31:17 [facility] Supervisio n of high risk in third trimester Supervisio n of high risk in third trimester Disease Resolve d 2017-07 00:00: 00 2019-01-10 00:00:00 2019-01-10 12:31:12 [facility] Multiparit y Multiparit y Disease Resolve d 2017-07 00:00: 00 2019-01-10 00:00:00 2019-01-10 12:31:15 [facility] (spontaneo us vaginal delivery) (spontaneo us vaginal delivery) Disease Resolve d 9-25 00:00: 2019-01-10 00:00:00 2019-01-10 12:31:05 [facility] Need for HPV vaccinatio n Need for HPV vaccinatio n Disease Resolve d 11-23 00:00: 00 2018-05-04 00:00:00 2018-05-04 14:21:55 [facility] Encounter for contracept kelly management , unspecifie d type Encounter for contracept kelly management , unspecifie d type Disease Resolve d 11-23 00:00: 00 2018-05-04 00:00:00 2018-05-04 14:21:50 [facility] Other general counseling and advice for contracept kelly management Other general counseling and advice for contracept kelly management Disease Resolve d 11-09 00:00: 00 2018-05-04 00:00:00 2018-05-04 14:22:03 [facility] Anemia of mother during , delivered Anemia of mother during , delivered Disease Resolve d 9-26 00:00: 2016-11-09 00:00:00 2022-01-16 00:17:33 [facility] Teen Teen Disease Resolve d 03-27 00:00: 00 2010-03-28 00:00:00 [facility] Allergies, Adverse Reactions, Alerts Allergy Name Allergy Type Status Severity Reaction(s) Onset Date Inactive Date Treating Clinician Comments Source NO KNOWN ALLERGIE S Drug Class Active [facility] Social History Social Habit Start Date Stop Date Quantity Comments Source Gender identity [facility] Sexual orientation U [facility] History of Social function 2024-03-15 00:00:00 2024-03-15 00:00:00 [facility] Alcoholic beverage intake 2024-03-15 00:00:00 2024-03-15 00:00:00 Current drinker of alcohol (finding) [facility] Alcohol Comment 2024-03-15 00:00:00 2024-03-15 00:00:00 occasional [facility] Tobacco use and exposure 2024-03-15 00:00:00 2024-03-15 00:00:00 Smokeless tobacco non-user [facility] Alcohol intake 2023-09-18 00:00:00 2023-09-18 00:00:00 Current non-drinker of alcohol (finding) [facility] Exposure to SARS-CoV-2 (event) 2022-07-01 00:00:00 2022-07-11 17:14:00 Not sure [facility] Tobacco Comment 2022-07-11 00:00:00 2022-07-11 00:00:00 vapes daily [facility] History of tobacco use 2017-05-04 00:00:00 Cigarette Smoker [facility] Sex assigned at 1990 00:00:00 1990 00:00:00 [facility] Smoking Status Start Date Stop Date Source Ex-smoker 2024-03-15 00:00:00 2024-03-15 00:00:00 U [facility] Medications Ordered Medication Name Filled Medication Name Start Date Stop Date Current Medication? Ordering Clinician Indication Dosage Frequency Signature (SIG) Comments Components Source dexamethaso ne (DECADRON) injection 10 mg 09-18 03:00: 00 09-18 01:59 :00 No [id number] 10mg [facility] albuterol 90 mcg/actuati on inhaler 18 00:00: 00 03-15 00:00 :00 No [id number] 2{puff} Inhale 2 Puffs every 6 (six) hours as needed for Wheezing, Chest tightness or Bronchospa sm. [facility] cetirizine 10 mg tablet 09-13 00:00: 00 Yes [id number] 10mg Take 1 tablet by mouth in the morning. [facility] fluticasone propionate 50 mcg/actuati on nasal spray 09-13 00:00: 00 Yes [id number] 2{spray } Use 2 Sprays in each nostril in the morning. [facility] methylPREDN ISolone 4 mg tablets 09-13 00:00: 00 03-15 00:00 :00 No [id number] Take by mouth SEE-INSTRU CTIONS. follow package directions [facility] bromphenira mine-pseudo ephedrine-D M (BROMFED DM) 2-30-10 mg/5 mL syrup 09-13 00:00: 00 03-15 00:00 :00 No [id number] 5mL Take 5 mL by mouth 3 (three) times daily as needed for Cough or Cold symptoms. [facility] fluticasone propionate 50 mcg/actuati on nasal spray 2022-07 00:00: 00 03-15 00:00 :00 No [id number] 2{spray } Use 2 Sprays in each nostril in the morning. [facility] methylPREDN ISolone 4 mg tablets 2022-07 00:00: 00 03-15 00:00 :00 No [id number] Take by mouth SEE-INSTRU CTIONS. follow package directions [facility] cetirizine 10 mg tablet 2022-07 00:00: 00 03-15 00:00 :00 No [facility] ketorolac (TORADOL) injection 30 mg 2022-07 0 19:45: 00 04-07 19:11 :00 No [id number] 30mg [facility] proMETHazin e 25 mg tablet 2022-07 0 00:00: 00 04-13 04:59 :00 No [id number] 25mg Take 1 tablet by mouth every 6 (six) hours for 5 days. [facility] ketorolac (TORADOL) injection 30 mg 03-19 22:15: 00 03-19 21:21 :00 No [id number] 30mg [facility] chlorhexidi ne 0.12 % mouthwash 03-19 00:00: 00 Yes [id number] 15mL Swish and spit out 15 mL in the morning and 15 mL in the evening. [facility] chlorhexidi ne 0.12 % mouthwash 03-19 00:00: 00 Yes [id number] 15mL Swish and spit out 15 mL in the morning and 15 mL in the evening. [facility] methylPREDN ISolone (MEDROL, BREE,) 4 mg tablets 03-19 00:00: 00 04-22 00:00 :00 No [id number] Take by mouth SEE-INSTRU CTIONS. follow package directions [facility] amoxicillin 875 mg tablet 03-19 00:00: 00 03-30 04:59 :00 No [id number] 875mg Take 1 tablet by mouth in the morning and 1 tablet in the evening. Do all this for 10 days. [facility] chlorhexidi ne 0.12 % mouthwash 01-29 00:00: 00 Yes [id number] 15mL Swish and spit out 15 mL in the morning and 15 mL in the evening. [facility] chlorhexidi ne 0.12 % mouthwash 30 00:00: 00 03-15 00:00 :00 No [id number] 15mL Swish and spit out 15 mL in the morning and 15 mL in the evening. [facility] amoxicillin -clavulanat e (AUGMENTIN) 875-125 mg per tablet 01-29 00:00: 00 02-09 04:59 :00 No [id number] 1{tbl} Take 1 tablet by mouth in the morning and 1 tablet in the evening. Do all this for 10 days. [facility] methylPREDN ISolone (MEDROL, BREE,) 4 mg tablets 01-07 00:00: 00 04-22 00:00 :00 No [id number] Take by mouth SEE-INSTRU CTIONS. follow package directions [facility] amoxicillin -clavulanat e (AUGMENTIN) 875-125 mg per tablet 01-07 00:00: 00 01-18 04:59 :00 No [id number] 1{tbl} Take 1 tablet by mouth in the morning and 1 tablet in the evening. Do all this for 10 days. [facility] bromphenira mine-pseudo ephedrine-D M (BROMFED DM) 2-30-10 mg/5 mL syrup 01-07 00:00: 00 01-18 04:59 :00 No [id number] 10mL Take 10 mL by mouth 3 (three) times daily as needed for Congestion /Allergies or Cough for up to 10 days. [facility] SERTraline 25 mg tablet 12-02 00:00: 00 Yes 25mg Take 1 tablet by mouth in the morning. [facility] SERTraline 25 mg tablet 02 00:00: 00 Yes 50mg Take 2 tablets by mouth in the morning. [facility] propranoloL 20 mg tablet 19 00:00: 00 03-15 00:00 :00 No 20mg Take 1 tablet by mouth in the morning. [facility] hydrOXYzine 25 mg capsule -17 00:00: 00 01-07 00:00 :00 No TAKE 1 CAPSULE BY MOUTH 3 TIMES A DAY NEEDED FOR ANXIETY [facility] fluticasone propionate 50 mcg/actuati on nasal spray 07-11 00:00: 00 03-15 00:00 :00 No [id number] 1{spray } Use 1 [place] in each nostril in the morning. [facility] methylPREDN ISolone (MEDROL, BREE,) 4 mg tablets 07-11 00:00: 00 01-07 00:00 :00 No [id number] Take by mouth SEE-INSTRU CTIONS. follow package directions [facility] cetirizine (ZYRTEC) 10 mg tablet 07-11 00:00: 00 12-30 00:00 :00 No [id number] 10mg Take 1 tablet by mouth in the morning. [facility] amoxicillin -clavulanat e (AUGMENTIN) 875-125 mg per tablet 1 tablet 2021-07 02:30: 00 06-29 01:48 :00 No 1{tbl} 1 tablet, Oral, ONCE, 1 dose, On Mon06/28/22 at 2030, Routine
Reason for Anti-Infec tive: Documented Infection< br>Documen mohan Infection Site: HEENT
D uration of Therapy: 7 days [facility] ibuprofen (IBU) tablet 600 mg 2021-07 01:45: 00 06-29 01:48 :00 No 600mg 600 mg, Oral, ONCE, 1 dose, On Mon06/28/22 at 1945, FABIENNE [facility] amoxicillin -clavulanat e 875-125 mg per tablet 2021-07 00:00: 00 01-07 00:00 :00 No [id number] 05400 1{tbl} Take 1 tablet by mouth every 12 (twelve) hours. [facility] No known medications 5-16 11:09: 53 No [facility] levonorgest rel-ethinyl estradiol 0.1-20 mg-mcg per tablet 2019-07 0-15 00:00: 00 11-13 00:00 :00 No [id number] 1{tbl} Take 1 tablet by mouth daily. [facility] Iron Fum & P-FA-Vit B & C No.9 (INTEGRA PLUS) 125 mg iron- 1 mg Cap 2019-12-21 00:00: 00 11-13 00:00 :00 No [id number] 1{capsu le} Take 1 capsule by mouth daily. [facility] Immunizations Ordered Immunization Name Filled Immunization Name Date Status Comments Source Influenza Virus Vaccine Quad IM, Preserv and ABX Free 6 MO-64 YRS 2021-07-09 00:00:00 Completed [facility] Influenza Virus Vaccine Quad IM, Preserv and ABX Free 6 MO-64 YRS 2021-07-09 00:00:00 Completed [facility] Influenza Virus Vaccine Quad IM, Preserv and ABX Free MO-64 2021-07-09 00:00:00 Completed [facility] Influenza Virus Vaccine Quad IM, Preserv and ABX Free MO-64 2021-07-09 00:00:00 Completed [facility] Influenza Virus Vaccine Quad IM, Preserv and ABX Free 6 MO-64 2021-07-09 00:00:00 Completed [facility] Influenza Virus Vaccine Quad IM, Preserv and ABX Free 6 MO-64 2021-07-09 00:00:00 Completed [facility] Influenza Virus Vaccine Quad IM, Preserv and ABX Free 6 MO-64 2021-07-09 00:00:00 Completed [facility] Influenza Virus Vaccine Quad IM, Preserv and ABX Free 6 MO-64 YRS (FLUCELVAX) 2021-07-09 00:00:00 Completed [facility] Influenza Virus Vaccine Quad IM, Preserv and ABX Free 6 MO-64 YRS 2021-07-09 00:00:00 Completed [facility] Influenza Virus Vaccine Quad IM, Preserv and ABX Free 6 MO-64 2021-07-09 00:00:00 Completed [facility] Influenza Virus Vaccine Quad IM, Preserv and ABX Free 6 MO-64 2021-07-09 00:00:00 Completed [facility] Influenza Virus Vaccine Quad .5 mL IM 6+ MO 2020-04-16 00:00:00 Completed [facility] Influenza Virus Vaccine Quad .5 mL IM 6+ MO 2020-04-16 00:00:00 Completed [facility] Influenza Virus Vaccine Quad .5 mL IM 6+ MO 2020-04-16 00:00:00 Completed [facility] Influenza Virus Vaccine Quad .5 mL IM 6+ MO 2020-04-16 00:00:00 Completed [facility] Influenza Virus Vaccine Quad .5 mL IM 6+ MO 2020-04-16 00:00:00 Completed [facility] Influenza Virus Vaccine Quad .5 mL IM 6+ MO 2020-04-16 00:00:00 Completed [facility] Influenza Virus Vaccine Quad .5 mL IM 6+ MO 2020-04-16 00:00:00 Completed [facility] Influenza Virus Vaccine Quad .5 mL IM 6+ MO (FLUZONE/FLULAVAL/FL UARIX) 2020-04-16 00:00:00 Completed [facility] Influenza Virus Vaccine Quad .5 mL IM 6+ MO 2020-04-16 00:00:00 Completed [facility] Influenza Virus Vaccine Quad .5 mL IM 6+ MO 2020-04-16 00:00:00 Completed [facility] Influenza Virus Vaccine Quad .5 mL IM 6+ MO 2020-04-16 00:00:00 Completed [facility] Influenza Virus Vaccine Quad .5 mL IM 6+ MO 2018-10-03 00:00:00 Completed [facility] TDAP 2018-10-03 00:00:00 Completed [facility] Influenza Virus Vaccine Quad .5 mL IM 6+ MO 2018-10-03 00:00:00 Completed [facility] TDAP 2018-10-03 00:00:00 Completed [facility] Influenza Virus Vaccine Quad .5 mL IM 6+ MO 2018-10-03 00:00:00 Completed [facility] TDAP 2018-10-03 00:00:00 Completed [facility] Influenza Virus Vaccine Quad .5 mL IM 6+ MO 2018-10-03 00:00:00 Completed [facility] TDAP 2018-10-03 00:00:00 Completed [facility] Influenza Virus Vaccine Quad .5 mL IM 6+ MO 2018-10-03 00:00:00 Completed [facility] TDAP 2018-10-03 00:00:00 Completed [facility] Influenza Virus Vaccine Quad .5 mL IM 6+ MO 2018-10-03 00:00:00 Completed [facility] TDAP 2018-10-03 00:00:00 Completed [facility] Influenza Virus Vaccine Quad .5 mL IM 6+ MO 2018-10-03 00:00:00 Completed [facility] TDAP 2018-10-03 00:00:00 Completed [facility] Influenza Virus Vaccine Quad .5 mL IM 6+ MO (FLUZONE/FLULAVAL/FL UARIX) 2018-10-03 00:00:00 Completed [facility] TDAP 2018-10-03 00:00:00 Completed [facility] Influenza Virus Vaccine Quad .5 mL IM 6+ MO 2018-10-03 00:00:00 Completed [facility] TDAP 2018-10-03 00:00:00 Completed [facility] Influenza Virus Vaccine Quad .5 mL IM 6+ MO 2018-10-03 00:00:00 Completed [facility] TDAP 2018-10-03 00:00:00 Completed [facility] Influenza Virus Vaccine Quad .5 mL IM 6+ MO 2018-10-03 00:00:00 Completed [facility] TDAP 2018-10-03 00:00:00 Completed [facility] HPV9 2017-11-23 00:00:00 Completed [facility] HPV9 2017-11-23 00:00:00 Completed [facility] HPV9 2017-11-23 00:00:00 Completed [facility] HPV9 2017-11-23 00:00:00 Completed [facility] HPV9 2017-11-23 00:00:00 Completed [facility] HPV9 2017-11-23 00:00:00 Completed [facility] HPV9 2017-11-23 00:00:00 Completed [facility] HPV9 2017-11-23 00:00:00 Completed [facility] HPV9 2017-11-23 00:00:00 Completed [facility] HPV9 2017-11-23 00:00:00 Completed [facility] HPV9 2017-11-23 00:00:00 Completed [facility] HPV9 2017-01-24 00:00:00 Completed [facility] HPV9 2017-01-24 00:00:00 Completed [facility] HPV9 2017-01-24 00:00:00 Completed [facility] HPV9 2017-01-24 00:00:00 Completed [facility] HPV9 2017-01-24 00:00:00 Completed [facility] HPV9 2017-01-24 00:00:00 Completed [facility] HPV9 2017-01-24 00:00:00 Completed [facility] HPV9 2017-01-24 00:00:00 Completed [facility] HPV9 2017-01-24 00:00:00 Completed [facility] HPV9 2017-01-24 00:00:00 Completed [facility] HPV9 2017-01-24 00:00:00 Completed [facility] HPV9 2016-11-09 00:00:00 Completed [facility] HPV9 2016-11-09 00:00:00 Completed [facility] HPV9 2016-11-09 00:00:00 Completed [facility] HPV9 2016-11-09 00:00:00 Completed [facility] HPV9 2016-11-09 00:00:00 Completed [facility] HPV9 2016-11-09 00:00:00 Completed [facility] HPV9 2016-11-09 00:00:00 Completed [facility] HPV9 2016-11-09 00:00:00 Completed [facility] HPV9 2016-11-09 00:00:00 Completed [facility] HPV9 2016-11-09 00:00:00 Completed [facility] HPV9 2016-11-09 00:00:00 Completed [facility] HPV 2011-06-01 00:00:00 Completed [facility] HPV 2011-06-01 00:00:00 Completed [facility] HPV 2011-06-01 00:00:00 Completed [facility] HPV 2011-06-01 00:00:00 Completed [facility] HPV 2011-06-01 00:00:00 Completed [facility] HPV 2011-06-01 00:00:00 Completed [facility] Flu Trivalent 2010-05-19 00:00:00 Completed [facility] HEPATITIS A 2010-05-19 00:00:00 Completed [facility] HPV 2010-05-19 00:00:00 Completed [facility] Flu Trivalent 2010-05-19 00:00:00 Completed [facility] HEPATITIS A 2010-05-19 00:00:00 Completed [facility] HPV 2010-05-19 00:00:00 Completed [facility] Flu Trivalent 2010-05-19 00:00:00 Completed [facility] HEPATITIS A 2010-05-19 00:00:00 Completed [facility] HPV 2010-05-19 00:00:00 Completed [facility] Flu Trivalent 2010-05-19 00:00:00 Completed [facility] HEPATITIS A 2010-05-19 00:00:00 Completed [facility] HPV 2010-05-19 00:00:00 Completed [facility] Flu Trivalent 2010-05-19 00:00:00 Completed [facility] HEPATITIS A 2010-05-19 00:00:00 Completed [facility] HPV 2010-05-19 00:00:00 Completed [facility] Flu Trivalent 2010-05-19 00:00:00 Completed [facility] HEPATITIS A 2010-05-19 00:00:00 Completed [facility] HPV 2010-05-19 00:00:00 Completed [facility] Rubella 2009-10-26 00:00:00 Completed [facility] Varicella (varivax)(chicken pox) 2009-10-26 00:00:00 Completed [facility] Rubella 2009-10-26 00:00:00 Completed [facility] Varicella (varivax)(chicken pox) 2009-10-26 00:00:00 Completed [facility] Rubella 2009-10-26 00:00:00 Completed [facility] Varicella (varivax)(chicken pox) 2009-10-26 00:00:00 Completed [facility] Rubella 2009-10-26 00:00:00 Completed [facility] Varicella (varivax)(chicken pox) 2009-10-26 00:00:00 Completed [facility] Rubella 2009-10-26 00:00:00 Completed [facility] Varicella (varivax)(chicken pox) 2009-10-26 00:00:00 Completed [facility] Rubella 2009-10-26 00:00:00 Completed [facility] Varicella (varivax)(chicken pox) 2009-10-26 00:00:00 Completed [facility] Rubella 2009-10-26 00:00:00 Completed [facility] Varicella (varivax)(chicken pox) 2009-10-26 00:00:00 Completed [facility] Rubella 2009-10-26 00:00:00 Completed [facility] Varicella (varivax)(chicken pox) 2009-10-26 00:00:00 Completed [facility] Rubella 2009-10-26 00:00:00 Completed [facility] Varicella (varivax)(chicken pox) 2009-10-26 00:00:00 Completed [facility] Rubella 2009-10-26 00:00:00 Completed [facility] Varicella (varivax)(chicken pox) 2009-10-26 00:00:00 Completed [facility] Rubella 2009-10-26 00:00:00 Completed [facility] Varicella (varivax)(chicken pox) 2009-10-26 00:00:00 Completed [facility] HEPATITIS A 2008-01-01 00:00:00 Completed [facility] HPV 2008-01-01 00:00:00 Completed [facility] Meningococcal Polysaccharide (groups A, C, Y and W-135) conjugate vaccine (MCV4P) 2008-01-01 00:00:00 Completed [facility] TDAP 2008-01-01 00:00:00 Completed [facility] HEPATITIS A 2008-01-01 00:00:00 Completed [facility] HPV 2008-01-01 00:00:00 Completed [facility] Meningococcal Polysaccharide (groups A, C, Y and W-135) conjugate vaccine (MCV4P) 2008-01-01 00:00:00 Completed [facility] TDAP 2008-01-01 00:00:00 Completed [facility] HEPATITIS A 2008-01-01 00:00:00 Completed [facility] HPV 2008-01-01 00:00:00 Completed [facility] Meningococcal Polysaccharide (groups A, C, Y and W-135) conjugate vaccine (MCV4P) 2008-01-01 00:00:00 Completed [facility] TDAP 2008-01-01 00:00:00 Completed [facility] HEPATITIS A 2008-01-01 00:00:00 Completed [facility] HPV 2008-01-01 00:00:00 Completed [facility] Meningococcal Polysaccharide (groups A, C, Y and W-135) conjugate vaccine (MCV4P) 2008-01-01 00:00:00 Completed [facility] TDAP 2008-01-01 00:00:00 Completed [facility] HEPATITIS A 2008-01-01 00:00:00 Completed [facility] HPV 2008-01-01 00:00:00 Completed [facility] Meningococcal Polysaccharide (groups A, C, Y and W-135) conjugate vaccine (MCV4P) 2008-01-01 00:00:00 Completed [facility] TDAP 2008-01-01 00:00:00 Completed [facility] HEPATITIS A 2008-01-01 00:00:00 Completed [facility] HPV 2008-01-01 00:00:00 Completed [facility] Meningococcal Polysaccharide (groups A, C, Y and W-135) conjugate vaccine (MCV4P) 2008-01-01 00:00:00 Completed [facility] TDAP 2008-01-01 00:00:00 Completed [facility] TD, NOS 2007-07-03 00:00:00 Completed [facility] TD, NOS 2007-07-03 00:00:00 Completed [facility] TD, NOS 2007-07-03 00:00:00 Completed [facility] TD, NOS 2007-07-03 00:00:00 Completed [facility] TD, NOS 2007-07-03 00:00:00 Completed [facility] TD, NOS 2007-07-03 00:00:00 Completed [facility] TD, NOS 2007-07-03 00:00:00 Completed [facility] Td 2007-07-03 00:00:00 Completed [facility] TD, NOS 2007-07-03 00:00:00 Completed [facility] TD, NOS 2007-07-03 00:00:00 Completed [facility] TD, NOS 2007-07-03 00:00:00 Completed [facility] DTaP, Unspecified Formulation 1998-01-06 00:00:00 Completed [facility] MMR 1998-01-06 00:00:00 Completed [facility] Poliovirus, Live, Oral, Trivalent 1998-01-06 00:00:00 Completed [facility] DTaP, Unspecified Formulation 1998-01-06 00:00:00 Completed [facility] MMR 1998-01-06 00:00:00 Completed [facility] Poliovirus, Live, Oral, Trivalent 1998-01-06 00:00:00 Completed [facility] DTaP, Unspecified Formulation 1998-01-06 00:00:00 Completed [facility] MMR 1998-01-06 00:00:00 Completed [facility] Poliovirus, Live, Oral, Trivalent 1998-01-06 00:00:00 Completed [facility] DTaP, Unspecified Formulation 1998-01-06 00:00:00 Completed [facility] MMR 1998-01-06 00:00:00 Completed [facility] Poliovirus, Live, Oral, Trivalent 1998-01-06 00:00:00 Completed [facility] DTaP, Unspecified Formulation 1998-01-06 00:00:00 Completed [facility] MMR 1998-01-06 00:00:00 Completed [facility] Poliovirus, Live, Oral, Trivalent 1998-01-06 00:00:00 Completed [facility] DTaP, Unspecified Formulation 1998-01-06 00:00:00 Completed [facility] MMR 1998-01-06 00:00:00 Completed [facility] Poliovirus, Live, Oral, Trivalent 1998-01-06 00:00:00 Completed [facility] DTP 1993-12-01 00:00:00 Completed [facility] Haemophilus influenzae type b vaccine, conjugate unspecified formulation 1993-12-01 00:00:00 Completed [facility] MMR 1993-12-01 00:00:00 Completed [facility] DTP 1993-12-01 00:00:00 Completed [facility] Haemophilus influenzae type b vaccine, conjugate unspecified formulation 1993-12-01 00:00:00 Completed [facility] MMR 1993-12-01 00:00:00 Completed [facility] DTP 1993-12-01 00:00:00 Completed [facility] Haemophilus influenzae type b vaccine, conjugate unspecified formulation 1993-12-01 00:00:00 Completed [facility] MMR 1993-12-01 00:00:00 Completed [facility] DTP 1993-12-01 00:00:00 Completed [facility] Haemophilus influenzae type b vaccine, conjugate unspecified formulation 1993-12-01 00:00:00 Completed [facility] MMR 1993-12-01 00:00:00 Completed [facility] DTP 1993-12-01 00:00:00 Completed [facility] Haemophilus influenzae type b vaccine, conjugate unspecified formulation 1993-12-01 00:00:00 Completed [facility] MMR 1993-12-01 00:00:00 Completed [facility] DTP 1993-12-01 00:00:00 Completed [facility] Haemophilus influenzae type b vaccine, conjugate unspecified formulation 1993-12-01 00:00:00 Completed [facility] MMR 1993-12-01 00:00:00 Completed [facility] Hep B, Unspecified Formulation 1993-08-31 00:00:00 Completed [facility] Poliovirus, Live, Oral, Trivalent 1993-08-31 00:00:00 Completed [facility] Hep B, Unspecified Formulation 1993-08-31 00:00:00 Completed [facility] Poliovirus, Live, Oral, Trivalent 1993-08-31 00:00:00 Completed [facility] Hep B, Unspecified Formulation 1993-08-31 00:00:00 Completed [facility] Poliovirus, Live, Oral, Trivalent 1993-08-31 00:00:00 Completed [facility] Hep B, Unspecified Formulation 1993-08-31 00:00:00 Completed [facility] Poliovirus, Live, Oral, Trivalent 1993-08-31 00:00:00 Completed [facility] Hep B, Unspecified Formulation 1993-08-31 00:00:00 Completed [facility] Poliovirus, Live, Oral, Trivalent 1993-08-31 00:00:00 Completed [facility] Hep B, Unspecified Formulation 1993-08-31 00:00:00 Completed [facility] Poliovirus, Live, Oral, Trivalent 1993-08-31 00:00:00 Completed [facility] DTP 1993-06-01 00:00:00 Completed [facility] Haemophilus influenzae type b vaccine, conjugate unspecified formulation 1993-06-01 00:00:00 Completed [facility] DTP 1993-06-01 00:00:00 Completed [facility] Haemophilus influenzae type b vaccine, conjugate unspecified formulation 1993-06-01 00:00:00 Completed [facility] DTP 1993-06-01 00:00:00 Completed [facility] Haemophilus influenzae type b vaccine, conjugate unspecified formulation 1993-06-01 00:00:00 Completed [facility] DTP 1993-06-01 00:00:00 Completed [facility] Haemophilus influenzae type b vaccine, conjugate unspecified formulation 1993-06-01 00:00:00 Completed [facility] DTP 1993-06-01 00:00:00 Completed [facility] Haemophilus influenzae type b vaccine, conjugate unspecified formulation 1993-06-01 00:00:00 Completed [facility] DTP 1993-06-01 00:00:00 Completed [facility] Haemophilus influenzae type b vaccine, conjugate unspecified formulation 1993-06-01 00:00:00 Completed [facility] DTP 1993-03-30 00:00:00 Completed [facility] Hep B, Unspecified Formulation 1993-03-30 00:00:00 Completed [facility] Haemophilus influenzae type b vaccine, conjugate unspecified formulation 1993-03-30 00:00:00 Completed [facility] Poliovirus, Live, Oral, Trivalent 1993-03-30 00:00:00 Completed [facility] DTP 1993-03-30 00:00:00 Completed [facility] Hep B, Unspecified Formulation 1993-03-30 00:00:00 Completed [facility] Haemophilus influenzae type b vaccine, conjugate unspecified formulation 1993-03-30 00:00:00 Completed [facility] Poliovirus, Live, Oral, Trivalent 1993-03-30 00:00:00 Completed [facility] DTP 1993-03-30 00:00:00 Completed [facility] Hep B, Unspecified Formulation 1993-03-30 00:00:00 Completed [facility] Haemophilus influenzae type b vaccine, conjugate unspecified formulation 1993-03-30 00:00:00 Completed [facility] Poliovirus, Live, Oral, Trivalent 1993-03-30 00:00:00 Completed [facility] DTP 1993-03-30 00:00:00 Completed [facility] Hep B, Unspecified Formulation 1993-03-30 00:00:00 Completed [facility] Haemophilus influenzae type b vaccine, conjugate unspecified formulation 1993-03-30 00:00:00 Completed [facility] Poliovirus, Live, Oral, Trivalent 1993-03-30 00:00:00 Completed [facility] DTP 1993-03-30 00:00:00 Completed [facility] Hep B, Unspecified Formulation 1993-03-30 00:00:00 Completed [facility] Haemophilus influenzae type b vaccine, conjugate unspecified formulation 1993-03-30 00:00:00 Completed [facility] Poliovirus, Live, Oral, Trivalent 1993-03-30 00:00:00 Completed [facility] DTP 1993-03-30 00:00:00 Completed [facility] Hep B, Unspecified Formulation 1993-03-30 00:00:00 Completed [facility] Haemophilus influenzae type b vaccine, conjugate unspecified formulation 1993-03-30 00:00:00 Completed [facility] Poliovirus, Live, Oral, Trivalent 1993-03-30 00:00:00 Completed [facility] DTP 1993-01-26 00:00:00 Completed [facility] Hep B, Unspecified Formulation 1993-01-26 00:00:00 Completed [facility] Haemophilus influenzae type b vaccine, conjugate unspecified formulation 1993-01-26 00:00:00 Completed [facility] Poliovirus, Live, Oral, Trivalent 1993-01-26 00:00:00 Completed [facility] DTP 1993-01-26 00:00:00 Completed [facility] Hep B, Unspecified Formulation 1993-01-26 00:00:00 Completed [facility] Haemophilus influenzae type b vaccine, conjugate unspecified formulation 1993-01-26 00:00:00 Completed [facility] Poliovirus, Live, Oral, Trivalent 1993-01-26 00:00:00 Completed [facility] DTP 1993-01-26 00:00:00 Completed [facility] Hep B, Unspecified Formulation 1993-01-26 00:00:00 Completed [facility] Haemophilus influenzae type b vaccine, conjugate unspecified formulation 1993-01-26 00:00:00 Completed [facility] Poliovirus, Live, Oral, Trivalent 1993-01-26 00:00:00 Completed [facility] DTP 1993-01-26 00:00:00 Completed [facility] Hep B, Unspecified Formulation 1993-01-26 00:00:00 Completed [facility] Haemophilus influenzae type b vaccine, conjugate unspecified formulation 1993-01-26 00:00:00 Completed [facility] Poliovirus, Live, Oral, Trivalent 1993-01-26 00:00:00 Completed [facility] DTP 1993-01-26 00:00:00 Completed [facility] Hep B, Unspecified Formulation 1993-01-26 00:00:00 Completed [facility] Haemophilus influenzae type b vaccine, conjugate unspecified formulation 1993-01-26 00:00:00 Completed [facility] Poliovirus, Live, Oral, Trivalent 1993-01-26 00:00:00 Completed [facility] DTP 1993-01-26 00:00:00 Completed [facility] Hep B, Unspecified Formulation 1993-01-26 00:00:00 Completed [facility] Haemophilus influenzae type b vaccine, conjugate unspecified formulation 1993-01-26 00:00:00 Completed [facility] Poliovirus, Live, Oral, Trivalent 1993-01-26 00:00:00 Completed [facility] Varicella (varivax)(chicken pox) Unknown Completed [facility] HPV9 Unknown Completed [facility] Influenza Virus Vaccine Quad .5 mL IM 6+ MO (FLUZONE/FLULAVAL/FL UARIX) Unknown Completed [facility] TDAP Unknown Completed [facility] Influenza Virus Vaccine Quad IM, Preserv and ABX Free 6 MO-64 YRS (FLUCELVAX) Unknown Completed [facility] DTaP, Unspecified Formulation Unknown Completed [facility] DTP Unknown Completed [facility] Flu Trivalent Unknown Completed [facility] HEPATITIS A Unknown Completed [facility] Hep B, Unspecified Formulation Unknown Completed [facility] Haemophilus influenzae type b vaccine, conjugate unspecified formulation Unknown Completed [facility] HPV Unknown Completed [facility] Meningococcal Polysaccharide (groups A, C, Y and W-135) conjugate vaccine (MCV4P) Unknown Completed [facility] MMR Unknown Completed [facility] Poliovirus, Live, Oral, Trivalent Unknown Completed [facility] TD, NOS Unknown Completed [facility] Rubella Unknown Completed [facility] Varicella (varivax)(chicken pox) Unknown Completed [facility] HPV9 Unknown Completed [facility] Influenza Virus Vaccine Quad .5 mL IM 6+ MO (FLUZONE/FLULAVAL/FL UARIX) Unknown Completed [facility] TDAP Unknown Completed [facility] Influenza Virus Vaccine Quad IM, Preserv and ABX Free 6 MO-64 YRS (FLUCELVAX) Unknown Completed [facility] DTaP, Unspecified Formulation Unknown Completed [facility] DTP Unknown Completed [facility] Influenza, split virus, trivalent, PF (AFLURIA/FLUARIX/FLU LAVAL/FLUZONE) Unknown Completed [facility] HEPATITIS A Unknown Completed [facility] Hep B, Unspecified Formulation Unknown Completed [facility] Haemophilus influenzae type b vaccine, conjugate unspecified formulation Unknown Completed [facility] HPV Unknown Completed [facility] Meningococcal Polysaccharide (groups A, C, Y and W-135) conjugate vaccine (MCV4P) Unknown Completed [facility] MMR Unknown Completed [facility] Poliovirus, Live, Oral, Trivalent Unknown Completed [facility] TD, NOS Unknown Completed [facility] Rubella Unknown Completed [facility] Varicella (varivax)(chicken pox) Unknown Completed [facility] HPV9 Unknown Completed [facility] Influenza Virus Vaccine Quad .5 mL IM 6+ MO (FLUZONE/FLULAVAL/FL UARIX) Unknown Completed [facility] TDAP Unknown Completed [facility] DTaP, Unspecified Formulation Unknown Completed [facility] DTP Unknown Completed [facility] Flu Trivalent Unknown Completed [facility] HEPATITIS A Unknown Completed [facility] Hep B, Unspecified Formulation Unknown Completed [facility] Haemophilus influenzae type b vaccine, conjugate unspecified formulation Unknown Completed [facility] HPV Unknown Completed [facility] Meningococcal Polysaccharide (groups A, C, Y and W-135) conjugate vaccine (MCV4P) Unknown Completed [facility] MMR Unknown Completed [facility] Poliovirus, Live, Oral, Trivalent Unknown Completed [facility] TD, NOS Unknown Completed [facility] Rubella Unknown Completed [facility] Varicella (varivax)(chicken pox) Unknown Completed [facility] HPV9 Unknown Completed [facility] Influenza Virus Vaccine Quad .5 mL IM 6+ MO (FLUZONE/FLULAVAL/FL UARIX) Unknown Completed [facility] TDAP Unknown Completed [facility] DTaP, Unspecified Formulation Unknown Completed [facility] DTP Unknown Completed [facility] Flu Trivalent Unknown Completed [facility] HEPATITIS A Unknown Completed [facility] Hep B, Unspecified Formulation Unknown Completed [facility] Haemophilus influenzae type b vaccine, conjugate unspecified formulation Unknown Completed [facility] HPV Unknown Completed [facility] Meningococcal Polysaccharide (groups A, C, Y and W-135) conjugate vaccine (MCV4P) Unknown Completed [facility] MMR Unknown Completed [facility] Poliovirus, Live, Oral, Trivalent Unknown Completed [facility] TD, NOS Unknown Completed [facility] Rubella Unknown Completed [facility] Varicella (varivax)(chicken pox) Unknown Completed [facility] HPV9 Unknown Completed [facility] Influenza Virus Vaccine Quad .5 mL IM 6+ MO (FLUZONE/FLULAVAL/FL UARIX) Unknown Completed [facility] TDAP Unknown Completed [facility] Influenza Virus Vaccine Quad IM, Preserv and ABX Free 6 MO-64 YRS (FLUCELVAX) Unknown Completed [facility] DTaP, Unspecified Formulation Unknown Completed [facility] DTP Unknown Completed [facility] Flu Trivalent Unknown Completed [facility] HEPATITIS A Unknown Completed [facility] Hep B, Unspecified Formulation Unknown Completed [facility] Haemophilus influenzae type b vaccine, conjugate unspecified formulation Unknown Completed [facility] HPV Unknown Completed [facility] Meningococcal Polysaccharide (groups A, C, Y and W-135) conjugate vaccine (MCV4P) Unknown Completed [facility] MMR Unknown Completed [facility] Poliovirus, Live, Oral, Trivalent Unknown Completed [facility] TD, NOS Unknown Completed [facility] Rubella Unknown Completed [facility] Varicella (varivax)(chicken pox) Unknown Completed [facility] HPV9 Unknown Completed [facility] Influenza Virus Vaccine Quad .5 mL IM 6+ MO (FLUZONE/FLULAVAL/FL UARIX) Unknown Completed [facility] TDAP Unknown Completed [facility] Influenza Virus Vaccine Quad IM, Preserv and ABX Free 6 MO-64 YRS (FLUCELVAX) Unknown Completed [facility] DTaP, Unspecified Formulation Unknown Completed [facility] DTP Unknown Completed [facility] Flu Trivalent Unknown Completed [facility] HEPATITIS A Unknown Completed [facility] Hep B, Unspecified Formulation Unknown Completed [facility] Haemophilus influenzae type b vaccine, conjugate unspecified formulation Unknown Completed [facility] HPV Unknown Completed [facility] Meningococcal Polysaccharide (groups A, C, Y and W-135) conjugate vaccine (MCV4P) Unknown Completed [facility] MMR Unknown Completed [facility] Poliovirus, Live, Oral, Trivalent Unknown [facility] [facility] TD, NOS Unknown Completed [facility] Rubella Unknown Completed [facility] Varicella (varivax)(chicken pox) Unknown Completed [facility] HPV9 Unknown Completed [facility] Influenza Virus Vaccine Quad .5 mL IM 6+ MO (FLUZONE/FLULAVAL/FL UARIX) Unknown Completed [facility] TDAP Unknown Completed [facility] Influenza Virus Vaccine Quad IM, Preserv and ABX Free 6 MO-64 YRS (FLUCELVAX) Unknown Completed [facility] DTaP, Unspecified Formulation Unknown Completed [facility] DTP Unknown Completed [facility] Flu Trivalent Unknown Completed [facility] HEPATITIS A Unknown Completed [facility] Hep B, Unspecified Formulation Unknown Completed [facility] Haemophilus influenzae type b vaccine, conjugate unspecified formulation Unknown Completed [facility] HPV Unknown Completed [facility] Meningococcal Polysaccharide (groups A, C, Y and W-135) conjugate vaccine (MCV4P) Unknown Completed [facility] MMR Unknown Completed [facility] Poliovirus, Live, Oral, Trivalent Unknown Completed [facility] TD, NOS Unknown Completed [facility] Rubella Unknown Completed [facility] Varicella (varivax)(chicken pox) Unknown Completed [facility] HPV9 Unknown Completed [facility] Influenza Virus Vaccine Quad .5 mL IM 6+ MO (FLUZONE/FLULAVAL/FL UARIX) Unknown Completed [facility] TDAP Unknown Completed [facility] Influenza Virus Vaccine Quad IM, Preserv and ABX Free 6 MO-64 YRS (FLUCELVAX) Unknown Completed [facility] DTaP, Unspecified Formulation Unknown Completed [facility] DTP Unknown Completed [facility] Flu Trivalent Unknown Completed [facility] HEPATITIS A Unknown Completed [facility] Hep B, Unspecified Formulation Unknown Completed [facility] Haemophilus influenzae type b vaccine, conjugate unspecified formulation Unknown Completed [facility] HPV Unknown Completed [facility] Meningococcal Polysaccharide (groups A, C, Y and W-135) conjugate vaccine (MCV4P) Unknown Completed [facility] MMR Unknown Completed [facility] Poliovirus, Live, Oral, Trivalent Unknown Completed [facility] TD, NOS Unknown Completed [facility] Rubella Unknown Completed [facility] Varicella (varivax)(chicken pox) Unknown Completed [facility] HPV9 Unknown Completed [facility] Influenza Virus Vaccine Quad .5 mL IM 6+ MO (FLUZONE/FLULAVAL/FL UARIX) Unknown Completed [facility] TDAP Unknown Completed [facility] Influenza Virus Vaccine Quad IM, Preserv and ABX Free 6 MO-64 YRS (FLUCELVAX) Unknown Completed [facility] DTaP, Unspecified Formulation Unknown Completed [facility] DTP Unknown Completed [facility] Flu Trivalent Unknown Completed [facility] HEPATITIS A Unknown Completed [facility] Hep B, Unspecified Formulation Unknown Completed [facility] Haemophilus influenzae type b vaccine, conjugate unspecified formulation Unknown Completed [facility] HPV Unknown Completed [facility] Meningococcal Polysaccharide (groups A, C, Y and W-135) conjugate vaccine (MCV4P) Unknown Completed [facility] MMR Unknown Completed [facility] Poliovirus, Live, Oral, Trivalent Unknown Completed [facility] TD, NOS Unknown Completed [facility] Rubella Unknown Completed [facility] Varicella (varivax)(chicken pox) Unknown Completed [facility] HPV9 Unknown Completed [facility] Influenza Virus Vaccine Quad .5 mL IM 6+ MO (FLUZONE/FLULAVAL/FL UARIX) Unknown Completed [facility] TDAP Unknown Completed [facility] Influenza Virus Vaccine Quad IM, Preserv and ABX Free 6 MO-64 YRS (FLUCELVAX) Unknown Completed [facility] DTaP, Unspecified Formulation Unknown Completed [facility] DTP Unknown Completed [facility] Flu Trivalent Unknown Completed [facility] HEPATITIS A Unknown Completed [facility] Hep B, Unspecified Formulation Unknown Completed [facility] Haemophilus influenzae type b vaccine, conjugate unspecified formulation Unknown Completed [facility] HPV Unknown Completed [facility] Meningococcal Polysaccharide (groups A, C, Y and W-135) conjugate vaccine (MCV4P) Unknown Completed [facility] MMR Unknown Completed [facility] Poliovirus, Live, Oral, Trivalent Unknown Completed [facility] TD, NOS Unknown Completed [facility] Rubella Unknown Completed [facility] Varicella (varivax)(chicken pox) Unknown Completed [facility] HPV9 Unknown Completed [facility] Influenza Virus Vaccine Quad .5 mL IM 6+ MO (FLUZONE/FLULAVAL/FL UARIX) Unknown Completed [facility] TDAP Unknown Completed [facility] Influenza Virus Vaccine Quad IM, Preserv and ABX Free 6 MO-64 YRS (FLUCELVAX) Unknown Completed [facility] DTaP, Unspecified Formulation Unknown Completed [facility] DTP Unknown Completed [facility] Flu Trivalent Unknown Completed [facility] HEPATITIS A Unknown Completed [facility] Hep B, Unspecified Formulation Unknown Completed [facility] Haemophilus influenzae type b vaccine, conjugate unspecified formulation Unknown Completed [facility] HPV Unknown Completed [facility] Meningococcal Polysaccharide (groups A, C, Y and W-135) conjugate vaccine (MCV4P) Unknown Completed [facility] MMR Unknown Completed [facility] Poliovirus, Live, Oral, Trivalent Unknown Completed [facility] TD, NOS Unknown Completed [facility] Rubella Unknown Completed [facility] Varicella (varivax)(chicken pox) Unknown Completed [facility] HPV9 Unknown Completed [facility] Influenza Virus Vaccine Quad .5 mL IM 6+ MO (FLUZONE/FLULAVAL/FL UARIX) Unknown Completed [facility] TDAP Unknown Completed [facility] Influenza Virus Vaccine Quad IM, Preserv and ABX Free 6 MO-64 YRS (FLUCELVAX) Unknown Completed [facility] DTaP, Unspecified Formulation Unknown Completed [facility] DTP Unknown Completed [facility] Flu Trivalent Unknown Completed [facility] HEPATITIS A Unknown Completed [facility] Hep B, Unspecified Formulation Unknown Completed [facility] Haemophilus influenzae type b vaccine, conjugate unspecified formulation Unknown Completed [facility] HPV Unknown Completed [facility] Meningococcal Polysaccharide (groups A, C, Y and W-135) conjugate vaccine (MCV4P) Unknown Completed [facility] MMR Unknown Completed [facility] Poliovirus, Live, Oral, Trivalent Unknown Completed [facility] TD, NOS Unknown Completed [facility] Rubella Unknown Completed [facility] Varicella (varivax)(chicken pox) Unknown Completed [facility] HPV9 Unknown Completed [facility] Influenza Virus Vaccine Quad .5 mL IM 6+ MO (FLUZONE/FLULAVAL/FL UARIX) Unknown Completed [facility] TDAP Unknown Completed [facility] Influenza Virus Vaccine Quad IM, Preserv and ABX Free 6 MO-64 YRS (FLUCELVAX) Unknown Completed [facility] DTaP, Unspecified Formulation Unknown Completed [facility] DTP Unknown Completed [facility] Flu Trivalent Unknown Completed [facility] HEPATITIS A Unknown Completed [facility] Hep B, Unspecified Formulation Unknown Completed [facility] Haemophilus influenzae type b vaccine, conjugate unspecified formulation Unknown Completed [facility] HPV Unknown Completed [facility] Meningococcal Polysaccharide (groups A, C, Y and W-135) conjugate vaccine (MCV4P) Unknown Completed [facility] MMR Unknown Completed [facility] Poliovirus, Live, Oral, Trivalent Unknown Completed [facility] TD, NOS Unknown Completed [facility] Rubella Unknown Completed [facility] Varicella (varivax)(chicken pox) Unknown Completed [facility] HPV9 Unknown Completed [facility] Influenza Virus Vaccine Quad .5 mL IM 6+ MO (FLUZONE/FLULAVAL/FL UARIX) Unknown Completed [facility] TDAP Unknown Completed [facility] Influenza Virus Vaccine Quad IM, Preserv and ABX Free 6 MO-64 YRS (FLUCELVAX) Unknown Completed [facility] DTaP, Unspecified Formulation Unknown Completed [facility] DTP Unknown Completed [facility] Flu Trivalent Unknown Completed [facility] HEPATITIS A Unknown Completed [facility] Hep B, Unspecified Formulation Unknown Completed [facility] Haemophilus influenzae type b vaccine, conjugate unspecified formulation Unknown Completed [facility] HPV Unknown Completed [facility] Meningococcal Polysaccharide (groups A, C, Y and W-135) conjugate vaccine (MCV4P) Unknown Completed [facility] MMR Unknown Completed [facility] Poliovirus, Live, Oral, Trivalent Unknown Completed [facility] TD, NOS Unknown Completed [facility] Rubella Unknown Completed [facility] Vital Signs Vital Name Observation Time Observation Value Comments S ource Systolic blood pressure 2024-03-15 13:53:00 127 mm[Hg] [facility] Diastolic blood pressure 2024-03-15 13:53:00 83 mm[Hg] [facility] Heart rate 2024-03-15 13:53:00 69 /min [facility] Body temperature 2024-03-15 13:53:00 36.22 Cyndi [facility] Respiratory rate 2024-03-15 13:53:00 18 /min [facility] Body height 2024-03-15 13:53:00 180.3 cm [facility] Body weight 2024-03-15 13:53:00 89.994 kg [facility] BMI 2024-03-15 13:53:00 27.67 kg/m2 [facility] Systolic blood pressure 2023-09-19 01:45:00 117 mm[Hg] [facility] Diastolic blood pressure 2023-09-19 01:45:00 72 mm[Hg] [facility] Heart rate 2023-09-19 01:45:00 78 /min [facility] Body temperature 2023-09-19 01:45:00 37.11 Cyndi [facility] Respiratory rate 2023-09-19 01:45:00 16 /min [facility] Body weight 2023-09-19 01:45:00 87.181 kg [facility] BMI 2023-09-19 01:45:00 26.81 kg/m2 [facility] Oxygen saturation in Arterial blood by Pulse oximetry 2023-09-19 01:45:00 98 /min [facility] Systolic blood pressure 2023-09-14 18:07:00 118 mm[Hg] [facility] Diastolic blood pressure 2023-09-14 18:07:00 75 mm[Hg] [facility] Heart rate 2023-09-14 18:07:00 88 /min [facility] Body temperature 2023-09-14 18:07:00 37.06 Cyndi [facility] Respiratory rate 2023-09-14 18:07:00 16 /min [facility] Body weight 2023-09-14 18:07:00 87.544 kg [facility] BMI 2023-09-14 18:07:00 26.92 kg/m2 [facility] Oxygen saturation in Arterial blood by Pulse oximetry 2023-09-14 18:07:00 96 /min [facility] Systolic blood pressure 2023-07-11 01:57:00 125 mm[Hg] [facility] Diastolic blood pressure 2023-07-11 01:57:00 89 mm[Hg] [facility] Heart rate 2023-07-11 01:57:00 80 /min [facility] Body temperature 2023-07-11 01:57:00 37.11 [facility] Respiratory rate 2023-07-11 01:57:00 16 /min [facility] Body height 2023-07-11 01:57:00 180.3 cm [facility] Body weight 2023-07-11 01:57:00 82.555 kg [facility] BMI 2023-07-11 01:57:00 25.38 kg/m2 [facility] Oxygen saturation in Arterial blood by Pulse oximetry 2023-07-11 01:57:00 97 /min [facility] Systolic blood pressure 2023-06-30 19:39:00 116 mm[Hg] [facility] Diastolic blood pressure 2023-06-30 19:39:00 80 mm[Hg] [facility] Heart rate 2023-06-30 19:39:00 76 /min [facility] Body temperature 2023-06-30 19:39:00 37.39 Cyndi [facility] Respiratory rate 2023-06-30 19:39:00 16 /min [facility] Body height 2023-06-30 19:39:00 180.3 cm [facility] Body weight 2023-06-30 19:39:00 81.647 kg [facility] BMI 2023-06-30 19:39:00 25.10 kg/m2 [facility] Oxygen saturation in Arterial blood by Pulse oximetry 2023-06-30 19:39:00 98 /min [facility] Systolic blood pressure 2023-04-22 23:04:00 123 mm[Hg] [facility] Diastolic blood pressure 2023-04-22 23:04:00 80 mm[Hg] [facility] Heart rate 2023-04-22 23:04:00 80 /min [facility] Body temperature 2023-04-22 23:04:00 37 Cyndi [facility] Respiratory rate 2023-04-22 23:04:00 17 /min [facility] Body height 2023-04-22 23:04:00 180.3 cm [facility] Body weight 2023-04-22 23:04:00 76.8 kg [facility] BMI 2023-04-22 23:04:00 23.61 kg/m2 [facility] Oxygen saturation in Arterial blood by Pulse oximetry 2023-04-22 23:04:00 100 /min [facility] Systolic blood pressure 2023-04-07 18:48:00 107 mm[Hg] [facility] Diastolic blood pressure 2023-04-07 18:48:00 71 mm[Hg] [facility] Heart rate 2023-04-07 18:48:00 99 /min [facility] Body temperature 2023-04-07 18:48:00 36.72 Cyndi [facility] Respiratory rate 2023-04-07 18:48:00 18 /min [facility] Body height 2023-04-07 18:48:00 180.3 cm [facility] Body weight 2023-04-07 18:48:00 75.342 kg [facility] BMI 2023-04-07 18:48:00 23.17 kg/m2 [facility] Oxygen saturation in Arterial blood by Pulse oximetry 2023-04-07 18:48:00 98 /min [facility] Systolic blood pressure 2023-03-19 20:52:00 125 mm[Hg] [facility] Diastolic blood pressure 2023-03-19 20:52:00 87 mm[Hg] [facility] Heart rate 2023-03-19 20:52:00 86 /min [facility] Body temperature 2023-03-19 20:52:00 37.39 Cyndi [facility] Respiratory rate 2023-03-19 20:52:00 17 /min [facility] Body weight 2023-03-19 20:52:00 74.39 kg [facility] BMI 2023-03-19 20:52:00 22.87 kg/m2 [facility] Oxygen saturation in Arterial blood by Pulse oximetry 2023-03-19 20:52:00 98 /min [facility] Systolic blood pressure 2023-01-29 20:05:00 112 mm[Hg] [facility] Diastolic blood pressure 2023-01-29 20:05:00 71 mm[Hg] [facility] Heart rate 2023-01-29 20:05:00 89 /min [facility] Body temperature 2023-01-29 20:05:00 36.83 Cyndi [facility] Respiratory rate 2023-01-29 20:05:00 17 /min [facility] Body height 2023-01-29 20:05:00 180.3 cm [facility] Body weight 2023-01-29 20:05:00 73.029 kg [facility] BMI 2023-01-29 20:05:00 22.45 kg/m2 [facility] Oxygen saturation in Arterial blood by Pulse oximetry 2023-01-29 20:05:00 97 /min [facility] Systolic blood pressure 2023-01-07 18:08:00 128 mm[Hg] [facility] Diastolic blood pressure 2023-01-07 18:08:00 88 mm[Hg] [facility] Heart rate 2023-01-07 18:08:00 68 /min [facility] Body temperature 2023-01-07 18:08:00 37 Cyndi [facility] Respiratory rate 2023-01-07 18:08:00 17 /min [facility] Body height 2023-01-07 18:08:00 180.3 cm [facility] Body weight 2023-01-07 18:08:00 74.844 kg [facility] BMI 2023-01-07 18:08:00 23.01 kg/m2 [facility] Oxygen saturation in Arterial blood by Pulse oximetry 2023-01-07 18:08:00 100 /min [facility] Systolic blood pressure 2023-01-02 21:04:00 116 mm[Hg] [facility] Diastolic blood pressure 2023-01-02 21:04:00 74 mm[Hg] [facility] Heart rate 2023-01-02 21:04:00 89 /min [facility] Body temperature 2023-01-02 21:04:00 37.11 Cyndi [facility] Respiratory rate 2023-01-02 21:04:00 17 /min [facility] Body height 2023-01-02 21:04:00 180.3 cm [facility] Body weight 2023-01-02 21:04:00 73.891 kg [facility] BMI 2023-01-02 21:04:00 22.72 kg/m2 [facility] Oxygen saturation in Arterial blood by Pulse oximetry 2023-01-02 21:04:00 97 /min [facility] Systolic blood pressure 2022-12-30 18:37:00 129 mm[Hg] [facility] Diastolic blood pressure 2022-12-30 18:37:00 83 mm[Hg] [facility] Heart rate 2022-12-30 18:37:00 68 /min [facility] Body temperature 2022-12-30 18:37:00 36.89 Cyndi [facility] Respiratory rate 2022-12-30 18:37:00 18 /min [facility] Body height 2022-12-30 18:37:00 180.3 cm [facility] Body weight 2022-12-30 18:37:00 75.569 kg [facility] BMI 2022-12-30 18:37:00 23.24 kg/m2 [facility] Systolic blood pressure 2022-07-11 23:23:00 111 mm[Hg] [facility] Diastolic blood pressure 2022-07-11 23:23:00 74 mm[Hg] [facility] Heart rate 2022-07-11 23:23:00 76 /min [facility] Body temperature 2022-07-11 23:23:00 36.94 Cyndi [facility] Body height 2022-07-11 23:23:00 177.8 cm [facility] Body weight 2022-07-11 23:23:00 77.883 kg [facility] BMI 2022-07-11 23:23:00 24.64 kg/m2 [facility] Oxygen saturation in Arterial blood by Pulse oximetry 2022-07-11 23:23:00 99 /min [facility] Body height 2022-06-29 01:41:00 177.8 cm [facility] Body weight 2022-06-29 01:41:00 68.04 kg [facility] BMI 2022-06-29 01:41:00 21.52 kg/m2 [facility] Systolic blood pressure 2022-06-29 01:38:00 140 mm[Hg] [facility] Diastolic blood pressure 2022-06-29 01:38:00 86 mm[Hg] [facility] Heart rate 2022-06-29 01:38:00 99 /min [facility] Body temperature 2022-06-29 01:38:00 37.78 Cyndi [facility] Respiratory rate 2022-06-29 01:38:00 18 /min [facility] Oxygen saturation in Arterial blood by Pulse oximetry 2022-06-29 01:38:00 100 /min [facility] Systolic blood pressure 2021-11-15 15:48:00 121 mm[Hg] [facility] Diastolic blood pressure 2021-11-15 15:48:00 80 mm[Hg] [facility] Heart rate 2021-11-15 15:48:00 74 /min [facility] Body temperature 2021-11-15 15:48:00 36.56 Cyndi [facility] Respiratory rate 2021-11-15 15:48:00 16 /min [facility] Body height 2021-11-15 15:48:00 177.8 cm [facility] Body weight 2021-11-15 15:48:00 71.895 kg [facility] BMI 2021-11-15 15:48:00 22.74 kg/m2 [facility] Procedures Procedure Date / Time Performed Performing Clinicia n Source XR CHEST 2 VW 2023-09-19 01:52:54 S[facility] Har[facility] POCT MOLECULAR FLU 2023-09-14 18:10:00 Unknown, Attend [facility] ASSIGNMENT OF BENEFITS 2023-09-14 17:58:10 Docto r Unassigned, Acacia Villas [facility] POCT MOLECULAR FLU 2023-07-11 02:04:00 Unknown, Attend [facility] POCT MOLECULAR STREP 2023-07-11 02:01:00 Unknown, Atte yaw [facility] ASSIGNMENT OF BENEFITS 2023-06-30 21:36:09 Docto r Unassigned, Acacia Villas [facility] RAPID STREP SCREEN FOR GROUP A 2023-06-30 20:04:00 Moraima Lee [facility] RAPID INFLUENZA A/B 2023-06-30 20:04:00 Moraima Lee [facility] CONSENT/REFUSAL FOR DIAGNOSIS AND TREATMENT 2023-06-30 19:27:32 Doctor Unassigned, Acacia Villas [facility] POCT MOLECULAR STREP 2023-04-22 23:03:00 Unknown, Atte yaw [facility] POCT SARS-COV-2 ANTIGEN (BINAX NOW) 2023-04-07 19:16:00 Sergio Harley [facility] POCT MOLECULAR FLU 2023-04-07 19:00:00 Unknown, Attend [facility] POCT MOLECULAR STREP 2023-04-07 18:56[facility]00 [facility] 2023-03-19 21:32[facility]00 [facility]2 ANTIGEN (BINAX NOW) 2023-03-19 21:30:00 Alex Villa [facility] POCT MOLECULAR FLU 2023-01-02 21:13:00 Unknown, Attend ing [facility] POCT MOLECULAR STREP 2023-01-02 21:10:00 [facility]OV-2 ANTIGEN (BINAX NOW) 2023-01-02 21:06:00 Cyn Burciaga [facility] PAP SMEAR-LIQUID BASED-CP 2022-12-30 19:02:00 Roxy Sharp [facility] HIV 1/2 AG-AB WITH REFLEX 2022-12-30 18:58:00 Roxy Sharp [facility] SYPHILIS IGG/IGM 2022-12-30 18:58:00 Winifred Sharp [facility] PATIENT FINANCIAL POLICY 2022-12-30 18:33:52 Doctor Unassigned, Acacia Villas [facility] CONSENT/REFUSAL FOR DIAGNOSIS AND TREATMENT 2022-07-11 23:15:22 Doctor Unassigned, Acacia Villas [facility] ASSIGNMENT OF BENEFITS 2022-07-11 23:15:07 Docto r Unassigned, Acacia Villas [facility] CONSENT/REFUSAL FOR DIAGNOSIS AND TREATMENT 2022-06-29 01:18:47 Doctor Unassigned, Acacia Villas [facility] Encounters Start Date/Time End Date/Time Encounter Type Admission Type Attending Clinicians Care Facility Care Department Encounter ID Source 2024-03-15 08:45:00 2024-03-15 09:51:37 Outpatient R MONA OWENS [facility] [id number] [facility] 2024-03-15 08:45:00 2024-03-15 09:00:00 Office Visit Mona Owens [facility] [employer] [facility] 1.2.840.114 350.1.13.10 4.2.7.2.686 [id number] [facility] 2024-02-29 16:28:28 2024-02-29 16:28:28 Outpatient [facility] [id number] Renato Carter 2023-11-10 08:00:00 2023-11-10 08:00:00 Outpatient R [facility] [id number] [facility] 2023-10-11 00:00:00 2023-10-11 00:00:00 [facility] 1.840.114 350.1.13.10 4.2.7.2.686 [id number] [facility] 2023-09-18 20:48:10 2023-09-18 23:59:00 Outpatient R SERGIO HARLEY [facility] [id number] [facility] 2023-09-18 20:48:10 2023-09-18 23:59:00 Hospital Encounter Sergio Harley [facility] 1.840.114 350.1.13.10 4.2.7.2.686 [id number] [facility] 2023-09-18 20:20:00 2023-09-18 20:53:46 Urgent Care Sergio Harley Unknown, Attending [facility] 1.2840.114 350.1.13.10 4.2.7.2.686 [id number] [facility] 2023-09-14 13:00:00 2023-09-14 13:20:00 Urgent Care Annie Eze Unknown, Attending [facility] 1.840.114 350.1.13.10 4.2.7.2.686 [id number] [facility] 2023-09-14 13:00:00 2023-09-14 13:00:00 Outpatient R EZE LEES [facility] [id number] [facility] 2023-09-14 00:00:00 2023-09-14 00:00:00 Orders Only Doctor Unassigned, Acacia Villas [facility] 1.2.840.114 350.1.13.10 4.2.7.2.686 [id number] [facility] 2023-09-14 00:00:00 2023-09-14 00:00:00 Telephone Annie Eze [facility] 1.2.840.114 350.1.13.10 4.2.7.2.686 [id number] [facility] 2023-07-10 20:00:00 2023-07-10 20:20:00 Urgent Care Noreen Farris Unknown, Attending [facility] 1.2840.114 350.1.13.10 4.2.7.2.686 [id number] [facility] 2023-07-10 20:00:00 2023-07-10 20:00:00 Outpatient NOREEN DILLON [facility] [id number] [facility] 2023-06-30 13:41:00 2023-06-30 16:36:00 Emergency X MORAIMA LEE EUNICE [facility] ERT [id number] [facility] 2023-06-30 13:41:00 2023-06-30 16:36:00 Emergency Moraima Lee [facility] 1.2.840.114 350.1.13.10 4.2.7.2.686 [id number] [facility] 2023-06-08 15:06:59 2023-06-08 15:06:59 Outpatient [facility]FA [facility] [id number] Renato Carter 2023-05-19 00:00:00 2023-05-19 00:00:00 Refill Eze Lees [facility] 1.84.114 350.1.13.10 4.2.7.2.686 [id number] [facility] 2023-04-22 18:00:00 2023-04-22 18:26:21 Outpatient R EZE LEES [facility] [id number] [facility] 2023-04-22 18:00:00 2023-04-22 18:26:21 Urgent Care Eze Lees Unknown, Attending [facility] 1.84.114 350.1.13.10 4.2.7.2.686 [id number] [facility] 2023-04-07 13:40:00 2023-04-07 14:00:00 Urgent Care Sergio Harley Unknown, Attending [facility] 1.84.114 350.1.13.10 4.2.7.2.686 [id number] [facility] 2023-04-07 13:40:00 2023-04-07 13:40:00 Outpatient R SERGIO HARLEY [facility] [id number] [facility] 2023-03-19 15:40:00 2023-03-19 17:07:02 Outpatient R MENDEZDINESHMYRTLE DANIELJOSE [facility] [id number] [facility] 2023-03-19 15:40:00 2023-03-19 17:07:02 Urgent Care Alex Villa Unknown, Attending [facility] 1.840.114 350.1.13.10 4.2.7.2.686 [id number] [facility] 2023-01-29 15:00:00 2023-01-29 15:20:00 Urgent Care Cyn Burciaga Unknown, Attending [facility] 1.114 350.1.13.10 4.2.7.2.686 [id number] [facility] 2023-01-29 15:00:00 2023-01-29 15:00:00 Outpatient R JEVON BURCIAGAANDA [facility] [id number] [facility] 2023-01-07 13:00:00 2023-01-07 15:29:51 Outpatient R SEVERO MCINTOSH SHAHNAZ [facility] [id number] [facility] 2023-01-07 13:00:00 2023-01-07 15:29:51 Urgent Care Severo Mcintosh Unknown, Attending [facility] 1.114 350.1.13.10 4.2.7.2.686 [id number] [facility] 2023-01-02 16:00:00 2023-01-02 16:24:57 Outpatient R NOREEN FARRIS [facility] [id number] [facility] 2023-01-02 16:00:00 2023-01-02 16:24:57 Urgent Care Noreen Farris Unknown, Attending [facility] 1.114 350.1.13.10 4.2.7.2.686 [id number] 370 [id number] [facility] 2023-01-02 00:00:00 2023-01-02 00:00:00 Letter (Out) Noreen Farris [facility] 1.84.114 350.1.13.10 4.2.7.2.686 [id number] [facility] 2022-12-30 13:30:00 2022-12-30 14:09:37 Outpatient R ROXY SHARP [facility] [id number] [facility] 2022-12-30 13:30:00 2022-12-30 14:09:37 Office Visit Roxy Sharp [facility] [employer] [facility] 1..840.114 350.1.13.10 4.2.7.2.686 [id number] [facility] 2022-12-30 00:00:00 2022-12-30 00:00:00 Orders Only Doctor Unassigned, Acacia Villas [facility] 1.840.114 350.1.13.10 4.2.7.2.686 [id number] [facility] 2022-11-21 08:53:02 2022-11-21 08:53:02 Outpatient [facility] [id number] Renato Carter 2022-07-11 17:00:00 2022-07-11 17:20:00 Urgent Care Cyn Burciaga Unknown, Attending [facility] 1..840.114 350.1.13.10 4.2.7.2.686 [id number] [facility] 2022-07-11 17:00:00 2022-07-11 17:00:00 Outpatient R CYN BURCIAGA [facility] [id number] [facility] 2022-07-11 00:00:00 2022-07-11 00:00:00 Orders Only Doctor Unassigned, Acacia Villas [facility] 1.840.114 350.1.13.10 4.2.7.2.686 [id number] [facility] 2022-06-28 19:44:00 2022-06-28 20:05:00 Emergency X DENISE CAMACHO [facility] ERT [id number] [facility] 2022-06-28 19:44:00 2022-06-28 20:05:00 Emergency Denise Camacho [facility] 1..840.114 350.1.13.10 4.2.7.2.686 [id number] [facility] 2021-11-15 10:30:00 2021-11-15 11:27:42 Outpatient Jovani STOVER JEAN-CLAUDE [facility] [id number] [facility] 2021-11-15 10:30:00 2021-11-15 11:27:42 Office Visit StoverJean-Claude [facility] [employer] [facility] MATERNAL & CHILD [facility] 1..840.114 350.1.13.10 4.2.7.2.686 [id number] [facility] 2021-11-15 10:30:00 2021-11-15 11:27:42 Outpatient KIRILL MARIDAMARIIZZY [facility] [id number] [facility] 2021-07-14 09:45:00 2021-07-14 10:16:40 Outpatient KIRILL MARIDAMARIIZZY [facility] [id number] [facility] 2021-07-14 09:45:00 2021-07-14 10:15:00 Office Visit StoverJean-Claude [facility] [employer] [facility] & CHILD [facility] 1..840.114 350.1.13.10 4.2.7.2.686 [id number] [facility] 2021-07-14 09:45:00 2021-07-14 09:45:00 Outpatient Jovani STOVERJEAN-CLAUDE [facility] [id number] [facility] 2021-07-14 09:45:00 2021-07-14 09:45:00 Outpatient Jovani STOVERJEAN-CLAUDE [facility] [id number] [facility] 2021-07-09 11:00:00 2021-07-09 11:57:31 Office Visit Roxy Sharp Roshunda R [facility] [employer] [facility] 1..114 350.1.13.10 4.2.7.2.686 [id number] 107 [id number] [facility] 2021-07-09 11:00:00 2021-07-09 11:57:31 Outpatient Jovani JEAN-CLAUDE STOVER [facility] [id number] [facility] 2021-07-09 11:00:00 2021-07-09 11:00:00 Outpatient Jovani JEAN-CLAUDE STOVER [facility] [id number] [facility] 2021-07-09 00:00:00 2021-07-09 00:00:00 Orders Only Doctor Unassigned, Acacia Villas [facility] 1.114 350.1.13.10 4.2.7.2.686 [id number] [facility] 2020-12-04 00:00:00 2020-12-04 00:00:00 Patient Secure Msg Doctor Unassigned, Acacia Villas [facility] 1.114 350.1.13.10 4.2.7.2.686 [id number] [facility] 2020-12-01 09:30:00 2020-12-01 09:30:00 Outpatient Jovani JEAN-CLAUDE STOVER [facility] [id number] [facility] 2020-12-01 00:00:00 2020-12-01 00:00:00 Telephone Priscila Jackson [facility] 1..114 350.1.13.10 4.2.7.2.686 [id number] [facility] 2020-11-13 09:34:05 2020-11-13 11:03:58 Office Visit [facility] Resident Krystal Gibbs [facility] 1..114 350.1.13.10 4.2.7.2.686 [id number] [facility] 2020-11-13 09:30:00 2020-11-13 09:30:00 Outpatient R [facility] [id number] [facility] 2020-10-20 00:00:00 2020-10-20 00:00:00 Telephone Jean-Claude Stover [facility] [employer] [facility] MATERNAL & CHILD [facility] 1.2.840.114 350.1.13.10 4.2.7.2.686 [id number] [facility] 2020-10-14 00:00:00 2020-10-14 00:00:00 Telephone Roxy Sharp [facility] [employer] [facility] MATERNAL & CHILD [facility] 1..840.114 350.1.13.10 4.2.7.2.686 [id number] 107 [id number] [facility] 2020-10-13 12:47:22 2020-10-13 13:17:20 Office Visit Roxy Sharp Emily N [facility] [employer] [facility] & CHILD [facility] 1.2.840.114 350.1.13.10 4.2.7.2.686 [id number] 107 [id number] [facility] 2020-10-13 12:45:00 2020-10-13 12:45:00 Outpatient R DANIKA YING [facility] [id number] [facility] 2020-09-23 00:00:00 2020-09-23 00:00:00 Telephone Jean-Claude Stover [facility] [employer] [facility] CHILD [facility] 1.2.840.114 350.1.13.10 4.2.7.2.686 [id number] 107 [id number] [facility] 2020-09-22 09:59:14 2020-09-22 10:34:09 Office Visit Jean-Claude Stover [facility] [employer] [facility]NAL [facility] 1..114 350.1.13.10 4.2.7.2.686 [id number] 107 [id number] [facility] 2020-09-22 10:00:00 2020-09-22 10:00:00 Outpatient R JEAN-CLAUDE STOVER [facility] [id number] [facility] 2020-06-14 00:00:00 2020-06-14 00:00:00 Case Management Francy Sorto [facility] 1..114 350.1.13.10 4.2.7.2.686 [id number] [facility] 2020-06-03 00:00:00 2020-06-03 00:00:00 Telephone [facility] 1.114 350.1.13.10 4.2.7.2.686 [id number] [facility] 2020-05-26 00:00:00 2020-05-26 00:00:00 Patient Secure Msg Doctor Unassigned, Acacia Villas [facility] 1.114 350.1.13.10 4.2.7.2.686 [id number] [facility] 2020-05-21 10:10:49 2020-05-21 11:48:02 Office Visit Res-Colpo/L eep, [facility] 1..114 350.1.13.10 4.2.7.2.686 [id number] [facility] 2020-05-21 10:00:00 2020-05-21 10:00:00 Outpatient R [facility] [id number] [facility] 2020-05-21 00:00:00 2020-05-21 00:00:00 Orders Only Doctor Unassigned, Acacia Villas [facility] 1..114 350.1.13.10 4.2.7.2.686 [id number] [facility] 2020-04-27 00:00:00 2020-04-27 00:00:00 Telephone Danika Ying [facility] [employer] [facility] & CHILD [facility] 1.2.840.114 350.1.13.10 4.2.7.2.686 [id number] [facility] 2020-04-16 12:54:08 2020-04-16 13:41:56 Office Visit Danika Ying [facility] [employer] [facility] CHILD [facility] 1.2.840.114 350.1.13.10 4.2.7.2.686 [id number] [facility] 2020-04-16 13:00:00 2020-04-16 13:00:00 Outpatient R DANIKA YING [facility] [id number] [facility] 2020-03-06 00:00:00 2020-03-06 00:00:00 Telephone Jean-Claude Stover [facility] [employer] [facility] CHILD [facility] 1.2.840.114 350.1.13.10 4.2.7.2.686 [id number] 107 [id number] [facility] 2020-03-05 00:00:00 2020-03-05 00:00:00 Telephone Roxy Sharp [facility] [employer] [facility] CHILD [facility] 1.2.840.114 350.1.13.10 4.2.7.2.686 [id number] 107 [id number] [facility] 2020-03-03 13:08:04 2020-03-03 13:41:46 Office Visit Roxy Sharp [facility] [employer] [facility] & CHILD [facility] 1.2.840.114 350.1.13.10 4.2.7.2.686 [id number] [facility] 2020-03-03 13:15:00 2020-03-03 13:15:00 Outpatient R ROXY SHARP [facility] [id number] [facility] 2020-02-26 10:15:00 2020-02-26 10:15:00 Outpatient R JEAN-CLAUDE STOVER [facility] [id number] [facility] 2019-11-28 00:00:00 2019-11-28 00:00:00 Telephone Ryanne Stoverjessica Jovani [facility] [employer] [facility] & CHILD [facility] 1.2.840.114 350.1.13.10 4.2.7.2.686 [id number] [facility] 2019-11-26 12:56:32 2019-11-26 13:37:05 Nurse Visit Visit, [facility] Jean-Claude Stover [facility] [employer] [facility] & CHILD [facility] 1..840.114 350.1.13.10 4.2.7.2.686 [id number] 107 [id number] [facility] 2019-11-26 13:00:00 2019-11-26 13:00:00 Outpatient R [facility] [id number] [facility] 2019-11-11 13:03:27 2019-11-11 13:38:18 Office Visit Jean-Claude Stover [facility] [employer] [facility] & CHILD [facility] 1.2.840.114 350.1.13.10 4.2.7.2.686 [id number] [facility] 2019-11-11 12:45:00 2019-11-11 12:45:00 Outpatient R JEAN-CLAUDE STOVER [facility] [id number] [facility] 2019-11-05 00:00:00 2019-11-05 00:00:00 Telephone Ryanne Stoverjessica [facility] [employer] [facility] & CHILD [facility] 1.2.840.114 350.1.13.10 4.2.7.2.686 [id number] [facility] 2019-10-25 00:00:00 2019-10-25 00:00:00 Telephone Jean-Claude Stover [facility] [employer] [facility] MATERNAL & CHILD [facility] 1.2.840.114 350.1.13.10 4.2.7.2.686 [id number] 107 [id number] [facility] 2019-02-28 09:06:45 2019-02-28 10:07:56 Office Visit Res-Colpo/L eep, [facility] 1.2.840.114 350.1.13.10 4.2.7.2.686 [id number] [facility] 2019-01-30 15:16:47 2019-01-30 16:16:46 Office Visit RishabhjessiRoxy vasquez [facility] [employer] [facility] MATERNAL & CHILD [facility] 1.2.840.114 350.1.13.10 4.2.7.2.686 [id number] 107 [id number] [facility] 2019-01-10 11:00:00 2019-01-10 11:49:20 Outpatient R JEAN-CLAUDE STOVER [facility] [id number] [facility] Results Test Description Test Time Test Comments Results Resul t Comments Source XR CHEST 2 VW 2023-09-01 9 02:01:09 EXAM: XR CHEST 2 VW COMPARISON: None. HISTORY: cough ? TECHNIQUE: PA and lateral views of the chest were obtained. FINDINGS: No focal consolidation is identified. No pleural effusion or pneumothoraxis seen. The cardiomediastinal silhouette is unremarkable.No acute osseous abnormalities. [facility] [id number] 02:16:00* Test Item Value Reference Range Interpretation Comme nts POCT Molecular FluA (test co de = 53148-3) Negative Negative POCT Molecular FluB (test co de = 75526-4) Negative Negative Lab Interpretation (test cod e = 70667-6) Normal [facility] MOLECULAR [id number] 02:09:24* Test Item Value Reference Range Interpretation Comme nts POCT Molecular Strep (test c ode = 81649-4) Negative Negative Lab Interpretation (test cod e = 62822-7) [facility] MOLECULAR [id number] 23:10:56* Test Item Value Reference Range Interpretation Comme nts POCT Molecular Strep (test c ode = 80719-7) Negative Negative Lab Interpretation (test cod e = 86381-4) [facility] SARS-COV-2 ANTIGEN (BINAX NOW)2023-04-07 19:16:00* Test Item Value Reference Range Interpretation Comme nts POCT SARS-COV-2 ANTIGEN (test code = 74274-5) Not Detected Not Detected On board controls acceptable with C Line (test code = 3574) Yes JORGE L (test code = JORGE L) accurate developme nt and interpretation of all internal controls Lab Interpretation (test code = 89372-4) [facility] MOLECULAR [id number] 19:12:07* Test Item Value Reference Range Interpretation Comme nts POCT Molecular FluA (test co de = 27823-1) Negative Negative POCT Molecular FluB (test co de = 80733-3) Negative Negative Lab Interpretation (test cod e = 74279-4) [facility] MOLECULAR [id number] 19:03:24* Test Item Value Reference Range Interpretation Comme nts POCT Molecular Strep (test c ode = 76824-5) Negative Negative Lab Interpretation (test cod e = 37144-4) [facility] MOLECULAR [id number] 21:40:41* Test Item Value Reference Range Interpretation Comme nts POCT Molecular Strep (test c ode = 81527-6) Negative Negative Lab Interpretation (test cod e = 98948-6) [facility] SARS-COV-2 ANTIGEN (BINAX NOW)2023-03-19 21:30:00* Test Item Value Reference Range Interpretation Comme nts POCT SARS-COV-2 ANTIGEN (test code = 68482-9) Not Detected Not Detected On board controls acceptable with C Line (test code = 3574) Yes JORGE L (test code = JORGE L) accurate developme nt and interpretation of all internal controls Lab Interpretation (test code = 95662-9) Normal [facility] MOLECULAR [id number] 21:24:59* Test Item Value Reference Range Interpretation Comme nts POCT Molecular FluA (test co de = 84132-3) Negative Negative POCT Molecular FluB (test co de = 25932-6) Negative Negative Lab Interpretation (test cod e = 09052-0) Normal [facility] MOLECULAR [id number] 21:18:33* Test Item Value Reference Range Interpretation Comme nts POCT Molecular Strep (test c ode = 87580-3) Negative Negative Lab Interpretation (test cod e = 42333-8) Normal [facility] SARS-COV-2 ANTIGEN (BINAX NOW)2023-01-02 21:06:00* Test Item Value Reference Range Interpretation Comme nts POCT SARS-COV-2 ANTIGEN (test code = 21555-6) Not Detected Not Detected On board controls acceptable with C Line (test code = 3574) Yes JORGE L (test code = JORGE L) accurate developme nt and interpretation of all internal controls Lab Interpretation (test code = 04607-6) Normal [facility] METABOLIC [id number] 14:30:08* Test Item Value Reference Range Interpretation Comme nts GLUCOSE (test code = 2217) 92 MG/DL 70-99 BUN (test code = 2208) 8 MG/DL 6-20 CREATININE (test code = 2214) 0.67 MG/DL 0.60-1.30 eGFR (2020 CKD-EPI) (test code = 46420) 121 ML/MIN/1.73 >60 SODIUM (test code = 2231) 141 MEQ/L 133-146 POTASSIUM (test code = 2228) 4.2 MEQ/L 3.5-5.4 CHLORIDE (test code = 2215) 104 MEQ/L 95-107 CARBON DIOXIDE (test code = 2206) 23 MEQ/L 19-31 CALCIUM (test code = 2209) 9.6 MG/DL 8.5-10.5 UNLESS OTHERWISE INDICATED, ALL TESTING PERFORMED AT [facility] [address] [place] [id number] INLAYER SILVER: ANALI LAKHANI M.D. CLIA NUMBER [id number] [facility] [place]. [id number] Notes Date/Time Note Provider Source 2023-09-14 13:56:25 Called number on file. Patient was informed the virus that caused the bronchitis is contagious. Patient is to wear a mask until 09/18/23. Patient is to take medication as prescribed and should be feeling better by then. Patient voiced understanding. Sheree Fernández RN 09/14/2023 2:00 PM Sheree Fernández RN [facility] 2023-09-14 13:51:03 Copied from [facility] #[id number]. 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 Please advise. Lotus Lou [facility] 2023-06-30 16:35:54 Pt left prior to receiving discharge instructions. ER COMPLIANCE REPRESENTATIVE Palmira Del Rosario RN [facility] 2023-06-30 13:38:54 Patient states: "I started having a sore throat this morning. My has strep and flu" ER COMPLIANCE REPRESENTATIVE Danika Smith RN [facility]
--- NOTE | 2024-06-03 00:30 | ER ---
Nurse's Notes [facility] Name: Bette Palmer Age: 33 yrs Sex: Female : 1990 Arrival Date: 06/02/2024 Time: 23:57 Bed 6 Private MD: Diagnosis: Presentation: 06/03 00:16 Note pt called from lobby. no response. lg3 00:22 Note pt called from lobby. no response. lg3 00:28 Note pt called from lobby. no response. per registration, PT left after completing lg3 registration paperwork. provider notified. ED Course: 00:02 Patient arrived in ED. jj6 00:04 Lloyd Franklin PA is PHCP. cp 00:04 Randy Gibbs MD is Attending Physician. cp 00:22 CHAVA BARAHONA, BARAK is Primary Nurse. dd2 Administered Medications: No medications were administered Outcome: 00:29 Patient left the ED. lg3 Signatures: Lloyd Franklin PA PA Lara De Oliveira RN RN lg3 Tania Geller j6 CHAVA BARAHONA, RN RN dd2 Corrections: (The following items were deleted from the chart) 00:28 00:25 Note pt called from lobby. no response lg3 lg3 00:28 00:18 Note pt called from lobby. no response lg3 lg3
== END 2024-06-03 00:29 | disposition left against medical advice (07) ==
LOC: ER 23:57
DX: Z02.9 Encounter for administrative examinations, unspecified (principal)